=== PATIENT | male | born 1935 | race Caucasian/White ===

== ENCOUNTER 2016-12-25 20:27 | Emergency (ER) | payer MEDICARE, BC ==
[2016-12-25 20:57] LABS: INR-International Normal Ratio 2.2; PTT 35.6 SEC (22.9-36.1); Prothrombin Time 25.6 SEC (12.0-14.7)
[2016-12-25 21:08] LABS: CKMB 3.2 ng/mL (0-6.6); Troponin I Less than 0.010 ng/mL (< 0.028)
[2016-12-25 21:13] LABS: ALT (SGPT) 21 U/L (8-55); AST (SGOT) 23 U/L (5-34); Albumin 3.7 g/dL (3.4-4.8); Alkaline Phosphatase 56 U/L (40-150); Anion Gap 14 mmol/L (10-20); BUN (Urea Nitrogen) 17 mg/dL (8.4-25.7); Calc. Creatinine Clearance 0 mL/min (70-130); Carbon Dioxide 27 mmol/L (23-31); Chloride 104 mmol/L (98-107); Estimated GFR-MDRD 55; Globulin 3.3 g/dL (2.4-3.5); Glucose 160 mg/dL (83-110); Potassium 3.5 mmol/L (3.5-5.1); Sodium 141 mmol/L (136-145)
[2016-12-25 21:19] LABS: #Basophils 0.1 thou/uL (0.0-0.2); #Eosinphils 0.1 thou/uL (0.0-0.7); #Lymphocytes 1.8 thou/uL (1.20-3.40); #Monocytes 0.8 thou/uL (0.11-0.59); %Basophils 1.6 % (0.0-1.0); %Eosinophils 1.1 % (0.0-10.0); %Lymphocytes 26.4 % (21.0-51.0); %Monocytes 11.3 % (0.0-10.0); %Neutrophils 59.7 % (42.0-75.0); MDiff Complete? YES; Macrocytosis SLIGHT = 6-15 cells (100X) (0-5/hpf); Mean Corpuscular HGB CONC 35.6 g/dL (32.0-36.0); Mean Corpuscular Hemoglobin 34.8 pg (27.0-31.0); Mean Corpuscular Volume 97.6 fl (80.0-94.0); Mean Platelet Volume 10.6 fL (7.4-10.4); Platelet Count 120 thou/uL (130-400); RBC Distribution Width 12.3 % (11.5-14.5); White Blood Cell (WBC) Count 6.7 thou/uL (4.8-10.8)
[2016-12-25] MEDS ORDERED: Nitroglycerin 2% Ointment 1 INCH/1 GM Packet ONE (21:27)
--- NOTE | 2016-12-25 23:58 | RAD ---
PORTABLE CHEST 12/25/16 An AP portable film at 2050 is compared with a 01/10/15 study. Mild to moderate cardiomegaly is about the same as before. The vessels are slightly prominent such that mild congestion is possible. The r ight hilum is more prominent today than it was before. This may need further investigation to see if there is any pathology here. No large effusions are seen. No lobar infiltrates were present. The trachea is midline. IMPRESSION: 1. Cardiomegaly with possible slight congestive change. 2. Prominence of the right hilum. This probably desires an elective CT to be sure that there is no further pathology here. Code T POS: HOME
[2016-12-26 06:37] LABS: CK (CPK) 309 U/L (30-200)
== END 2016-12-25 21:54 | disposition short-term general hospital (02) ==
LOC: BURERS 20:27
DX: R07.2 Precordial pain (principal); I25.10 Atherosclerotic heart disease of native coronary artery without angina pectoris; I25.2 Old myocardial infarction; E11.9 Type 2 diabetes mellitus without complications; I48.91 Unspecified atrial fibrillation; Z79.4 Long term (current) use of insulin; Z79.891 Long term (current) use of opiate analgesic; Z79.899 Other long term (current) drug therapy
CPT/HCPCS: 71010; 80053; 82550; 82553; 84484; 85025; 85610; 85730; 93005; 94760

== ENCOUNTER 2017-01-28 12:54 | Outpatient (CLI) | payer MEDICARE, BC ==
--- NOTE | 2017-01-28 18:41 | ULT ---
ULTRASOUND OF THE SOFT TISSUES OF THE RIGHT GROIN 01/28/17 The patient is experiencing pain near the site of a prior cardiac cath which was done recently. Scan s around the right groin were performed. There was no evidence of abscess, hematoma, or aneurysm. Ve ssels were unremarkable in appearance. IMPRESSION: No obvious cause for the patient's right groin pain at this time. POS: HOME
== END 2017-01-28 12:55 | disposition home or self-care (01) ==
LOC: BURULT 12:54
PROVIDERS: ATTEND Family Medicine
DX: R10.31 Right lower quadrant pain (principal)
CPT/HCPCS: 76882

== ENCOUNTER 2017-02-27 15:18 | Emergency (ER) | payer MEDICARE, BC ==
[2017-02-27] MEDS ORDERED: AMOXicillin 250 MG CAP ONE (15:34)
== END 2017-02-27 15:27 | disposition home or self-care (01) ==
LOC: BURERS 15:18
DX: R68.84 Jaw pain (principal); I25.10 Atherosclerotic heart disease of native coronary artery without angina pectoris; E11.9 Type 2 diabetes mellitus without complications; I10 Essential (primary) hypertension; Z79.899 Other long term (current) drug therapy; Z79.4 Long term (current) use of insulin
CPT/HCPCS: 99283

== ENCOUNTER 2017-10-19 20:16 | Emergency (ER) | payer MEDICARE, BC ==
[2017-10-19 20:58] LABS: #Basophils 0.1 thou/uL (0.0-0.2); #Eosinphils 0.1 thou/uL (0.0-0.7); #Lymphocytes 1.6 thou/uL (1.20-3.40); #Monocytes 0.6 thou/uL (0.11-0.59); %Basophils 2.1 % (0.0-1.0); %Eosinophils 1.5 % (0.0-10.0); %Lymphocytes 29.9 % (21.0-51.0); %Monocytes 10.5 % (0.0-10.0); Hemoglobin 14.1 g/dL (14.0-18.0); Mean Corpuscular HGB CONC 33.7 g/dL (32.0-36.0); Mean Corpuscular Hemoglobin 33.1 pg (27.0-31.0); Mean Corpuscular Volume 98.3 fl (80.0-94.0); Mean Platelet Volume 11.2 fL (7.4-10.4); Platelet Count 119 thou/uL (130-400); RBC Distribution Width 12.6 % (11.5-14.5); Red Blood Cell (RBC) Count 4.27 mill/uL (4.70-6.10); White Blood Cell (WBC) Count 5.4 thou/uL (4.8-10.8)
[2017-10-19 20:59] LABS: ALT (SGPT) 17 U/L (8-55); AST (SGOT) 15 U/L (5-34); Albumin 3.7 g/dL (3.4-4.8); Alkaline Phosphatase 67 U/L (40-150); Anion Gap 12 mmol/L (10-20); Bilirubin, Total 0.4 mg/dL (0.2-1.2); CK (CPK) 121 U/L (30-200); Calc. Creatinine Clearance 0 mL/min (70-130); Calcium 9.6 mg/dL (7.8-10.44); Carbon Dioxide 28 mmol/L (23-31); Chloride 108 mmol/L (98-107); Estimated GFR-MDRD 73; Globulin 2.9 g/dL (2.4-3.5); Glucose 142 mg/dL (83-110); Potassium 4.2 mmol/L (3.5-5.1); Protein, Total 6.6 g/dL (5.8-8.1); Sodium 144 mmol/L (136-145)
[2017-10-19 21:00] LABS: MDiff Complete? YES
[2017-10-19 21:02] LABS: CKMB 1.8 ng/mL (0-6.6); Troponin I Less than 0.010 ng/mL (< 0.028)
[2017-10-19 21:03] LABS: BUN (Urea Nitrogen) 14 mg/dL (8.4-25.7)
[2017-10-19] MEDS ORDERED: Furosemide 40 MG/4 ML VIAL ONE (21:50)
--- NOTE | 2017-10-19 23:14 | RAD ---
PORTABLE CHEST: Date: 10-19-17 An AP portable film at 2033 is compared with a 12-29-[address] [facility]. FINDINGS: Mild cardiomegaly is about the same as before. The vessels seem slightly more prominent today in the upper lobes than previously. A little haziness near the right hemidiaphragm may be some atelectasis. There are no large effusions or large infiltrates. IMPRESSION: Cardiomegaly with suspicion of early vascular congestion. POS: HOME
== END 2017-10-19 21:59 | disposition short-term general hospital (02) ==
LOC: BURERS 20:16
DX: I11.0 Hypertensive heart disease with heart failure (principal); I50.9 Heart failure, unspecified; M79.622 Pain in left upper arm; M54.6 Pain in thoracic spine; M54.2 Cervicalgia; I25.2 Old myocardial infarction; I48.91 Unspecified atrial fibrillation; I25.10 Atherosclerotic heart disease of native coronary artery without angina pectoris; E11.9 Type 2 diabetes mellitus without complications; Z79.4 Long term (current) use of insulin; Z79.02 Long term (current) use of antithrombotics/antiplatelets; Z79.899 Other long term (current) drug therapy
CPT/HCPCS: 71045; 80053; 82550; 82553; 83880; 84484; 85025; 93005; 94760; 96374; J1940

== ENCOUNTER 2018-03-12 19:13 | Emergency (ER) | payer MEDICARE, BC ==
[~2018-03-12 19:13] MED LIST: Iopamidol 370 76% 100 ML VIAL ONE
[2018-03-12] MEDS ORDERED: Fentanyl 100 MCG/2 ML VIAL ONE ×2 (19:38→20:52)
[2018-03-12 19:50] LABS: #Lymphocytes 0.4 thou/uL (1.20-3.40); #Monocytes 0.1 thou/uL (0.11-0.59); #Neutrophils 7.4 thou/uL (1.40-6.50); %Basophils 0.5 % (0.0-1.0); %Eosinophils 0.3 % (0.0-10.0); %Lymphocytes 5.5 % (21.0-51.0); %Monocytes 1.4 % (0.0-10.0); %Neutrophils 92.4 % (42.0-75.0); Hemoglobin 15.3 g/dL (14.0-18.0); Mean Corpuscular HGB CONC 36.3 g/dL (32.0-36.0); Mean Corpuscular Hemoglobin 32.2 pg (27.0-31.0); Mean Corpuscular Volume 88.8 fL (78.0-98.0); Mean Platelet Volume 8.1 fL (7.4-10.4); Platelet Count 129 thou/uL (130-400); RBC Distribution Width 11.9 % (11.5-14.5); Red Blood Cell (RBC) Count 4.75 mill/uL (4.70-6.10)
[2018-03-12 19:54] LABS: PTT 29.7 SEC (22.9-36.1); Prothrombin Time 13.3 SEC (12.0-14.7)
[2018-03-12 20:02] LABS: ALT (SGPT) 42 U/L (8-55); AST (SGOT) 68 U/L (5-34); Albumin 4.2 g/dL (3.4-4.8); Alkaline Phosphatase 76 U/L (40-150); Anion Gap 17 mmol/L (10-20); BUN (Urea Nitrogen) 15 mg/dL (8.4-25.7); Bilirubin, Total 2.8 mg/dL (0.2-1.2); Calc. Creatinine Clearance 0 mL/min (70-130); Carbon Dioxide 27 mmol/L (23-31); Chloride 103 mmol/L (98-107); Estimated GFR-MDRD 58; Globulin 3.4 g/dL (2.4-3.5); Glucose 177 mg/dL (83-110); Lipase 78 U/L (8-78); Potassium 4.2 mmol/L (3.5-5.1); Protein, Total 7.6 g/dL (5.8-8.1); Sodium 143 mmol/L (136-145)
[2018-03-12 20:03] LABS: CKMB 1.4 ng/mL (0-6.6); Troponin I Less than 0.010 ng/mL (< 0.028)
[2018-03-12] MEDS ORDERED: Piperacillin/Tazobactam 3.375 GM VIAL ONE (20:43)
--- NOTE | 2018-03-12 21:51 | CT ---
CT ABDOMEN AND PELVIS WITH CONTRAST 03/12/18 Multiple axial tomograms obtained through the abdomen and pelvis with IV enhancement. INDICATIONS: Abdominal pain. Comparison made to CT abdomen and pelvis dated 12/01/17. FINDINGS: Lung bases show no evidence of infiltrate. Tiny nodular densities seen in both lung bases, stable fro m prior exam. The liver, and spleen unremarkable. The gallbladder is distended and there is pericholecystic edema. This is a new finding. Cholecystitis should be considered. Cholesterol gallstones will not be apparent by CT. The pancreas is unremarkable and atrophic. A large left renal cyst is stable from prior exam. There are other renal cystic lesions which are sta ble as well. Kidneys are otherwise unremarkable. Small bowel loops are normal caliber. Stool throughout the colon. urinary bladder unremarkable. There is a penile implant with a fluid filled reservoir in the anterior pelvis producing mass effect on th e bladder, stable from prior exam. A cystic mass in the subcutaneous tissues of the lower abdomen on the right has been previously descr ibed. This cystic mass is smaller today. There are inflammatory changes in the subcutaneous adipose t issue near this small cystic mass. IMPRESSION: 1. The gallbladder is distended and there is pericholecystic edema. Cholecystitis should be cons idered. 2. Other findings appears stable from the prior CT as discussed above. POS: KEILA
== END 2018-03-12 20:54 | disposition short-term general hospital (02) ==
LOC: BURERS 19:13
DX: K81.0 Acute cholecystitis (principal); E11.9 Type 2 diabetes mellitus without complications; I25.2 Old myocardial infarction; I11.0 Hypertensive heart disease with heart failure; I50.9 Heart failure, unspecified; I25.10 Atherosclerotic heart disease of native coronary artery without angina pectoris; I48.91 Unspecified atrial fibrillation; Z79.899 Other long term (current) drug therapy; Z79.891 Long term (current) use of opiate analgesic; Z79.84 Long term (current) use of oral hypoglycemic drugs
CPT/HCPCS: 74177; 80053; 82553; 83605; 83690; 84484; 85025; 85610; 85730; 93005; 96361; 96374; 96375; 96376; A4216; J2543; J3010

== ENCOUNTER 2018-03-19 09:08 | Inpatient (IN) | payer MEDICARE, BC ==
[2018-03-19] MEDS ORDERED: Dextrose 50% Abboject 50 ML SYRINGE SLOW IVP PRN (18:20)
[2018-03-19] MEDS ORDERED: Dextrose 5% in Water 1,000 ML IV PRN (18:20)
[2018-03-19] MEDS ORDERED: HumaLOG 300 UNITS/3 ML VIAL SC PRN ×2 (18:20)
[2018-03-19] MEDS: Atorvastatin Calcium 10 MG TAB PO SCH (20:52)
[2018-03-19] MEDS: Cyanocobalamin (Vitamin B-12) 1,000 MCG TAB PO SCH (20:52)
[2018-03-19] MEDS: metFORMIN 500 MG TAB PO SCH (20:52)
[2018-03-19] MEDS: Furosemide 40 MG TAB PO SCH (20:52)
[2018-03-19] MEDS: Gabapentin 300 MG CAP PO SCH (20:52)
[2018-03-19] MEDS: Loperamide HCl 2 MG CAP PO SCH (20:52)
[2018-03-19] MEDS: traMADol HCl 50 MG TAB PO PRN (20:52)
[2018-03-19] MEDS: Amiodarone 200 MG TAB PO SCH (20:53)
[2018-03-19] MEDS: Potassium Chloride 20 MEQ TAB PO SCH (20:53)
[2018-03-19] MEDS: PROBENECID PO SCH (20:54)
[2018-03-19] MEDS: COLCHICINE PO SCH (20:54)
[2018-03-20] MEDS: Loperamide HCl 2 MG CAP PO SCH ×2 (09:32→21:14)
[2018-03-20] MEDS: Clopidogrel Bisulfate 75 MG TAB PO SCH (09:33)
[2018-03-20] MEDS: Amiodarone 200 MG TAB PO SCH ×2 (09:36→21:15)
[2018-03-20] MEDS: Lisinopril 10 MG TAB PO SCH (09:37)
[2018-03-20] MEDS: PROBENECID PO SCH ×3 (09:39→21:15)
[2018-03-20] MEDS: COLCHICINE PO SCH ×3 (09:39→21:15)
[2018-03-20] MEDS: traMADol HCl 50 MG TAB PO PRN (16:52)
[2018-03-20] MEDS: Potassium Chloride 20 MEQ TAB PO SCH (21:14)
[2018-03-20] MEDS: metFORMIN 500 MG TAB PO SCH (21:14)
[2018-03-20] MEDS: Gabapentin 300 MG CAP PO SCH (21:14)
[2018-03-20] MEDS: Atorvastatin Calcium 10 MG TAB PO SCH (21:14)
[2018-03-20] MEDS: Cyanocobalamin (Vitamin B-12) 1,000 MCG TAB PO SCH (21:15)
[2018-03-20] MEDS: Furosemide 40 MG TAB PO SCH (21:15)
[2018-03-21] MEDS: Lisinopril 10 MG TAB PO SCH (08:57)
[2018-03-21] MEDS: Amiodarone 200 MG TAB PO SCH ×2 (08:57→20:33)
[2018-03-21] MEDS: Loperamide HCl 2 MG CAP PO SCH ×2 (08:57→20:32)
[2018-03-21] MEDS: Clopidogrel Bisulfate 75 MG TAB PO SCH (08:57)
[2018-03-21] MEDS: PROBENECID PO SCH ×2 (09:00→20:32)
[2018-03-21] MEDS: COLCHICINE PO SCH ×2 (09:00→20:32)
[2018-03-21] MEDS: Furosemide 40 MG TAB PO SCH (20:32)
[2018-03-21] MEDS: Gabapentin 300 MG CAP PO SCH (20:32)
[2018-03-21] MEDS: Potassium Chloride 20 MEQ TAB PO SCH (20:33)
[2018-03-21] MEDS: Cyanocobalamin (Vitamin B-12) 1,000 MCG TAB PO SCH (20:33)
[2018-03-21] MEDS: metFORMIN 500 MG TAB PO SCH (20:33)
[2018-03-21] MEDS: Atorvastatin Calcium 10 MG TAB PO SCH (20:33)
[2018-03-22 05:09] LABS: ALT (SGPT) 49 U/L (8-55); AST (SGOT) 33 U/L (5-34); Albumin 2.8 g/dL (3.4-4.8); Alkaline Phosphatase 87 U/L (40-150); Anion Gap 14 mmol/L (10-20); BUN (Urea Nitrogen) 10 mg/dL (8.4-25.7); Bilirubin, Total 1.1 mg/dL (0.2-1.2); Calc. Creatinine Clearance 89 mL/min (70-130); Calcium 8.5 mg/dL (7.8-10.44); Carbon Dioxide 23 mmol/L (23-31); Chloride 105 mmol/L (98-107); Estimated GFR-MDRD 81; Glucose 108 mg/dL (83-110); Potassium 4.1 mmol/L (3.5-5.1); Protein, Total 5.8 g/dL (5.8-8.1); Sodium 138 mmol/L (136-145)
[2018-03-22 05:18] LABS: #Basophils 0.1 thou/uL (0.0-0.2); #Eosinphils 0.2 thou/uL (0.0-0.7); #Lymphocytes 1.7 thou/uL (1.20-3.40); #Monocytes 0.9 thou/uL (0.11-0.59); #Neutrophils 4.7 thou/uL (1.40-6.50); %Basophils 1.8 % (0.0-1.0); %Eosinophils 2.1 % (0.0-10.0); %Monocytes 11.9 % (0.0-10.0); %Neutrophils 62.2 % (42.0-75.0); Hemoglobin 9.8 g/dL (14.0-18.0); Mean Corpuscular HGB CONC 36.3 g/dL (32.0-36.0); Mean Corpuscular Hemoglobin 31.2 pg (27.0-31.0); Mean Corpuscular Volume 85.9 fL (78.0-98.0); Platelet Count 200 thou/uL (130-400); RBC Distribution Width 14.4 % (11.5-14.5); Red Blood Cell (RBC) Count 3.13 mill/uL (4.70-6.10); White Blood Cell (WBC) Count 7.6 thou/uL (4.8-10.8)
[2018-03-22] MEDS: Clopidogrel Bisulfate 75 MG TAB PO SCH (08:18)
[2018-03-22] MEDS: Amiodarone 200 MG TAB PO SCH ×2 (08:18→21:31)
[2018-03-22] MEDS: Loperamide HCl 2 MG CAP PO SCH ×2 (08:19→21:33)
[2018-03-22] MEDS: Lisinopril 10 MG TAB PO SCH (08:22)
[2018-03-22] MEDS: PROBENECID PO SCH ×2 (08:25→21:38)
[2018-03-22] MEDS: COLCHICINE PO SCH ×2 (08:25→21:38)
[2018-03-22] MEDS: Atorvastatin Calcium 10 MG TAB PO SCH (21:28)
[2018-03-22] MEDS: Furosemide 40 MG TAB PO SCH (21:28)
[2018-03-22] MEDS: Gabapentin 300 MG CAP PO SCH (21:29)
[2018-03-22] MEDS: Potassium Chloride 20 MEQ TAB PO SCH (21:30)
[2018-03-22] MEDS: Cyanocobalamin (Vitamin B-12) 1,000 MCG TAB PO SCH (21:31)
[2018-03-22] MEDS: metFORMIN 500 MG TAB PO SCH (21:32)
[2018-03-23] MEDS: Loperamide HCl 2 MG CAP PO SCH ×2 (09:42→21:26)
[2018-03-23] MEDS: Clopidogrel Bisulfate 75 MG TAB PO SCH (09:43)
[2018-03-23] MEDS: Lisinopril 10 MG TAB PO SCH (09:43)
[2018-03-23] MEDS: Amiodarone 200 MG TAB PO SCH ×2 (09:43→21:24)
[2018-03-23] MEDS: COLCHICINE PO SCH ×2 (09:44→21:25)
[2018-03-23] MEDS: PROBENECID PO SCH ×2 (09:44→21:25)
[2018-03-23] MEDS: traMADol HCl 50 MG TAB PO PRN ×2 (10:50→17:10)
[2018-03-23] MEDS: Gabapentin 300 MG CAP PO SCH (21:22)
[2018-03-23] MEDS: Cyanocobalamin (Vitamin B-12) 1,000 MCG TAB PO SCH (21:23)
[2018-03-23] MEDS: Potassium Chloride 20 MEQ TAB PO SCH (21:23)
[2018-03-23] MEDS: Furosemide 40 MG TAB PO SCH (21:24)
[2018-03-23] MEDS: metFORMIN 500 MG TAB PO SCH (21:24)
[2018-03-23] MEDS: Atorvastatin Calcium 10 MG TAB PO SCH (21:25)
[2018-03-24] MEDS: traMADol HCl 50 MG TAB PO PRN (00:24)
[2018-03-24] MEDS: Clopidogrel Bisulfate 75 MG TAB PO SCH (09:10)
[2018-03-24] MEDS: Amiodarone 200 MG TAB PO SCH ×2 (09:10→20:56)
[2018-03-24] MEDS: PROBENECID PO SCH ×2 (09:11→20:49)
[2018-03-24] MEDS: COLCHICINE PO SCH ×2 (09:11→20:49)
[2018-03-24] MEDS: Loperamide HCl 2 MG CAP PO SCH ×2 (09:11→20:48)
[2018-03-24] MEDS: Lisinopril 10 MG TAB PO SCH (09:13)
[2018-03-24] MEDS: Cyanocobalamin (Vitamin B-12) 1,000 MCG TAB PO SCH (20:48)
[2018-03-24] MEDS: Atorvastatin Calcium 10 MG TAB PO SCH (20:48)
[2018-03-24] MEDS: Furosemide 40 MG TAB PO SCH (20:48)
[2018-03-24] MEDS: Gabapentin 300 MG CAP PO SCH (20:48)
[2018-03-24] MEDS: metFORMIN 500 MG TAB PO SCH (20:49)
[2018-03-24] MEDS: Potassium Chloride 20 MEQ TAB PO SCH (20:49)
[2018-03-25] MEDS ORDERED: Lisinopril 10 MG TAB PO SCH (09:00)
[2018-03-25] MEDS: Clopidogrel Bisulfate 75 MG TAB PO SCH (09:19)
[2018-03-25] MEDS: Loperamide HCl 2 MG CAP PO SCH ×2 (09:19→21:30)
[2018-03-25] MEDS: Amiodarone 200 MG TAB PO SCH ×2 (09:19→21:29)
[2018-03-25] MEDS: Lisinopril 5 MG TAB PO SCH (09:28)
[2018-03-25] MEDS: PROBENECID PO SCH ×2 (09:30→21:34)
[2018-03-25] MEDS: COLCHICINE PO SCH ×2 (09:30→21:34)
[2018-03-25] MEDS: Furosemide 40 MG TAB PO SCH (21:28)
[2018-03-25] MEDS: metFORMIN 500 MG TAB PO SCH (21:29)
[2018-03-25] MEDS: Gabapentin 300 MG CAP PO SCH (21:29)
[2018-03-25] MEDS: Potassium Chloride 20 MEQ TAB PO SCH (21:30)
[2018-03-25] MEDS: Cyanocobalamin (Vitamin B-12) 1,000 MCG TAB PO SCH (21:30)
[2018-03-25] MEDS: Atorvastatin Calcium 10 MG TAB PO SCH (21:30)
[2018-03-26] MEDS: Lisinopril 5 MG TAB PO SCH (09:49)
[2018-03-26] MEDS: Loperamide HCl 2 MG CAP PO SCH ×2 (09:50→21:21)
[2018-03-26] MEDS: Clopidogrel Bisulfate 75 MG TAB PO SCH (09:50)
[2018-03-26] MEDS: COLCHICINE PO SCH ×2 (09:51→21:20)
[2018-03-26] MEDS: Amiodarone 200 MG TAB PO SCH ×2 (09:51→21:22)
[2018-03-26] MEDS: PROBENECID PO SCH ×2 (09:51→21:20)
[2018-03-26] MEDS: Gabapentin 300 MG CAP PO SCH (21:20)
[2018-03-26] MEDS: Furosemide 40 MG TAB PO SCH (21:20)
[2018-03-26] MEDS: Atorvastatin Calcium 10 MG TAB PO SCH (21:21)
[2018-03-26] MEDS: Cyanocobalamin (Vitamin B-12) 1,000 MCG TAB PO SCH (21:21)
[2018-03-26] MEDS: metFORMIN 500 MG TAB PO SCH (21:21)
[2018-03-26] MEDS: Potassium Chloride 20 MEQ TAB PO SCH (21:21)
[2018-03-27] MEDS: Amiodarone 200 MG TAB PO SCH ×2 (09:03→21:23)
[2018-03-27] MEDS: Lisinopril 5 MG TAB PO SCH (09:03)
[2018-03-27] MEDS: Clopidogrel Bisulfate 75 MG TAB PO SCH (09:05)
[2018-03-27] MEDS: Loperamide HCl 2 MG CAP PO SCH ×2 (09:05→21:23)
[2018-03-27] MEDS: PROBENECID PO SCH ×2 (09:07→21:21)
[2018-03-27] MEDS: COLCHICINE PO SCH ×2 (09:07→21:21)
[2018-03-27] MEDS ORDERED: Oxymetazoline HCl 0.05% ( 15 ML ) ONE (10:51)
[2018-03-27] MEDS: Oxymetazoline HCl 0.05% ( 15 ML ) NASAL PRN (10:56)
[2018-03-27] MEDS: Gabapentin 300 MG CAP PO SCH (21:21)
[2018-03-27] MEDS: Cyanocobalamin (Vitamin B-12) 1,000 MCG TAB PO SCH (21:22)
[2018-03-27] MEDS: Potassium Chloride 20 MEQ TAB PO SCH (21:22)
[2018-03-27] MEDS: metFORMIN 500 MG TAB PO SCH (21:22)
[2018-03-27] MEDS: Furosemide 40 MG TAB PO SCH (21:22)
[2018-03-27] MEDS: Atorvastatin Calcium 10 MG TAB PO SCH (21:22)
[2018-03-28] MEDS: Amiodarone 200 MG TAB PO SCH ×2 (08:42→20:44)
[2018-03-28] MEDS: Lisinopril 5 MG TAB PO SCH (08:42)
[2018-03-28] MEDS: Loperamide HCl 2 MG CAP PO SCH ×2 (08:42→20:45)
[2018-03-28] MEDS: Clopidogrel Bisulfate 75 MG TAB PO SCH (08:43)
[2018-03-28] MEDS: COLCHICINE PO SCH ×2 (08:44→21:23)
[2018-03-28] MEDS: PROBENECID PO SCH ×2 (08:44→21:23)
[2018-03-28] MEDS: Oxymetazoline HCl 0.05% ( 15 ML ) NASAL PRN (08:44)
[2018-03-28] MEDS: Gabapentin 300 MG CAP PO SCH (20:42)
[2018-03-28] MEDS: Furosemide 40 MG TAB PO SCH (20:43)
[2018-03-28] MEDS: Cyanocobalamin (Vitamin B-12) 1,000 MCG TAB PO SCH (20:44)
[2018-03-28] MEDS: metFORMIN 500 MG TAB PO SCH (20:45)
[2018-03-28] MEDS: Atorvastatin Calcium 10 MG TAB PO SCH (20:45)
[2018-03-28] MEDS: Potassium Chloride 20 MEQ TAB PO SCH (20:46)
[2018-03-29 06:00] VITALS: BMI 27.1
[2018-03-29] MEDS: Amiodarone 200 MG TAB PO SCH ×2 (08:45→22:12)
[2018-03-29] MEDS: Lisinopril 5 MG TAB PO SCH (08:45)
[2018-03-29] MEDS: Clopidogrel Bisulfate 75 MG TAB PO SCH (08:46)
[2018-03-29] MEDS: Loperamide HCl 2 MG CAP PO SCH ×2 (08:46→22:10)
[2018-03-29] MEDS: COLCHICINE PO SCH ×2 (08:49→22:12)
[2018-03-29] MEDS: PROBENECID PO SCH ×2 (08:49→22:12)
[2018-03-29 11:04] VITALS: TEMP 97.8
[2018-03-29] MEDS: Potassium Chloride 20 MEQ TAB PO SCH (22:11)
[2018-03-29] MEDS: Gabapentin 300 MG CAP PO SCH (22:12)
[2018-03-29] MEDS: Furosemide 40 MG TAB PO SCH (22:13)
[2018-03-29] MEDS: Atorvastatin Calcium 10 MG TAB PO SCH (22:13)
[2018-03-29] MEDS: metFORMIN 500 MG TAB PO SCH (22:14)
[2018-03-29] MEDS: Cyanocobalamin (Vitamin B-12) 1,000 MCG TAB PO SCH (22:14)
[2018-03-30] MEDS: Amiodarone 200 MG TAB PO SCH (08:31)
[2018-03-30] MEDS: Clopidogrel Bisulfate 75 MG TAB PO SCH (08:31)
[2018-03-30] MEDS: Loperamide HCl 2 MG CAP PO SCH (08:34)
[2018-03-30] MEDS: PROBENECID PO SCH (08:39)
[2018-03-30] MEDS: COLCHICINE PO SCH (08:39)
[2018-03-30] MEDS: Lisinopril 5 MG TAB PO SCH (08:40)
[2018-03-30 08:42] VITALS: BP 107/58
== END 2018-03-30 12:39 | disposition home or self-care (01) | DRG 948 ==
LOC: BURMED 16:05
PROVIDERS: ADMIT Family Medicine; ATTEND Family Medicine
DX: R53.1 Weakness (principal); K81.0 Acute cholecystitis; D62 Acute posthemorrhagic anemia; I48.92 Unspecified atrial flutter; I50.22 Chronic systolic (congestive) heart failure; I25.10 Atherosclerotic heart disease of native coronary artery without angina pectoris; Z95.1 Presence of aortocoronary bypass graft; E11.9 Type 2 diabetes mellitus without complications; Z85.46 Personal history of malignant neoplasm of prostate; M10.9 Gout, unspecified; I48.0 Paroxysmal atrial fibrillation; I25.2 Old myocardial infarction; E78.5 Hyperlipidemia, unspecified; Z90.49 Acquired absence of other specified parts of digestive tract; D69.6 Thrombocytopenia, unspecified; I11.0 Hypertensive heart disease with heart failure
CPT/HCPCS: 36415; 36416; 80053; 85025; G8978-GP-CM; G8979-GP-CJ; G8987-GO-CI; G8988-GO-CI; J7620

== ENCOUNTER 2018-10-17 20:51 | Emergency (ER) | payer MEDICARE, BC ==
[2018-10-17] MEDS ORDERED: diphenhydrAMINE 25 MG CAP ONE (21:50)
[2018-10-17] MEDS ORDERED: Metoclopramide HCl 10 MG/2 ML VIAL ONE ×2 (21:50→21:51)
[2018-10-17 22:02] LABS: #Basophils 0.1 thou/uL (0.0-0.2); #Eosinphils 0.1 thou/uL (0.0-0.7); #Lymphocytes 1.3 thou/uL (1.20-3.40); #Monocytes 0.8 thou/uL (0.11-0.59); #Neutrophils 6.1 thou/uL (1.40-6.50); %Basophils 1.4 % (0.0-1.0); %Eosinophils 0.6 % (0.0-10.0); %Lymphocytes 15.8 % (21.0-51.0); %Monocytes 9.3 % (0.0-10.0); %Neutrophils 72.9 % (42.0-75.0); Hemoglobin 13.3 g/dL (14.0-18.0); Mean Corpuscular HGB CONC 34.6 g/dL (32.0-36.0); Mean Corpuscular Hemoglobin 33.2 pg (27.0-31.0); Mean Corpuscular Volume 95.9 fL (78.0-98.0); Mean Platelet Volume 9.5 fL (7.4-10.4); Platelet Count 161 thou/uL (130-400); RBC Distribution Width 14.1 % (11.5-14.5); Red Blood Cell (RBC) Count 4.02 mill/uL (4.70-6.10); White Blood Cell (WBC) Count 8.4 thou/uL (4.8-10.8)
[2018-10-17 22:15] LABS: ALT (SGPT) 93 U/L (8-55); AST (SGOT) 86 U/L (5-34); Albumin 3.4 g/dL (3.4-4.8); Alkaline Phosphatase 356 U/L (40-150); Anion Gap 13 mmol/L (10-20); BUN (Urea Nitrogen) 18 mg/dL (8.4-25.7); Bilirubin, Total 0.7 mg/dL (0.2-1.2); Calc. Creatinine Clearance 0 mL/min (70-130); Calcium 9.2 mg/dL (7.8-10.44); Carbon Dioxide 33 mmol/L (23-31); Chloride 96 mmol/L (98-107); Estimated GFR-MDRD 48; Globulin 3.4 g/dL (2.4-3.5); Glucose 141 mg/dL (83-110); Protein, Total 6.8 g/dL (5.8-8.1); Sodium 139 mmol/L (136-145)
[2018-10-17 22:29] LABS: Potassium 2.9 mmol/L (3.5-5.1)
== END 2018-10-17 22:37 | disposition home or self-care (01) ==
LOC: BURERS 20:51
DX: R06.6 Hiccough (principal); I25.10 Atherosclerotic heart disease of native coronary artery without angina pectoris; I25.2 Old myocardial infarction; E11.9 Type 2 diabetes mellitus without complications; I11.0 Hypertensive heart disease with heart failure; I50.9 Heart failure, unspecified; Z79.899 Other long term (current) drug therapy; Z79.84 Long term (current) use of oral hypoglycemic drugs; Z79.891 Long term (current) use of opiate analgesic
CPT/HCPCS: 36415; 80053; 84484; 85025; 85379; 93005; 96374; J2765; Q0163

== ENCOUNTER 2018-10-18 17:39 | Outpatient (CLI) | payer MEDICARE, BC ==
--- NOTE | 2018-10-18 22:25 | CT ---
CT CHEST WITHOUT CONTRAST: Date: 10-18-18 Technique: Spiral CT of the chest was done without IV contrast. Axial slices were acquired followed b y coronal and sagittal reconstruction. Comparison: 06-12-18 CT abdomen and pelvis that showed some of the lower chest. FINDINGS: CT of the thorax portion of this exam showed no sign of mediastinal mass or significant adenopathy wi thin the limitations of a noncontrast study. There appears to be a stent in the left common carotid a rtery. Regarding the lungs, there is a patchy ground glass density in the superior portion of the rig ht lower lobe. There are also some areas of scarring in the lung bases. Looking back to the prior sca ns, my suspicion is that this is residual from prior infection. Changes here seem less now than they were on some of the older scans. There are no effusions. There may be a 2 mm nodule in the anterior p art of the right middle lobe, but even if real, I doubt its current significance. There is a small hiatal hernia. There is no significant distention of the stomach or proximal small b owel. A few loose proximal bowel are minimally thickened which is a nonspecific finding and may or ma y not be significant. The liver is normal in size and contains no space occupying lesion. There is ai r in the entire extent of the common bile duct that also extends into some of the left intrahepatic d ucts. I understand the patient has had a prior sphincterotomy which would explain this finding. There are no structural changes in the liver to explain issues with liver function. The spleen is normal i n size. The pancreas is atrophic with no gross mass. The right kidney was unremarkable within the wynne itations of the noncontrast study. There is a very large bilobed cyst associated with the left kidney which was present on older exam. One of the lobes is approximately 6 cm in diameter and the other is approximately 5 cm. There is no true hydronephrosis here. The abdominal aorta showed no focal aneury sm. IMPRESSION: 1. No acute thoracic changes. Findings in the right base are most likely chronic. 2. Small hiatal hernia. 3. Minimal thickening of a few loops of small bowel that was nonspecific. 4. Air in the common bile duct and left biliary tree that is almost certainly due to the prior sphinc terotomy. 5. Bilobed left renal cyst, present on prior scans. POS: HOME
== END 2018-10-18 17:40 | disposition home or self-care (01) ==
LOC: BURCT 17:39
PROVIDERS: ATTEND Family Medicine
DX: R06.6 Hiccough (principal); K44.9 Diaphragmatic hernia without obstruction or gangrene; N28.1 Cyst of kidney, acquired; K63.89 Other specified diseases of intestine; Z98.890 Other specified postprocedural states
CPT/HCPCS: 71250

== ENCOUNTER 2018-12-23 18:38 | Emergency (ER) | payer MEDICARE, BC ==
--- NOTE | 2018-12-23 19:23 | RAD ---
LEFT ELBOW TWO VIEWS: 12/23/18 There has been a prior resection of the radial head. No acute fracture was identified. There does scotty ear to be a small amount of joint fluid. IMPRESSION: Joint fluid, but no acute fracture seen. POS: HOME
--- NOTE | 2018-12-23 19:24 | RAD ---
LEFT SHOULDER TWO VIEWS: 12/23/18 No fracture or dislocation was seen. Arthritic changes are noted in the AC joint. It is not widened o r offset. IMPRESSION: No acute findings. POS: HOME
--- NOTE | 2018-12-23 19:25 | RAD ---
PORTABLE CHEST 12/23/18 An AP portable film at 1850 is compared with a 03/14/18 study. Mild cardiomegaly is no different than before. There is no vascular congestion, edema, or pleural eff usion. Mild elevation of the right hemidiaphragm is chronic. There is no focal infiltrate. A stent is noted in the left common carotid artery. IMPRESSION: No acute thoracic findings. POS: HOME
== END 2018-12-23 19:58 | disposition home or self-care (01) ==
LOC: BURERS 18:38
DX: S43.402A Unspecified sprain of left shoulder joint, initial encounter (principal); S50.02XA Contusion of left elbow, initial encounter; I48.91 Unspecified atrial fibrillation; I25.10 Atherosclerotic heart disease of native coronary artery without angina pectoris; I11.0 Hypertensive heart disease with heart failure; I50.9 Heart failure, unspecified; E11.9 Type 2 diabetes mellitus without complications; Z79.01 Long term (current) use of anticoagulants; Z79.899 Other long term (current) drug therapy; Z79.891 Long term (current) use of opiate analgesic; Z79.84 Long term (current) use of oral hypoglycemic drugs; W17.89XA Other fall from one level to another, initial encounter
CPT/HCPCS: 71045

== ENCOUNTER 2019-01-03 22:32 | Emergency (ER) | payer MEDICARE, BC | END 2019-01-03 23:00 | disposition home or self-care (01) | LOC: BURERS 22:32 | DX: S51.801A Unspecified open wound of right forearm, initial encounter (principal); I48.91 Unspecified atrial fibrillation; I25.10 Atherosclerotic heart disease of native coronary artery without angina pectoris; I25.2 Old myocardial infarction; E11.9 Type 2 diabetes mellitus without complications; I11.0 Hypertensive heart disease with heart failure; I50.9 Heart failure, unspecified; Z79.899 Other long term (current) drug therapy; Z79.84 Long term (current) use of oral hypoglycemic drugs; W19.XXXA Unspecified fall, initial encounter | CPT/HCPCS: 99282 ==

== ENCOUNTER 2019-01-04 11:05 | Emergency (ER) | payer MEDICARE, BC ==
--- NOTE | 2019-01-04 17:32 | CT ---
CT OF THE BRAIN WITHOUT CONTRAST: 01/04/[address] was done after a fall. No intracranial bleeding or extra-axial hematoma was seen. Th ere is no sign of mass, edema, or acute stroke. There are a few patchy hypolucencies in the deep whit e matter suggestive of chronic white matter ischemia. There is a moderate degree of atrophy with mild compensatory dilatation of the ventricles. There may have been an old lacunar infarct in the right thalamus. IMPRESSION: 1. Atrophy and chronic ischemic changes but no acute traumatic findings. 2. The skull appears intact. The sphenoid sinus and mastoid air cells are clear. POS: HOME
== END 2019-01-04 12:01 | disposition home or self-care (01) ==
LOC: BURERS 11:05
DX: S51.012A Laceration without foreign body of left elbow, initial encounter (principal); S80.212A Abrasion, left knee, initial encounter; I25.2 Old myocardial infarction; E11.9 Type 2 diabetes mellitus without complications; I25.10 Atherosclerotic heart disease of native coronary artery without angina pectoris; I11.0 Hypertensive heart disease with heart failure; I50.9 Heart failure, unspecified; Z79.899 Other long term (current) drug therapy; Z79.891 Long term (current) use of opiate analgesic; Z79.84 Long term (current) use of oral hypoglycemic drugs; W19.XXXA Unspecified fall, initial encounter; Y92.511 Restaurant or cafe as the place of occurrence of the external cause
CPT/HCPCS: 12002; 70450

== ENCOUNTER 2019-01-18 14:09 | Emergency (ER) | payer MEDICARE, BC | END 2019-01-18 15:02 | disposition home or self-care (01) | LOC: BURERS 14:09 | DX: E03.9 Hypothyroidism, unspecified (principal); R63.5 Abnormal weight gain; I48.91 Unspecified atrial fibrillation; I25.10 Atherosclerotic heart disease of native coronary artery without angina pectoris; I25.2 Old myocardial infarction; E11.9 Type 2 diabetes mellitus without complications; I11.0 Hypertensive heart disease with heart failure; I50.9 Heart failure, unspecified; Z79.899 Other long term (current) drug therapy; Z79.84 Long term (current) use of oral hypoglycemic drugs | CPT/HCPCS: 99283 ==

== ENCOUNTER 2019-01-31 16:41 | Outpatient (CLI) | payer MEDICARE, BC | END 2019-01-31 16:42 | disposition home or self-care (01) | LOC: BUREKG 16:41 | PROVIDERS: ATTEND Family Medicine | DX: I50.20 Unspecified systolic (congestive) heart failure (principal) | CPT/HCPCS: 93005; 93010 ==

== ENCOUNTER 2019-07-08 19:34 | Inpatient (IN) | payer MEDICARE, BC ==
[2019-07-09] MEDS ORDERED: FLU VACC TS2019-20(65YR UP)/PF 180 MCG/0.5 ML SYRINGE IM ONE (09:00)
[2019-07-09] MEDS ORDERED: Prevnar 13-Val Conj/PF 0.5 ML SYRINGE IM ONE (09:00)
[2019-07-09] MEDS ORDERED: SMX/TMP 800-160mg/20 ML UDCUP ONE ×2 (09:52→20:42)
[2019-07-09] MEDS: SMX/TMP 800-160mg/20 ML UDCUP PER TUBE SCH ×2 (10:14→20:44)
[2019-07-09] MEDS: Furosemide 40 MG TAB PER TUBE SCH (10:15)
[2019-07-09] MEDS: Megestrol Acetate 40 MG TAB PER TUBE SCH ×2 (10:16→20:38)
[2019-07-09] MEDS: Saccharomyces boulardii 250 MG CAP PER TUBE SCH (10:16)
[2019-07-09] MEDS: Clopidogrel Bisulfate 75 MG TAB PER TUBE SCH (10:16)
[2019-07-09] MEDS: Colchicine 0.6 MG TAB PER TUBE SCH ×2 (10:16→20:38)
[2019-07-09] MEDS: Amiodarone 200 MG TAB PER TUBE SCH (10:16)
[2019-07-09] MEDS ORDERED: Dextrose 50% Abboject 50 ML SYRINGE SLOW IVP PRN (20:13)
[2019-07-09] MEDS ORDERED: Dextrose 5% in Water 1,000 ML IV PRN (20:13)
[2019-07-09] MEDS: Atorvastatin Calcium 10 MG TAB PER TUBE SCH (20:38)
[2019-07-09] MEDS: metFORMIN 500 MG TAB PER TUBE SCH (20:38)
[2019-07-10] MEDS: Levothyroxine Sodium 50 MCG TAB PER TUBE SCH (05:46)
[2019-07-10] MEDS ORDERED: SMX/TMP 800-160mg/20 ML UDCUP ONE ×2 (09:00→20:28)
[2019-07-10] MEDS: Clopidogrel Bisulfate 75 MG TAB PER TUBE SCH (09:48)
[2019-07-10] MEDS: Colchicine 0.6 MG TAB PER TUBE SCH ×2 (09:48→20:48)
[2019-07-10] MEDS: Furosemide 40 MG TAB PER TUBE SCH (09:48)
[2019-07-10] MEDS: Saccharomyces boulardii 250 MG CAP PER TUBE SCH (09:48)
[2019-07-10] MEDS: Megestrol Acetate 40 MG TAB PER TUBE SCH ×2 (09:49→20:49)
[2019-07-10] MEDS: Amiodarone 200 MG TAB PER TUBE SCH (09:49)
[2019-07-10] MEDS: Metoclopramide HCl 10 MG TAB PER TUBE PRN (09:50)
[2019-07-10] MEDS: SMX/TMP 800-160mg/20 ML UDCUP PER TUBE SCH ×2 (09:50→20:52)
[2019-07-10] MEDS: Bisacodyl 10 MG SUPP PR PRN (17:05)
[2019-07-10] MEDS ORDERED: Ciprofloxacin Lactate/D5W 400 mg/200 ml Premix ONE (20:24)
[2019-07-10] MEDS: Atorvastatin Calcium 10 MG TAB PER TUBE SCH (20:49)
[2019-07-10] MEDS: metFORMIN 500 MG TAB PER TUBE SCH (20:49)
[2019-07-11 04:50] LABS: #Basophils 0.2 thou/uL (0.0-0.2); #Lymphocytes 1.6 thou/uL (1.20-3.40); #Monocytes 1.4 thou/uL (0.11-0.59); %Basophils 1.4 % (0.0-1.0); %Eosinophils 0.3 % (0.0-10.0); %Lymphocytes 12.8 % (21.0-51.0); %Monocytes 11.4 % (0.0-10.0); %Neutrophils 74.1 % (42.0-75.0); Hemoglobin 11.1 g/dL (14.0-18.0); Mean Corpuscular HGB CONC 32.4 g/dL (32.0-36.0); Mean Platelet Volume 7.6 fL (7.4-10.4); Platelet Count 155 thou/uL (130-400); RBC Distribution Width 15.8 % (11.5-14.5); Red Blood Cell (RBC) Count 3.37 mill/uL (4.70-6.10); White Blood Cell (WBC) Count 12.1 thou/uL (4.8-10.8)
[2019-07-11 05:17] LABS: ALT (SGPT) 64 U/L (8-55); AST (SGOT) 94 U/L (5-34); Albumin 2.3 g/dL (3.4-4.8); Alkaline Phosphatase 623 U/L (40-110); Anion Gap 14 mmol/L (10-20); BUN (Urea Nitrogen) 17 mg/dL (8.4-25.7); Bilirubin, Total 0.7 mg/dL (0.2-1.2); Calc. Creatinine Clearance 82 mL/min (70-130); Calcium 8.4 mg/dL (7.8-10.44); Carbon Dioxide 27 mmol/L (23-31); Chloride 100 mmol/L (98-107); Estimated GFR-MDRD Greater than 90; Globulin 4.1 g/dL (2.4-3.5); Glucose 99 mg/dL (83-110); Potassium 4.3 mmol/L (3.5-5.1); Protein, Total 6.4 g/dL (5.8-8.1); Sodium 137 mmol/L (136-145)
[2019-07-11] MEDS: Levothyroxine Sodium 50 MCG TAB PER TUBE SCH (06:25)
[2019-07-11] MEDS: Metoclopramide HCl 10 MG TAB PER TUBE PRN (07:37)
[2019-07-11] MEDS ORDERED: SMX/TMP 800-160mg/20 ML UDCUP ONE ×2 (09:13→20:10)
[2019-07-11] MEDS: SMX/TMP 800-160mg/20 ML UDCUP PER TUBE SCH ×2 (10:02→20:44)
[2019-07-11] MEDS: Furosemide 40 MG TAB PER TUBE SCH (10:03)
[2019-07-11] MEDS: Megestrol Acetate 40 MG TAB PER TUBE SCH ×2 (10:05→20:43)
[2019-07-11] MEDS: Clopidogrel Bisulfate 75 MG TAB PER TUBE SCH (10:05)
[2019-07-11] MEDS: Amiodarone 200 MG TAB PER TUBE SCH (10:05)
[2019-07-11] MEDS: Colchicine 0.6 MG TAB PER TUBE SCH ×2 (10:06→20:43)
[2019-07-11] MEDS: Saccharomyces boulardii 250 MG CAP PER TUBE SCH (10:06)
[2019-07-11] MEDS ORDERED: Ondansetron ODT 4 MG TAB PO PRN (15:22)
[2019-07-11] MEDS: Bisacodyl 10 MG SUPP PR PRN (17:04)
[2019-07-11] MEDS ORDERED: Sodium Chloride 0.9% 500 ML IV SCH (17:30)
[2019-07-11] MEDS: metFORMIN 500 MG TAB PER TUBE SCH (20:43)
[2019-07-11] MEDS: Atorvastatin Calcium 10 MG TAB PER TUBE SCH (20:43)
[2019-07-12] MEDS: Levothyroxine Sodium 50 MCG TAB PER TUBE SCH (05:23)
[2019-07-12 06:11] LABS: #Basophils 0.1 thou/uL (0.0-0.2); #Lymphocytes 1.4 thou/uL (1.20-3.40); #Monocytes 1.1 thou/uL (0.11-0.59); #Neutrophils 9.4 thou/uL (1.40-6.50); %Basophils 1.1 % (0.0-1.0); %Eosinophils 0.3 % (0.0-10.0); %Lymphocytes 11.4 % (21.0-51.0); %Neutrophils 78.2 % (42.0-75.0); Anisocytosis SLIGHT = 6-15 cells (100X) (0-5/hpf); Hemoglobin 10.3 g/dL (14.0-18.0); MDiff Complete? YES; Mean Corpuscular HGB CONC 34.6 g/dL (32.0-36.0); Mean Corpuscular Hemoglobin 34.6 pg (27.0-31.0); Mean Platelet Volume 9.1 fL (7.4-10.4); Platelet Count 147 thou/uL (130-400); Platelet Morphology Comment Appears Adequate; RBC Distribution Width 15.9 % (11.5-14.5); Red Blood Cell (RBC) Count 2.98 mill/uL (4.70-6.10); Rouleaux Formation SLIGHT = 1-5 cells (100X) (None Seen); Toxic Granulation SLIGHT
[2019-07-12] MEDS ORDERED: SMX/TMP 800-160mg/20 ML UDCUP ONE (08:56)
[2019-07-12] MEDS: Saccharomyces boulardii 250 MG CAP PER TUBE SCH (09:23)
[2019-07-12] MEDS: Amiodarone 200 MG TAB PER TUBE SCH (09:23)
[2019-07-12] MEDS: Colchicine 0.6 MG TAB PER TUBE SCH ×2 (09:23→20:33)
[2019-07-12] MEDS: Megestrol Acetate 40 MG TAB PER TUBE SCH ×2 (09:24→20:33)
[2019-07-12] MEDS: Clopidogrel Bisulfate 75 MG TAB PER TUBE SCH (09:24)
[2019-07-12] MEDS: Furosemide 40 MG TAB PER TUBE SCH (09:24)
[2019-07-12] MEDS: Metoclopramide HCl 10 MG TAB PER TUBE PRN (09:24)
[2019-07-12] MEDS: SMX/TMP 800-160mg/20 ML UDCUP PER TUBE SCH ×2 (09:26→20:33)
[2019-07-12] MEDS ORDERED: Pancrelipase DR 12000 1 CAP FS PRN (16:52)
[2019-07-12] MEDS ORDERED: Sodium Bicarbonate Tab 325 MG TAB PER TUBE PRN (16:52)
[2019-07-12] MEDS: Atorvastatin Calcium 10 MG TAB PER TUBE SCH (20:33)
[2019-07-12] MEDS: metFORMIN 500 MG TAB PER TUBE SCH (20:33)
[2019-07-13] MEDS: Scopolamine 1.5 mg/72 hour Patch TOP SCH (02:34)
[2019-07-13] MEDS: Levothyroxine Sodium 50 MCG TAB PER TUBE SCH (05:39)
[2019-07-13] MEDS: SMX/TMP 800-160mg/20 ML UDCUP PER TUBE SCH ×2 (08:28→20:16)
[2019-07-13] MEDS: Megestrol Acetate 40 MG TAB PER TUBE SCH ×2 (08:29→20:16)
[2019-07-13] MEDS: Colchicine 0.6 MG TAB PER TUBE SCH ×2 (08:30→20:16)
[2019-07-13] MEDS: Clopidogrel Bisulfate 75 MG TAB PER TUBE SCH (08:30)
[2019-07-13] MEDS: Furosemide 40 MG TAB PER TUBE SCH (08:30)
[2019-07-13] MEDS: Amiodarone 200 MG TAB PER TUBE SCH (08:30)
[2019-07-13] MEDS: Saccharomyces boulardii 250 MG CAP PER TUBE SCH (08:30)
[2019-07-13] MEDS: metFORMIN 500 MG TAB PER TUBE SCH (20:16)
[2019-07-13] MEDS: Atorvastatin Calcium 10 MG TAB PER TUBE SCH (20:16)
[2019-07-14] MEDS: Levothyroxine Sodium 50 MCG TAB PER TUBE SCH (05:18)
[2019-07-14] MEDS: Saccharomyces boulardii 250 MG CAP PER TUBE SCH (08:39)
[2019-07-14] MEDS: Colchicine 0.6 MG TAB PER TUBE SCH (08:39)
[2019-07-14] MEDS: Megestrol Acetate 40 MG TAB PER TUBE SCH ×2 (08:39→20:49)
[2019-07-14] MEDS: Amiodarone 200 MG TAB PER TUBE SCH (08:39)
[2019-07-14] MEDS: Clopidogrel Bisulfate 75 MG TAB PER TUBE SCH (08:39)
[2019-07-14] MEDS: Furosemide 40 MG TAB PER TUBE SCH (08:40)
[2019-07-14] MEDS: SMX/TMP 800-160mg/20 ML UDCUP PER TUBE SCH ×2 (08:41→20:49)
[2019-07-14] MEDS ORDERED: Diphenoxylate HCl/Atropine Tablet PO PRN (17:52)
[2019-07-14] MEDS ORDERED: Colchicine 0.6 MG TAB PER TUBE SCH (18:00)
[2019-07-14] MEDS: Atorvastatin Calcium 10 MG TAB PER TUBE SCH (20:49)
[2019-07-15] MEDS: Levothyroxine Sodium 50 MCG TAB PER TUBE SCH (05:29)
[2019-07-15] MEDS: SMX/TMP 800-160mg/20 ML UDCUP PER TUBE SCH ×2 (09:26→20:40)
[2019-07-15] MEDS: Megestrol Acetate 40 MG TAB PER TUBE SCH ×2 (09:28→20:40)
[2019-07-15] MEDS: Furosemide 40 MG TAB PER TUBE SCH (09:28)
[2019-07-15] MEDS: Saccharomyces boulardii 250 MG CAP PER TUBE SCH (09:28)
[2019-07-15] MEDS: Amiodarone 200 MG TAB PER TUBE SCH (09:29)
[2019-07-15] MEDS: Clopidogrel Bisulfate 75 MG TAB PER TUBE SCH (09:29)
[2019-07-15] MEDS: Colchicine 0.6 MG TAB PO SCH (09:33)
[2019-07-15] MEDS: Atorvastatin Calcium 10 MG TAB PER TUBE SCH (20:40)
[2019-07-16] MEDS: Scopolamine 1.5 mg/72 hour Patch TOP SCH (03:29)
[2019-07-16] MEDS: Levothyroxine Sodium 50 MCG TAB PER TUBE SCH (06:17)
[2019-07-16] MEDS: Furosemide 40 MG TAB PER TUBE SCH (08:57)
[2019-07-16] MEDS: Saccharomyces boulardii 250 MG CAP PER TUBE SCH (08:57)
[2019-07-16] MEDS: Clopidogrel Bisulfate 75 MG TAB PER TUBE SCH (08:58)
[2019-07-16] MEDS: Megestrol Acetate 40 MG TAB PER TUBE SCH ×2 (08:58→20:50)
[2019-07-16] MEDS: Amiodarone 200 MG TAB PER TUBE SCH (08:59)
[2019-07-16] MEDS: SMX/TMP 800-160mg/20 ML UDCUP PER TUBE SCH ×2 (09:00→20:49)
[2019-07-16] MEDS: Colchicine 0.6 MG TAB PO SCH (09:05)
[2019-07-16] MEDS: Atorvastatin Calcium 10 MG TAB PER TUBE SCH (20:50)
[2019-07-17] MEDS ORDERED: Furosemide 40 MG TAB PER TUBE SCH (03:00)
[2019-07-17] MEDS ORDERED: risperiDONE 0.5 MG TAB PER TUBE SCH (03:00)
[2019-07-17 04:40] LABS: ALT (SGPT) 54 U/L (8-55); AST (SGOT) 62 U/L (5-34); Albumin 2.1 g/dL (3.4-4.8); Alkaline Phosphatase 448 U/L (40-110); Anion Gap 12 mmol/L (10-20); BUN (Urea Nitrogen) 15 mg/dL (8.4-25.7); Bilirubin, Total 0.4 mg/dL (0.2-1.2); Calc. Creatinine Clearance 82 mL/min (70-130); Calcium 8.2 mg/dL (7.8-10.44); Carbon Dioxide 27 mmol/L (23-31); Chloride 96 mmol/L (98-107); Estimated GFR-MDRD Greater than 90; Globulin 4.1 g/dL (2.4-3.5); Glucose 99 mg/dL (83-110); Potassium 4.3 mmol/L (3.5-5.1); Protein, Total 6.2 g/dL (5.8-8.1); Sodium 131 mmol/L (136-145)
[2019-07-17 04:44] LABS: #Basophils 0.1 thou/uL (0.0-0.2); #Eosinphils 0.1 thou/uL (0.0-0.7); #Lymphocytes 1.3 thou/uL (1.20-3.40); #Neutrophils 5.8 thou/uL (1.40-6.50); %Basophils 1.4 % (0.0-1.0); %Lymphocytes 16.1 % (21.0-51.0); %Monocytes 12.1 % (0.0-10.0); %Neutrophils 69.3 % (42.0-75.0); Anisocytosis SLIGHT = 6-15 cells (100X) (0-5/hpf); Hemoglobin 10.6 g/dL (14.0-18.0); MDiff Complete? YES; Mean Corpuscular HGB CONC 35.9 g/dL (32.0-36.0); Mean Corpuscular Hemoglobin 35.3 pg (27.0-31.0); Mean Corpuscular Volume 98.5 fL (78.0-98.0); Mean Platelet Volume 8.9 fL (7.4-10.4); Ovalocytes SLIGHT = 2-5 cells (100X) (0-1/hpf); Platelet Count 130 thou/uL (130-400); Platelet Morphology Comment Appears Adequate; Red Blood Cell (RBC) Count 3.01 mill/uL (4.70-6.10); White Blood Cell (WBC) Count 8.3 thou/uL (4.8-10.8)
[2019-07-17] MEDS: Levothyroxine Sodium 50 MCG TAB PER TUBE SCH (05:12)
[2019-07-17] MEDS: Saccharomyces boulardii 250 MG CAP PER TUBE SCH (08:51)
[2019-07-17] MEDS: Furosemide 40 MG TAB PER TUBE SCH (08:53)
[2019-07-17] MEDS: Megestrol Acetate 40 MG TAB PER TUBE SCH ×2 (08:53→21:09)
[2019-07-17] MEDS: Clopidogrel Bisulfate 75 MG TAB PER TUBE SCH (08:53)
[2019-07-17] MEDS: Amiodarone 200 MG TAB PER TUBE SCH (08:53)
[2019-07-17] MEDS: Colchicine 0.6 MG TAB PO SCH (08:54)
[2019-07-17] MEDS: SMX/TMP 800-160mg/20 ML UDCUP PER TUBE SCH ×2 (08:55→21:10)
--- NOTE | 2019-07-17 11:14 | RAD ---
PORTABLE CHEST: 07/17/2019 COMPARISON: Study from 06/29/2019 from [facility]. FINDINGS: Elevation of the right hemidiaphragm is chronic and there is likely pleural fluid here as well. It ac tually is less than was previous previously. The left lung is relatively clear. Prominence of vascula ture seen previously has improved. The heart is minimally enlarged. IMPRESSION: While there are residual changes from the prior study, overall, the appearance of the chest is improv ed since 06/29/2019. POS: HOME
[2019-07-17] MEDS: Atorvastatin Calcium 10 MG TAB PER TUBE SCH (21:09)
[2019-07-17] MEDS: risperiDONE 0.5 MG TAB PO SCH (21:10)
[2019-07-18] MEDS: Levothyroxine Sodium 50 MCG TAB PER TUBE SCH (06:12)
[2019-07-18] MEDS: Clopidogrel Bisulfate 75 MG TAB PER TUBE SCH (10:03)
[2019-07-18] MEDS: Amiodarone 200 MG TAB PER TUBE SCH (10:03)
[2019-07-18] MEDS: SMX/TMP 800-160mg/20 ML UDCUP PER TUBE SCH ×2 (10:03→21:06)
[2019-07-18] MEDS: Colchicine 0.6 MG TAB PO SCH (10:03)
[2019-07-18] MEDS: Megestrol Acetate 40 MG TAB PER TUBE SCH ×2 (10:04→21:06)
[2019-07-18] MEDS: Furosemide 40 MG TAB PER TUBE SCH (10:04)
[2019-07-18] MEDS: Saccharomyces boulardii 250 MG CAP PER TUBE SCH (10:04)
[2019-07-18] MEDS: risperiDONE 0.5 MG TAB PO SCH (21:06)
[2019-07-18] MEDS: Atorvastatin Calcium 10 MG TAB PER TUBE SCH (21:06)
[2019-07-19] MEDS: Scopolamine 1.5 mg/72 hour Patch TOP SCH (03:55)
[2019-07-19 05:24] LABS: Anion Gap 11 mmol/L (10-20); BUN (Urea Nitrogen) 14 mg/dL (8.4-25.7); Calc. Creatinine Clearance 81 mL/min (70-130); Carbon Dioxide 28 mmol/L (23-31); Chloride 96 mmol/L (98-107); Estimated GFR-MDRD Greater than 90; Glucose 83 mg/dL (83-110); Potassium 4.2 mmol/L (3.5-5.1); Sodium 131 mmol/L (136-145)
[2019-07-19] MEDS: Levothyroxine Sodium 50 MCG TAB PER TUBE SCH (05:25)
[2019-07-19] MEDS: Furosemide 40 MG TAB PER TUBE SCH (07:37)
[2019-07-19] MEDS: Colchicine 0.6 MG TAB PO SCH (09:02)
[2019-07-19] MEDS: Clopidogrel Bisulfate 75 MG TAB PER TUBE SCH (09:03)
[2019-07-19] MEDS: Saccharomyces boulardii 250 MG CAP PER TUBE SCH (09:03)
[2019-07-19] MEDS: Amiodarone 200 MG TAB PER TUBE SCH (09:03)
[2019-07-19] MEDS: Megestrol Acetate 40 MG TAB PER TUBE SCH ×2 (09:03→20:14)
[2019-07-19] MEDS: Atorvastatin Calcium 10 MG TAB PER TUBE SCH (20:14)
[2019-07-19] MEDS: risperiDONE 0.5 MG TAB PO SCH (20:14)
[2019-07-20] MEDS: Levothyroxine Sodium 50 MCG TAB PER TUBE SCH (05:13)
[2019-07-20] MEDS: Clopidogrel Bisulfate 75 MG TAB PER TUBE SCH (09:12)
[2019-07-20] MEDS: Colchicine 0.6 MG TAB PO SCH (09:12)
[2019-07-20] MEDS: Saccharomyces boulardii 250 MG CAP PER TUBE SCH (09:12)
[2019-07-20] MEDS: Furosemide 40 MG TAB PER TUBE SCH (09:13)
[2019-07-20] MEDS: Megestrol Acetate 40 MG TAB PER TUBE SCH ×2 (09:14→21:22)
[2019-07-20] MEDS: Amiodarone 200 MG TAB PER TUBE SCH (09:14)
[2019-07-20] MEDS: Atorvastatin Calcium 10 MG TAB PER TUBE SCH (21:22)
[2019-07-20] MEDS: risperiDONE 0.5 MG TAB PO SCH (21:23)
[2019-07-21] MEDS: Levothyroxine Sodium 50 MCG TAB PER TUBE SCH (06:08)
[2019-07-21] MEDS: Colchicine 0.6 MG TAB PO SCH (08:50)
[2019-07-21] MEDS: Furosemide 40 MG TAB PER TUBE SCH (08:52)
[2019-07-21] MEDS: Megestrol Acetate 40 MG TAB PER TUBE SCH ×2 (08:52→21:59)
[2019-07-21] MEDS: Amiodarone 200 MG TAB PER TUBE SCH (08:52)
[2019-07-21] MEDS: Clopidogrel Bisulfate 75 MG TAB PER TUBE SCH (08:52)
[2019-07-21] MEDS: Saccharomyces boulardii 250 MG CAP PER TUBE SCH (08:53)
[2019-07-21] MEDS: risperiDONE 0.5 MG TAB PO SCH (21:59)
[2019-07-21] MEDS: Atorvastatin Calcium 10 MG TAB PER TUBE SCH (21:59)
[2019-07-22] MEDS: Levothyroxine Sodium 50 MCG TAB PER TUBE SCH (05:03)
[2019-07-22 05:20] LABS: ALT (SGPT) 48 U/L (8-55); AST (SGOT) 56 U/L (5-34); Albumin 2.1 g/dL (3.4-4.8); Alkaline Phosphatase 437 U/L (40-110); Anion Gap 12 mmol/L (10-20); BUN (Urea Nitrogen) 17 mg/dL (8.4-25.7); Bilirubin, Total 0.4 mg/dL (0.2-1.2); Calc. Creatinine Clearance 78 mL/min (70-130); Calcium 8.1 mg/dL (7.8-10.44); Carbon Dioxide 29 mmol/L (23-31); Chloride 102 mmol/L (98-107); Estimated GFR-MDRD Greater than 90; Globulin 4.1 g/dL (2.4-3.5); Glucose 99 mg/dL (83-110); Potassium 4.2 mmol/L (3.5-5.1); Protein, Total 6.2 g/dL (5.8-8.1); Sodium 139 mmol/L (136-145)
[2019-07-22 05:42] LABS: #Basophils 0.1 thou/uL (0.0-0.2); #Lymphocytes 1.5 thou/uL (1.20-3.40); #Neutrophils 4.6 thou/uL (1.40-6.50); %Basophils 1.1 % (0.0-1.0); %Eosinophils 0.6 % (0.0-10.0); %Lymphocytes 20.7 % (21.0-51.0); %Neutrophils 63.7 % (42.0-75.0); Anisocytosis SLIGHT = 6-15 cells (100X) (0-5/hpf); Hemoglobin 9.3 g/dL (14.0-18.0); MDiff Complete? YES; Mean Corpuscular HGB CONC 37.4 g/dL (32.0-36.0); Mean Corpuscular Hemoglobin 37.7 pg (27.0-31.0); Mean Platelet Volume 7.6 fL (7.4-10.4); Platelet Count 164 thou/uL (130-400); Platelet Morphology Comment Appears Adequate; RBC Distribution Width 16.8 % (11.5-14.5); Red Blood Cell (RBC) Count 2.46 mill/uL (4.70-6.10); Rouleaux Formation SLIGHT = 1-5 cells (100X) (None Seen); White Blood Cell (WBC) Count 7.2 thou/uL (4.8-10.8)
[2019-07-22] MEDS: Megestrol Acetate 40 MG TAB PER TUBE SCH ×2 (08:06→20:17)
[2019-07-22] MEDS: Amiodarone 200 MG TAB PER TUBE SCH (08:07)
[2019-07-22] MEDS: Clopidogrel Bisulfate 75 MG TAB PER TUBE SCH (08:07)
[2019-07-22] MEDS: Furosemide 40 MG TAB PER TUBE SCH (08:07)
[2019-07-22] MEDS: Saccharomyces boulardii 250 MG CAP PER TUBE SCH (08:09)
[2019-07-22] MEDS: Colchicine 0.6 MG TAB PO SCH (08:11)
[2019-07-22] MEDS: risperiDONE 0.5 MG TAB PO SCH (20:17)
[2019-07-22] MEDS: Atorvastatin Calcium 10 MG TAB PER TUBE SCH (20:17)
[2019-07-23] MEDS: Levothyroxine Sodium 50 MCG TAB PER TUBE SCH (05:35)
[2019-07-23] MEDS: Furosemide 40 MG TAB PER TUBE SCH (10:01)
[2019-07-23] MEDS: Saccharomyces boulardii 250 MG CAP PER TUBE SCH (10:02)
[2019-07-23] MEDS: Clopidogrel Bisulfate 75 MG TAB PER TUBE SCH (10:02)
[2019-07-23] MEDS: Colchicine 0.6 MG TAB PO SCH (10:02)
[2019-07-23] MEDS: Amiodarone 200 MG TAB PER TUBE SCH (10:02)
[2019-07-23] MEDS: Megestrol Acetate 40 MG TAB PER TUBE SCH ×2 (10:02→20:39)
[2019-07-23] MEDS: risperiDONE 0.5 MG TAB PO SCH (20:39)
[2019-07-23] MEDS: Atorvastatin Calcium 10 MG TAB PER TUBE SCH (20:39)
[2019-07-24] MEDS: Levothyroxine Sodium 50 MCG TAB PER TUBE SCH (05:12)
[2019-07-24] MEDS: Furosemide 40 MG TAB PER TUBE SCH (07:49)
[2019-07-24] MEDS: Megestrol Acetate 40 MG TAB PER TUBE SCH ×2 (07:49→21:31)
[2019-07-24] MEDS: Amiodarone 200 MG TAB PER TUBE SCH (07:50)
[2019-07-24] MEDS: Clopidogrel Bisulfate 75 MG TAB PER TUBE SCH (07:50)
[2019-07-24] MEDS: Colchicine 0.6 MG TAB PO SCH (07:50)
[2019-07-24] MEDS: Saccharomyces boulardii 250 MG CAP PER TUBE SCH (07:51)
[2019-07-24] MEDS: Atorvastatin Calcium 10 MG TAB PER TUBE SCH (21:31)
[2019-07-24] MEDS: risperiDONE 0.5 MG TAB PO SCH (21:31)
[2019-07-25] MEDS: Levothyroxine Sodium 50 MCG TAB PER TUBE SCH (05:17)
[2019-07-25] MEDS: Amiodarone 200 MG TAB PER TUBE SCH (08:00)
[2019-07-25] MEDS: Megestrol Acetate 40 MG TAB PER TUBE SCH ×2 (08:00→21:29)
[2019-07-25] MEDS: Clopidogrel Bisulfate 75 MG TAB PER TUBE SCH (08:00)
[2019-07-25] MEDS: Saccharomyces boulardii 250 MG CAP PER TUBE SCH (08:00)
[2019-07-25] MEDS: Colchicine 0.6 MG TAB PO SCH (08:00)
[2019-07-25] MEDS: Furosemide 40 MG TAB PER TUBE SCH (08:00)
[2019-07-25] MEDS: Atorvastatin Calcium 10 MG TAB PER TUBE SCH (21:29)
[2019-07-25] MEDS: risperiDONE 0.5 MG TAB PO SCH (21:29)
[2019-07-26] MEDS: Levothyroxine Sodium 50 MCG TAB PER TUBE SCH (05:32)
[2019-07-26] MEDS: Megestrol Acetate 40 MG TAB PER TUBE SCH ×2 (10:00→20:46)
[2019-07-26] MEDS: Colchicine 0.6 MG TAB PO SCH (10:01)
[2019-07-26] MEDS: Amiodarone 200 MG TAB PER TUBE SCH (10:02)
[2019-07-26] MEDS: Clopidogrel Bisulfate 75 MG TAB PER TUBE SCH (10:02)
[2019-07-26] MEDS: Furosemide 40 MG TAB PER TUBE SCH (10:02)
[2019-07-26] MEDS: Saccharomyces boulardii 250 MG CAP PER TUBE SCH (10:03)
[2019-07-26] MEDS: risperiDONE 0.5 MG TAB PO SCH (20:46)
[2019-07-26] MEDS: Atorvastatin Calcium 10 MG TAB PER TUBE SCH (20:46)
[2019-07-27] MEDS ORDERED: Levothyroxine Sodium 50 MCG TAB ONE (05:35)
[2019-07-27] MEDS: Levothyroxine Sodium 50 MCG TAB PER TUBE SCH (06:00)
[2019-07-27] MEDS: Amiodarone 200 MG TAB PER TUBE SCH (09:20)
[2019-07-27] MEDS: Furosemide 40 MG TAB PER TUBE SCH (09:20)
[2019-07-27] MEDS: Megestrol Acetate 40 MG TAB PER TUBE SCH ×2 (09:20→21:04)
[2019-07-27] MEDS: Saccharomyces boulardii 250 MG CAP PER TUBE SCH (09:20)
[2019-07-27] MEDS: Clopidogrel Bisulfate 75 MG TAB PER TUBE SCH (09:20)
[2019-07-27] MEDS: Colchicine 0.6 MG TAB PO SCH (09:20)
[2019-07-27] MEDS: Atorvastatin Calcium 10 MG TAB PER TUBE SCH (21:04)
[2019-07-27] MEDS: risperiDONE 0.5 MG TAB PO SCH (21:04)
[2019-07-28] MEDS: Levothyroxine Sodium 50 MCG TAB PER TUBE SCH (05:16)
[2019-07-28] MEDS: Amiodarone 200 MG TAB PER TUBE SCH (09:45)
[2019-07-28] MEDS: Clopidogrel Bisulfate 75 MG TAB PER TUBE SCH (09:45)
[2019-07-28] MEDS: Colchicine 0.6 MG TAB PO SCH (09:45)
[2019-07-28] MEDS: Furosemide 40 MG TAB PER TUBE SCH (09:45)
[2019-07-28] MEDS: Megestrol Acetate 40 MG TAB PER TUBE SCH ×2 (09:45→20:45)
[2019-07-28] MEDS: Saccharomyces boulardii 250 MG CAP PER TUBE SCH (09:50)
[2019-07-28] MEDS: Atorvastatin Calcium 10 MG TAB PER TUBE SCH (20:45)
[2019-07-28] MEDS: risperiDONE 0.5 MG TAB PO SCH (20:45)
[2019-07-29] MEDS ORDERED: Levothyroxine Sodium 50 MCG TAB PER TUBE SCH (06:00)
[2019-07-29 06:06] LABS: #Basophils 0.1 thou/uL (0.0-0.2); #Eosinphils 0.1 thou/uL (0.0-0.7); #Lymphocytes 1.7 thou/uL (1.20-3.40); #Monocytes 0.8 thou/uL (0.11-0.59); #Neutrophils 5.4 thou/uL (1.40-6.50); %Basophils 1.6 % (0.0-1.0); %Eosinophils 0.7 % (0.0-10.0); %Lymphocytes 21.2 % (21.0-51.0); %Monocytes 9.9 % (0.0-10.0); %Neutrophils 66.5 % (42.0-75.0); Hemoglobin 9.2 g/dL (14.0-18.0); Mean Corpuscular HGB CONC 30.6 g/dL (32.0-36.0); Mean Corpuscular Hemoglobin 31.3 pg (27.0-31.0); Mean Platelet Volume 6.9 fL (7.4-10.4); Platelet Count 162 thou/uL (130-400); Red Blood Cell (RBC) Count 2.93 mill/uL (4.70-6.10); White Blood Cell (WBC) Count 8.1 thou/uL (4.8-10.8)
[2019-07-29 06:11] LABS: ALT (SGPT) 43 U/L (8-55); AST (SGOT) 44 U/L (5-34); Albumin 2.1 g/dL (3.4-4.8); Alkaline Phosphatase 372 U/L (40-110); Anion Gap 11 mmol/L (10-20); BUN (Urea Nitrogen) 21 mg/dL (8.4-25.7); Bilirubin, Total 0.4 mg/dL (0.2-1.2); Calc. Creatinine Clearance 78 mL/min (70-130); Calcium 8.1 mg/dL (7.8-10.44); Carbon Dioxide 31 mmol/L (23-31); Chloride 103 mmol/L (98-107); Estimated GFR-MDRD Greater than 90; Globulin 4.5 g/dL (2.4-3.5); Glucose 95 mg/dL (83-110); Potassium 3.9 mmol/L (3.5-5.1); Protein, Total 6.6 g/dL (5.8-8.1); Sodium 141 mmol/L (136-145)
[2019-07-29] MEDS: Furosemide 40 MG TAB PER TUBE SCH (08:50)
[2019-07-29] MEDS: Colchicine 0.6 MG TAB PO SCH (08:51)
[2019-07-29] MEDS: Saccharomyces boulardii 250 MG CAP PER TUBE SCH (08:51)
[2019-07-29] MEDS: Clopidogrel Bisulfate 75 MG TAB PER TUBE SCH (08:51)
[2019-07-29] MEDS: Megestrol Acetate 40 MG TAB PER TUBE SCH ×2 (08:51→21:19)
[2019-07-29] MEDS: Amiodarone 200 MG TAB PER TUBE SCH (08:51)
[2019-07-29] MEDS: Atorvastatin Calcium 10 MG TAB PER TUBE SCH (21:19)
[2019-07-29] MEDS: risperiDONE 0.5 MG TAB PO SCH (21:20)
[2019-07-30] MEDS: Levothyroxine Sodium 25 MCG TAB PER TUBE SCH (06:22)
[2019-07-30] MEDS: Megestrol Acetate 40 MG TAB PER TUBE SCH ×2 (09:10→21:08)
[2019-07-30] MEDS: Amiodarone 200 MG TAB PER TUBE SCH (09:11)
[2019-07-30] MEDS: Colchicine 0.6 MG TAB PO SCH (09:11)
[2019-07-30] MEDS: Saccharomyces boulardii 250 MG CAP PER TUBE SCH (09:11)
[2019-07-30] MEDS: Furosemide 40 MG TAB PER TUBE SCH (09:11)
[2019-07-30] MEDS: Clopidogrel Bisulfate 75 MG TAB PER TUBE SCH (09:11)
[2019-07-30] MEDS: Atorvastatin Calcium 10 MG TAB PER TUBE SCH (21:08)
[2019-07-30] MEDS: risperiDONE 0.5 MG TAB PO SCH (21:09)
[2019-07-31] MEDS: Levothyroxine Sodium 25 MCG TAB PER TUBE SCH (05:15)
[2019-07-31] MEDS: Colchicine 0.6 MG TAB PO SCH (09:34)
[2019-07-31] MEDS: Megestrol Acetate 40 MG TAB PER TUBE SCH ×2 (09:34→21:42)
[2019-07-31] MEDS: Saccharomyces boulardii 250 MG CAP PER TUBE SCH (09:34)
[2019-07-31] MEDS: Clopidogrel Bisulfate 75 MG TAB PER TUBE SCH (09:35)
[2019-07-31] MEDS: Amiodarone 200 MG TAB PER TUBE SCH (09:35)
[2019-07-31] MEDS: Furosemide 40 MG TAB PER TUBE SCH (09:35)
[2019-07-31] MEDS: Atorvastatin Calcium 10 MG TAB PER TUBE SCH (21:42)
[2019-07-31] MEDS: risperiDONE 0.5 MG TAB PO SCH (21:42)
[2019-08-01] MEDS: Levothyroxine Sodium 25 MCG TAB PER TUBE SCH (06:17)
[2019-08-01] MEDS: Furosemide 40 MG TAB PER TUBE SCH (07:37)
[2019-08-01] MEDS: Colchicine 0.6 MG TAB PO SCH (09:40)
[2019-08-01] MEDS: Amiodarone 200 MG TAB PER TUBE SCH (09:40)
[2019-08-01] MEDS: Saccharomyces boulardii 250 MG CAP PER TUBE SCH (09:40)
[2019-08-01] MEDS: Megestrol Acetate 40 MG TAB PER TUBE SCH ×2 (09:40→20:37)
[2019-08-01] MEDS: Clopidogrel Bisulfate 75 MG TAB PER TUBE SCH (09:40)
[2019-08-01] MEDS: HumaLOG 300 UNITS/3 ML VIAL SC PRN (12:28)
[2019-08-01] MEDS: Atorvastatin Calcium 10 MG TAB PER TUBE SCH (20:38)
[2019-08-01] MEDS: risperiDONE 0.5 MG TAB PO SCH (20:38)
[2019-08-02] MEDS: Levothyroxine Sodium 25 MCG TAB PER TUBE SCH (05:27)
[2019-08-02] MEDS: Saccharomyces boulardii 250 MG CAP PER TUBE SCH (09:23)
[2019-08-02] MEDS: Clopidogrel Bisulfate 75 MG TAB PER TUBE SCH (09:24)
[2019-08-02] MEDS: Colchicine 0.6 MG TAB PO SCH (09:24)
[2019-08-02] MEDS: Amiodarone 200 MG TAB PER TUBE SCH (09:24)
[2019-08-02] MEDS: Furosemide 40 MG TAB PER TUBE SCH (09:24)
[2019-08-02] MEDS: Megestrol Acetate 40 MG TAB PER TUBE SCH ×2 (09:24→20:50)
[2019-08-02] MEDS: Atorvastatin Calcium 10 MG TAB PER TUBE SCH (20:49)
[2019-08-02] MEDS: risperiDONE 0.5 MG TAB PO SCH (20:49)
[2019-08-03] MEDS: Levothyroxine Sodium 25 MCG TAB PER TUBE SCH (05:50)
[2019-08-03] MEDS: Megestrol Acetate 40 MG TAB PER TUBE SCH ×2 (09:25→20:43)
[2019-08-03] MEDS: Colchicine 0.6 MG TAB PO SCH (09:26)
[2019-08-03] MEDS: Furosemide 40 MG TAB PER TUBE SCH (09:26)
[2019-08-03] MEDS: Amiodarone 200 MG TAB PER TUBE SCH (09:26)
[2019-08-03] MEDS: Saccharomyces boulardii 250 MG CAP PER TUBE SCH (09:26)
[2019-08-03] MEDS: Clopidogrel Bisulfate 75 MG TAB PER TUBE SCH (09:26)
[2019-08-03] MEDS: Atorvastatin Calcium 10 MG TAB PER TUBE SCH (20:43)
[2019-08-03] MEDS: risperiDONE 0.5 MG TAB PO SCH (20:44)
[2019-08-04] MEDS: Levothyroxine Sodium 25 MCG TAB PER TUBE SCH (05:45)
[2019-08-04] MEDS: Saccharomyces boulardii 250 MG CAP PER TUBE SCH (09:03)
[2019-08-04] MEDS: Amiodarone 200 MG TAB PER TUBE SCH (09:03)
[2019-08-04] MEDS: Megestrol Acetate 40 MG TAB PER TUBE SCH ×2 (09:04→21:41)
[2019-08-04] MEDS: Colchicine 0.6 MG TAB PO SCH (09:04)
[2019-08-04] MEDS: Clopidogrel Bisulfate 75 MG TAB PER TUBE SCH (09:04)
[2019-08-04] MEDS: Furosemide 40 MG TAB PER TUBE SCH (09:04)
[2019-08-04] MEDS: risperiDONE 0.5 MG TAB PO SCH (21:42)
[2019-08-04] MEDS: Atorvastatin Calcium 10 MG TAB PER TUBE SCH (21:42)
[2019-08-05] MEDS: Levothyroxine Sodium 25 MCG TAB PER TUBE SCH (05:13)
[2019-08-05] MEDS: Amiodarone 200 MG TAB PER TUBE SCH (09:09)
[2019-08-05] MEDS: Saccharomyces boulardii 250 MG CAP PER TUBE SCH (09:10)
[2019-08-05] MEDS: Megestrol Acetate 40 MG TAB PER TUBE SCH ×2 (09:11→20:31)
[2019-08-05] MEDS: Clopidogrel Bisulfate 75 MG TAB PER TUBE SCH (09:11)
[2019-08-05] MEDS: Colchicine 0.6 MG TAB PO SCH (09:11)
[2019-08-05] MEDS: Furosemide 40 MG TAB PER TUBE SCH (09:11)
[2019-08-05] MEDS: HumaLOG 300 UNITS/3 ML VIAL SC PRN (12:45)
[2019-08-05] MEDS: risperiDONE 0.5 MG TAB PO SCH (20:31)
[2019-08-05] MEDS: Atorvastatin Calcium 10 MG TAB PER TUBE SCH (20:31)
[2019-08-06] MEDS: Levothyroxine Sodium 25 MCG TAB PER TUBE SCH (05:20)
[2019-08-06] MEDS: Amiodarone 200 MG TAB PER TUBE SCH (10:29)
[2019-08-06] MEDS: Clopidogrel Bisulfate 75 MG TAB PER TUBE SCH (10:29)
[2019-08-06] MEDS: Saccharomyces boulardii 250 MG CAP PER TUBE SCH (10:30)
[2019-08-06] MEDS: Megestrol Acetate 40 MG TAB PER TUBE SCH ×2 (10:30→20:16)
[2019-08-06] MEDS: Furosemide 40 MG TAB PER TUBE SCH (10:30)
[2019-08-06] MEDS: Colchicine 0.6 MG TAB PO SCH (10:30)
[2019-08-06] MEDS: Benzonatate 100 MG CAP PO PRN ×2 (10:31→22:28)
[2019-08-06] MEDS: HumaLOG 300 UNITS/3 ML VIAL SC PRN ×2 (12:59→17:43)
[2019-08-06] MEDS: Atorvastatin Calcium 10 MG TAB PER TUBE SCH (20:16)
[2019-08-06] MEDS: risperiDONE 0.5 MG TAB PO SCH (20:16)
[2019-08-07] MEDS: Levothyroxine Sodium 25 MCG TAB PER TUBE SCH (05:16)
[2019-08-07] MEDS: Clopidogrel Bisulfate 75 MG TAB PER TUBE SCH (07:44)
[2019-08-07] MEDS: Megestrol Acetate 40 MG TAB PER TUBE SCH ×2 (07:44→21:45)
[2019-08-07] MEDS: Furosemide 40 MG TAB PER TUBE SCH (07:44)
[2019-08-07] MEDS: Colchicine 0.6 MG TAB PO SCH (07:45)
[2019-08-07] MEDS: Saccharomyces boulardii 250 MG CAP PER TUBE SCH (07:45)
[2019-08-07] MEDS: Amiodarone 200 MG TAB PER TUBE SCH (07:45)
[2019-08-07] MEDS: HumaLOG 300 UNITS/3 ML VIAL SC PRN (12:30)
[2019-08-07] MEDS: risperiDONE 0.5 MG TAB PO SCH (21:45)
[2019-08-07] MEDS: Benzonatate 100 MG CAP PO PRN (21:45)
[2019-08-07] MEDS: Atorvastatin Calcium 10 MG TAB PER TUBE SCH (21:52)
[2019-08-08 03:57] LABS: #Basophils 0.1 thou/uL (0.0-0.2); #Eosinphils 0.1 thou/uL (0.0-0.7); #Lymphocytes 1.7 thou/uL (1.20-3.40); #Monocytes 0.8 thou/uL (0.11-0.59); #Neutrophils 4.9 thou/uL (1.40-6.50); %Basophils 1.5 % (0.0-1.0); %Eosinophils 0.8 % (0.0-10.0); %Lymphocytes 22.3 % (21.0-51.0); %Monocytes 10.8 % (0.0-10.0); %Neutrophils 64.6 % (42.0-75.0); Hemoglobin 8.9 g/dL (14.0-18.0); Mean Corpuscular HGB CONC 32.3 g/dL (32.0-36.0); Mean Corpuscular Hemoglobin 33.2 pg (27.0-31.0); Mean Platelet Volume 7.4 fL (7.4-10.4); Platelet Count 129 thou/uL (130-400); RBC Distribution Width 16.4 % (11.5-14.5); Red Blood Cell (RBC) Count 2.67 mill/uL (4.70-6.10); White Blood Cell (WBC) Count 7.6 thou/uL (4.8-10.8)
[2019-08-08 04:04] LABS: ALT (SGPT) 32 U/L (8-55); AST (SGOT) 35 U/L (5-34); Albumin 2.1 g/dL (3.4-4.8); Alkaline Phosphatase 290 U/L (40-110); Anion Gap 11 mmol/L (10-20); BUN (Urea Nitrogen) 18 mg/dL (8.4-25.7); Bilirubin, Total 0.4 mg/dL (0.2-1.2); Calc. Creatinine Clearance 79 mL/min (70-130); Calcium 8.1 mg/dL (7.8-10.44); Carbon Dioxide 27 mmol/L (23-31); Chloride 107 mmol/L (98-107); Estimated GFR-MDRD Greater than 90; Globulin 4.5 g/dL (2.4-3.5); Glucose 91 mg/dL (83-110); Potassium 4.1 mmol/L (3.5-5.1); Protein, Total 6.6 g/dL (5.8-8.1); Sodium 141 mmol/L (136-145)
[2019-08-08] MEDS: Levothyroxine Sodium 25 MCG TAB PER TUBE SCH (06:28)
[2019-08-08] MEDS: Megestrol Acetate 40 MG TAB PER TUBE SCH ×2 (09:29→21:56)
[2019-08-08] MEDS: Clopidogrel Bisulfate 75 MG TAB PER TUBE SCH (09:29)
[2019-08-08] MEDS: Saccharomyces boulardii 250 MG CAP PER TUBE SCH (09:29)
[2019-08-08] MEDS: Colchicine 0.6 MG TAB PO SCH (09:30)
[2019-08-08] MEDS: Amiodarone 200 MG TAB PER TUBE SCH (09:30)
[2019-08-08] MEDS: Furosemide 40 MG TAB PER TUBE SCH (09:30)
[2019-08-08] MEDS: risperiDONE 0.5 MG TAB PO SCH (21:56)
[2019-08-08] MEDS: Atorvastatin Calcium 10 MG TAB PER TUBE SCH (21:56)
[2019-08-09] MEDS: Levothyroxine Sodium 25 MCG TAB PER TUBE SCH (05:31)
[2019-08-09] MEDS: Amiodarone 200 MG TAB PER TUBE SCH (09:17)
[2019-08-09] MEDS: Furosemide 40 MG TAB PER TUBE SCH (09:17)
[2019-08-09] MEDS: Clopidogrel Bisulfate 75 MG TAB PER TUBE SCH (09:17)
[2019-08-09] MEDS: Megestrol Acetate 40 MG TAB PER TUBE SCH ×2 (09:17→21:37)
[2019-08-09] MEDS: Colchicine 0.6 MG TAB PO SCH (09:17)
[2019-08-09] MEDS: Saccharomyces boulardii 250 MG CAP PER TUBE SCH (09:17)
[2019-08-09] MEDS: Atorvastatin Calcium 10 MG TAB PER TUBE SCH (21:37)
[2019-08-09] MEDS: risperiDONE 0.5 MG TAB PO SCH (21:37)
[2019-08-10] MEDS: Levothyroxine Sodium 25 MCG TAB PER TUBE SCH (05:15)
[2019-08-10] MEDS: Furosemide 40 MG TAB PER TUBE SCH (08:00)
[2019-08-10] MEDS: Amiodarone 200 MG TAB PER TUBE SCH (09:11)
[2019-08-10] MEDS: Colchicine 0.6 MG TAB PO SCH (09:13)
[2019-08-10] MEDS: Saccharomyces boulardii 250 MG CAP PER TUBE SCH (09:13)
[2019-08-10] MEDS: Clopidogrel Bisulfate 75 MG TAB PER TUBE SCH (09:13)
[2019-08-10] MEDS: Megestrol Acetate 40 MG TAB PER TUBE SCH ×2 (09:14→21:04)
[2019-08-10] MEDS: HumaLOG 300 UNITS/3 ML VIAL SC PRN (12:48)
[2019-08-10] MEDS: Atorvastatin Calcium 10 MG TAB PER TUBE SCH (21:04)
[2019-08-10] MEDS: risperiDONE 0.5 MG TAB PO SCH (21:04)
[2019-08-11] MEDS: Levothyroxine Sodium 25 MCG TAB PER TUBE SCH (05:44)
[2019-08-11] MEDS: Furosemide 40 MG TAB PER TUBE SCH (08:23)
[2019-08-11] MEDS: Clopidogrel Bisulfate 75 MG TAB PER TUBE SCH (09:22)
[2019-08-11] MEDS: Colchicine 0.6 MG TAB PO SCH (09:23)
[2019-08-11] MEDS: Amiodarone 200 MG TAB PER TUBE SCH (09:23)
[2019-08-11] MEDS: Saccharomyces boulardii 250 MG CAP PER TUBE SCH (09:24)
[2019-08-11] MEDS: Megestrol Acetate 40 MG TAB PER TUBE SCH ×2 (09:24→20:46)
[2019-08-11] MEDS: risperiDONE 0.5 MG TAB PO SCH (20:47)
[2019-08-11] MEDS: Atorvastatin Calcium 10 MG TAB PER TUBE SCH (20:47)
[2019-08-12] MEDS: Levothyroxine Sodium 25 MCG TAB PER TUBE SCH (06:30)
[2019-08-12] MEDS: Furosemide 40 MG TAB PER TUBE SCH (08:20)
[2019-08-12] MEDS: Saccharomyces boulardii 250 MG CAP PER TUBE SCH (09:19)
[2019-08-12] MEDS: Colchicine 0.6 MG TAB PO SCH (09:19)
[2019-08-12] MEDS: Amiodarone 200 MG TAB PER TUBE SCH (09:20)
[2019-08-12] MEDS: Clopidogrel Bisulfate 75 MG TAB PER TUBE SCH (09:20)
[2019-08-12] MEDS: Megestrol Acetate 40 MG TAB PER TUBE SCH ×2 (09:22→21:25)
[2019-08-12] MEDS: Atorvastatin Calcium 10 MG TAB PER TUBE SCH (21:25)
[2019-08-12] MEDS: risperiDONE 0.5 MG TAB PO SCH (21:25)
[2019-08-12] MEDS: Benzonatate 100 MG CAP PO PRN (21:29)
[2019-08-13] MEDS: Levothyroxine Sodium 25 MCG TAB PER TUBE SCH (06:08)
[2019-08-13] MEDS: Megestrol Acetate 40 MG TAB PER TUBE SCH ×2 (09:06→21:01)
[2019-08-13] MEDS: Amiodarone 200 MG TAB PER TUBE SCH (09:08)
[2019-08-13] MEDS: Clopidogrel Bisulfate 75 MG TAB PER TUBE SCH (09:09)
[2019-08-13] MEDS: Furosemide 40 MG TAB PER TUBE SCH (09:09)
[2019-08-13] MEDS: Saccharomyces boulardii 250 MG CAP PER TUBE SCH (09:10)
[2019-08-13] MEDS: Colchicine 0.6 MG TAB PO SCH (09:10)
[2019-08-13] MEDS: Benzonatate 100 MG CAP PO PRN ×2 (10:48→18:52)
[2019-08-13] MEDS: Atorvastatin Calcium 10 MG TAB PER TUBE SCH (21:01)
[2019-08-13] MEDS: risperiDONE 0.5 MG TAB PO SCH (21:01)
[2019-08-14] MEDS: Levothyroxine Sodium 25 MCG TAB PER TUBE SCH (06:47)
[2019-08-14] MEDS: Furosemide 40 MG TAB PER TUBE SCH (08:46)
[2019-08-14] MEDS: Megestrol Acetate 40 MG TAB PER TUBE SCH ×2 (09:45→21:07)
[2019-08-14] MEDS: Colchicine 0.6 MG TAB PO SCH (09:45)
[2019-08-14] MEDS: Saccharomyces boulardii 250 MG CAP PER TUBE SCH (09:45)
[2019-08-14] MEDS: Clopidogrel Bisulfate 75 MG TAB PER TUBE SCH (09:46)
[2019-08-14] MEDS: Amiodarone 200 MG TAB PER TUBE SCH (09:46)
[2019-08-14] MEDS: Benzonatate 100 MG CAP PO PRN (21:06)
[2019-08-14] MEDS: risperiDONE 0.5 MG TAB PO SCH (21:07)
[2019-08-14] MEDS: Atorvastatin Calcium 10 MG TAB PER TUBE SCH (21:07)
[2019-08-15] MEDS: Levothyroxine Sodium 25 MCG TAB PER TUBE SCH (06:07)
[2019-08-15] MEDS: Furosemide 40 MG TAB PER TUBE SCH (09:33)
[2019-08-15] MEDS: Saccharomyces boulardii 250 MG CAP PER TUBE SCH (09:33)
[2019-08-15] MEDS: Megestrol Acetate 40 MG TAB PER TUBE SCH (09:33)
[2019-08-15] MEDS: Clopidogrel Bisulfate 75 MG TAB PER TUBE SCH (09:33)
[2019-08-15] MEDS: Amiodarone 200 MG TAB PER TUBE SCH (09:33)
[2019-08-15] MEDS: Colchicine 0.6 MG TAB PO SCH (09:33)
[2019-08-15] MEDS: HumaLOG 300 UNITS/3 ML VIAL SC PRN (09:34)
[2019-08-15 14:21] VITALS: BMI 23.8
[2019-08-15 17:42] VITALS: BP 109/64; TEMP 98.1
[2019-08-15] MEDS ORDERED: guaiFENesin ER 600 MG TAB PO SCH (21:00)
== END 2019-08-15 19:04 | DRG 871 ==
LOC: BURMED 22:17
PROVIDERS: ADMIT Family Medicine; ATTEND Family Medicine
DX: A41.9 Sepsis, unspecified organism (principal); E43 Unspecified severe protein-calorie malnutrition; N39.0 Urinary tract infection, site not specified; E87.1 Hypo-osmolality and hyponatremia; I25.10 Atherosclerotic heart disease of native coronary artery without angina pectoris; E11.9 Type 2 diabetes mellitus without complications; E03.9 Hypothyroidism, unspecified; I48.91 Unspecified atrial fibrillation; Z85.46 Personal history of malignant neoplasm of prostate; Z90.49 Acquired absence of other specified parts of digestive tract; Z95.1 Presence of aortocoronary bypass graft; Z79.84 Long term (current) use of oral hypoglycemic drugs; Z79.02 Long term (current) use of antithrombotics/antiplatelets; R53.81 Other malaise; R13.10 Dysphagia, unspecified; F03.90 Unspecified dementia, unspecified severity, without behavioral disturbance, psychotic disturbance, mood disturbance, and anxiety; D72.829 Elevated white blood cell count, unspecified; I25.2 Old myocardial infarction; Z68.23 Body mass index [BMI] 23.0-23.9, adult
CPT/HCPCS: 36415; 36416; 71045; 80048; 80053; 83630; 83880; 84443; 85025; 87324; 87449; J0744; J7620; Q0162; S0179

== ENCOUNTER 2019-09-02 20:00 | Outpatient (CLI) | payer MEDICARE, BC ==
--- NOTE | 2019-09-02 21:22 | RAD ---
CHEST 09/02/19 AP and lateral views in wheelchair were obtained and compared with an 07/17/19 study. There continues to be apparent elevation of the right hemidiaphragm that I assume is, in part, a subp ulmonic effusion. A linear streak in the right base is either atelectasis or fluid in a fissure. The left lung is relatively clear. There is no vascular congestion or edema. The heart is mildly enlarged but unchanged in size. IMPRESSION: 1. Presumed subpulmonic effusion on the right. This was present in June and is certainly no worse. 2. Mild cardiomegaly but no congestive change. POS: HOME
== END 2019-09-02 20:01 | disposition home or self-care (01) ==
LOC: BURRAD 20:00
PROVIDERS: ATTEND Nurse Practitioner Family
DX: R09.89 Other specified symptoms and signs involving the circulatory and respiratory systems (principal); R53.83 Other fatigue; I51.7 Cardiomegaly
CPT/HCPCS: 71046

== ENCOUNTER 2019-10-16 13:50 | Emergency (ER) | payer MEDICARE, BC | END 2019-10-16 14:45 | disposition home or self-care (01) | LOC: BURERS 13:50 | DX: T83.011A Breakdown (mechanical) of indwelling urethral catheter, initial encounter (principal); I25.10 Atherosclerotic heart disease of native coronary artery without angina pectoris; I11.0 Hypertensive heart disease with heart failure; I50.9 Heart failure, unspecified; I25.2 Old myocardial infarction; I48.91 Unspecified atrial fibrillation; E11.9 Type 2 diabetes mellitus without complications; F32.9 Major depressive disorder, single episode, unspecified; Z79.899 Other long term (current) drug therapy; Z79.02 Long term (current) use of antithrombotics/antiplatelets | CPT/HCPCS: 51702 ==

== ENCOUNTER 2019-12-01 16:34 | Inpatient (IN) | payer MEDICARE, BC ==
[2019-12-01] MEDS ORDERED: Ondansetron ODT 4 MG TAB PO PRN (18:21)
[2019-12-01] MEDS ORDERED: Benzonatate 100 MG CAP PO PRN (18:21)
[2019-12-01] MEDS ORDERED: Bisacodyl 10 MG SUPP PR PRN (18:21)
[2019-12-01] MEDS ORDERED: Ondansetron PF 4 MG/2 ML Vial SLOW IVP PRN (18:21)
[2019-12-01] MEDS ORDERED: Diphenoxylate HCl/Atropine Tablet PO PRN (18:21)
[2019-12-01] MEDS ORDERED: Dextrose 5% in Water 1,000 ML IV PRN (18:31)
[2019-12-01] MEDS ORDERED: HumaLOG 300 UNITS/3 ML VIAL SC PRN (18:31)
[2019-12-01] MEDS ORDERED: Dextrose 50% Abboject 50 ML SYRINGE SLOW IVP PRN (18:31)
[2019-12-01] MEDS: traMADol HCl 50 MG TAB PO PRN (21:23)
[2019-12-01] MEDS: Famotidine 20 MG TAB PO SCH (21:23)
[2019-12-01] MEDS: Apixaban 5 MG TAB PO SCH (21:24)
[2019-12-01] MEDS: Atorvastatin Calcium 10 MG TAB PER TUBE SCH (21:24)
[2019-12-01] MEDS: Megestrol Acetate 40 MG TAB PO SCH (21:25)
[2019-12-02] MEDS: Vancomycin HCl 500 MG in Sodium Chloride 0.9% 100 ML IVPB SCH ×2 (03:20→15:00)
[2019-12-02] MEDS: Vancomycin HCl 750 MG in Sodium Chloride 0.9% 250 ML 250 ML IVPB SCH ×2 (03:43→14:59)
[2019-12-02] MEDS: HYDROcodone/Acetaminophen 10/325 mg Tablet PO PRN ×3 (05:21→21:40)
[2019-12-02] MEDS ORDERED: Levothyroxine Sodium 100 MCG TAB PO SCH (06:00)
[2019-12-02 06:11] LABS: #Basophils 0.1 thou/uL (0.0-0.2); #Eosinphils 0.2 thou/uL (0.0-0.7); #Lymphocytes 1.7 thou/uL (1.20-3.40); #Neutrophils 7.1 thou/uL (1.40-6.50); %Eosinophils 2.1 % (0.0-10.0); %Lymphocytes 17.1 % (21.0-51.0); %Neutrophils 69.7 % (42.0-75.0); Hemoglobin 10.2 g/dL (14.0-18.0); Mean Corpuscular Hemoglobin 32.2 pg (27.0-31.0); Mean Platelet Volume 7.7 fL (7.4-10.4); Platelet Count 148 thou/uL (130-400); RBC Distribution Width 14.4 % (11.5-14.5); Red Blood Cell (RBC) Count 3.17 mill/uL (4.70-6.10); White Blood Cell (WBC) Count 10.1 thou/uL (4.8-10.8)
[2019-12-02 06:19] LABS: ALT (SGPT) 19 U/L (8-55); AST (SGOT) 23 U/L (5-34); Albumin 2.2 g/dL (3.4-4.8); Alkaline Phosphatase 187 U/L (40-110); Anion Gap 10 mmol/L (10-20); BUN (Urea Nitrogen) 14 mg/dL (8.4-25.7); Bilirubin, Direct 0.4 mg/dL (0.1-0.3); Bilirubin, Total 0.6 mg/dL (0.2-1.2); Calc. Creatinine Clearance 0 mL/min (70-130); Calcium 8.4 mg/dL (7.8-10.44); Carbon Dioxide 30 mmol/L (23-31); Chloride 98 mmol/L (98-107); Estimated GFR-MDRD Greater than 90; Glucose 156 mg/dL (83-110); Protein, Total 5.9 g/dL (5.8-8.1); Sodium 134 mmol/L (136-145); Uric Acid Less than 2.0 mg/dL (3.5-7.2)
[2019-12-02] MEDS ORDERED: [UNRECOGNIZED DRUG - OTHER] PO SCH (09:00)
[2019-12-02] MEDS: Clopidogrel Bisulfate 75 MG TAB PO SCH (09:02)
[2019-12-02] MEDS: Furosemide 40 MG TAB PO SCH (09:02)
[2019-12-02] MEDS: Megestrol Acetate 40 MG TAB PO SCH ×2 (09:02→21:41)
[2019-12-02] MEDS: Allopurinol 100 MG TAB PO SCH (09:02)
[2019-12-02] MEDS: Apixaban 5 MG TAB PO SCH ×2 (09:03→21:32)
[2019-12-02] MEDS: traMADol HCl 50 MG TAB PO PRN ×2 (09:03→14:59)
[2019-12-02] MEDS: Amiodarone 200 MG TAB PO SCH (09:03)
[2019-12-02] MEDS: Famotidine 20 MG TAB PO SCH ×2 (09:04→21:32)
[2019-12-02] MEDS: Metoclopramide HCl 10 MG TAB PO SCH (09:04)
[2019-12-02] MEDS: HumaLOG 300 UNITS/3 ML VIAL SC PRN (09:05)
[2019-12-02] MEDS: Lidocaine 5% Patch TD SCH (10:27)
[2019-12-02] MEDS ORDERED: Metamucil PACK PO SCH (11:30)
[2019-12-02] MEDS ORDERED: Colchicine 0.6 MG TAB PO SCH (19:45)
[2019-12-02] MEDS: Atorvastatin Calcium 10 MG TAB PER TUBE SCH (21:32)
[2019-12-02] MEDS: Colchicine 0.6 MG TAB PO SCH (21:41)
--- NOTE | 2019-12-02 22:01 | HP ---
CHIEF COMPLAINT: Deconditioning, need for mcc and rehab and IV antibiotics. HISTORY OF PRESENT ILLNESS: Mr. 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 He was initially thought to have urinary tract infection as he has a history of neurogenic bladder and possible cognitive dysfunction that prevented appropriate use of the urethral sphincter that resulted in urinary retention, recurrent urinary tract infections, and the decision to inactivate the device and place a suprapubic catheter. He underwent septic workup but unfortunately did not have urine and blood cultures performed. He was treated with Rocephin initially and at some point during his hospitalization, this was changed to meropenem and vancomycin. On November 25, the patient had a CT scan of the abdomen and pelvis with and without contrast that showed an infected left superior pole calyceal diverticulum and nonspecific scrotal thickening, bilateral pleural fluid with right basilar subsegmental atelectasis and constipation. Urology was consulted and stated he would be high risk for surgery to remove the implanted device as at that time, they were suspicious of persistent infection of the device that was leading to what they felt like was scrotal cellulitis. Also during the hospitalization, he continued to complain of knee pain and his pain required morphine. He did have a history of gout and uric acid level was performed that was 2.9, having been treated as an outpatient with allopurinol. The x-ray showed a suprapatellar effusion and Orthopedics was consulted on November 29 and an aspiration with injection of lidocaine was performed yielding 60 mL of yellow serous fluid. That fluid culture was negative. The aspirate did show a lot of white blood cells, neutrophilic predominant and urate crystals. Therefore, joint effusion was deemed secondary to gout. The patient did have immediate improvement of the joint pain with the lidocaine injection but that quickly resolved. Urology had held Plavix for that procedure, but it was eventually restarted. The patient has been transferred here for a two-week round of IV vancomycin, targeting scrotal cellulitis. Dr. Puckett has recommended then to discontinue this and see if he has the area inflame again, at which point, a decision will have to be made about removal of the hardware versus hospice or just a chronic oral antibiotic to contain the infection. The patient has an inguinal hernia and the removal procedure in Dr. Puckett's opinion would be risky. The patient did have a PICC line placed prior to his transfer. The patient reports complaints of numbness to the tips of his fingers and decreased ability to grasp that has evolved over the past several months as well as vertigo, singultus that has been treated with Megace and has continued to struggle with malnutrition. The patient did struggle with anorexia and biliary issues associated with the singultus earlier last year that led to gross amount of weight loss and overall physical decline. During his recovery from that, he necessitated PEG tube placement but eventually had appetite return with the addition of Megace and did not tolerate tube feeds as they caused diffuse dysentery. Thus, it has been removed. The patient has in past months undergone a speech therapy evaluation with modified barium swallow that showed the patient to be at risk with all consistencies. However, in the past, he has signed a waiver and has wished to go against his dietary recommendations and consume a regular diet with regular consistency fluids. Of note, the patient did have a rather prolonged mcc stay related to that malnutrition in June, was transferred from here and stayed for several weeks at [facility] until his discharge in early September. Since that time, he has been getting physical and occupational therapy as an outpatient. PAST MEDICAL HISTORY: 1. Fgr-qxyyale-ilzfgwnlw diabetes mellitus. 2. Obstructive sleep apnea with history of CPAP use. 3. Systolic heart failure. 4. Dyslipidemia. 5. Hypertension. 6. Heparin-induced TTP in 2001. 7. [place] in 1994 and 1988. 8. Colorectal/prostatic fistula with associated incontinence. 9. Prostate cancer, status post radiation. 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 11. Morbid obesity with recent history of anorexia. 12. Atrial flutter, status post cardioversion in 2003 with subsequent recurrence. 13. DVT of the right common femoral and external iliac veins, November 15, 2019. 14. Generalized weakness. 15. Deconditioning. 16. 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 PAST SURGICAL HISTORY: 1. Cholecystectomy. 2. Angioplasty. 3. Colon/rectal/urethral surgery with repair of prostatic rectal fistula. 4. Artificial urethral sphincter/penile erectile implant. 5. Appendectomy. 6. Coronary artery bypass graft, four vessels. 7. Several hernia repairs. 8. Status post suprapubic catheter placement in June of 2019. 9. Status post PEG tube placement in May of 2019 and subsequent removal. PSYCHIATRIC HISTORY: Includes depression. SOCIAL HISTORY: The patient lives at home with his daughter and daughter-in- law. He drinks socially weekly but not to excess. Denies tobacco or illicit drug use. His a couple of years ago, so he is . FAMILY HISTORY: Reviewed and noncontributory. ALLERGIES: NO KNOWN DRUG ALLERGIES. MEDICATIONS: Please see the transfer medication reconciliation for the full list. REVIEW OF SYSTEMS: Ten-system review is negative except as per mentioned in HPI. PHYSICAL EXAMINATION: VITAL SIGNS: Temperature 98.9, pulse 75, respirations 17, O2 saturation 95% on room air, and blood pressure 105/57. GENERAL: Thin, 84-year-old male, lying supine in bed, in no acute distress, speaking in complete sentences. Alert and oriented to person, place, and time. HEENT: Normocephalic and atraumatic. Pupils are equal, round, and reactive to light and accommodation. Extraocular muscles are intact. Nares are patent without discharge. Tongue protrudes in the midline. NECK: Supple without lymphadenopathy, thyromegaly, JVD, or bruit. HEART: Regular rate and rhythm. Normal S1 and S2. No murmurs, clicks, rubs, or gallops. CHEST: Midline sternotomy scar noted. LUNGS: Fine crackles to the right base with diminished air entry. No wheezes. No increased work of breathing. ABDOMEN: Positive bowel sounds in all four quadrants. Soft, nontender, and nondistended. No masses, guarding, or rebound tenderness. GENITOURINARY: Suprapubic catheterization site is without drainage or hemorrhage. White yellow urine in the bag. The external genitalia reveals circumcision. Left scrotal enlargement compared to right with implantable prosthesis device palpated in the left scrotal region and extending to the right. Minimal erythema, slightly pink and warm, but no extension to the groin or to the thighs. EXTREMITIES: No cyanosis, clubbing, or edema. NEUROLOGIC: Generalized weakness. Cranial nerves 2 through 12 are grossly intact without focal deficits. MUSCULOSKELETAL: The right knee is slightly pink and warm to touch with minimal effusion. Dressing status post aspiration is non-saturated. Other joints appear nonedematous, erythematous or warm to touch. LABORATORY DATA: White count 10.1, hemoglobin 10.2, hematocrit 31.9, platelets 148, 70% neutrophils, 17% lymphocytes. Sodium 134, potassium 4, chloride 98, bicarb 30, BUN 14, creatinine 0.69, glucose 156, uric acid less than 2, calcium 8.4, T bilirubin 0.6, direct bilirubin 0.4, AST 23, ALT 19, alkaline phosphatase 187, albumin 2.2. TSH 17.8. Vancomycin trough 19. ASSESSMENT AND PLAN: 1. Scrotal cellulitis. This has been deemed secondary to suspected infected artificial urethral sphincter/penile implant. The patient is high risk per Urology and per his other comorbidities for removal and thus, he has been admitted here for two weeks of IV vancomycin. He has had a PICC line placed and we will perform PICC line care. Pharmacy will monitor and adjust vancomycin. 2. 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 Unfortunately, urine culture is not available and likely at this point would not be beneficial. We will proceed with reimaging the abdomen and pelvis with CT scan with and without contrast to assess for improvement of this area of concern. At that point, could consider adding additional antibiotics to cover gram-negative bacteria. 3. Physical deconditioning. PT and OT have assessed the patient. We will treat. 4. History of recent right common femoral and external iliac deep venous thrombosis late October. The patient has received his loading dose for approximately 7 days at this point and currently is orally anticoagulated on Eliquis 2.5 b.i.d. based per his age. We will continue that. No indication for mechanical prophylaxis. We will monitor his H and H. 5. Bilateral pleural fluid with right basilar atelectasis. We will order incentive spirometry to be done q.2 hours with assist. We can reassess the bilateral oral fluid on CT imaging and adjust his Lasix p.r.n. 6. Status post suprapubic catheter. We will perform cath care as per protocol. 7. Acute gouty arthritis of the right knee. The patient has been on allopurinol and developed this despite that intervention. His uric acid level remains low at this time. However, he does continue to have significant pain. We will treat with 1.2 mg colchicine and follow this up with another 0.6 mg in 1 hour. The patient will be continued on tramadol and hydrocodone alternating p.r.n. We will need adequate pain control in order to improve his rehabilitation. 8. Coronary artery disease, status post coronary artery bypass graft. The patient is on Plavix, statin, and those will be continued. He is not on a beta-javier or GRICEL inhibitor at this time, presumably due to his extensive weight loss and resolution of chronic hypertension. 9. Ekp-gojuqrr-owrurpodn diabetes mellitus. The patient will be placed on consistent carbohydrate diet with hyperglycemia, correction algorithm with Humalog and Accu-Cheks q.a.c. and at bedtime. Hypoglycemia protocol will be used p.r.n. We will hold his metformin at this current time pending his need for imaging. 10. Cardiomyopathy. The patient will be continued on his diuretic regimen. We will order daily weights if able and routine I's and O's at this time. 11. History of atrial flutter/fibrillation. The patient will be continued on his amiodarone and is currently rate controlled. 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 The patient's TSH is elevated and he has been on the same dose of levothyroxine for over six weeks. We will increase his levothyroxine at this time and recheck his TSH as an outpatient in approximately 6 to 8 weeks. 13. Hypoalbuminemia/protein calorie malnutrition. Dietary consultation has been performed and the patient has been advised of the risks of Megace, especially in light of his recent deep venous thrombosis, but desires to continue this medication despite the risks for appetite stimulation. 14. Singultus per history. The patient will be continued on his metoclopramide and Benadryl. 15. Macrocytic anemia. We will check a vitamin B12 and folate level. 16. Prophylaxis. The patient has been given fall precautions. No mechanical prophylaxis is indicated and he has been placed on Pepcid for stress ulcer prophylaxis. 17. Code status, the patient despite a long discussion, remains full code. Job ID: [id number] [facility]
[2019-12-02] MEDS: Lidocaine Patch Removal TOP SCH (22:30)
[2019-12-03] MEDS: Colchicine 0.6 MG TAB PO SCH (03:12)
[2019-12-03] MEDS: HYDROcodone/Acetaminophen 10/325 mg Tablet PO PRN ×2 (03:26→08:41)
[2019-12-03] MEDS: Vancomycin HCl 750 MG in Sodium Chloride 0.9% 250 ML 250 ML IVPB SCH (03:28)
[2019-12-03] MEDS: Vancomycin HCl 500 MG in Sodium Chloride 0.9% 100 ML IVPB SCH (03:28)
[2019-12-03] MEDS: Levothyroxine Sodium 100 MCG TAB PO SCH (05:24)
[2019-12-03] MEDS: Levothyroxine Sodium 25 MCG TAB PO SCH (05:24)
[2019-12-03] MEDS: Famotidine 20 MG TAB PO SCH ×2 (08:44→21:05)
[2019-12-03] MEDS: Amiodarone 200 MG TAB PO SCH (08:44)
[2019-12-03] MEDS: Clopidogrel Bisulfate 75 MG TAB PO SCH (08:45)
[2019-12-03] MEDS: Furosemide 40 MG TAB PO SCH (08:45)
[2019-12-03] MEDS: Metoclopramide HCl 10 MG TAB PO SCH (08:45)
[2019-12-03] MEDS: Allopurinol 100 MG TAB PO SCH (08:45)
[2019-12-03] MEDS: Megestrol Acetate 40 MG TAB PO SCH ×2 (08:45→21:05)
[2019-12-03] MEDS: Apixaban 5 MG TAB PO SCH ×2 (08:46→21:05)
[2019-12-03] MEDS: Konsyl 6 gm Packet PO SCH ×2 (11:33→13:37)
[2019-12-03] MEDS: Lidocaine 5% Patch TD SCH (11:40)
[2019-12-03] MEDS ORDERED: Iopamidol 370 76% 100 ML VIAL ONE (13:57)
[2019-12-03 14:47] LABS: Vancomycin, Trough 20.1 ug/mL
[2019-12-03] MEDS: Vancomycin HCl 1 GM in Sodium Chloride 0.9% 250 ML 250 ML IVPB SCH (15:07)
--- NOTE | 2019-12-03 16:20 | CT ---
CT ABDOMEN AND PELVIS WITH AND WIHTOUT CONTRAST: 12/03/19 Comparison is made with the 06/19/19 study. Additional comparison is also made with the 11/26/[address] of the abdomen and pelvis was done pre and post IV contrast for evaluation of the abnormali ty in the left kidney. Axial slices were acquired followed by coronal and sagittal reconstructions. Bilateral pleural effusions are present as before. They seem slightly greater today than previously. Basilar atelectasis is noted bilaterally. Regarding the left kidney, again seen is the thick walled fluid-filled structure in the upper pole th at is presumed to be a calyceal diverticulum based upon its change in size with and without hydroneph rosis. The wall thickness is comparable to the 11/25 study. The size is exactly the same, being 4.8 cm in AP dimension. The fluid internal to this did not change in CT numbers substantially between the pr e and post contrast studies. No enhancing mass, per se, was appreciated. A small 1 cm simple cyst is seen in the left kidney. A nonobstructing calculus is noted in the right kidney. There is no current hydronephrosis on either side. The liver, spleen, pancreas, and adrenal glands showed no acute findings. Calcification is seen in th e aorta but there is no aneurysm. Severe constipation is present which has worsened since the 11/25 study. The bowel is more distended to day, up to 11 cm in spots with a substantial increase in fecal material. No free air or free fluid wa s detected. CT of the pelvis shows similar findings to before. A Sneed catheter is noted in the bladder and the b ladder seems somewhat thick walled. Reservoirs above the dome of the bladder are seen on each side as before and appear no different. While there is some stranding in the anterior abdominal wall of the pelvis, it is no worse than before. The scan does not include the scrotum, so I cannot comment on it. Again noted, is a left inguinal hernia containing fecal filled colon. Its appear seems no different than before. Looking at the size of the sigmoid colon leading into this hernia, it does not seem to b e any more distended that it was previously, however, the more proximal portions of the colon are mor e distended. No free fluid was seen in the pelvis. Again noted is a compression fracture of L1 with sclerotic and lytic components to it. It is unchange d from the 11/25 study. On the 2019 study, it was present but seems to have more lytic components today than before. IMPRESSION: 1. 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 There has been no substa ntive change since the 11/25 study. There was no abnormal enhancement around it once IV contrast was gi francisco. An infected calyceal diverticulum seems the more likely diagnosis as I cannot define a detect a mass. 2. Severe constipation with significant increase in dilation of the colon since 11/25. The size of the colon is becoming concerning. 3. Left inguinal hernia containing fecal filled sigmoid colon. While I worried about this causin g a relative increase in obstruction, I would say that the sigmoid colon leading into the hernia sac is really not very dilated. It is the colon proximal to that point that has become more dilated. 4. Small bilateral pleural effusions, slightly greater than before. 5. Pelvic findings as listed above. POS: HOME
[2019-12-03] MEDS: Atorvastatin Calcium 10 MG TAB PER TUBE SCH (21:05)
[2019-12-03] MEDS: traMADol HCl 50 MG TAB PO PRN (21:05)
[2019-12-03] MEDS: Meropenem 1 GM in Sodium Chloride 0.9% 100 ML IVPB SCH (22:16)
[2019-12-03] MEDS: Lidocaine Patch Removal TOP SCH (22:43)
[2019-12-04] MEDS: diphenhydrAMINE 25 MG CAP PO PRN (02:05)
[2019-12-04] MEDS: HYDROcodone/Acetaminophen 10/325 mg Tablet PO PRN ×3 (02:09→22:12)
[2019-12-04] MEDS: Vancomycin HCl 1 GM in Sodium Chloride 0.9% 250 ML 250 ML IVPB SCH ×2 (03:34→14:04)
[2019-12-04] MEDS: Levothyroxine Sodium 100 MCG TAB PO SCH (03:39)
[2019-12-04] MEDS: Levothyroxine Sodium 25 MCG TAB PO SCH (03:39)
[2019-12-04] MEDS: Meropenem 1 GM in Sodium Chloride 0.9% 100 ML IVPB SCH ×3 (05:30→21:57)
[2019-12-04] MEDS: Furosemide 40 MG TAB PO SCH (08:34)
[2019-12-04] MEDS: traMADol HCl 50 MG TAB PO PRN (08:34)
[2019-12-04] MEDS: Konsyl 6 gm Packet PO SCH (08:35)
[2019-12-04] MEDS: Saccharomyces boulardii 250 MG CAP PO SCH (08:37)
[2019-12-04] MEDS: Metoclopramide HCl 10 MG TAB PO SCH (08:37)
[2019-12-04] MEDS: Megestrol Acetate 40 MG TAB PO SCH ×2 (08:37→21:56)
[2019-12-04] MEDS: Apixaban 5 MG TAB PO SCH ×2 (08:37→21:59)
[2019-12-04] MEDS: Famotidine 20 MG TAB PO SCH ×2 (08:38→21:55)
[2019-12-04] MEDS: Allopurinol 100 MG TAB PO SCH (08:38)
[2019-12-04] MEDS: Amiodarone 200 MG TAB PO SCH (08:38)
[2019-12-04] MEDS: Colchicine 0.6 MG TAB PO SCH (08:38)
[2019-12-04] MEDS: Clopidogrel Bisulfate 75 MG TAB PO SCH (08:38)
[2019-12-04] MEDS: Lidocaine 5% Patch TD SCH (10:30)
[2019-12-04] MEDS: Atorvastatin Calcium 10 MG TAB PER TUBE SCH (21:55)
[2019-12-04] MEDS: Lidocaine Patch Removal TOP SCH (23:00)
[2019-12-05 02:31] LABS: Vancomycin, Trough 17.6 ug/mL
[2019-12-05] MEDS: Vancomycin HCl 1 GM in Sodium Chloride 0.9% 250 ML 250 ML IVPB SCH ×2 (02:55→14:08)
[2019-12-05] MEDS: Meropenem 1 GM in Sodium Chloride 0.9% 100 ML IVPB SCH ×3 (05:37→21:27)
[2019-12-05] MEDS: Levothyroxine Sodium 25 MCG TAB PO SCH (05:38)
[2019-12-05] MEDS: Levothyroxine Sodium 100 MCG TAB PO SCH (05:38)
[2019-12-05] MEDS: Konsyl 6 gm Packet PO SCH (08:19)
[2019-12-05] MEDS: Furosemide 40 MG TAB PO SCH (08:19)
[2019-12-05] MEDS: Saccharomyces boulardii 250 MG CAP PO SCH (08:22)
[2019-12-05] MEDS: Amiodarone 200 MG TAB PO SCH (08:22)
[2019-12-05] MEDS: Megestrol Acetate 40 MG TAB PO SCH ×2 (08:23→21:30)
[2019-12-05] MEDS: Allopurinol 100 MG TAB PO SCH (08:23)
[2019-12-05] MEDS: Apixaban 5 MG TAB PO SCH ×2 (08:23→21:30)
[2019-12-05] MEDS: HYDROcodone/Acetaminophen 10/325 mg Tablet PO PRN ×3 (08:24→21:29)
[2019-12-05] MEDS: Clopidogrel Bisulfate 75 MG TAB PO SCH (08:24)
[2019-12-05] MEDS: Colchicine 0.6 MG TAB PO SCH (08:24)
[2019-12-05] MEDS: Metoclopramide HCl 10 MG TAB PO SCH (08:24)
[2019-12-05] MEDS: Famotidine 20 MG TAB PO SCH ×2 (08:24→21:30)
[2019-12-05] MEDS: Lidocaine 5% Patch TD SCH (11:03)
[2019-12-05] MEDS: traMADol HCl 50 MG TAB PO PRN (11:39)
[2019-12-05] MEDS: HumaLOG 300 UNITS/3 ML VIAL SC PRN (13:00)
[2019-12-05] MEDS: Atorvastatin Calcium 10 MG TAB PER TUBE SCH (21:30)
[2019-12-05] MEDS: Lidocaine Patch Removal TOP SCH (23:00)
[2019-12-06] MEDS: Vancomycin HCl 1 GM in Sodium Chloride 0.9% 250 ML 250 ML IVPB SCH ×2 (02:39→15:33)
[2019-12-06] MEDS: Meropenem 1 GM in Sodium Chloride 0.9% 100 ML IVPB SCH ×3 (05:25→21:11)
[2019-12-06] MEDS: Levothyroxine Sodium 25 MCG TAB PO SCH (05:26)
[2019-12-06] MEDS: Levothyroxine Sodium 100 MCG TAB PO SCH (05:26)
[2019-12-06 05:48] LABS: Hemoglobin 11.6 g/dL (14.0-18.0); Platelet Count 134 thou/uL (130-400)
[2019-12-06] MEDS: Allopurinol 100 MG TAB PO SCH (09:03)
[2019-12-06] MEDS: Saccharomyces boulardii 250 MG CAP PO SCH (09:03)
[2019-12-06] MEDS: Clopidogrel Bisulfate 75 MG TAB PO SCH (09:04)
[2019-12-06] MEDS: Famotidine 20 MG TAB PO SCH ×2 (09:04→21:12)
[2019-12-06] MEDS: Apixaban 5 MG TAB PO SCH ×2 (09:04→21:13)
[2019-12-06] MEDS: Metoclopramide HCl 10 MG TAB PO SCH (09:04)
[2019-12-06] MEDS: Furosemide 40 MG TAB PO SCH (09:04)
[2019-12-06] MEDS: Colchicine 0.6 MG TAB PO SCH (09:04)
[2019-12-06] MEDS: Megestrol Acetate 40 MG TAB PO SCH ×2 (09:04→21:12)
[2019-12-06] MEDS: Amiodarone 200 MG TAB PO SCH (09:04)
[2019-12-06] MEDS: Konsyl 6 gm Packet PO SCH (09:05)
[2019-12-06] MEDS ORDERED: Adacel (T-DAP) 0.5 ML SYRINGE ONE (09:08)
[2019-12-06] MEDS: Lidocaine 5% Patch TD SCH (11:12)
[2019-12-06 14:51] LABS: Vancomycin, Trough 17.8 ug/mL
[2019-12-06] MEDS: Atorvastatin Calcium 10 MG TAB PER TUBE SCH (21:13)
[2019-12-07] MEDS: HYDROcodone/Acetaminophen 10/325 mg Tablet PO PRN ×2 (00:55→08:15)
[2019-12-07] MEDS: Lidocaine Patch Removal TOP SCH ×2 (01:02→23:47)
[2019-12-07] MEDS: Vancomycin HCl 1 GM in Sodium Chloride 0.9% 250 ML 250 ML IVPB SCH ×2 (03:24→15:28)
[2019-12-07] MEDS: Meropenem 1 GM in Sodium Chloride 0.9% 100 ML IVPB SCH ×3 (05:27→21:10)
[2019-12-07] MEDS: Levothyroxine Sodium 100 MCG TAB PO SCH (05:27)
[2019-12-07] MEDS: Levothyroxine Sodium 25 MCG TAB PO SCH (05:27)
[2019-12-07] MEDS ORDERED: Adacel (T-DAP) 0.5 ML SYRINGE ONE (07:44)
[2019-12-07] MEDS: Famotidine 20 MG TAB PO SCH ×2 (08:19→21:07)
[2019-12-07] MEDS: Saccharomyces boulardii 250 MG CAP PO SCH (08:20)
[2019-12-07] MEDS: Clopidogrel Bisulfate 75 MG TAB PO SCH (08:20)
[2019-12-07] MEDS: Apixaban 5 MG TAB PO SCH (08:20)
[2019-12-07] MEDS: Colchicine 0.6 MG TAB PO SCH (08:20)
[2019-12-07] MEDS: Allopurinol 100 MG TAB PO SCH (08:21)
[2019-12-07] MEDS: Megestrol Acetate 40 MG TAB PO SCH ×2 (08:22→21:08)
[2019-12-07] MEDS: Metoclopramide HCl 10 MG TAB PO SCH (08:22)
[2019-12-07] MEDS: Amiodarone 200 MG TAB PO SCH (08:22)
[2019-12-07] MEDS: Furosemide 40 MG TAB PO SCH (08:22)
[2019-12-07] MEDS: Konsyl 6 gm Packet PO SCH (09:50)
[2019-12-07] MEDS: Lidocaine 5% Patch TD SCH (11:05)
[2019-12-07] MEDS: Atorvastatin Calcium 10 MG TAB PER TUBE SCH (21:07)
[2019-12-07] MEDS: Apixaban 2.5 MG TAB PO SCH (21:07)
[2019-12-07] MEDS: diphenhydrAMINE 25 MG CAP PO PRN (23:44)
[2019-12-08] MEDS: Vancomycin HCl 1 GM in Sodium Chloride 0.9% 250 ML 250 ML IVPB SCH ×2 (02:47→15:00)
[2019-12-08] MEDS: Acetaminophen 500 MG TAB PO PRN (02:53)
[2019-12-08] MEDS: Levothyroxine Sodium 100 MCG TAB PO SCH (05:04)
[2019-12-08] MEDS: Meropenem 1 GM in Sodium Chloride 0.9% 100 ML IVPB SCH ×3 (05:04→20:55)
[2019-12-08] MEDS: Levothyroxine Sodium 25 MCG TAB PO SCH (05:04)
[2019-12-08] MEDS: Konsyl 6 gm Packet PO SCH (09:06)
[2019-12-08] MEDS: Megestrol Acetate 40 MG TAB PO SCH ×2 (09:07→21:03)
[2019-12-08] MEDS: Saccharomyces boulardii 250 MG CAP PO SCH (09:07)
[2019-12-08] MEDS: Furosemide 40 MG TAB PO SCH (09:07)
[2019-12-08] MEDS: Allopurinol 100 MG TAB PO SCH (09:08)
[2019-12-08] MEDS: Amiodarone 200 MG TAB PO SCH (09:08)
[2019-12-08] MEDS: Apixaban 2.5 MG TAB PO SCH ×2 (09:09→21:03)
[2019-12-08] MEDS: Metoclopramide HCl 10 MG TAB PO SCH (09:09)
[2019-12-08] MEDS: Famotidine 20 MG TAB PO SCH ×2 (09:09→21:03)
[2019-12-08] MEDS: Clopidogrel Bisulfate 75 MG TAB PO SCH (09:09)
[2019-12-08] MEDS: Colchicine 0.6 MG TAB PO SCH (09:09)
[2019-12-08] MEDS: Lidocaine 5% Patch TD SCH (11:22)
[2019-12-08] MEDS: diphenhydrAMINE 25 MG CAP PO PRN (21:03)
[2019-12-08] MEDS: Atorvastatin Calcium 10 MG TAB PER TUBE SCH (21:03)
[2019-12-08] MEDS: Lidocaine Patch Removal TOP SCH (22:13)
[2019-12-09] MEDS: Vancomycin HCl 1 GM in Sodium Chloride 0.9% 250 ML 250 ML IVPB SCH ×2 (02:41→15:20)
[2019-12-09 05:00] LABS: Hemoglobin 10.6 g/dL (14.0-18.0); Platelet Count 198 thou/uL (130-400)
[2019-12-09] MEDS: Levothyroxine Sodium 25 MCG TAB PO SCH (05:37)
[2019-12-09] MEDS: Levothyroxine Sodium 100 MCG TAB PO SCH (05:37)
[2019-12-09] MEDS: Meropenem 1 GM in Sodium Chloride 0.9% 100 ML IVPB SCH ×3 (05:38→21:01)
[2019-12-09] MEDS: Famotidine 20 MG TAB PO SCH ×2 (08:51→20:59)
[2019-12-09] MEDS: Konsyl 6 gm Packet PO SCH (08:51)
[2019-12-09] MEDS: Megestrol Acetate 40 MG TAB PO SCH ×2 (08:52→20:58)
[2019-12-09] MEDS: Allopurinol 100 MG TAB PO SCH (08:52)
[2019-12-09] MEDS: Clopidogrel Bisulfate 75 MG TAB PO SCH (08:52)
[2019-12-09] MEDS: Colchicine 0.6 MG TAB PO SCH (08:52)
[2019-12-09] MEDS: Furosemide 40 MG TAB PO SCH (08:52)
[2019-12-09] MEDS: Apixaban 2.5 MG TAB PO SCH ×2 (08:52→20:59)
[2019-12-09] MEDS: Amiodarone 200 MG TAB PO SCH (08:53)
[2019-12-09] MEDS: Saccharomyces boulardii 250 MG CAP PO SCH (08:53)
[2019-12-09] MEDS: Metoclopramide HCl 10 MG TAB PO SCH (08:53)
[2019-12-09] MEDS: Lidocaine 5% Patch TD SCH (11:22)
[2019-12-09 14:24] LABS: Vancomycin, Trough 20.9 ug/mL
[2019-12-09] MEDS: diphenhydrAMINE 25 MG CAP PO PRN (20:58)
[2019-12-09] MEDS: Atorvastatin Calcium 10 MG TAB PER TUBE SCH (20:59)
[2019-12-09] MEDS: Lidocaine Patch Removal TOP SCH (23:14)
[2019-12-10 03:24] LABS: Anion Gap 10 mmol/L (10-20); BUN (Urea Nitrogen) 13 mg/dL (8.4-25.7); Calc. Creatinine Clearance 97 mL/min (70-130); Calcium 8.8 mg/dL (7.8-10.44); Carbon Dioxide 29 mmol/L (23-31); Chloride 102 mmol/L (98-107); Estimated GFR-MDRD Greater than 90; Glucose 105 mg/dL (83-110); Potassium 4.1 mmol/L (3.5-5.1); Sodium 137 mmol/L (136-145)
[2019-12-10 03:30] LABS: Vancomycin, Trough 44.2 ug/mL
[2019-12-10] MEDS: Vancomycin HCl 1 GM in Sodium Chloride 0.9% 250 ML 250 ML IVPB SCH (04:12)
[2019-12-10] MEDS ORDERED: Vancomycin HCl 1 GM in Sodium Chloride 0.9% 250 ML 250 ML IVPB SCH (04:30)
[2019-12-10 04:49] LABS: Vancomycin, Trough 20.9 ug/mL
[2019-12-10] MEDS: Meropenem 1 GM in Sodium Chloride 0.9% 100 ML IVPB SCH ×3 (05:12→21:04)
[2019-12-10] MEDS: Levothyroxine Sodium 100 MCG TAB PO SCH (05:13)
[2019-12-10] MEDS: Levothyroxine Sodium 25 MCG TAB PO SCH (05:13)
[2019-12-10] MEDS: Allopurinol 100 MG TAB PO SCH (09:09)
[2019-12-10] MEDS: Famotidine 20 MG TAB PO SCH ×2 (09:09→20:30)
[2019-12-10] MEDS: Metoclopramide HCl 10 MG TAB PO SCH (09:10)
[2019-12-10] MEDS: Furosemide 40 MG TAB PO SCH (09:10)
[2019-12-10] MEDS: Megestrol Acetate 40 MG TAB PO SCH ×2 (09:10→20:30)
[2019-12-10] MEDS: Apixaban 2.5 MG TAB PO SCH ×2 (09:10→20:30)
[2019-12-10] MEDS: Colchicine 0.6 MG TAB PO SCH (09:10)
[2019-12-10] MEDS: Clopidogrel Bisulfate 75 MG TAB PO SCH (09:10)
[2019-12-10] MEDS: Amiodarone 200 MG TAB PO SCH (09:11)
[2019-12-10] MEDS: Saccharomyces boulardii 250 MG CAP PO SCH (09:12)
[2019-12-10] MEDS: Konsyl 6 gm Packet PO SCH (09:12)
[2019-12-10] MEDS: Lidocaine 5% Patch TD SCH (10:27)
[2019-12-10] MEDS: Atorvastatin Calcium 10 MG TAB PER TUBE SCH (20:30)
[2019-12-10] MEDS: diphenhydrAMINE 25 MG CAP PO PRN (20:30)
[2019-12-10] MEDS: Lidocaine Patch Removal TOP SCH (22:26)
[2019-12-11 02:27] LABS: Vancomycin, Random 11.5 ug/mL (See Comment)
[2019-12-11] MEDS: Vancomycin HCl 750 MG in Sodium Chloride 0.9% 250 ML 250 ML IVPB SCH ×2 (03:14→14:33)
[2019-12-11] MEDS: Levothyroxine Sodium 100 MCG TAB PO SCH (05:33)
[2019-12-11] MEDS: Levothyroxine Sodium 25 MCG TAB PO SCH (05:33)
[2019-12-11] MEDS: Meropenem 1 GM in Sodium Chloride 0.9% 100 ML IVPB SCH ×3 (05:35→21:03)
[2019-12-11] MEDS: Famotidine 20 MG TAB PO SCH ×2 (08:44→20:48)
[2019-12-11] MEDS: Colchicine 0.6 MG TAB PO SCH (08:44)
[2019-12-11] MEDS: Clopidogrel Bisulfate 75 MG TAB PO SCH (08:45)
[2019-12-11] MEDS: Amiodarone 200 MG TAB PO SCH (08:45)
[2019-12-11] MEDS: Allopurinol 100 MG TAB PO SCH (08:45)
[2019-12-11] MEDS: Furosemide 40 MG TAB PO SCH (08:45)
[2019-12-11] MEDS: Apixaban 2.5 MG TAB PO SCH ×2 (08:46→20:49)
[2019-12-11] MEDS: Metoclopramide HCl 10 MG TAB PO SCH (08:46)
[2019-12-11] MEDS: Megestrol Acetate 40 MG TAB PO SCH ×2 (08:46→20:49)
[2019-12-11] MEDS: Saccharomyces boulardii 250 MG CAP PO SCH (08:47)
[2019-12-11] MEDS: Konsyl 6 gm Packet PO SCH (08:47)
[2019-12-11] MEDS: Lidocaine 5% Patch TD SCH (11:44)
[2019-12-11] MEDS: Atorvastatin Calcium 10 MG TAB PER TUBE SCH (20:49)
[2019-12-11] MEDS: Lidocaine Patch Removal TOP SCH (23:00)
[2019-12-12] MEDS: Vancomycin HCl 750 MG in Sodium Chloride 0.9% 250 ML 250 ML IVPB SCH ×2 (03:24→14:57)
[2019-12-12] MEDS: Levothyroxine Sodium 100 MCG TAB PO SCH (03:40)
[2019-12-12] MEDS: diphenhydrAMINE 25 MG CAP PO PRN ×2 (03:41→23:56)
[2019-12-12] MEDS: Levothyroxine Sodium 25 MCG TAB PO SCH (03:41)
[2019-12-12] MEDS: Acetaminophen 500 MG TAB PO PRN (03:41)
[2019-12-12] MEDS: Meropenem 1 GM in Sodium Chloride 0.9% 100 ML IVPB SCH ×3 (05:13→21:09)
[2019-12-12] MEDS: Amiodarone 200 MG TAB PO SCH (09:14)
[2019-12-12] MEDS: Konsyl 6 gm Packet PO SCH (09:14)
[2019-12-12] MEDS: Metoclopramide HCl 10 MG TAB PO SCH (09:14)
[2019-12-12] MEDS: Famotidine 20 MG TAB PO SCH ×2 (09:15→21:09)
[2019-12-12] MEDS: Allopurinol 100 MG TAB PO SCH (09:15)
[2019-12-12] MEDS: Megestrol Acetate 40 MG TAB PO SCH ×2 (09:16→21:09)
[2019-12-12] MEDS: Clopidogrel Bisulfate 75 MG TAB PO SCH (09:16)
[2019-12-12] MEDS: Furosemide 40 MG TAB PO SCH (09:16)
[2019-12-12] MEDS: Apixaban 2.5 MG TAB PO SCH ×2 (09:16→21:10)
[2019-12-12] MEDS: Saccharomyces boulardii 250 MG CAP PO SCH (09:17)
[2019-12-12] MEDS: Lidocaine 5% Patch TD SCH (11:03)
[2019-12-12] MEDS: Atorvastatin Calcium 10 MG TAB PER TUBE SCH (21:09)
[2019-12-13] MEDS: Vancomycin HCl 750 MG in Sodium Chloride 0.9% 250 ML 250 ML IVPB SCH ×2 (03:20→14:16)
[2019-12-13] MEDS: Levothyroxine Sodium 25 MCG TAB PO SCH (05:39)
[2019-12-13] MEDS: Meropenem 1 GM in Sodium Chloride 0.9% 100 ML IVPB SCH ×3 (05:39→20:52)
[2019-12-13] MEDS: Levothyroxine Sodium 100 MCG TAB PO SCH (05:39)
[2019-12-13] MEDS: Apixaban 2.5 MG TAB PO SCH ×2 (08:49→20:51)
[2019-12-13] MEDS: Amiodarone 200 MG TAB PO SCH (08:50)
[2019-12-13] MEDS: Megestrol Acetate 40 MG TAB PO SCH ×2 (08:50→20:50)
[2019-12-13] MEDS: Clopidogrel Bisulfate 75 MG TAB PO SCH (08:50)
[2019-12-13] MEDS: Metoclopramide HCl 10 MG TAB PO SCH (08:50)
[2019-12-13] MEDS: Famotidine 20 MG TAB PO SCH ×2 (08:50→20:50)
[2019-12-13] MEDS: Allopurinol 100 MG TAB PO SCH (08:50)
[2019-12-13] MEDS: Furosemide 40 MG TAB PO SCH (08:51)
[2019-12-13] MEDS: Konsyl 6 gm Packet PO SCH (08:51)
[2019-12-13] MEDS: Saccharomyces boulardii 250 MG CAP PO SCH (08:52)
[2019-12-13] MEDS: Lidocaine 5% Patch TD SCH (11:47)
[2019-12-13] MEDS: diphenhydrAMINE 25 MG CAP PO PRN (20:50)
[2019-12-13] MEDS: Atorvastatin Calcium 10 MG TAB PER TUBE SCH (20:51)
[2019-12-13] MEDS: Lidocaine Patch Removal TOP SCH (22:49)
[2019-12-14] MEDS: Vancomycin HCl 750 MG in Sodium Chloride 0.9% 250 ML 250 ML IVPB SCH ×2 (03:02→15:39)
[2019-12-14] MEDS: Levothyroxine Sodium 25 MCG TAB PO SCH (05:40)
[2019-12-14] MEDS: Levothyroxine Sodium 100 MCG TAB PO SCH (05:40)
[2019-12-14] MEDS: Meropenem 1 GM in Sodium Chloride 0.9% 100 ML IVPB SCH ×3 (05:41→20:55)
[2019-12-14] MEDS: Allopurinol 100 MG TAB PO SCH (09:05)
[2019-12-14] MEDS: Konsyl 6 gm Packet PO SCH (09:05)
[2019-12-14] MEDS: Amiodarone 200 MG TAB PO SCH (09:05)
[2019-12-14] MEDS: Megestrol Acetate 40 MG TAB PO SCH ×2 (09:06→20:30)
[2019-12-14] MEDS: Famotidine 20 MG TAB PO SCH ×2 (09:07→20:30)
[2019-12-14] MEDS: Clopidogrel Bisulfate 75 MG TAB PO SCH (09:07)
[2019-12-14] MEDS: Apixaban 2.5 MG TAB PO SCH ×2 (09:07→20:30)
[2019-12-14] MEDS: Furosemide 40 MG TAB PO SCH (09:07)
[2019-12-14] MEDS: Saccharomyces boulardii 250 MG CAP PO SCH (09:08)
[2019-12-14] MEDS: Metoclopramide HCl 10 MG TAB PO SCH (09:08)
[2019-12-14] MEDS: Lidocaine 5% Patch TD SCH (11:53)
[2019-12-14 14:44] LABS: Vancomycin, Trough 16.3 ug/mL
[2019-12-14] MEDS: diphenhydrAMINE 25 MG CAP PO PRN (20:30)
[2019-12-14] MEDS: Atorvastatin Calcium 10 MG TAB PER TUBE SCH (20:30)
[2019-12-14] MEDS: Lidocaine Patch Removal TOP SCH (22:36)
[2019-12-15] MEDS: Vancomycin HCl 750 MG in Sodium Chloride 0.9% 250 ML 250 ML IVPB SCH ×2 (03:39→14:46)
[2019-12-15] MEDS: Levothyroxine Sodium 25 MCG TAB PO SCH (05:52)
[2019-12-15] MEDS: Meropenem 1 GM in Sodium Chloride 0.9% 100 ML IVPB SCH ×3 (05:52→21:22)
[2019-12-15] MEDS: Levothyroxine Sodium 100 MCG TAB PO SCH (05:52)
[2019-12-15] MEDS: Famotidine 20 MG TAB PO SCH ×2 (09:01→21:22)
[2019-12-15] MEDS: Konsyl 6 gm Packet PO SCH (09:01)
[2019-12-15] MEDS: Amiodarone 200 MG TAB PO SCH (09:04)
[2019-12-15] MEDS: Allopurinol 100 MG TAB PO SCH (09:04)
[2019-12-15] MEDS: Apixaban 2.5 MG TAB PO SCH ×2 (09:05→21:22)
[2019-12-15] MEDS: Furosemide 40 MG TAB PO SCH (09:05)
[2019-12-15] MEDS: Clopidogrel Bisulfate 75 MG TAB PO SCH (09:05)
[2019-12-15] MEDS: Megestrol Acetate 40 MG TAB PO SCH ×2 (09:05→21:22)
[2019-12-15] MEDS: Metoclopramide HCl 10 MG TAB PO SCH (09:05)
[2019-12-15] MEDS: Saccharomyces boulardii 250 MG CAP PO SCH (09:06)
[2019-12-15] MEDS: Lidocaine 5% Patch TD SCH (14:05)
[2019-12-15] MEDS: Atorvastatin Calcium 10 MG TAB PER TUBE SCH (21:22)
[2019-12-15] MEDS: Lidocaine Patch Removal TOP SCH (23:45)
[2019-12-16] MEDS: Levothyroxine Sodium 25 MCG TAB PO SCH (05:12)
[2019-12-16] MEDS: Meropenem 1 GM in Sodium Chloride 0.9% 100 ML IVPB SCH ×3 (05:12→21:37)
[2019-12-16] MEDS: Levothyroxine Sodium 100 MCG TAB PO SCH (05:12)
[2019-12-16 05:31] LABS: Hemoglobin 10.8 g/dL (14.0-18.0); Platelet Count 156 thou/uL (130-400)
[2019-12-16] MEDS: Konsyl 6 gm Packet PO SCH (08:05)
[2019-12-16] MEDS: Clopidogrel Bisulfate 75 MG TAB PO SCH (08:07)
[2019-12-16] MEDS: Allopurinol 100 MG TAB PO SCH (08:08)
[2019-12-16] MEDS: Famotidine 20 MG TAB PO SCH ×2 (08:08→21:37)
[2019-12-16] MEDS: Amiodarone 200 MG TAB PO SCH (08:08)
[2019-12-16] MEDS: Megestrol Acetate 40 MG TAB PO SCH ×2 (08:08→21:37)
[2019-12-16] MEDS: Metoclopramide HCl 10 MG TAB PO SCH (08:08)
[2019-12-16] MEDS: Furosemide 40 MG TAB PO SCH (08:08)
[2019-12-16] MEDS: Apixaban 2.5 MG TAB PO SCH ×2 (08:08→21:37)
[2019-12-16] MEDS: Saccharomyces boulardii 250 MG CAP PO SCH (08:09)
[2019-12-16] MEDS: Lidocaine 5% Patch TD SCH (11:38)
[2019-12-16] MEDS: Atorvastatin Calcium 10 MG TAB PER TUBE SCH (21:37)
[2019-12-16] MEDS: Lidocaine Patch Removal TOP SCH (23:00)
[2019-12-17] MEDS: Levothyroxine Sodium 100 MCG TAB PO SCH (05:45)
[2019-12-17] MEDS: Levothyroxine Sodium 25 MCG TAB PO SCH (05:45)
[2019-12-17] MEDS: Meropenem 1 GM in Sodium Chloride 0.9% 100 ML IVPB SCH ×3 (05:45→21:13)
[2019-12-17] MEDS: Famotidine 20 MG TAB PO SCH ×2 (08:24→20:11)
[2019-12-17] MEDS: Konsyl 6 gm Packet PO SCH (08:24)
[2019-12-17] MEDS: Amiodarone 200 MG TAB PO SCH (08:24)
[2019-12-17] MEDS: Clopidogrel Bisulfate 75 MG TAB PO SCH (08:25)
[2019-12-17] MEDS: Allopurinol 100 MG TAB PO SCH (08:25)
[2019-12-17] MEDS: Apixaban 2.5 MG TAB PO SCH ×2 (08:25→20:10)
[2019-12-17] MEDS: Megestrol Acetate 40 MG TAB PO SCH ×2 (08:26→20:11)
[2019-12-17] MEDS: Furosemide 40 MG TAB PO SCH (08:26)
[2019-12-17] MEDS: Metoclopramide HCl 10 MG TAB PO SCH (08:26)
[2019-12-17] MEDS: Saccharomyces boulardii 250 MG CAP PO SCH (08:27)
[2019-12-17] MEDS: Lidocaine 5% Patch TD SCH (11:35)
[2019-12-17] MEDS: Atorvastatin Calcium 10 MG TAB PER TUBE SCH (20:11)
[2019-12-17] MEDS: Lidocaine Patch Removal TOP SCH (22:01)
[2019-12-18] MEDS: Levothyroxine Sodium 25 MCG TAB PO SCH (05:37)
[2019-12-18] MEDS: Levothyroxine Sodium 100 MCG TAB PO SCH (05:37)
[2019-12-18] MEDS: Megestrol Acetate 40 MG TAB PO SCH ×2 (08:09→20:57)
[2019-12-18] MEDS: Konsyl 6 gm Packet PO SCH (08:09)
[2019-12-18] MEDS: Famotidine 20 MG TAB PO SCH ×2 (08:09→20:57)
[2019-12-18] MEDS: Metoclopramide HCl 10 MG TAB PO SCH (08:10)
[2019-12-18] MEDS: Furosemide 40 MG TAB PO SCH (08:10)
[2019-12-18] MEDS: Apixaban 2.5 MG TAB PO SCH ×2 (08:10→20:57)
[2019-12-18] MEDS: Allopurinol 100 MG TAB PO SCH (08:10)
[2019-12-18] MEDS: Clopidogrel Bisulfate 75 MG TAB PO SCH (08:10)
[2019-12-18] MEDS: Amiodarone 200 MG TAB PO SCH (08:10)
[2019-12-18] MEDS: Saccharomyces boulardii 250 MG CAP PO SCH (08:11)
[2019-12-18] MEDS: Lidocaine 5% Patch TD SCH (11:52)
[2019-12-18] MEDS: Atorvastatin Calcium 10 MG TAB PO SCH (20:57)
[2019-12-19] MEDS: Lidocaine Patch Removal TOP SCH ×2 (00:37→20:35)
[2019-12-19] MEDS: Levothyroxine Sodium 25 MCG TAB PO SCH (05:16)
[2019-12-19] MEDS: Levothyroxine Sodium 100 MCG TAB PO SCH (05:16)
[2019-12-19] MEDS: Konsyl 6 gm Packet PO SCH (08:18)
[2019-12-19] MEDS: Famotidine 20 MG TAB PO SCH ×2 (08:20→20:34)
[2019-12-19] MEDS: Metoclopramide HCl 10 MG TAB PO SCH (08:20)
[2019-12-19] MEDS: Clopidogrel Bisulfate 75 MG TAB PO SCH (08:20)
[2019-12-19] MEDS: Furosemide 40 MG TAB PO SCH (08:21)
[2019-12-19] MEDS: Amiodarone 200 MG TAB PO SCH (08:21)
[2019-12-19] MEDS: Allopurinol 100 MG TAB PO SCH (08:21)
[2019-12-19] MEDS: Megestrol Acetate 40 MG TAB PO SCH ×2 (08:21→20:34)
[2019-12-19] MEDS: Apixaban 2.5 MG TAB PO SCH ×2 (08:21→20:34)
[2019-12-19] MEDS: Saccharomyces boulardii 250 MG CAP PO SCH (08:22)
[2019-12-19] MEDS: Lidocaine 5% Patch TD SCH (11:39)
[2019-12-19] MEDS: Atorvastatin Calcium 10 MG TAB PO SCH (20:34)
[2019-12-20] MEDS: Levothyroxine Sodium 100 MCG TAB PO SCH (05:07)
[2019-12-20] MEDS: Levothyroxine Sodium 25 MCG TAB PO SCH (05:07)
[2019-12-20] MEDS: Metoclopramide HCl 10 MG TAB PO SCH (08:34)
[2019-12-20] MEDS: Furosemide 40 MG TAB PO SCH (08:34)
[2019-12-20] MEDS: Allopurinol 100 MG TAB PO SCH (08:36)
[2019-12-20] MEDS: Apixaban 2.5 MG TAB PO SCH ×2 (08:37→20:03)
[2019-12-20] MEDS: Famotidine 20 MG TAB PO SCH ×2 (08:37→20:04)
[2019-12-20] MEDS: Megestrol Acetate 40 MG TAB PO SCH ×2 (08:37→20:04)
[2019-12-20] MEDS: Clopidogrel Bisulfate 75 MG TAB PO SCH (08:37)
[2019-12-20] MEDS: Amiodarone 200 MG TAB PO SCH (08:37)
[2019-12-20] MEDS: Konsyl 6 gm Packet PO SCH (08:38)
[2019-12-20] MEDS: Saccharomyces boulardii 250 MG CAP PO SCH (08:39)
[2019-12-20] MEDS: Lidocaine 5% Patch TD SCH (11:33)
[2019-12-20] MEDS: Atorvastatin Calcium 10 MG TAB PO SCH (20:04)
[2019-12-20] MEDS: Lidocaine Patch Removal TOP SCH (23:00)
[2019-12-21] MEDS: Lidocaine 5% Patch TD SCH (00:24)
[2019-12-21] MEDS: Acetaminophen 500 MG TAB PO PRN (01:06)
[2019-12-21] MEDS: Levothyroxine Sodium 25 MCG TAB PO SCH (05:02)
[2019-12-21] MEDS: Levothyroxine Sodium 100 MCG TAB PO SCH (05:02)
[2019-12-21] MEDS ORDERED: Furosemide 40 MG TAB PO SCH (08:15)
[2019-12-21] MEDS: Konsyl 6 gm Packet PO SCH (08:29)
[2019-12-21] MEDS: Clopidogrel Bisulfate 75 MG TAB PO SCH (08:29)
[2019-12-21] MEDS: Metoclopramide HCl 10 MG TAB PO SCH (08:29)
[2019-12-21] MEDS: Amiodarone 200 MG TAB PO SCH (08:29)
[2019-12-21] MEDS: Megestrol Acetate 40 MG TAB PO SCH ×2 (08:30→20:41)
[2019-12-21] MEDS: Allopurinol 100 MG TAB PO SCH (08:30)
[2019-12-21] MEDS: Apixaban 2.5 MG TAB PO SCH ×2 (08:30→20:40)
[2019-12-21] MEDS: Famotidine 20 MG TAB PO SCH ×2 (08:30→20:40)
[2019-12-21] MEDS: Saccharomyces boulardii 250 MG CAP PO SCH (08:30)
[2019-12-21 08:31] LABS: #Basophils 0.1 thou/uL (0.0-0.2); #Eosinphils 0.2 thou/uL (0.0-0.7); #Monocytes 0.8 thou/uL (0.11-0.59); #Neutrophils 4.9 thou/uL (1.40-6.50); %Basophils 1.5 % (0.0-1.0); %Eosinophils 2.9 % (0.0-10.0); %Lymphocytes 24.5 % (21.0-51.0); %Monocytes 9.8 % (0.0-10.0); %Neutrophils 61.2 % (42.0-75.0); Hemoglobin 10.8 g/dL (14.0-18.0); Mean Corpuscular HGB CONC 30.8 g/dL (32.0-36.0); Mean Corpuscular Hemoglobin 31.6 pg (27.0-31.0); Mean Platelet Volume 7.4 fL (7.4-10.4); Platelet Count 139 thou/uL (130-400); RBC Distribution Width 15.2 % (11.5-14.5); Red Blood Cell (RBC) Count 3.43 mill/uL (4.70-6.10)
[2019-12-21] MEDS: Furosemide 40 MG TAB PO SCH (08:35)
[2019-12-21 08:45] LABS: ALT (SGPT) 28 U/L (8-55); AST (SGOT) 32 U/L (5-34); Albumin 2.8 g/dL (3.4-4.8); Alkaline Phosphatase 185 U/L (40-110); Anion Gap 11 mmol/L (10-20); BUN (Urea Nitrogen) 24 mg/dL (8.4-25.7); Bilirubin, Total 0.6 mg/dL (0.2-1.2); Calc. Creatinine Clearance 74 mL/min (70-130); Calcium 9.6 mg/dL (7.8-10.44); Carbon Dioxide 31 mmol/L (23-31); Chloride 104 mmol/L (98-107); Estimated GFR-MDRD 81; Globulin 3.7 g/dL (2.4-3.5); Glucose 100 mg/dL (83-110); Potassium 3.9 mmol/L (3.5-5.1); Protein, Total 6.5 g/dL (5.8-8.1); Sodium 142 mmol/L (136-145)
[2019-12-21] MEDS: Atorvastatin Calcium 10 MG TAB PO SCH (20:40)
[2019-12-21] MEDS: Lidocaine Patch Removal TOP SCH (20:42)
[2019-12-22] MEDS: Levothyroxine Sodium 100 MCG TAB PO SCH (05:33)
[2019-12-22] MEDS: Levothyroxine Sodium 25 MCG TAB PO SCH (05:33)
[2019-12-22] MEDS: Clopidogrel Bisulfate 75 MG TAB PO SCH (09:14)
[2019-12-22] MEDS: Famotidine 20 MG TAB PO SCH ×2 (09:14→20:44)
[2019-12-22] MEDS: Apixaban 2.5 MG TAB PO SCH ×2 (09:15→20:44)
[2019-12-22] MEDS: Metoclopramide HCl 10 MG TAB PO SCH (09:15)
[2019-12-22] MEDS: Megestrol Acetate 40 MG TAB PO SCH ×2 (09:15→20:44)
[2019-12-22] MEDS: Allopurinol 100 MG TAB PO SCH (09:15)
[2019-12-22] MEDS: Saccharomyces boulardii 250 MG CAP PO SCH (09:16)
[2019-12-22] MEDS: Amiodarone 200 MG TAB PO SCH (09:16)
[2019-12-22] MEDS: Konsyl 6 gm Packet PO SCH (09:16)
[2019-12-22] MEDS: Furosemide 40 MG TAB PO SCH (09:17)
[2019-12-22] MEDS: Lidocaine 5% Patch TD SCH (12:28)
[2019-12-22] MEDS: Atorvastatin Calcium 10 MG TAB PO SCH (20:44)
[2019-12-22] MEDS: diphenhydrAMINE 25 MG CAP PO PRN (20:50)
[2019-12-22] MEDS: Acetaminophen 500 MG TAB PO PRN (20:51)
[2019-12-22] MEDS: Lidocaine Patch Removal TOP SCH (23:33)
[2019-12-23 05:27] LABS: Hemoglobin 10.4 g/dL (14.0-18.0); Platelet Count 129 thou/uL (130-400)
[2019-12-23] MEDS: Levothyroxine Sodium 25 MCG TAB PO SCH (06:06)
[2019-12-23] MEDS: Levothyroxine Sodium 100 MCG TAB PO SCH (06:06)
[2019-12-23] MEDS: Konsyl 6 gm Packet PO SCH (08:37)
[2019-12-23] MEDS: Allopurinol 100 MG TAB PO SCH (08:40)
[2019-12-23] MEDS: Saccharomyces boulardii 250 MG CAP PO SCH (08:40)
[2019-12-23] MEDS: Megestrol Acetate 40 MG TAB PO SCH ×2 (08:40→20:24)
[2019-12-23] MEDS: Metoclopramide HCl 10 MG TAB PO SCH (08:41)
[2019-12-23] MEDS: Furosemide 40 MG TAB PO SCH (08:41)
[2019-12-23] MEDS: Clopidogrel Bisulfate 75 MG TAB PO SCH (08:41)
[2019-12-23] MEDS: Famotidine 20 MG TAB PO SCH ×2 (08:41→20:23)
[2019-12-23] MEDS: Apixaban 2.5 MG TAB PO SCH ×2 (08:42→20:24)
[2019-12-23] MEDS: Amiodarone 200 MG TAB PO SCH (08:42)
[2019-12-23] MEDS: Lidocaine 5% Patch TD SCH (09:54)
[2019-12-23] MEDS: Acetaminophen 500 MG TAB PO PRN (10:34)
[2019-12-23] MEDS: Atorvastatin Calcium 10 MG TAB PO SCH (20:24)
[2019-12-23] MEDS: Lidocaine Patch Removal TOP SCH (23:35)
[2019-12-23] MEDS: diphenhydrAMINE 25 MG CAP PO PRN (23:41)
[2019-12-24] MEDS: Acetaminophen 500 MG TAB PO PRN ×2 (03:43→20:14)
[2019-12-24] MEDS: Levothyroxine Sodium 100 MCG TAB PO SCH (05:32)
[2019-12-24] MEDS: Levothyroxine Sodium 25 MCG TAB PO SCH (05:32)
[2019-12-24] MEDS: Metoclopramide HCl 10 MG TAB PO SCH (08:37)
[2019-12-24] MEDS: Famotidine 20 MG TAB PO SCH ×2 (08:37→20:14)
[2019-12-24] MEDS: Naproxen 500 MG TAB PO PRN ×3 (08:37→23:08)
[2019-12-24] MEDS: Allopurinol 100 MG TAB PO SCH (08:38)
[2019-12-24] MEDS: Furosemide 40 MG TAB PO SCH (08:38)
[2019-12-24] MEDS: Konsyl 6 gm Packet PO SCH (08:39)
[2019-12-24] MEDS: Amiodarone 200 MG TAB PO SCH (08:39)
[2019-12-24] MEDS: Apixaban 2.5 MG TAB PO SCH ×2 (08:39→20:15)
[2019-12-24] MEDS: Clopidogrel Bisulfate 75 MG TAB PO SCH (08:39)
[2019-12-24] MEDS: Saccharomyces boulardii 250 MG CAP PO SCH (08:39)
[2019-12-24] MEDS: Megestrol Acetate 40 MG TAB PO SCH ×2 (08:39→20:14)
[2019-12-24] MEDS ORDERED: Colchicine 0.6 MG TAB PO SCH ×3 (09:00→10:00)
[2019-12-24] MEDS: Lidocaine 5% Patch TD SCH (10:30)
[2019-12-24] MEDS: diphenhydrAMINE 25 MG CAP PO PRN (20:14)
[2019-12-24] MEDS: Atorvastatin Calcium 10 MG TAB PO SCH (20:15)
[2019-12-24] MEDS: Lidocaine Patch Removal TOP SCH (23:09)
[2019-12-25] MEDS: Levothyroxine Sodium 100 MCG TAB PO SCH (05:54)
[2019-12-25] MEDS: Levothyroxine Sodium 25 MCG TAB PO SCH (05:54)
[2019-12-25] MEDS: Konsyl 6 gm Packet PO SCH (09:45)
[2019-12-25] MEDS: Furosemide 40 MG TAB PO SCH (09:46)
[2019-12-25] MEDS: Apixaban 2.5 MG TAB PO SCH ×2 (09:47→20:27)
[2019-12-25] MEDS: Saccharomyces boulardii 250 MG CAP PO SCH (09:47)
[2019-12-25] MEDS: Colchicine 0.6 MG TAB PO SCH (09:47)
[2019-12-25] MEDS: Famotidine 20 MG TAB PO SCH ×2 (09:47→20:26)
[2019-12-25] MEDS: Naproxen 500 MG TAB PO PRN ×2 (09:47→22:07)
[2019-12-25] MEDS: Allopurinol 100 MG TAB PO SCH (09:47)
[2019-12-25] MEDS: Clopidogrel Bisulfate 75 MG TAB PO SCH (09:48)
[2019-12-25] MEDS: Megestrol Acetate 40 MG TAB PO SCH ×2 (09:48→20:27)
[2019-12-25] MEDS: Amiodarone 200 MG TAB PO SCH (09:48)
[2019-12-25] MEDS: Metoclopramide HCl 10 MG TAB PO SCH (09:48)
[2019-12-25] MEDS: Lidocaine 5% Patch TD SCH (11:00)
[2019-12-25] MEDS: Acetaminophen 500 MG TAB PO PRN (20:26)
[2019-12-25] MEDS: diphenhydrAMINE 25 MG CAP PO PRN (20:27)
[2019-12-25] MEDS: Atorvastatin Calcium 10 MG TAB PO SCH (20:28)
[2019-12-25] MEDS: Lidocaine Patch Removal TOP SCH (20:30)
[2019-12-26] MEDS: Acetaminophen 500 MG TAB PO PRN (02:53)
[2019-12-26] MEDS: Levothyroxine Sodium 25 MCG TAB PO SCH (05:31)
[2019-12-26] MEDS: Levothyroxine Sodium 100 MCG TAB PO SCH (05:31)
[2019-12-26] MEDS: Konsyl 6 gm Packet PO SCH (09:06)
[2019-12-26] MEDS: Allopurinol 100 MG TAB PO SCH (09:06)
[2019-12-26] MEDS: Saccharomyces boulardii 250 MG CAP PO SCH (09:07)
[2019-12-26] MEDS: Apixaban 2.5 MG TAB PO SCH ×2 (09:07→20:43)
[2019-12-26] MEDS: Famotidine 20 MG TAB PO SCH ×2 (09:07→20:43)
[2019-12-26] MEDS: Amiodarone 200 MG TAB PO SCH (09:07)
[2019-12-26] MEDS: Clopidogrel Bisulfate 75 MG TAB PO SCH (09:07)
[2019-12-26] MEDS: Pramipexole Di-HCl 0.25 MG TAB PO SCH ×3 (09:07→20:43)
[2019-12-26] MEDS: Naproxen 500 MG TAB PO PRN ×2 (09:08→23:20)
[2019-12-26] MEDS: Colchicine 0.6 MG TAB PO SCH (09:08)
[2019-12-26] MEDS: Megestrol Acetate 40 MG TAB PO SCH ×2 (09:08→20:43)
[2019-12-26] MEDS: Metoclopramide HCl 10 MG TAB PO SCH (09:08)
[2019-12-26] MEDS: Furosemide 40 MG TAB PO SCH (09:09)
[2019-12-26] MEDS: Lidocaine 5% Patch TD SCH (11:00)
[2019-12-26] MEDS: diphenhydrAMINE 25 MG CAP PO PRN (20:43)
[2019-12-26] MEDS: Atorvastatin Calcium 10 MG TAB PO SCH (20:43)
[2019-12-26] MEDS: Lidocaine Patch Removal TOP SCH (23:22)
[2019-12-27] MEDS: Acetaminophen 500 MG TAB PO PRN (00:14)
[2019-12-27] MEDS: Levothyroxine Sodium 100 MCG TAB PO SCH (06:03)
[2019-12-27] MEDS: Levothyroxine Sodium 25 MCG TAB PO SCH (06:03)
[2019-12-27] MEDS: Famotidine 20 MG TAB PO SCH ×2 (08:32→20:06)
[2019-12-27] MEDS: Amiodarone 200 MG TAB PO SCH (08:32)
[2019-12-27] MEDS: Furosemide 40 MG TAB PO SCH (08:32)
[2019-12-27] MEDS: Apixaban 2.5 MG TAB PO SCH ×2 (08:33→20:07)
[2019-12-27] MEDS: Allopurinol 100 MG TAB PO SCH (08:33)
[2019-12-27] MEDS: Colchicine 0.6 MG TAB PO SCH (08:33)
[2019-12-27] MEDS: Megestrol Acetate 40 MG TAB PO SCH ×2 (08:33→20:07)
[2019-12-27] MEDS: Clopidogrel Bisulfate 75 MG TAB PO SCH (08:33)
[2019-12-27] MEDS: Saccharomyces boulardii 250 MG CAP PO SCH (08:33)
[2019-12-27] MEDS: Pramipexole Di-HCl 0.25 MG TAB PO SCH ×3 (08:34→20:06)
[2019-12-27] MEDS: Konsyl 6 gm Packet PO SCH (08:34)
[2019-12-27] MEDS: Metoclopramide HCl 10 MG TAB PO SCH (08:34)
[2019-12-27] MEDS: Naproxen 500 MG TAB PO PRN ×2 (08:49→14:49)
[2019-12-27 10:26] LABS: Bilirubin Negative (Negative); Blood, Urine Large (Negative); Clarity Turbid (Clear); Glucose, Urine (Dipstick) Negative (Negative); Leukocyte Moderate (Negative); Nitrite Positive (Negative); Protein, Urine (Dipstick) > or equal to 300 mg/dL (Neg-Trace)
[2019-12-27 10:45] LABS: RBC/HPF 21-50 HPF (0-3); Squamous Epithelial None Seen HPF (0-3); WBC/HPF Greater Than 50 HPF (0-3)
[2019-12-27 10:46] LABS: Bacteria/HPF 4+ HPF (None Seen); Triple Phosphate Crystal 4+ HPF (None Seen); Yeast-Budding Rare HPF (None Seen); Yeast-Hyphae Rare HPF (None Seen)
[2019-12-27] MEDS ORDERED: Sulfameth/Trimethoprim DS 800-160mg TAB PO SCH (11:00)
[2019-12-27] MEDS: Lidocaine 5% Patch TD SCH (11:28)
[2019-12-27] MEDS: Sulfameth/Trimethoprim DS 800-160mg TAB PO SCH (20:06)
[2019-12-27] MEDS: diphenhydrAMINE 25 MG CAP PO PRN (20:06)
[2019-12-27] MEDS: Atorvastatin Calcium 10 MG TAB PO SCH (20:07)
[2019-12-27] MEDS: Lidocaine Patch Removal TOP SCH (23:53)
[2019-12-28] MEDS: Levothyroxine Sodium 100 MCG TAB PO SCH (05:44)
[2019-12-28] MEDS: Levothyroxine Sodium 25 MCG TAB PO SCH (05:44)
[2019-12-28] MEDS: Konsyl 6 gm Packet PO SCH (08:40)
[2019-12-28] MEDS: Pramipexole Di-HCl 0.25 MG TAB PO SCH ×3 (08:41→20:15)
[2019-12-28] MEDS: Clopidogrel Bisulfate 75 MG TAB PO SCH (08:41)
[2019-12-28] MEDS: Allopurinol 100 MG TAB PO SCH (08:42)
[2019-12-28] MEDS: Famotidine 20 MG TAB PO SCH ×2 (08:42→20:15)
[2019-12-28] MEDS: Megestrol Acetate 40 MG TAB PO SCH ×2 (08:43→20:15)
[2019-12-28] MEDS: Amiodarone 200 MG TAB PO SCH (08:43)
[2019-12-28] MEDS: Saccharomyces boulardii 250 MG CAP PO SCH (08:43)
[2019-12-28] MEDS: Apixaban 2.5 MG TAB PO SCH ×2 (08:43→20:16)
[2019-12-28] MEDS: Sulfameth/Trimethoprim DS 800-160mg TAB PO SCH ×2 (08:43→20:16)
[2019-12-28] MEDS: Furosemide 40 MG TAB PO SCH (08:43)
[2019-12-28] MEDS: Metoclopramide HCl 10 MG TAB PO SCH (08:44)
[2019-12-28] MEDS: Lidocaine 5% Patch TD SCH (11:29)
[2019-12-28] MEDS: Atorvastatin Calcium 10 MG TAB PO SCH (20:16)
[2019-12-28] MEDS: Lidocaine Patch Removal TOP SCH (23:16)
[2019-12-29] MEDS: Levothyroxine Sodium 25 MCG TAB PO SCH (05:03)
[2019-12-29] MEDS: Levothyroxine Sodium 100 MCG TAB PO SCH (05:03)
[2019-12-29 05:09] LABS: Hemoglobin 10.6 g/dL (14.0-18.0); Platelet Count 92 thou/uL (130-400)
[2019-12-29] MEDS: Konsyl 6 gm Packet PO SCH (08:51)
[2019-12-29] MEDS: Pramipexole Di-HCl 0.25 MG TAB PO SCH ×3 (08:52→21:45)
[2019-12-29] MEDS: Saccharomyces boulardii 250 MG CAP PO SCH (08:52)
[2019-12-29] MEDS: Clopidogrel Bisulfate 75 MG TAB PO SCH (08:54)
[2019-12-29] MEDS: Allopurinol 100 MG TAB PO SCH (08:54)
[2019-12-29] MEDS: Metoclopramide HCl 10 MG TAB PO SCH (08:54)
[2019-12-29] MEDS: Furosemide 40 MG TAB PO SCH (08:55)
[2019-12-29] MEDS: Apixaban 2.5 MG TAB PO SCH ×2 (08:55→21:41)
[2019-12-29] MEDS: Cephalexin 250 MG CAP PO SCH ×2 (08:56→21:41)
[2019-12-29] MEDS: Famotidine 20 MG TAB PO SCH ×2 (08:56→21:45)
[2019-12-29] MEDS: Amiodarone 200 MG TAB PO SCH (08:56)
[2019-12-29] MEDS: Megestrol Acetate 40 MG TAB PO SCH ×2 (08:56→21:44)
[2019-12-29] MEDS: Lidocaine 5% Patch TD SCH (11:48)
[2019-12-29] MEDS: Atorvastatin Calcium 10 MG TAB PO SCH (21:41)
[2019-12-29] MEDS: Lidocaine Patch Removal TOP SCH (22:16)
[2019-12-30] MEDS: Levothyroxine Sodium 25 MCG TAB PO SCH (04:28)
[2019-12-30] MEDS: Levothyroxine Sodium 100 MCG TAB PO SCH (04:28)
[2019-12-30] MEDS: Famotidine 20 MG TAB PO SCH ×2 (08:21→20:50)
[2019-12-30] MEDS: Pramipexole Di-HCl 0.25 MG TAB PO SCH ×3 (08:22→20:50)
[2019-12-30] MEDS: Konsyl 6 gm Packet PO SCH (08:22)
[2019-12-30] MEDS: Allopurinol 100 MG TAB PO SCH (08:23)
[2019-12-30] MEDS: Apixaban 2.5 MG TAB PO SCH ×2 (08:23→20:52)
[2019-12-30] MEDS: Metoclopramide HCl 10 MG TAB PO SCH (08:23)
[2019-12-30] MEDS: Saccharomyces boulardii 250 MG CAP PO SCH (08:23)
[2019-12-30] MEDS: Megestrol Acetate 40 MG TAB PO SCH ×2 (08:23→20:51)
[2019-12-30] MEDS: Furosemide 40 MG TAB PO SCH (08:23)
[2019-12-30] MEDS: Amiodarone 200 MG TAB PO SCH (08:24)
[2019-12-30] MEDS: Clopidogrel Bisulfate 75 MG TAB PO SCH (08:24)
[2019-12-30] MEDS: Cephalexin 250 MG CAP PO SCH ×2 (08:24→20:51)
[2019-12-30] MEDS: chlorproMAZINE HCl 25 MG TAB PO SCH ×2 (10:27→21:00)
[2019-12-30] MEDS: Lidocaine 5% Patch TD SCH (10:28)
[2019-12-30] MEDS: Atorvastatin Calcium 10 MG TAB PO SCH (20:56)
[2019-12-30] MEDS: Lidocaine Patch Removal TOP SCH (21:01)
[2019-12-31] MEDS: Levothyroxine Sodium 25 MCG TAB PO SCH (05:45)
[2019-12-31] MEDS: Levothyroxine Sodium 100 MCG TAB PO SCH (05:45)
[2019-12-31] MEDS: Konsyl 6 gm Packet PO SCH (08:23)
[2019-12-31] MEDS: Pramipexole Di-HCl 0.25 MG TAB PO SCH ×3 (08:25→21:23)
[2019-12-31] MEDS: Allopurinol 100 MG TAB PO SCH (08:25)
[2019-12-31] MEDS: Saccharomyces boulardii 250 MG CAP PO SCH (08:25)
[2019-12-31] MEDS: Metoclopramide HCl 10 MG TAB PO SCH (08:26)
[2019-12-31] MEDS: Cephalexin 250 MG CAP PO SCH ×2 (08:26→21:23)
[2019-12-31] MEDS: Amiodarone 200 MG TAB PO SCH (08:26)
[2019-12-31] MEDS: Apixaban 2.5 MG TAB PO SCH ×2 (08:27→21:23)
[2019-12-31] MEDS: Famotidine 20 MG TAB PO SCH ×2 (08:27→21:23)
[2019-12-31] MEDS: Megestrol Acetate 40 MG TAB PO SCH ×2 (08:28→21:23)
[2019-12-31] MEDS: Furosemide 40 MG TAB PO SCH (08:28)
[2019-12-31] MEDS: Clopidogrel Bisulfate 75 MG TAB PO SCH (08:28)
[2019-12-31] MEDS: chlorproMAZINE HCl 25 MG TAB PO SCH ×2 (10:22→21:23)
[2019-12-31] MEDS: Lidocaine 5% Patch TD SCH (10:23)
[2019-12-31] MEDS: Atorvastatin Calcium 10 MG TAB PO SCH (21:23)
[2019-12-31] MEDS: Lidocaine Patch Removal TOP SCH (23:00)
[2020-01-01] MEDS: Levothyroxine Sodium 100 MCG TAB PO SCH (04:40)
[2020-01-01] MEDS: Levothyroxine Sodium 25 MCG TAB PO SCH (04:40)
[2020-01-01] MEDS: diphenhydrAMINE 25 MG CAP PO PRN (04:42)
[2020-01-01] MEDS: Acetaminophen 500 MG TAB PO PRN (04:42)
[2020-01-01] MEDS: Konsyl 6 gm Packet PO SCH (08:51)
[2020-01-01] MEDS: Famotidine 20 MG TAB PO SCH ×2 (08:53→20:04)
[2020-01-01] MEDS: Allopurinol 100 MG TAB PO SCH (08:53)
[2020-01-01] MEDS: Pramipexole Di-HCl 0.25 MG TAB PO SCH ×3 (08:53→20:04)
[2020-01-01] MEDS: Cephalexin 250 MG CAP PO SCH ×2 (08:54→20:04)
[2020-01-01] MEDS: Metoclopramide HCl 10 MG TAB PO SCH (08:54)
[2020-01-01] MEDS: Apixaban 2.5 MG TAB PO SCH ×2 (08:55→20:04)
[2020-01-01] MEDS: Megestrol Acetate 40 MG TAB PO SCH ×2 (08:55→20:04)
[2020-01-01] MEDS: Saccharomyces boulardii 250 MG CAP PO SCH (08:55)
[2020-01-01] MEDS: Clopidogrel Bisulfate 75 MG TAB PO SCH (08:55)
[2020-01-01] MEDS: Furosemide 40 MG TAB PO SCH (09:01)
[2020-01-01] MEDS: Amiodarone 200 MG TAB PO SCH (09:02)
[2020-01-01] MEDS: Lidocaine 5% Patch TD SCH (10:37)
[2020-01-01] MEDS: chlorproMAZINE HCl 25 MG TAB PO SCH ×2 (10:37→21:30)
[2020-01-01] MEDS: Atorvastatin Calcium 10 MG TAB PO SCH (20:06)
[2020-01-02] MEDS: Lidocaine Patch Removal TOP SCH ×2 (01:08→23:00)
[2020-01-02] MEDS: Levothyroxine Sodium 25 MCG TAB PO SCH (03:57)
[2020-01-02] MEDS: Levothyroxine Sodium 100 MCG TAB PO SCH (03:57)
[2020-01-02 05:34] LABS: Platelet Count 98 thou/uL (130-400)
[2020-01-02] MEDS: Konsyl 6 gm Packet PO SCH (08:07)
[2020-01-02] MEDS: Cephalexin 250 MG CAP PO SCH ×2 (08:09→20:20)
[2020-01-02] MEDS: Saccharomyces boulardii 250 MG CAP PO SCH (08:09)
[2020-01-02] MEDS: Clopidogrel Bisulfate 75 MG TAB PO SCH (08:10)
[2020-01-02] MEDS: Allopurinol 100 MG TAB PO SCH (08:10)
[2020-01-02] MEDS: Pramipexole Di-HCl 0.25 MG TAB PO SCH ×3 (08:10→20:20)
[2020-01-02] MEDS: Famotidine 20 MG TAB PO SCH ×2 (08:10→20:20)
[2020-01-02] MEDS: Metoclopramide HCl 10 MG TAB PO SCH (08:11)
[2020-01-02] MEDS: Furosemide 40 MG TAB PO SCH (08:11)
[2020-01-02] MEDS: Megestrol Acetate 40 MG TAB PO SCH ×2 (08:11→20:20)
[2020-01-02] MEDS: Amiodarone 200 MG TAB PO SCH (08:12)
[2020-01-02] MEDS: Apixaban 2.5 MG TAB PO SCH ×2 (08:12→20:25)
[2020-01-02] MEDS ORDERED: chlorproMAZINE HCl 25 MG TAB PO PRN (10:00)
[2020-01-02] MEDS: Lidocaine 5% Patch TD SCH (10:49)
[2020-01-02] MEDS: Atorvastatin Calcium 10 MG TAB PO SCH (20:19)
[2020-01-03] MEDS: Levothyroxine Sodium 100 MCG TAB PO SCH (05:07)
[2020-01-03] MEDS: Levothyroxine Sodium 25 MCG TAB PO SCH (05:07)
[2020-01-03] MEDS: Furosemide 40 MG TAB PO SCH (08:28)
[2020-01-03] MEDS: Konsyl 6 gm Packet PO SCH (08:29)
[2020-01-03] MEDS: Allopurinol 100 MG TAB PO SCH (08:31)
[2020-01-03] MEDS: Saccharomyces boulardii 250 MG CAP PO SCH (08:31)
[2020-01-03] MEDS: Metoclopramide HCl 10 MG TAB PO SCH (08:31)
[2020-01-03] MEDS: Cephalexin 250 MG CAP PO SCH ×2 (08:31→20:41)
[2020-01-03] MEDS: Pramipexole Di-HCl 0.25 MG TAB PO SCH ×3 (08:32→20:41)
[2020-01-03] MEDS: Famotidine 20 MG TAB PO SCH ×2 (08:32→20:41)
[2020-01-03] MEDS: Megestrol Acetate 40 MG TAB PO SCH ×2 (08:32→20:42)
[2020-01-03] MEDS: Clopidogrel Bisulfate 75 MG TAB PO SCH (08:32)
[2020-01-03] MEDS: Amiodarone 200 MG TAB PO SCH (08:32)
[2020-01-03] MEDS: Apixaban 2.5 MG TAB PO SCH ×2 (08:32→20:42)
[2020-01-03] MEDS: Lidocaine 5% Patch TD SCH (10:30)
[2020-01-03] MEDS: Atorvastatin Calcium 10 MG TAB PO SCH (20:42)
[2020-01-03] MEDS: Lidocaine Patch Removal TOP SCH (23:16)
[2020-01-04] MEDS: Levothyroxine Sodium 25 MCG TAB PO SCH (05:06)
[2020-01-04] MEDS: Levothyroxine Sodium 100 MCG TAB PO SCH (05:06)
[2020-01-04] MEDS: Konsyl 6 gm Packet PO SCH (08:42)
[2020-01-04] MEDS: Allopurinol 100 MG TAB PO SCH (08:45)
[2020-01-04] MEDS: Famotidine 20 MG TAB PO SCH ×2 (08:48→20:29)
[2020-01-04] MEDS: Pramipexole Di-HCl 0.25 MG TAB PO SCH ×3 (08:48→20:30)
[2020-01-04] MEDS: Clopidogrel Bisulfate 75 MG TAB PO SCH (08:48)
[2020-01-04] MEDS: Megestrol Acetate 40 MG TAB PO SCH ×2 (08:49→20:32)
[2020-01-04] MEDS: Cephalexin 250 MG CAP PO SCH ×2 (08:49→20:32)
[2020-01-04] MEDS: Metoclopramide HCl 10 MG TAB PO SCH (08:50)
[2020-01-04] MEDS: Saccharomyces boulardii 250 MG CAP PO SCH (08:50)
[2020-01-04] MEDS: Furosemide 20 MG TAB PO SCH (08:50)
[2020-01-04] MEDS: Amiodarone 200 MG TAB PO SCH (08:50)
[2020-01-04] MEDS: Apixaban 2.5 MG TAB PO SCH ×2 (08:50→20:32)
[2020-01-04] MEDS: Lidocaine 5% Patch TD SCH (11:00)
[2020-01-04 13:02] VITALS: BMI 17.5
[2020-01-04] MEDS: Atorvastatin Calcium 10 MG TAB PO SCH (20:31)
[2020-01-04] MEDS: diphenhydrAMINE 25 MG CAP PO PRN (20:31)
[2020-01-04] MEDS: Lidocaine Patch Removal TOP SCH (20:34)
[2020-01-05] MEDS: Levothyroxine Sodium 100 MCG TAB PO SCH (05:15)
[2020-01-05] MEDS: Levothyroxine Sodium 25 MCG TAB PO SCH (05:15)
[2020-01-05] MEDS: Konsyl 6 gm Packet PO SCH (08:49)
[2020-01-05] MEDS: Allopurinol 100 MG TAB PO SCH (08:53)
[2020-01-05] MEDS: Furosemide 20 MG TAB PO SCH (08:55)
[2020-01-05] MEDS: Famotidine 20 MG TAB PO SCH ×2 (08:55→20:38)
[2020-01-05] MEDS: Clopidogrel Bisulfate 75 MG TAB PO SCH (08:56)
[2020-01-05] MEDS: Saccharomyces boulardii 250 MG CAP PO SCH (08:56)
[2020-01-05] MEDS: Metoclopramide HCl 10 MG TAB PO SCH (08:56)
[2020-01-05] MEDS: Amiodarone 200 MG TAB PO SCH (08:56)
[2020-01-05] MEDS: Megestrol Acetate 40 MG TAB PO SCH ×2 (08:56→20:38)
[2020-01-05] MEDS: Apixaban 2.5 MG TAB PO SCH ×2 (08:56→20:38)
[2020-01-05] MEDS: Pramipexole Di-HCl 0.25 MG TAB PO SCH ×3 (08:56→20:37)
[2020-01-05] MEDS: Lidocaine 5% Patch TD SCH (11:59)
[2020-01-05] MEDS: Atorvastatin Calcium 10 MG TAB PO SCH (20:38)
[2020-01-05] MEDS: diphenhydrAMINE 25 MG CAP PO PRN (20:38)
[2020-01-05] MEDS: Lidocaine Patch Removal TOP SCH (22:10)
[2020-01-06] MEDS: Levothyroxine Sodium 100 MCG TAB PO SCH (06:17)
[2020-01-06] MEDS: Levothyroxine Sodium 25 MCG TAB PO SCH (06:17)
[2020-01-06] MEDS: Furosemide 20 MG TAB PO SCH (08:23)
[2020-01-06] MEDS: Clopidogrel Bisulfate 75 MG TAB PO SCH (08:23)
[2020-01-06] MEDS: Amiodarone 200 MG TAB PO SCH (08:23)
[2020-01-06] MEDS: Pramipexole Di-HCl 0.25 MG TAB PO SCH ×2 (08:23→15:09)
[2020-01-06] MEDS: Metoclopramide HCl 10 MG TAB PO SCH (08:24)
[2020-01-06] MEDS: Allopurinol 100 MG TAB PO SCH (08:24)
[2020-01-06] MEDS: Apixaban 2.5 MG TAB PO SCH (08:24)
[2020-01-06] MEDS: Saccharomyces boulardii 250 MG CAP PO SCH (08:25)
[2020-01-06] MEDS: Famotidine 20 MG TAB PO SCH (08:25)
[2020-01-06] MEDS: Megestrol Acetate 40 MG TAB PO SCH (08:25)
[2020-01-06] MEDS: Konsyl 6 gm Packet PO SCH (08:26)
[2020-01-06] MEDS: Lidocaine 5% Patch TD SCH (11:16)
[2020-01-06 17:22] VITALS: BP 136/74; TEMP 98.5
--- NOTE | 2020-01-07 03:27 | DIS ---
DATE OF ADMISSION: 12/01/2019 DATE OF DISCHARGE: 01/06/2020 ADMISSION DIAGNOSES: 1. Scrotal cellulitis. 2. 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 3. Physical deconditioning. 4. History of recent right common femoral and external iliac deep venous thrombosis. 5. Bilateral pleural effusions. 6. Right basilar atelectasis. 7. Status post suprapubic catheter. 8. Acute gouty arthritis of the right knee. 9. Coronary artery disease, status post coronary artery bypass graft. 10. Moj-padjdmp-lgzprnefc diabetes mellitus. 11. Cardiomyopathy. 12. History of atrial flutter/fibrillation. 13. Amiodarone-induced hypothyroidism. 14. Hypoalbuminemia/protein calorie malnutrition. 15. Chronic singultus. 16. Macrocytic anemia. DISCHARGE DIAGNOSES: 1. Scrotal cellulitis. 2. 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 3. Physical deconditioning. 4. History of recent right common femoral and external iliac deep venous thrombosis. 5. Bilateral pleural effusions. 6. Right basilar atelectasis. 7. Status post suprapubic catheter. 8. Acute gouty arthritis of the right knee. 9. Coronary artery disease, status post coronary artery bypass graft. 10. Npw-kgkbmhq-wqrylbpvg diabetes mellitus. 11. Cardiomyopathy. 12. History of atrial flutter/fibrillation. 13. Amiodarone-induced hypothyroidism. 14. Hypoalbuminemia/protein calorie malnutrition. 15. Chronic singultus. 16. Macrocytic anemia. 17. Proteus mirabilis cystitis. PROCEDURES: 1. Abdomen and pelvis CT performed on December 03, 2019, that showed presumed calyceal diverticulum of the left kidney with a thick wall with no substantial change since the November 25 study. No abnormal enhancement around it with IV contrast. Infected calyceal diverticulum seems the most likely diagnosis. Severe constipation with significant increase in dilation of the colon since November 25. Left inguinal hernia containing fecal filled sigmoid colon. Small bilateral pleural effusions. 2. Suprapubic catheter culture from December 27, 2019, greater than 100,000 Proteus mirabilis, sensitive to all agents except Cipro, Levaquin, nitrofurantoin, and Bactrim. 3. Discharge H and H 10 and 31.5. 4. Discharge chemistry profile normal. 5. TSH December 01, 2016, after which dose was adjusted. HISTORY AND PHYSICAL: Please see dictated report from the date of admission. SENIOR LIVING COURSE: Mr. Sanford is an 84-year-old male, who was admitted to [facility] for what was ultimately determined to be scrotal cellulitis and was suspicious for infected penile implant. The patient was evaluated by Urology and recommended to transfer to group home for physical and occupational therapy as well as two weeks of IV vancomycin. His blood cultures were negative. During his admission, the cellulitis resolved. He had no recurrence off antibiotics with observation. The patient was also noted to have abnormal left renal imaging previously and a CT report was repeated at the time of admission. Due to concern for possible persisting infection and looking at previous urinary cultures, meropenem was added for the two-week course and the patient completed that as well. He did have probiotics during his antibiotic treatment. Unfortunately, the patient did develop after antibiotics were completed, foul smelling urine and noted a decline with his therapy. Therefore, urine culture was performed of the suprapubic, which grew out Proteus and the patient was changed to Keflex after Bactrim was shown to be resistant. The patient completed that prior to his discharge. He followed up with his urologist, Dr. Carlos Puckett on January 04, 2020, who recommended to follow up in his clinic for suprapubic catheter change in two weeks and to follow up for regular office visit in two months. I did personally speak with Dr. Puckett on January 05, 2020, and he stated that the area of concern of the left kidney was due to inflammation and dilation from infection, which will resolve over time. He was not suspicious of a neoplasm in this region. He did not feel that we needed to repeat any imaging at this time. The patient did have significant joint pain on admission that was controlled with colchicine for a short pulse and then daily dosage for a few days, which completely resolved the problem. The patient's TSH was checked, as it has been six weeks since any levothyroxine adjustment and was still noted to be elevated and levothyroxine was increased to 125 mcg daily on roughly December 02. He will be due for a repeat TSH at the end of December with his primary care doctor, which is myself. The patient's diabetes remained under adequate control during his admission even off metformin. We will resume that at discharge. The patient did serrano with singultus/esophageal spasms as well as restlessness throughout his hospitalization, which was improved with the addition of chlorpromazine initially as a scheduled dose and then p.r.n., as well as a low dose of pramipexole. The patient was significantly physically deconditioned and Physical and Occupational Therapy evaluated the patient and at the end of his group home course, he still was having some problems with his right grasp and wants to explore that further. He has significant weakness but is able to ambulate with rolling walker with contact guard assist for 200 feet. He has declined home health, as he wants to continue physical and occupational therapy here. However, he is still unstable on his feet. We have advised 24-hour supervision and fall precautions. He will follow up with me shortly in three days in the clinic. DISPOSITION: Discharged to home. CONDITION: Stable. MEDICATIONS: 1. Metformin 500 mg p.o. q.p.m. ER. 2. Acetaminophen 1000 mg p.o. q.6 hours p.r.n. 3. Lomotil 1 tab p.o. q.6 hours p.r.n. 4. Clopidogrel 75 mg p.o. daily. 5. Vitamin D3 of 5000 units p.o. daily. 6. Amiodarone 200 mg p.o. daily. 7. Benadryl 50 mg p.o. q.p.m. p.r.n. insomnia. 8. Megace 40 mg p.o. b.i.d. 9. Potassium 10 mEq p.o. q.a.m. 10. Zofran 4 mg p.o. q.6 hours p.r.n. ODT. 11. Metoclopramide 10 mg p.o. q.a.m. 12. Allopurinol 300 mg p.o. daily. 13. DuoNeb 3 mL neb q.6 hours p.r.n. 14. Dulcolax 10 mg p.o. daily p.r.n. 15. Atorvastatin 10 mg p.o. at bedtime. 16. Tramadol 50 mg p.o. q.6 hours p.r.n. pain. 17. Lidocaine 5% one patch TD 1100 and remove for 12 hours p.r.n. 18. Eliquis 2.5 mg p.o. b.i.d. 19. Thorazine 25 mg p.o. b.i.d. p.r.n. 20. Konsyl one packet p.o. daily. 21. Mirapex 0.5 mg p.o. t.i.d. 22. Naprosyn 500 mg p.o. t.i.d. p.r.n. 23. Levothyroxine 125 mcg p.o. q.24 hours. 24. Lasix 20 mg p.o. daily. FOLLOWUP: Follow up with Dr. Renetta Neal at least for TMV medication reconciliation in approximately three days. Follow up with Dr. Carlos Puckett for suprapubic catheter change in the office in two weeks and a followup visit in two months. TSH needed at the end of December. Job ID: [id number] MTDD
--- NOTE | 2020-01-09 12:17 | PQF ---
Claribel Pedrito Garnre JAIMEE ESPAÑA DO [id number] CLINICAL DOCUMENTATION CLARIFICATION FORM: POST DISCHARGE Addendum to original discharge summary date: 01/06/20 Late entry note date: 01/16/20 Date: 01/09/2020 ATTN: JAIMEE ESPAÑA DO Please exercise your independent, professional judgment in responding to the clarification form. 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- DS, 01/05, JAIMEE ESPAÑA DO - Macrocytic anemia-DS, 01/05, JAIMEE ESPAÑA DO TREATMENT: - Glucerna shakes BID- FNS assessment, 12/06 to 01/03 - Sodium chloride.IV- MAR, 12/02 to 12/24 Moderate Malnutrition (in acute illness) Energy Intake: <75% of estimated energy requirement for > 7 days Weight Loss: 1-2%/1 week; 5%/ 1 month; 7.5%/3 months Other: mild body fat loss; mild muscle mass loss; mild fluid accumulation; Severe Malnutrition (in acute illness) Energy Intake: < 50% of estimated energy requirement for > 5 days Weight Loss: >1-2%/1 week; >5%/1 month; >7.5%/3 months Other: moderate body fat loss; moderate muscle mass loss; moderate- severe fluid accumulation; measurably reduced therapy coordinator strength Moderate Malnutrition (in chronic illness) Energy Intake: <75% of estimated energy requirement for >1 month Weight Loss: 5%/1 month; 7.5%/3 months; 10%/6 months; 20%/1 year Other: mild body fat loss; mild muscle mass loss; mild fluid accumulation -Severe Malnutrition (in chronic illness) Energy Intake: <75% of estimated energy requirement for >1 month Weight Loss: >5%/1 month; >7.5%/3 months; >10%/6 months; >20%/1 year Other: severe body fat loss; severe muscle mass loss; severe fluid accumulation ; measurably reduced therapy coordinator strength (This form is maintained as a part of the permanent medical record) 2014 [employer]. All Rights Reserved [email or web address]
== END 2020-01-06 17:30 | disposition home or self-care (01) | DRG 728 ==
LOC: BURMED 17:29
PROVIDERS: ADMIT Family Medicine; ATTEND Family Medicine
DX: N49.2 Inflammatory disorders of scrotum (principal); J90 Pleural effusion, not elsewhere classified; J98.11 Atelectasis; I42.9 Cardiomyopathy, unspecified; I48.92 Unspecified atrial flutter; E46 Unspecified protein-calorie malnutrition; I50.22 Chronic systolic (congestive) heart failure; Z68.1 Body mass index [BMI] 19.9 or less, adult; M10.061 Idiopathic gout, right knee; I25.10 Atherosclerotic heart disease of native coronary artery without angina pectoris; E03.8 Other specified hypothyroidism; I48.91 Unspecified atrial fibrillation; D53.9 Nutritional anemia, unspecified; B96.4 Proteus (mirabilis) (morganii) as the cause of diseases classified elsewhere; E11.9 Type 2 diabetes mellitus without complications; N30.90 Cystitis, unspecified without hematuria; N28.89 Other specified disorders of kidney and ureter; R53.81 Other malaise; K59.00 Constipation, unspecified; K40.90 Unilateral inguinal hernia, without obstruction or gangrene, not specified as recurrent; N31.9 Neuromuscular dysfunction of bladder, unspecified; I11.0 Hypertensive heart disease with heart failure; E78.5 Hyperlipidemia, unspecified; R33.9 Retention of urine, unspecified; E66.01 Morbid (severe) obesity due to excess calories; F32.9 Major depressive disorder, single episode, unspecified; Z93.1 Gastrostomy status; Z98.61 Coronary angioplasty status; Z87.440 Personal history of urinary (tract) infections; I25.2 Old myocardial infarction; Z90.49 Acquired absence of other specified parts of digestive tract; Z95.1 Presence of aortocoronary bypass graft; Z79.4 Long term (current) use of insulin; Z86.718 Personal history of other venous thrombosis and embolism; Z79.01 Long term (current) use of anticoagulants
CPT/HCPCS: 36415; 36416; 74178; 80048; 80053; 80076; 80202; 81003; 81015; 82607; 82746; 84443; 84550; 85014; 85018; 85025; 85049; 87077; 87086; 87186; 90715; J2185; J3370; J3490; J7050; Q0161; Q0162; Q0163; Q9967; S0179

== ENCOUNTER 2020-05-15 11:49 | Inpatient (IN) | payer MEDICARE, BC ==
[2020-05-15] MEDS: Pramipexole Di-HCl 0.25 MG TAB PO SCH (20:41)
[2020-05-15] MEDS: Famotidine 20 MG TAB PO SCH (20:41)
[2020-05-15] MEDS: traMADol HCl 50 MG TAB PO PRN (20:41)
[2020-05-15] MEDS: Apixaban 2.5 MG TAB PO SCH (20:42)
[2020-05-15] MEDS: Megestrol Acetate 40 MG TAB PO SCH (20:42)
[2020-05-15] MEDS: Zolpidem Tartrate 5 MG TAB PO SCH (20:43)
[2020-05-15] MEDS ORDERED: Cefepime 2 GM VIAL IVPB SCH (23:00)
[2020-05-15] MEDS: Cefepime 2 GM in Sodium Chloride 0.9% 100 ML IVPB SCH (23:35)
[2020-05-16] MEDS: Levothyroxine Sodium 50 MCG TAB PO SCH (05:17)
[2020-05-16] MEDS: Levothyroxine Sodium 100 MCG TAB PO SCH (05:17)
[2020-05-16] MEDS: Acetaminophen 325 MG TAB PO PRN (05:19)
[2020-05-16] MEDS: Cholecalciferol 1,000 UNITS (25 MCG) TAB PO SCH (08:39)
[2020-05-16] MEDS: Folic Acid 1 MG TAB PO SCH (08:40)
[2020-05-16] MEDS: Megestrol Acetate 40 MG TAB PO SCH ×2 (08:40→20:19)
[2020-05-16] MEDS: Allopurinol 100 MG TAB PO SCH (08:40)
[2020-05-16] MEDS: Furosemide 20 MG TAB PO SCH (08:41)
[2020-05-16] MEDS: Pramipexole Di-HCl 0.25 MG TAB PO SCH ×3 (08:41→20:18)
[2020-05-16] MEDS: Multivit, Therapeutic 1 TAB PO SCH (08:41)
[2020-05-16] MEDS: Saccharomyces boulardii 250 MG CAP PO SCH (08:41)
[2020-05-16] MEDS: Cyanocobalamin (Vitamin B-12) 1,000 MCG TAB PO SCH (08:41)
[2020-05-16] MEDS: Apixaban 2.5 MG TAB PO SCH ×2 (08:42→20:19)
[2020-05-16] MEDS: Famotidine 20 MG TAB PO SCH ×2 (08:42→20:19)
[2020-05-16] MEDS: Potassium Chloride 10 MEQ TAB PO SCH (08:42)
[2020-05-16] MEDS: metFORMIN 500 MG TAB PO SCH (08:42)
[2020-05-16] MEDS: Amiodarone 200 MG TAB PO SCH (08:42)
[2020-05-16] MEDS: traMADol HCl 50 MG TAB PO PRN (09:36)
[2020-05-16] MEDS: Cefepime 2 GM in Sodium Chloride 0.9% 100 ML IVPB SCH ×2 (11:01→23:48)
[2020-05-16] MEDS ORDERED: Ondansetron ODT 4 MG TAB SL PRN ×2 (18:00)
[2020-05-16 18:45] LABS: #Basophils 0.1 thou/uL (0.0-0.2); #Eosinphils 0.2 thou/uL (0.0-0.7); #Lymphocytes 2.3 thou/uL (1.20-3.40); #Monocytes 0.7 thou/uL (0.11-0.59); #Neutrophils 7.4 thou/uL (1.40-6.50); %Basophils 0.9 % (0.0-1.0); %Eosinophils 2.2 % (0.0-10.0); %Lymphocytes 21.6 % (21.0-51.0); %Monocytes 6.7 % (0.0-10.0); %Neutrophils 68.6 % (42.0-75.0); Hemoglobin 11.3 g/dL (14.0-18.0); MDiff Complete? YES; Macrocytosis SLIGHT = 6-15 cells (100X) (0-5/hpf); Mean Corpuscular HGB CONC 31.3 g/dL (32.0-36.0); Mean Corpuscular Hemoglobin 32.9 pg (27.0-31.0); Mean Platelet Volume 7.6 fL (7.4-10.4); Platelet Count 190 thou/uL (130-400); RBC Distribution Width 13.9 % (11.5-14.5); Red Blood Cell (RBC) Count 3.43 mill/uL (4.70-6.10); White Blood Cell (WBC) Count 10.8 thou/uL (4.8-10.8)
[2020-05-16 19:02] LABS: ALT (SGPT) 20 U/L (8-55); AST (SGOT) 23 U/L (5-34); Albumin 2.5 g/dL (3.4-4.8); Alkaline Phosphatase 115 U/L (40-110); Anion Gap 15 mmol/L (10-20); BUN (Urea Nitrogen) 8 mg/dL (8.4-25.7); Bilirubin, Total 0.5 mg/dL (0.2-1.2); Calc. Creatinine Clearance 101 mL/min (70-130); Calcium 7.9 mg/dL (7.8-10.44); Carbon Dioxide 27 mmol/L (23-31); Chloride 105 mmol/L (98-107); Estimated GFR-MDRD Greater than 90; Glucose 103 mg/dL (83-110); Potassium 3.9 mmol/L (3.5-5.1); Protein, Total 5.5 g/dL (5.8-8.1); Sodium 143 mmol/L (136-145)
[2020-05-16] MEDS: Zolpidem Tartrate 5 MG TAB PO SCH (20:19)
[2020-05-16] MEDS: Atorvastatin Calcium 10 MG TAB PO SCH (20:19)
[2020-05-16] MEDS: Nystatin Powder 15 GM BOT TOP SCH (23:48)
--- NOTE | 2020-05-17 00:32 | HP ---
CHIEF COMPLAINT: Requiring IV antibiotics. HISTORY OF PRESENT ILLNESS: The patient is extremely pleasant, but unfortunate 85-year-old white male with a chronic complicated medical history, who was admitted to [facility] on 05/08/2020 with history of bladder outlet obstruction, status post suprapubic catheter, who developed a right renal stone and sepsis likely secondary to obstructive nephropathy with secondary encephalopathy. The patient was admitted to the hospital and a nephrostomy tube was placed. The patient had both urine and blood grow Proteus mirabilis, sensitive to cephalosporin antibiotics. It was determined the patient would need 4 weeks of IV antibiotics. He would need nephrostomy to place to gravity for approximately 14 days. Thereafter, his urologist, Dr. Carlos Puckett considered extracorporeal shockwave lithotripsy to try to break up into the stone and due to his need for several more weeks of IV antibiotics and his overall debilitation and weakness, he was deemed appropriate. The patient was transferred from acute care status in [facility] to swing bed senior care at [facility]. PAST MEDICAL HISTORY: Significant for: 1. Sepsis secondary to UTI with obstructive uropathy. 2. Right renal stone. 3. 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 4. History of paroxysmal atrial fibrillation, on anticoagulation. 5. History of hypomagnesemia. 6. Diabetes mellitus, type 2. 7. Hypertension. 8. Chronic hiccups, on Reglan in the past. 9. Hypothyroidism. 10. Hyperlipidemia. 11. History of physical deconditioning. 12. History of DVT in October 2019. 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 14. History of coronary artery disease with an ME in 1988 and 1994. 15. History of heparin-induced TTP in 2001. PAST SURGICAL HISTORY: Includes: 1. Cholecystectomy, cardiac catheterization, and multiple urologic procedures with his most recent nephrostomy placement. 2. Appendectomy. 3. 4-vessel CABG. 4. Several hernia repairs. 5. Suprapubic catheter placement due to obstructive uropathy. 6. History of PEG tube placement due to poor nutrition and PEG tube placement. ALLERGIES: NO KNOWN DRUG ALLERGIES. SOCIAL HISTORY: The patient currently lives at home fairly independently. He is . He drinks alcohol socially. Denies smoking or social drug use. Denies significant history of depression. REVIEW OF SYSTEMS: Presently, the patient does report diffuse weakness. He reports his mental status is back now at baseline. He does report some shortness of breath that comes and goes. It is so weak he can barely get out of bed and requires moderate to max assist with transfers. The patient reports no chest pain. Does report occasional cough. Appetite is fair to poor. The patient denies any abdominal pain or dysuria. He does have a superior catheter. The patient reports no diarrhea. No nausea or vomiting. The patient unsure if he has any significant weight loss or weight gain. PHYSICAL EXAMINATION: GENERAL: Ill-appearing white male, alert, and oriented x3. Otherwise, in no apparent distress and oxygen at baseline. VITAL SIGNS: Blood pressure was 142/60, respiratory rate was 20, pulse was 68, and O2 saturation was 92% on room air. HEENT: Atraumatic and normocephalic. Extraocular movements are intact. Mucous members are slightly dry. NECK: Supple. No JVD appreciated. LUNGS: Show diminished air exchange at the bases bilaterally without rales or wheezes. HEART: Regular rate and rhythm with 2/6 systolic murmur. ABDOMEN: Soft. Bowel sounds are positive. Suprapubic catheter was patent. : There was a nephrostomy tube coming out of the right back. No other lesions were noted. There was some excoriation and skin breakdown to the groin area. EXTREMITIES: Showed posterior dependent edema 1+ of the posterior extremities bilaterally. ASSESSMENT AND PLAN: 1. Status post nephrostomy tube for right renal stone with postobstructive urinary tract infection, Proteus mirabilis, sepsis. The patient will continue to be on IV antibiotics for 4-week total course of treatment. He will continue on his antibiotics for the 4-week total. 2. Right renal stone. The patient will follow up with his urologist, Dr. Carlos Puckett in approximately 2 weeks to consider lithotripsy. 3. Coronary artery disease, stable. 4. Diabetes mellitus type 2, controlled with oral and diet. 5. History of deep venous thrombosis. The patient did initially have some blood-tinged urine and his Eliquis was held. He was placed back on Eliquis. We will continue to follow H and H and watch for hematuria. 6. History of deep venous thrombosis as above. 7. History of radiation colitis with malnutrition and the patient will advance diet as tolerated. 8. Diffuse debilitation and weakness. The patient will be initiated on physical therapy and occupational therapy. 9. Disposition. Plan is for the patient eventually to be discharged to home, but due to his multiple comorbidities and illnesses, he will likely have a prolonged hospitalization at senior care. Job ID: [id number]
[2020-05-17] MEDS: Levothyroxine Sodium 100 MCG TAB PO SCH (05:05)
[2020-05-17] MEDS: Levothyroxine Sodium 50 MCG TAB PO SCH (05:05)
--- NOTE | 2020-05-17 08:27 | RAD ---
PORTABLE CHEST: DATE: 05/16/2020. FINDINGS: An AP portable film at 1831 is compared with a 05/08/2020 study. The depth of inspiration is shallow, thus the lung bases are not well covered. There could easily be a small amount of pleural fluid present. The vessels seem slightly congested today compared to befo re, but the cardiac size is really no different. The right hilum is a little more prominent than the left, but this does not apparent substantially different than on the 05/08 study. IMPRESSION: Possible slight increase in vascular congestion over the interval. POS: HOME
[2020-05-17] MEDS: Cholecalciferol 1,000 UNITS (25 MCG) TAB PO SCH (09:16)
[2020-05-17] MEDS: Multivit, Therapeutic 1 TAB PO SCH (09:17)
[2020-05-17] MEDS: Allopurinol 100 MG TAB PO SCH (09:17)
[2020-05-17] MEDS: Apixaban 2.5 MG TAB PO SCH ×2 (09:17→20:19)
[2020-05-17] MEDS: Famotidine 20 MG TAB PO SCH ×2 (09:17→20:19)
[2020-05-17] MEDS: Pramipexole Di-HCl 0.25 MG TAB PO SCH ×3 (09:17→20:19)
[2020-05-17] MEDS: Cyanocobalamin (Vitamin B-12) 1,000 MCG TAB PO SCH (09:17)
[2020-05-17] MEDS: metFORMIN 500 MG TAB PO SCH (09:18)
[2020-05-17] MEDS: Potassium Chloride 10 MEQ TAB PO SCH (09:18)
[2020-05-17] MEDS: Folic Acid 1 MG TAB PO SCH (09:18)
[2020-05-17] MEDS: Furosemide 20 MG TAB PO SCH (09:18)
[2020-05-17] MEDS: Amiodarone 200 MG TAB PO SCH (09:18)
[2020-05-17] MEDS: Saccharomyces boulardii 250 MG CAP PO SCH (09:18)
[2020-05-17] MEDS: Nystatin Powder 15 GM BOT TOP SCH ×3 (09:19→20:20)
[2020-05-17] MEDS: Megestrol Acetate 40 MG TAB PO SCH ×2 (09:19→20:19)
[2020-05-17] MEDS: Cefepime 2 GM in Sodium Chloride 0.9% 100 ML IVPB SCH ×2 (11:18→22:49)
[2020-05-17] MEDS ORDERED: Furosemide 40 MG TAB PO SCH (14:00)
[2020-05-17] MEDS: Zolpidem Tartrate 5 MG TAB PO SCH (20:19)
[2020-05-17] MEDS: Atorvastatin Calcium 10 MG TAB PO SCH (20:19)
[2020-05-18] MEDS: Levothyroxine Sodium 50 MCG TAB PO SCH (06:46)
[2020-05-18] MEDS: Levothyroxine Sodium 100 MCG TAB PO SCH (06:46)
[2020-05-18] MEDS: Allopurinol 100 MG TAB PO SCH (08:37)
[2020-05-18] MEDS: Cholecalciferol 1,000 UNITS (25 MCG) TAB PO SCH (08:37)
[2020-05-18] MEDS: Amiodarone 200 MG TAB PO SCH (08:38)
[2020-05-18] MEDS: Pramipexole Di-HCl 0.25 MG TAB PO SCH ×3 (08:38→20:32)
[2020-05-18] MEDS: Famotidine 20 MG TAB PO SCH ×2 (08:38→20:32)
[2020-05-18] MEDS: Apixaban 2.5 MG TAB PO SCH ×2 (08:38→20:32)
[2020-05-18] MEDS: Potassium Chloride 10 MEQ TAB PO SCH (08:38)
[2020-05-18] MEDS: Cyanocobalamin (Vitamin B-12) 1,000 MCG TAB PO SCH (08:39)
[2020-05-18] MEDS: Megestrol Acetate 40 MG TAB PO SCH ×2 (08:39→20:32)
[2020-05-18] MEDS: Multivit, Therapeutic 1 TAB PO SCH (08:39)
[2020-05-18] MEDS: metFORMIN 500 MG TAB PO SCH (08:39)
[2020-05-18] MEDS: Saccharomyces boulardii 250 MG CAP PO SCH (08:39)
[2020-05-18] MEDS: Folic Acid 1 MG TAB PO SCH (08:39)
[2020-05-18] MEDS: Furosemide 20 MG TAB PO SCH (08:39)
[2020-05-18] MEDS: Nystatin Powder 15 GM BOT TOP SCH ×3 (09:18→20:33)
[2020-05-18] MEDS: Cefepime 2 GM in Sodium Chloride 0.9% 100 ML IVPB SCH ×2 (11:39→23:05)
[2020-05-18] MEDS: Acetaminophen 325 MG TAB PO PRN (20:31)
[2020-05-18] MEDS: Zolpidem Tartrate 5 MG TAB PO SCH (20:32)
[2020-05-18] MEDS: Atorvastatin Calcium 10 MG TAB PO SCH (20:32)
[2020-05-19] MEDS: Levothyroxine Sodium 100 MCG TAB PO SCH (04:58)
[2020-05-19] MEDS: Levothyroxine Sodium 50 MCG TAB PO SCH (04:58)
[2020-05-19] MEDS: Allopurinol 100 MG TAB PO SCH (09:32)
[2020-05-19] MEDS: Megestrol Acetate 40 MG TAB PO SCH ×2 (09:33→20:18)
[2020-05-19] MEDS: Cyanocobalamin (Vitamin B-12) 1,000 MCG TAB PO SCH (09:33)
[2020-05-19] MEDS: Amiodarone 200 MG TAB PO SCH (09:33)
[2020-05-19] MEDS: Potassium Chloride 10 MEQ TAB PO SCH (09:33)
[2020-05-19] MEDS: Apixaban 2.5 MG TAB PO SCH ×2 (09:33→20:18)
[2020-05-19] MEDS: Cholecalciferol 1,000 UNITS (25 MCG) TAB PO SCH (09:33)
[2020-05-19] MEDS: Pramipexole Di-HCl 0.25 MG TAB PO SCH ×3 (09:34→20:17)
[2020-05-19] MEDS: Famotidine 20 MG TAB PO SCH ×2 (09:34→20:18)
[2020-05-19] MEDS: Saccharomyces boulardii 250 MG CAP PO SCH (09:34)
[2020-05-19] MEDS: Furosemide 20 MG TAB PO SCH (09:34)
[2020-05-19] MEDS: Multivit, Therapeutic 1 TAB PO SCH (09:34)
[2020-05-19] MEDS: metFORMIN 500 MG TAB PO SCH (09:34)
[2020-05-19] MEDS: Folic Acid 1 MG TAB PO SCH (09:34)
[2020-05-19] MEDS: Nystatin Powder 15 GM BOT TOP SCH ×3 (09:35→20:17)
[2020-05-19] MEDS: Cefepime 2 GM in Sodium Chloride 0.9% 100 ML IVPB SCH ×2 (11:19→23:08)
[2020-05-19] MEDS: Atorvastatin Calcium 10 MG TAB PO SCH (20:18)
[2020-05-19] MEDS: Zolpidem Tartrate 5 MG TAB PO SCH (20:18)
[2020-05-20 05:08] LABS: Hemoglobin 10.8 g/dL (14.0-18.0); Platelet Count 167 thou/uL (130-400)
[2020-05-20] MEDS: Levothyroxine Sodium 100 MCG TAB PO SCH (05:08)
[2020-05-20] MEDS: Levothyroxine Sodium 50 MCG TAB PO SCH (05:08)
[2020-05-20] MEDS: Allopurinol 100 MG TAB PO SCH (08:58)
[2020-05-20] MEDS: Cholecalciferol 1,000 UNITS (25 MCG) TAB PO SCH (08:58)
[2020-05-20] MEDS: Amiodarone 200 MG TAB PO SCH (08:59)
[2020-05-20] MEDS: Multivit, Therapeutic 1 TAB PO SCH (08:59)
[2020-05-20] MEDS: Folic Acid 1 MG TAB PO SCH (08:59)
[2020-05-20] MEDS: metFORMIN 500 MG TAB PO SCH (08:59)
[2020-05-20] MEDS: Famotidine 20 MG TAB PO SCH ×2 (08:59→20:14)
[2020-05-20] MEDS: Pramipexole Di-HCl 0.25 MG TAB PO SCH ×3 (08:59→20:14)
[2020-05-20] MEDS: Potassium Chloride 10 MEQ TAB PO SCH (08:59)
[2020-05-20] MEDS: Apixaban 2.5 MG TAB PO SCH ×2 (08:59→20:15)
[2020-05-20] MEDS: Nystatin Powder 15 GM BOT TOP SCH ×3 (09:00→20:14)
[2020-05-20] MEDS: Cyanocobalamin (Vitamin B-12) 1,000 MCG TAB PO SCH (09:00)
[2020-05-20] MEDS: Furosemide 20 MG TAB PO SCH (09:00)
[2020-05-20] MEDS: Megestrol Acetate 40 MG TAB PO SCH ×2 (09:00→20:14)
[2020-05-20] MEDS: Saccharomyces boulardii 250 MG CAP PO SCH (09:00)
[2020-05-20] MEDS: Cefepime 2 GM in Sodium Chloride 0.9% 100 ML IVPB SCH ×2 (11:47→23:01)
[2020-05-20] MEDS: Atorvastatin Calcium 10 MG TAB PO SCH (20:14)
[2020-05-20] MEDS: Zolpidem Tartrate 5 MG TAB PO SCH (20:15)
[2020-05-21] MEDS: Levothyroxine Sodium 50 MCG TAB PO SCH (04:36)
[2020-05-21] MEDS: Acetaminophen 325 MG TAB PO PRN (04:36)
[2020-05-21] MEDS: Levothyroxine Sodium 100 MCG TAB PO SCH (04:36)
[2020-05-21] MEDS: Cholecalciferol 1,000 UNITS (25 MCG) TAB PO SCH (08:59)
[2020-05-21] MEDS: Megestrol Acetate 40 MG TAB PO SCH ×2 (09:01→21:13)
[2020-05-21] MEDS: Saccharomyces boulardii 250 MG CAP PO SCH (09:01)
[2020-05-21] MEDS: Apixaban 2.5 MG TAB PO SCH ×2 (09:01→21:14)
[2020-05-21] MEDS: Amiodarone 200 MG TAB PO SCH (09:01)
[2020-05-21] MEDS: Potassium Chloride 10 MEQ TAB PO SCH (09:01)
[2020-05-21] MEDS: Folic Acid 1 MG TAB PO SCH (09:02)
[2020-05-21] MEDS: Furosemide 20 MG TAB PO SCH (09:02)
[2020-05-21] MEDS: metFORMIN 500 MG TAB PO SCH (09:02)
[2020-05-21] MEDS: Pramipexole Di-HCl 0.25 MG TAB PO SCH ×3 (09:04→21:14)
[2020-05-21] MEDS: Famotidine 20 MG TAB PO SCH ×2 (09:04→21:13)
[2020-05-21] MEDS: Allopurinol 100 MG TAB PO SCH (09:04)
[2020-05-21] MEDS: Multivit, Therapeutic 1 TAB PO SCH (09:04)
[2020-05-21] MEDS: Nystatin Powder 15 GM BOT TOP SCH ×3 (09:05→21:16)
[2020-05-21] MEDS: Cyanocobalamin (Vitamin B-12) 1,000 MCG TAB PO SCH (09:05)
[2020-05-21] MEDS: Cefepime 2 GM in Sodium Chloride 0.9% 100 ML IVPB SCH (11:30)
[2020-05-21] MEDS ORDERED: Bisacodyl 10 MG SUPP PR PRN (18:21)
[2020-05-21] MEDS: Zolpidem Tartrate 5 MG TAB PO SCH (21:14)
[2020-05-21] MEDS: Atorvastatin Calcium 10 MG TAB PO SCH (21:14)
[2020-05-22] MEDS: Cefepime 2 GM in Sodium Chloride 0.9% 100 ML IVPB SCH ×3 (02:20→23:33)
[2020-05-22] MEDS: Levothyroxine Sodium 100 MCG TAB PO SCH (05:42)
[2020-05-22] MEDS: Levothyroxine Sodium 50 MCG TAB PO SCH (05:42)
[2020-05-22] MEDS: metFORMIN 500 MG TAB PO SCH (09:39)
[2020-05-22] MEDS: Saccharomyces boulardii 250 MG CAP PO SCH (09:39)
[2020-05-22] MEDS: Famotidine 20 MG TAB PO SCH ×2 (09:39→20:53)
[2020-05-22] MEDS: Cholecalciferol 1,000 UNITS (25 MCG) TAB PO SCH (09:39)
[2020-05-22] MEDS: Bisacodyl 5 MG TAB PO PRN (09:39)
[2020-05-22] MEDS: Allopurinol 100 MG TAB PO SCH (09:39)
[2020-05-22] MEDS: Folic Acid 1 MG TAB PO SCH (09:40)
[2020-05-22] MEDS: Amiodarone 200 MG TAB PO SCH (09:40)
[2020-05-22] MEDS: Cyanocobalamin (Vitamin B-12) 1,000 MCG TAB PO SCH (09:40)
[2020-05-22] MEDS: Pramipexole Di-HCl 0.25 MG TAB PO SCH ×3 (09:40→20:53)
[2020-05-22] MEDS: Megestrol Acetate 40 MG TAB PO SCH ×2 (09:40→20:53)
[2020-05-22] MEDS: Furosemide 20 MG TAB PO SCH (09:40)
[2020-05-22] MEDS: Potassium Chloride 10 MEQ TAB PO SCH (09:40)
[2020-05-22] MEDS: Apixaban 2.5 MG TAB PO SCH ×2 (09:41→20:53)
[2020-05-22] MEDS: Multivit, Therapeutic 1 TAB PO SCH (09:41)
[2020-05-22] MEDS: Nystatin Powder 15 GM BOT TOP SCH ×3 (09:45→20:54)
[2020-05-22] MEDS: Atorvastatin Calcium 10 MG TAB PO SCH (20:53)
[2020-05-22] MEDS: Zolpidem Tartrate 5 MG TAB PO SCH (20:53)
[2020-05-23 05:09] LABS: #Basophils 0.1 thou/uL (0.0-0.2); #Eosinphils 0.2 thou/uL (0.0-0.7); #Lymphocytes 2.1 thou/uL (1.20-3.40); #Monocytes 0.7 thou/uL (0.11-0.59); #Neutrophils 5.9 thou/uL (1.40-6.50); %Basophils 1.4 % (0.0-1.0); %Eosinophils 2.2 % (0.0-10.0); %Lymphocytes 23.2 % (21.0-51.0); %Neutrophils 65.2 % (42.0-75.0); Hemoglobin 10.8 g/dL (14.0-18.0); Mean Corpuscular HGB CONC 30.9 g/dL (32.0-36.0); Mean Corpuscular Hemoglobin 32.4 pg (27.0-31.0); Mean Platelet Volume 7.7 fL (7.4-10.4); Platelet Count 166 thou/uL (130-400); Red Blood Cell (RBC) Count 3.32 mill/uL (4.70-6.10)
[2020-05-23] MEDS: Levothyroxine Sodium 50 MCG TAB PO SCH (05:10)
[2020-05-23] MEDS: Levothyroxine Sodium 100 MCG TAB PO SCH (05:10)
[2020-05-23] MEDS: Bisacodyl 5 MG TAB PO PRN (05:10)
[2020-05-23 05:38] LABS: ALT (SGPT) 17 U/L (8-55); AST (SGOT) 17 U/L (5-34); Albumin 2.8 g/dL (3.4-4.8); Alkaline Phosphatase 102 U/L (40-110); Anion Gap 14 mmol/L (10-20); BUN (Urea Nitrogen) 13 mg/dL (8.4-25.7); Bilirubin, Total 0.5 mg/dL (0.2-1.2); CRP (Inflammatory) 0.99 mg/dL (= or < 0.5); Calc. Creatinine Clearance 87 mL/min (70-130); Calcium 8.6 mg/dL (7.8-10.44); Carbon Dioxide 27 mmol/L (23-31); Chloride 104 mmol/L (98-107); Estimated GFR-MDRD Greater than 90; Globulin 3.4 g/dL (2.4-3.5); Glucose 122 mg/dL (83-110); Potassium 3.8 mmol/L (3.5-5.1); Protein, Total 6.2 g/dL (5.8-8.1); Sodium 141 mmol/L (136-145)
[2020-05-23 05:45] LABS: MDiff Complete? YES; Macrocytosis SLIGHT = 6-15 cells (100X) (0-5/hpf); Platelet Morphology Comment Appears Adequate
[2020-05-23] MEDS: Apixaban 2.5 MG TAB PO SCH ×2 (08:59→20:58)
[2020-05-23] MEDS: Megestrol Acetate 40 MG TAB PO SCH ×2 (09:00→20:58)
[2020-05-23] MEDS: Allopurinol 100 MG TAB PO SCH (09:01)
[2020-05-23] MEDS: Cholecalciferol 1,000 UNITS (25 MCG) TAB PO SCH (09:02)
[2020-05-23] MEDS: Pramipexole Di-HCl 0.25 MG TAB PO SCH ×3 (09:02→20:59)
[2020-05-23] MEDS: Folic Acid 1 MG TAB PO SCH (09:02)
[2020-05-23] MEDS: Famotidine 20 MG TAB PO SCH ×2 (09:03→20:58)
[2020-05-23] MEDS: Cyanocobalamin (Vitamin B-12) 1,000 MCG TAB PO SCH (09:03)
[2020-05-23] MEDS: Amiodarone 200 MG TAB PO SCH (09:03)
[2020-05-23] MEDS: Furosemide 20 MG TAB PO SCH (09:03)
[2020-05-23] MEDS: Saccharomyces boulardii 250 MG CAP PO SCH (09:03)
[2020-05-23] MEDS: metFORMIN 500 MG TAB PO SCH (09:03)
[2020-05-23] MEDS: Potassium Chloride 10 MEQ TAB PO SCH (09:03)
[2020-05-23] MEDS: Multivit, Therapeutic 1 TAB PO SCH (09:04)
[2020-05-23] MEDS: Nystatin Powder 15 GM BOT TOP SCH ×3 (09:20→20:59)
[2020-05-23] MEDS: Cefepime 2 GM in Sodium Chloride 0.9% 100 ML IVPB SCH ×2 (11:58→23:35)
[2020-05-23] MEDS: Zolpidem Tartrate 5 MG TAB PO SCH (20:58)
[2020-05-23] MEDS: Atorvastatin Calcium 10 MG TAB PO SCH (20:58)
[2020-05-24] MEDS: Levothyroxine Sodium 50 MCG TAB PO SCH (05:53)
[2020-05-24] MEDS: Levothyroxine Sodium 100 MCG TAB PO SCH (05:53)
[2020-05-24] MEDS: Saccharomyces boulardii 250 MG CAP PO SCH (09:42)
[2020-05-24] MEDS: Bisacodyl 5 MG TAB PO PRN (09:42)
[2020-05-24] MEDS: Pramipexole Di-HCl 0.25 MG TAB PO SCH ×3 (09:42→21:36)
[2020-05-24] MEDS: Megestrol Acetate 40 MG TAB PO SCH ×2 (09:42→21:36)
[2020-05-24] MEDS: Famotidine 20 MG TAB PO SCH ×2 (09:42→21:35)
[2020-05-24] MEDS: Cholecalciferol 1,000 UNITS (25 MCG) TAB PO SCH (09:43)
[2020-05-24] MEDS: Multivit, Therapeutic 1 TAB PO SCH (09:43)
[2020-05-24] MEDS: Potassium Chloride 10 MEQ TAB PO SCH (09:43)
[2020-05-24] MEDS: Allopurinol 100 MG TAB PO SCH (09:43)
[2020-05-24] MEDS: metFORMIN 500 MG TAB PO SCH (09:44)
[2020-05-24] MEDS: Cyanocobalamin (Vitamin B-12) 1,000 MCG TAB PO SCH (09:44)
[2020-05-24] MEDS: Furosemide 20 MG TAB PO SCH (09:44)
[2020-05-24] MEDS: Apixaban 2.5 MG TAB PO SCH ×2 (09:44→21:36)
[2020-05-24] MEDS: Amiodarone 200 MG TAB PO SCH (09:45)
[2020-05-24] MEDS: Folic Acid 1 MG TAB PO SCH (09:46)
[2020-05-24] MEDS: Nystatin Powder 15 GM BOT TOP SCH ×3 (09:46→21:36)
[2020-05-24] MEDS: Cefepime 2 GM in Sodium Chloride 0.9% 100 ML IVPB SCH ×2 (10:57→23:45)
[2020-05-24] MEDS: Atorvastatin Calcium 10 MG TAB PO SCH (21:35)
[2020-05-24] MEDS: Zolpidem Tartrate 5 MG TAB PO SCH (21:35)
[2020-05-25] MEDS: Levothyroxine Sodium 50 MCG TAB PO SCH (06:19)
[2020-05-25] MEDS: Levothyroxine Sodium 100 MCG TAB PO SCH (06:19)
[2020-05-25] MEDS: Pramipexole Di-HCl 0.25 MG TAB PO SCH ×3 (08:24→20:19)
[2020-05-25] MEDS: Famotidine 20 MG TAB PO SCH ×2 (08:25→20:20)
[2020-05-25] MEDS: Saccharomyces boulardii 250 MG CAP PO SCH (08:25)
[2020-05-25] MEDS: Cholecalciferol 1,000 UNITS (25 MCG) TAB PO SCH (08:25)
[2020-05-25] MEDS: Allopurinol 100 MG TAB PO SCH (08:26)
[2020-05-25] MEDS: metFORMIN 500 MG TAB PO SCH (08:27)
[2020-05-25] MEDS: Furosemide 20 MG TAB PO SCH (08:27)
[2020-05-25] MEDS: Folic Acid 1 MG TAB PO SCH (08:27)
[2020-05-25] MEDS: Amiodarone 200 MG TAB PO SCH (08:27)
[2020-05-25] MEDS: Apixaban 2.5 MG TAB PO SCH ×2 (08:27→20:20)
[2020-05-25] MEDS: Potassium Chloride 10 MEQ TAB PO SCH (08:28)
[2020-05-25] MEDS: Megestrol Acetate 40 MG TAB PO SCH ×2 (08:28→20:20)
[2020-05-25] MEDS: Nystatin Powder 15 GM BOT TOP SCH ×3 (08:28→21:00)
[2020-05-25] MEDS: Cyanocobalamin (Vitamin B-12) 1,000 MCG TAB PO SCH (08:28)
[2020-05-25] MEDS: Multivit, Therapeutic 1 TAB PO SCH (08:28)
[2020-05-25] MEDS: Cefepime 2 GM in Sodium Chloride 0.9% 100 ML IVPB SCH ×2 (10:56→23:58)
[2020-05-25] MEDS: Atorvastatin Calcium 10 MG TAB PO SCH (20:20)
[2020-05-25] MEDS: Zolpidem Tartrate 5 MG TAB PO SCH (20:20)
[2020-05-26] MEDS: Levothyroxine Sodium 100 MCG TAB PO SCH (05:06)
[2020-05-26] MEDS: Levothyroxine Sodium 50 MCG TAB PO SCH (05:06)
[2020-05-26 05:46] LABS: Hemoglobin 10.7 g/dL (14.0-18.0); Platelet Count 154 thou/uL (130-400)
[2020-05-26] MEDS: Pramipexole Di-HCl 0.25 MG TAB PO SCH ×3 (08:41→21:37)
[2020-05-26] MEDS: Cholecalciferol 1,000 UNITS (25 MCG) TAB PO SCH (08:41)
[2020-05-26] MEDS: Allopurinol 100 MG TAB PO SCH (08:41)
[2020-05-26] MEDS: Folic Acid 1 MG TAB PO SCH (08:41)
[2020-05-26] MEDS: Saccharomyces boulardii 250 MG CAP PO SCH (08:41)
[2020-05-26] MEDS: Potassium Chloride 10 MEQ TAB PO SCH (08:42)
[2020-05-26] MEDS: Apixaban 2.5 MG TAB PO SCH ×2 (08:42→21:38)
[2020-05-26] MEDS: Megestrol Acetate 40 MG TAB PO SCH ×2 (08:42→21:38)
[2020-05-26] MEDS: Amiodarone 200 MG TAB PO SCH (08:42)
[2020-05-26] MEDS: Furosemide 20 MG TAB PO SCH (08:42)
[2020-05-26] MEDS: Multivit, Therapeutic 1 TAB PO SCH (08:42)
[2020-05-26] MEDS: Famotidine 20 MG TAB PO SCH ×2 (08:42→21:37)
[2020-05-26] MEDS: Cyanocobalamin (Vitamin B-12) 1,000 MCG TAB PO SCH (08:42)
[2020-05-26] MEDS: metFORMIN 500 MG TAB PO SCH (08:42)
[2020-05-26] MEDS: Nystatin Powder 15 GM BOT TOP SCH ×3 (08:42→21:00)
[2020-05-26] MEDS: Cefepime 2 GM in Sodium Chloride 0.9% 100 ML IVPB SCH ×2 (10:47→23:16)
[2020-05-26] MEDS: Acetaminophen 325 MG TAB PO PRN (16:01)
[2020-05-26] MEDS: Zolpidem Tartrate 5 MG TAB PO SCH (21:38)
[2020-05-26] MEDS: Atorvastatin Calcium 10 MG TAB PO SCH (21:38)
[2020-05-27] MEDS: Levothyroxine Sodium 50 MCG TAB PO SCH (05:44)
[2020-05-27] MEDS: Levothyroxine Sodium 100 MCG TAB PO SCH (05:44)
[2020-05-27] MEDS: Furosemide 20 MG TAB PO SCH (09:03)
[2020-05-27] MEDS: Cholecalciferol 1,000 UNITS (25 MCG) TAB PO SCH (09:03)
[2020-05-27] MEDS: Allopurinol 100 MG TAB PO SCH (09:03)
[2020-05-27] MEDS: Potassium Chloride 10 MEQ TAB PO SCH (09:04)
[2020-05-27] MEDS: Pramipexole Di-HCl 0.25 MG TAB PO SCH ×3 (09:04→21:02)
[2020-05-27] MEDS: Megestrol Acetate 40 MG TAB PO SCH ×2 (09:04→21:02)
[2020-05-27] MEDS: Cyanocobalamin (Vitamin B-12) 1,000 MCG TAB PO SCH (09:04)
[2020-05-27] MEDS: Saccharomyces boulardii 250 MG CAP PO SCH (09:04)
[2020-05-27] MEDS: Folic Acid 1 MG TAB PO SCH (09:04)
[2020-05-27] MEDS: Bisacodyl 5 MG TAB PO PRN (09:04)
[2020-05-27] MEDS: Apixaban 2.5 MG TAB PO SCH ×2 (09:04→21:02)
[2020-05-27] MEDS: Famotidine 20 MG TAB PO SCH ×2 (09:04→21:01)
[2020-05-27] MEDS: Multivit, Therapeutic 1 TAB PO SCH (09:04)
[2020-05-27] MEDS: Amiodarone 200 MG TAB PO SCH (09:04)
[2020-05-27] MEDS: metFORMIN 500 MG TAB PO SCH (09:04)
[2020-05-27] MEDS: Nystatin Powder 15 GM BOT TOP SCH ×3 (09:05→21:00)
[2020-05-27] MEDS: Cefepime 2 GM in Sodium Chloride 0.9% 100 ML IVPB SCH (11:32)
[2020-05-27] MEDS: Atorvastatin Calcium 10 MG TAB PO SCH (21:02)
[2020-05-27] MEDS: Zolpidem Tartrate 5 MG TAB PO SCH (21:02)
[2020-05-28] MEDS: Levothyroxine Sodium 100 MCG TAB PO SCH (04:52)
[2020-05-28] MEDS: Levothyroxine Sodium 50 MCG TAB PO SCH (04:52)
[2020-05-28] MEDS: Amiodarone 200 MG TAB PO SCH (08:20)
[2020-05-28] MEDS: Folic Acid 1 MG TAB PO SCH (08:20)
[2020-05-28] MEDS: Potassium Chloride 10 MEQ TAB PO SCH (08:20)
[2020-05-28] MEDS: Pramipexole Di-HCl 0.25 MG TAB PO SCH ×3 (08:21→20:47)
[2020-05-28] MEDS: Famotidine 20 MG TAB PO SCH ×2 (08:21→20:47)
[2020-05-28] MEDS: Cholecalciferol 1,000 UNITS (25 MCG) TAB PO SCH (08:21)
[2020-05-28] MEDS: Saccharomyces boulardii 250 MG CAP PO SCH (08:22)
[2020-05-28] MEDS: Multivit, Therapeutic 1 TAB PO SCH (08:22)
[2020-05-28] MEDS: Furosemide 20 MG TAB PO SCH (08:23)
[2020-05-28] MEDS: Mupirocin 2% Ointment 22 GM Tube TOP SCH (08:23)
[2020-05-28] MEDS: metFORMIN 500 MG TAB PO SCH (08:23)
[2020-05-28] MEDS: Megestrol Acetate 40 MG TAB PO SCH ×2 (08:23→20:47)
[2020-05-28] MEDS: Apixaban 2.5 MG TAB PO SCH ×2 (08:23→20:47)
[2020-05-28] MEDS: Nystatin Powder 15 GM BOT TOP SCH ×3 (08:23→20:49)
[2020-05-28] MEDS: Cyanocobalamin (Vitamin B-12) 1,000 MCG TAB PO SCH (08:23)
[2020-05-28] MEDS: Allopurinol 100 MG TAB PO SCH (08:23)
[2020-05-28] MEDS: Cefepime 2 GM in Sodium Chloride 0.9% 100 ML IVPB SCH ×3 (10:53→23:28)
[2020-05-28] MEDS: traMADol HCl 50 MG TAB PO PRN (14:54)
[2020-05-28] MEDS: Acetaminophen 325 MG TAB PO PRN (14:54)
[2020-05-28] MEDS: Zolpidem Tartrate 5 MG TAB PO SCH (20:47)
[2020-05-28] MEDS: Atorvastatin Calcium 10 MG TAB PO SCH (20:47)
[2020-05-29 04:14] LABS: Platelet Count 128 thou/uL (130-400)
[2020-05-29] MEDS: Levothyroxine Sodium 50 MCG TAB PO SCH (06:28)
[2020-05-29] MEDS: Levothyroxine Sodium 100 MCG TAB PO SCH (06:28)
[2020-05-29] MEDS: Cholecalciferol 1,000 UNITS (25 MCG) TAB PO SCH (09:46)
[2020-05-29] MEDS: Pramipexole Di-HCl 0.25 MG TAB PO SCH ×3 (09:46→21:14)
[2020-05-29] MEDS: Megestrol Acetate 40 MG TAB PO SCH ×2 (09:47→21:14)
[2020-05-29] MEDS: Cyanocobalamin (Vitamin B-12) 1,000 MCG TAB PO SCH (09:47)
[2020-05-29] MEDS: Amiodarone 200 MG TAB PO SCH (09:47)
[2020-05-29] MEDS: Folic Acid 1 MG TAB PO SCH (09:47)
[2020-05-29] MEDS: Famotidine 20 MG TAB PO SCH ×2 (09:47→21:14)
[2020-05-29] MEDS: Potassium Chloride 10 MEQ TAB PO SCH (09:47)
[2020-05-29] MEDS: Furosemide 20 MG TAB PO SCH (09:47)
[2020-05-29] MEDS: Allopurinol 100 MG TAB PO SCH (09:47)
[2020-05-29] MEDS: Bisacodyl 5 MG TAB PO PRN (09:48)
[2020-05-29] MEDS: Apixaban 2.5 MG TAB PO SCH ×2 (09:48→21:14)
[2020-05-29] MEDS: Mupirocin 2% Ointment 22 GM Tube TOP SCH (09:48)
[2020-05-29] MEDS: metFORMIN 500 MG TAB PO SCH (09:48)
[2020-05-29] MEDS: Multivit, Therapeutic 1 TAB PO SCH (09:48)
[2020-05-29] MEDS: Saccharomyces boulardii 250 MG CAP PO SCH (09:48)
[2020-05-29] MEDS: Nystatin Powder 15 GM BOT TOP SCH ×3 (09:49→21:00)
[2020-05-29] MEDS: Cefepime 2 GM in Sodium Chloride 0.9% 100 ML IVPB SCH (10:46)
[2020-05-29] MEDS: Atorvastatin Calcium 10 MG TAB PO SCH (21:14)
[2020-05-29] MEDS: Zolpidem Tartrate 5 MG TAB PO SCH (21:14)
[2020-05-30] MEDS: Cefepime 2 GM in Sodium Chloride 0.9% 100 ML IVPB SCH ×3 (00:16→23:48)
[2020-05-30] MEDS: Levothyroxine Sodium 100 MCG TAB PO SCH (05:15)
[2020-05-30] MEDS: Levothyroxine Sodium 50 MCG TAB PO SCH (05:15)
[2020-05-30 05:35] LABS: ALT (SGPT) 17 U/L (8-55); AST (SGOT) 15 U/L (5-34); Albumin 2.8 g/dL (3.4-4.8); Alkaline Phosphatase 88 U/L (40-110); Anion Gap 12 mmol/L (10-20); BUN (Urea Nitrogen) 19 mg/dL (8.4-25.7); Bilirubin, Total 0.5 mg/dL (0.2-1.2); Calc. Creatinine Clearance 83 mL/min (70-130); Calcium 8.6 mg/dL (7.8-10.44); Carbon Dioxide 28 mmol/L (23-31); Chloride 102 mmol/L (98-107); Estimated GFR-MDRD 85; Globulin 3.3 g/dL (2.4-3.5); Glucose 125 mg/dL (83-110); Potassium 4.2 mmol/L (3.5-5.1); Protein, Total 6.1 g/dL (5.8-8.1); Sodium 138 mmol/L (136-145)
[2020-05-30 06:04] LABS: #Basophils 0.1 thou/uL (0.0-0.2); #Eosinphils 0.3 thou/uL (0.0-0.7); #Monocytes 0.7 thou/uL (0.11-0.59); #Neutrophils 3.6 thou/uL (1.40-6.50); %Basophils 1.5 % (0.0-1.0); %Eosinophils 4.1 % (0.0-10.0); %Lymphocytes 29.6 % (21.0-51.0); %Monocytes 10.4 % (0.0-10.0); %Neutrophils 54.4 % (42.0-75.0); Hemoglobin 10.4 g/dL (14.0-18.0); Mean Corpuscular HGB CONC 30.7 g/dL (32.0-36.0); Mean Corpuscular Hemoglobin 32.4 pg (27.0-31.0); Mean Platelet Volume 7.9 fL (7.4-10.4); Platelet Count 120 thou/uL (130-400); RBC Distribution Width 14.6 % (11.5-14.5); Red Blood Cell (RBC) Count 3.14 mill/uL (4.70-6.10); White Blood Cell (WBC) Count 6.7 thou/uL (4.8-10.8)
[2020-05-30 06:06] LABS: Macrocytosis SLIGHT = 6-15 cells (100X) (0-5/hpf); Platelet Morphology Comment Appears Decreased
[2020-05-30 07:58] LABS: MDiff Complete? YES
[2020-05-30] MEDS: Mupirocin 2% Ointment 22 GM Tube TOP SCH (08:46)
[2020-05-30] MEDS: Famotidine 20 MG TAB PO SCH ×2 (08:46→20:15)
[2020-05-30] MEDS: Pramipexole Di-HCl 0.25 MG TAB PO SCH ×3 (08:46→20:15)
[2020-05-30] MEDS: Cholecalciferol 1,000 UNITS (25 MCG) TAB PO SCH (08:47)
[2020-05-30] MEDS: Folic Acid 1 MG TAB PO SCH (08:47)
[2020-05-30] MEDS: Bisacodyl 5 MG TAB PO PRN (08:48)
[2020-05-30] MEDS: Amiodarone 200 MG TAB PO SCH (08:48)
[2020-05-30] MEDS: Allopurinol 100 MG TAB PO SCH (08:48)
[2020-05-30] MEDS: metFORMIN 500 MG TAB PO SCH (08:48)
[2020-05-30] MEDS: Cyanocobalamin (Vitamin B-12) 1,000 MCG TAB PO SCH (08:48)
[2020-05-30] MEDS: Multivit, Therapeutic 1 TAB PO SCH (08:48)
[2020-05-30] MEDS: Apixaban 2.5 MG TAB PO SCH ×2 (08:49→20:15)
[2020-05-30] MEDS: Furosemide 20 MG TAB PO SCH (08:49)
[2020-05-30] MEDS: Megestrol Acetate 40 MG TAB PO SCH ×2 (08:49→20:16)
[2020-05-30] MEDS: Saccharomyces boulardii 250 MG CAP PO SCH (08:49)
[2020-05-30] MEDS: Potassium Chloride 10 MEQ TAB PO SCH (08:49)
[2020-05-30] MEDS: Nystatin Powder 15 GM BOT TOP SCH ×3 (09:00→20:15)
[2020-05-30] MEDS: traMADol HCl 50 MG TAB PO PRN (10:42)
[2020-05-30] MEDS: Zolpidem Tartrate 5 MG TAB PO SCH (20:15)
[2020-05-30] MEDS: Atorvastatin Calcium 10 MG TAB PO SCH (20:16)
[2020-05-31] MEDS: Levothyroxine Sodium 100 MCG TAB PO SCH (05:45)
[2020-05-31] MEDS: Levothyroxine Sodium 50 MCG TAB PO SCH (06:44)
[2020-05-31] MEDS: Allopurinol 100 MG TAB PO SCH (08:52)
[2020-05-31] MEDS: Saccharomyces boulardii 250 MG CAP PO SCH (08:52)
[2020-05-31] MEDS: Cholecalciferol 1,000 UNITS (25 MCG) TAB PO SCH (08:52)
[2020-05-31] MEDS: Pramipexole Di-HCl 0.25 MG TAB PO SCH ×3 (08:53→20:09)
[2020-05-31] MEDS: Multivit, Therapeutic 1 TAB PO SCH (08:53)
[2020-05-31] MEDS: Famotidine 20 MG TAB PO SCH ×2 (08:53→20:09)
[2020-05-31] MEDS: Cyanocobalamin (Vitamin B-12) 1,000 MCG TAB PO SCH (08:53)
[2020-05-31] MEDS: metFORMIN 500 MG TAB PO SCH (08:53)
[2020-05-31] MEDS: Megestrol Acetate 40 MG TAB PO SCH ×2 (08:53→20:09)
[2020-05-31] MEDS: Potassium Chloride 10 MEQ TAB PO SCH (08:54)
[2020-05-31] MEDS: Folic Acid 1 MG TAB PO SCH (08:54)
[2020-05-31] MEDS: Furosemide 20 MG TAB PO SCH (08:54)
[2020-05-31] MEDS: Amiodarone 200 MG TAB PO SCH (08:55)
[2020-05-31] MEDS: Apixaban 2.5 MG TAB PO SCH ×2 (08:55→20:10)
[2020-05-31] MEDS: Nystatin Powder 15 GM BOT TOP SCH ×3 (08:56→20:10)
[2020-05-31] MEDS: Mupirocin 2% Ointment 22 GM Tube TOP SCH (09:06)
[2020-05-31] MEDS: Bisacodyl 5 MG TAB PO PRN (09:06)
[2020-05-31] MEDS: Cefepime 2 GM in Sodium Chloride 0.9% 100 ML IVPB SCH ×2 (11:24→23:51)
[2020-05-31] MEDS: traMADol HCl 50 MG TAB PO PRN (13:25)
[2020-05-31] MEDS: Zolpidem Tartrate 5 MG TAB PO SCH (20:10)
[2020-05-31] MEDS: Atorvastatin Calcium 10 MG TAB PO SCH (20:10)
[2020-06-01] MEDS: Levothyroxine Sodium 50 MCG TAB PO SCH (06:04)
[2020-06-01] MEDS: Levothyroxine Sodium 100 MCG TAB PO SCH (06:04)
[2020-06-01] MEDS: Saccharomyces boulardii 250 MG CAP PO SCH (08:32)
[2020-06-01] MEDS: Pramipexole Di-HCl 0.25 MG TAB PO SCH ×3 (08:32→20:04)
[2020-06-01] MEDS: Famotidine 20 MG TAB PO SCH ×2 (08:33→20:04)
[2020-06-01] MEDS: Potassium Chloride 10 MEQ TAB PO SCH (08:33)
[2020-06-01] MEDS: Apixaban 2.5 MG TAB PO SCH ×2 (08:34→20:16)
[2020-06-01] MEDS: Multivit, Therapeutic 1 TAB PO SCH (08:34)
[2020-06-01] MEDS: Allopurinol 100 MG TAB PO SCH (08:34)
[2020-06-01] MEDS: Megestrol Acetate 40 MG TAB PO SCH ×2 (08:35→20:05)
[2020-06-01] MEDS: Furosemide 20 MG TAB PO SCH (08:35)
[2020-06-01] MEDS: Cyanocobalamin (Vitamin B-12) 1,000 MCG TAB PO SCH (08:35)
[2020-06-01] MEDS: metFORMIN 500 MG TAB PO SCH (08:35)
[2020-06-01] MEDS: Folic Acid 1 MG TAB PO SCH (08:35)
[2020-06-01] MEDS: Amiodarone 200 MG TAB PO SCH (08:35)
[2020-06-01] MEDS: Cholecalciferol (Vitamin D3) 5,000 UNITS CAPSULE PO SCH (08:36)
[2020-06-01] MEDS: Nystatin Powder 15 GM BOT TOP SCH ×3 (08:41→20:06)
[2020-06-01] MEDS: Mupirocin 2% Ointment 22 GM Tube TOP SCH (08:42)
[2020-06-01] MEDS: Cefepime 2 GM in Sodium Chloride 0.9% 100 ML IVPB SCH ×2 (11:00→23:11)
[2020-06-01] MEDS: traMADol HCl 50 MG TAB PO PRN (13:02)
[2020-06-01] MEDS ORDERED: Iopamidol 370 76% 100 ML VIAL ONE (14:59)
[2020-06-01] MEDS: Zolpidem Tartrate 5 MG TAB PO SCH (20:04)
[2020-06-01] MEDS: Atorvastatin Calcium 10 MG TAB PO SCH (20:04)
[2020-06-01] MEDS: Bisacodyl 5 MG TAB PO PRN (20:04)
[2020-06-02] MEDS: Levothyroxine Sodium 50 MCG TAB PO SCH (05:25)
[2020-06-02] MEDS: Levothyroxine Sodium 100 MCG TAB PO SCH (05:25)
[2020-06-02] MEDS: Famotidine 20 MG TAB PO SCH ×2 (09:21→20:36)
[2020-06-02] MEDS: metFORMIN 500 MG TAB PO SCH (09:21)
[2020-06-02] MEDS: Pramipexole Di-HCl 0.25 MG TAB PO SCH ×3 (09:21→20:35)
[2020-06-02] MEDS: Folic Acid 1 MG TAB PO SCH (09:22)
[2020-06-02] MEDS: Saccharomyces boulardii 250 MG CAP PO SCH (09:22)
[2020-06-02] MEDS: Apixaban 2.5 MG TAB PO SCH ×2 (09:22→20:36)
[2020-06-02] MEDS: Bisacodyl 5 MG TAB PO PRN (09:22)
[2020-06-02] MEDS: Amiodarone 200 MG TAB PO SCH (09:22)
[2020-06-02] MEDS: Furosemide 20 MG TAB PO SCH (09:22)
[2020-06-02] MEDS: Cholecalciferol (Vitamin D3) 5,000 UNITS CAPSULE PO SCH (09:23)
[2020-06-02] MEDS: Allopurinol 100 MG TAB PO SCH (09:23)
[2020-06-02] MEDS: Multivit, Therapeutic 1 TAB PO SCH (09:23)
[2020-06-02] MEDS: Potassium Chloride 10 MEQ TAB PO SCH (09:23)
[2020-06-02] MEDS: Cyanocobalamin (Vitamin B-12) 1,000 MCG TAB PO SCH (09:23)
[2020-06-02] MEDS: Megestrol Acetate 40 MG TAB PO SCH ×2 (09:23→20:36)
[2020-06-02] MEDS: Nystatin Powder 15 GM BOT TOP SCH ×3 (09:27→20:36)
[2020-06-02] MEDS: Cefepime 2 GM in Sodium Chloride 0.9% 100 ML IVPB SCH ×2 (10:53→23:18)
[2020-06-02] MEDS: Mupirocin 2% Ointment 22 GM Tube TOP SCH (10:53)
[2020-06-02] MEDS: Zolpidem Tartrate 5 MG TAB PO SCH (20:36)
[2020-06-02] MEDS: Atorvastatin Calcium 10 MG TAB PO SCH (20:36)
[2020-06-03] MEDS: Levothyroxine Sodium 50 MCG TAB PO SCH (05:13)
[2020-06-03] MEDS: Levothyroxine Sodium 100 MCG TAB PO SCH (05:13)
[2020-06-03] MEDS: Folic Acid 1 MG TAB PO SCH (10:03)
[2020-06-03] MEDS: Famotidine 20 MG TAB PO SCH ×2 (10:03→20:38)
[2020-06-03] MEDS: Allopurinol 100 MG TAB PO SCH (10:03)
[2020-06-03] MEDS: Megestrol Acetate 40 MG TAB PO SCH ×2 (10:03→20:38)
[2020-06-03] MEDS: Furosemide 20 MG TAB PO SCH (10:04)
[2020-06-03] MEDS: Pramipexole Di-HCl 0.25 MG TAB PO SCH ×3 (10:04→20:38)
[2020-06-03] MEDS: Multivit, Therapeutic 1 TAB PO SCH (10:04)
[2020-06-03] MEDS: Cyanocobalamin (Vitamin B-12) 1,000 MCG TAB PO SCH (10:04)
[2020-06-03] MEDS: Amiodarone 200 MG TAB PO SCH (10:05)
[2020-06-03] MEDS: Apixaban 2.5 MG TAB PO SCH ×2 (10:05→20:37)
[2020-06-03] MEDS: Saccharomyces boulardii 250 MG CAP PO SCH (10:05)
[2020-06-03] MEDS: Cholecalciferol (Vitamin D3) 5,000 UNITS CAPSULE PO SCH (10:05)
[2020-06-03] MEDS: metFORMIN 500 MG TAB PO SCH (10:05)
[2020-06-03] MEDS: Potassium Chloride 10 MEQ TAB PO SCH (10:05)
[2020-06-03] MEDS: Mupirocin 2% Ointment 22 GM Tube TOP SCH (10:06)
[2020-06-03] MEDS: Nystatin Powder 15 GM BOT TOP SCH ×3 (10:08→20:37)
[2020-06-03] MEDS: Cefepime 2 GM in Sodium Chloride 0.9% 100 ML IVPB SCH ×2 (11:06→22:51)
[2020-06-03] MEDS: Zolpidem Tartrate 5 MG TAB PO SCH (20:38)
[2020-06-03] MEDS: Atorvastatin Calcium 10 MG TAB PO SCH (20:38)
[2020-06-04] MEDS: Levothyroxine Sodium 50 MCG TAB PO SCH (04:52)
[2020-06-04] MEDS: Levothyroxine Sodium 100 MCG TAB PO SCH (04:52)
[2020-06-04] MEDS: Pramipexole Di-HCl 0.25 MG TAB PO SCH ×3 (09:04→20:20)
[2020-06-04] MEDS: Famotidine 20 MG TAB PO SCH ×2 (09:04→20:21)
[2020-06-04] MEDS: metFORMIN 500 MG TAB PO SCH (09:05)
[2020-06-04] MEDS: Multivit, Therapeutic 1 TAB PO SCH (09:05)
[2020-06-04] MEDS: Saccharomyces boulardii 250 MG CAP PO SCH (09:05)
[2020-06-04] MEDS: Cyanocobalamin (Vitamin B-12) 1,000 MCG TAB PO SCH (09:08)
[2020-06-04] MEDS: Folic Acid 1 MG TAB PO SCH (09:08)
[2020-06-04] MEDS: Megestrol Acetate 40 MG TAB PO SCH ×2 (09:09→20:21)
[2020-06-04] MEDS: Potassium Chloride 10 MEQ TAB PO SCH (09:09)
[2020-06-04] MEDS: Allopurinol 100 MG TAB PO SCH (09:09)
[2020-06-04] MEDS: Furosemide 20 MG TAB PO SCH (09:10)
[2020-06-04] MEDS: Nystatin Powder 15 GM BOT TOP SCH ×3 (09:10→20:21)
[2020-06-04] MEDS: Mupirocin 2% Ointment 22 GM Tube TOP SCH (09:10)
[2020-06-04] MEDS: Apixaban 2.5 MG TAB PO SCH ×2 (09:10→20:21)
[2020-06-04] MEDS: Amiodarone 200 MG TAB PO SCH (09:10)
[2020-06-04] MEDS: Cholecalciferol (Vitamin D3) 5,000 UNITS CAPSULE PO SCH (09:11)
[2020-06-04] MEDS: Cefepime 2 GM in Sodium Chloride 0.9% 100 ML IVPB SCH ×2 (09:12→20:19)
[2020-06-04] MEDS: Zolpidem Tartrate 5 MG TAB PO SCH (20:20)
[2020-06-04] MEDS: Atorvastatin Calcium 10 MG TAB PO SCH (20:21)
[2020-06-05] MEDS: Levothyroxine Sodium 100 MCG TAB PO SCH (05:31)
[2020-06-05] MEDS: Levothyroxine Sodium 50 MCG TAB PO SCH (05:31)
[2020-06-05] MEDS: Allopurinol 100 MG TAB PO SCH (08:18)
[2020-06-05] MEDS: Famotidine 20 MG TAB PO SCH ×2 (08:19→20:31)
[2020-06-05] MEDS: Potassium Chloride 10 MEQ TAB PO SCH (08:20)
[2020-06-05] MEDS: Megestrol Acetate 40 MG TAB PO SCH ×2 (08:20→20:31)
[2020-06-05] MEDS: Saccharomyces boulardii 250 MG CAP PO SCH (08:20)
[2020-06-05] MEDS: Folic Acid 1 MG TAB PO SCH (08:20)
[2020-06-05] MEDS: Amiodarone 200 MG TAB PO SCH (08:20)
[2020-06-05] MEDS: Cyanocobalamin (Vitamin B-12) 1,000 MCG TAB PO SCH (08:21)
[2020-06-05] MEDS: Apixaban 2.5 MG TAB PO SCH ×2 (08:21→20:31)
[2020-06-05] MEDS: Multivit, Therapeutic 1 TAB PO SCH (08:22)
[2020-06-05] MEDS: Nystatin Powder 15 GM BOT TOP SCH ×3 (08:22→20:31)
[2020-06-05] MEDS: Pramipexole Di-HCl 0.25 MG TAB PO SCH ×3 (08:22→20:30)
[2020-06-05] MEDS: metFORMIN 500 MG TAB PO SCH (08:22)
[2020-06-05] MEDS: Furosemide 20 MG TAB PO SCH (08:22)
[2020-06-05] MEDS: Cefepime 2 GM in Sodium Chloride 0.9% 100 ML IVPB SCH ×2 (08:26→20:29)
[2020-06-05] MEDS: Mupirocin 2% Ointment 22 GM Tube TOP SCH (13:48)
[2020-06-05] MEDS: Cholecalciferol (Vitamin D3) 5,000 UNITS CAPSULE PO SCH (13:48)
[2020-06-05] MEDS: Zolpidem Tartrate 5 MG TAB PO SCH (20:30)
[2020-06-05] MEDS: Atorvastatin Calcium 10 MG TAB PO SCH (20:31)
[2020-06-06] MEDS: Levothyroxine Sodium 50 MCG TAB PO SCH (05:18)
[2020-06-06] MEDS: Levothyroxine Sodium 100 MCG TAB PO SCH (05:18)
[2020-06-06 05:36] LABS: #Basophils 0.1 thou/uL (0.0-0.2); #Eosinphils 0.2 thou/uL (0.0-0.7); #Monocytes 0.7 thou/uL (0.11-0.59); #Neutrophils 3.9 thou/uL (1.40-6.50); %Basophils 1.8 % (0.0-1.0); %Eosinophils 3.3 % (0.0-10.0); %Lymphocytes 28.2 % (21.0-51.0); %Monocytes 9.8 % (0.0-10.0); %Neutrophils 56.9 % (42.0-75.0); Mean Corpuscular HGB CONC 29.8 g/dL (32.0-36.0); Mean Platelet Volume 8.2 fL (7.4-10.4); Platelet Count 102 thou/uL (130-400); Red Blood Cell (RBC) Count 3.42 mill/uL (4.70-6.10); White Blood Cell (WBC) Count 6.9 thou/uL (4.8-10.8)
[2020-06-06 06:02] LABS: Anisocytosis SLIGHT = 6-15 cells (100X) (0-5/hpf); MDiff Complete? YES; Macrocytosis MODERATE=16-30 cells (100X) (0-5/hpf); Platelet Morphology Comment Appears Decreased
[2020-06-06 06:08] LABS: ALT (SGPT) 18 U/L (8-55); AST (SGOT) 18 U/L (5-34); Albumin 2.8 g/dL (3.4-4.8); Alkaline Phosphatase 84 U/L (40-110); Anion Gap 12 mmol/L (10-20); BUN (Urea Nitrogen) 20 mg/dL (8.4-25.7); Bilirubin, Total 0.5 mg/dL (0.2-1.2); Calc. Creatinine Clearance 86 mL/min (70-130); Calcium 8.5 mg/dL (7.8-10.44); Carbon Dioxide 27 mmol/L (23-31); Chloride 103 mmol/L (98-107); Estimated GFR-MDRD 85; Globulin 3.3 g/dL (2.4-3.5); Glucose 136 mg/dL (83-110); Potassium 4.1 mmol/L (3.5-5.1); Protein, Total 6.1 g/dL (5.8-8.1); Sodium 138 mmol/L (136-145)
[2020-06-06] MEDS: Cefepime 2 GM in Sodium Chloride 0.9% 100 ML IVPB SCH ×2 (09:11→21:49)
[2020-06-06] MEDS: Pramipexole Di-HCl 0.25 MG TAB PO SCH ×3 (09:17→21:51)
[2020-06-06] MEDS: Apixaban 2.5 MG TAB PO SCH ×2 (09:17→21:52)
[2020-06-06] MEDS: Potassium Chloride 10 MEQ TAB PO SCH (09:17)
[2020-06-06] MEDS: metFORMIN 500 MG TAB PO SCH (09:18)
[2020-06-06] MEDS: Saccharomyces boulardii 250 MG CAP PO SCH (09:18)
[2020-06-06] MEDS: Allopurinol 100 MG TAB PO SCH (09:18)
[2020-06-06] MEDS: Cholecalciferol (Vitamin D3) 5,000 UNITS CAPSULE PO SCH (09:18)
[2020-06-06] MEDS: Folic Acid 1 MG TAB PO SCH (09:18)
[2020-06-06] MEDS: Multivit, Therapeutic 1 TAB PO SCH (09:19)
[2020-06-06] MEDS: Furosemide 20 MG TAB PO SCH (09:19)
[2020-06-06] MEDS: Megestrol Acetate 40 MG TAB PO SCH ×2 (09:19→21:51)
[2020-06-06] MEDS: Amiodarone 200 MG TAB PO SCH (09:19)
[2020-06-06] MEDS: Cyanocobalamin (Vitamin B-12) 1,000 MCG TAB PO SCH (09:19)
[2020-06-06] MEDS: Nystatin Powder 15 GM BOT TOP SCH ×3 (09:22→21:52)
[2020-06-06] MEDS: Mupirocin 2% Ointment 22 GM Tube TOP SCH (09:22)
[2020-06-06] MEDS: Famotidine 20 MG TAB PO SCH ×2 (09:25→21:51)
[2020-06-06] MEDS: Acetaminophen 325 MG TAB PO PRN ×3 (14:35→22:36)
[2020-06-06] MEDS: Atorvastatin Calcium 10 MG TAB PO SCH (21:51)
[2020-06-06] MEDS: Zolpidem Tartrate 5 MG TAB PO SCH (21:51)
[2020-06-07] MEDS: Levothyroxine Sodium 100 MCG TAB PO SCH (05:37)
[2020-06-07] MEDS: Levothyroxine Sodium 50 MCG TAB PO SCH (05:37)
[2020-06-07] MEDS: Cefepime 2 GM in Sodium Chloride 0.9% 100 ML IVPB SCH ×2 (08:33→20:23)
[2020-06-07] MEDS: Saccharomyces boulardii 250 MG CAP PO SCH (08:34)
[2020-06-07] MEDS: Cholecalciferol (Vitamin D3) 5,000 UNITS CAPSULE PO SCH (08:35)
[2020-06-07] MEDS: Famotidine 20 MG TAB PO SCH ×2 (08:35→20:24)
[2020-06-07] MEDS: Cyanocobalamin (Vitamin B-12) 1,000 MCG TAB PO SCH (08:35)
[2020-06-07] MEDS: Megestrol Acetate 40 MG TAB PO SCH ×2 (08:35→20:25)
[2020-06-07] MEDS: Multivit, Therapeutic 1 TAB PO SCH (08:35)
[2020-06-07] MEDS: Furosemide 20 MG TAB PO SCH (08:35)
[2020-06-07] MEDS: Folic Acid 1 MG TAB PO SCH (08:35)
[2020-06-07] MEDS: Apixaban 2.5 MG TAB PO SCH ×2 (08:35→20:25)
[2020-06-07] MEDS: Potassium Chloride 10 MEQ TAB PO SCH (08:35)
[2020-06-07] MEDS: Allopurinol 100 MG TAB PO SCH (08:36)
[2020-06-07] MEDS: Amiodarone 200 MG TAB PO SCH (08:36)
[2020-06-07] MEDS: Pramipexole Di-HCl 0.25 MG TAB PO SCH ×3 (08:36→20:25)
[2020-06-07] MEDS: metFORMIN 500 MG TAB PO SCH (08:36)
[2020-06-07] MEDS: Nystatin Powder 15 GM BOT TOP SCH ×3 (08:37→20:26)
[2020-06-07] MEDS: Mupirocin 2% Ointment 22 GM Tube TOP SCH (08:37)
[2020-06-07] MEDS: Acetaminophen 325 MG TAB PO PRN (13:01)
[2020-06-07] MEDS: Zolpidem Tartrate 5 MG TAB PO SCH (20:24)
[2020-06-07] MEDS: Atorvastatin Calcium 10 MG TAB PO SCH (20:25)
[2020-06-08] MEDS: Levothyroxine Sodium 50 MCG TAB PO SCH (05:23)
[2020-06-08] MEDS: Levothyroxine Sodium 100 MCG TAB PO SCH (05:23)
[2020-06-08] MEDS: metFORMIN 500 MG TAB PO SCH ×2 (09:17→09:20)
[2020-06-08] MEDS: Potassium Chloride 10 MEQ TAB PO SCH (09:21)
[2020-06-08] MEDS: Cholecalciferol (Vitamin D3) 5,000 UNITS CAPSULE PO SCH (09:23)
[2020-06-08] MEDS: Saccharomyces boulardii 250 MG CAP PO SCH (09:24)
[2020-06-08] MEDS: Amiodarone 200 MG TAB PO SCH (09:24)
[2020-06-08] MEDS: Apixaban 2.5 MG TAB PO SCH ×2 (09:24→20:36)
[2020-06-08] MEDS: Furosemide 20 MG TAB PO SCH (09:25)
[2020-06-08] MEDS: Folic Acid 1 MG TAB PO SCH (09:25)
[2020-06-08] MEDS: Famotidine 20 MG TAB PO SCH ×2 (09:31→20:36)
[2020-06-08] MEDS: Allopurinol 100 MG TAB PO SCH (09:32)
[2020-06-08] MEDS: Multivit, Therapeutic 1 TAB PO SCH (09:32)
[2020-06-08] MEDS: Pramipexole Di-HCl 0.25 MG TAB PO SCH ×3 (09:33→20:35)
[2020-06-08] MEDS: Cefepime 2 GM in Sodium Chloride 0.9% 100 ML IVPB SCH ×2 (09:33→20:35)
[2020-06-08] MEDS: Megestrol Acetate 40 MG TAB PO SCH ×2 (09:33→20:36)
[2020-06-08] MEDS: Cyanocobalamin (Vitamin B-12) 1,000 MCG TAB PO SCH (09:35)
[2020-06-08] MEDS: Mupirocin 2% Ointment 22 GM Tube TOP SCH (09:35)
[2020-06-08] MEDS: Nystatin Powder 15 GM BOT TOP SCH ×3 (09:36→20:44)
[2020-06-08] MEDS: Atorvastatin Calcium 10 MG TAB PO SCH (20:36)
[2020-06-08] MEDS: Zolpidem Tartrate 5 MG TAB PO SCH (20:36)
[2020-06-09] MEDS: Levothyroxine Sodium 100 MCG TAB PO SCH (05:18)
[2020-06-09] MEDS: Levothyroxine Sodium 50 MCG TAB PO SCH (05:18)
[2020-06-09] MEDS: Famotidine 20 MG TAB PO SCH ×2 (09:05→21:40)
[2020-06-09] MEDS: Apixaban 2.5 MG TAB PO SCH ×2 (09:05→21:40)
[2020-06-09] MEDS: Cyanocobalamin (Vitamin B-12) 1,000 MCG TAB PO SCH (09:06)
[2020-06-09] MEDS: Amiodarone 200 MG TAB PO SCH (09:06)
[2020-06-09] MEDS: Potassium Chloride 10 MEQ TAB PO SCH (09:06)
[2020-06-09] MEDS: Allopurinol 100 MG TAB PO SCH (09:06)
[2020-06-09] MEDS: Megestrol Acetate 40 MG TAB PO SCH ×2 (09:06→21:40)
[2020-06-09] MEDS: Pramipexole Di-HCl 0.25 MG TAB PO SCH ×3 (09:07→21:40)
[2020-06-09] MEDS: Furosemide 20 MG TAB PO SCH (09:07)
[2020-06-09] MEDS: Nystatin Powder 15 GM BOT TOP SCH ×3 (09:07→21:41)
[2020-06-09] MEDS: Saccharomyces boulardii 250 MG CAP PO SCH (09:07)
[2020-06-09] MEDS: Folic Acid 1 MG TAB PO SCH (09:07)
[2020-06-09] MEDS: Cholecalciferol (Vitamin D3) 5,000 UNITS CAPSULE PO SCH (09:07)
[2020-06-09] MEDS: Multivit, Therapeutic 1 TAB PO SCH (09:07)
[2020-06-09] MEDS: Mupirocin 2% Ointment 22 GM Tube TOP SCH (09:08)
[2020-06-09] MEDS: Cefepime 2 GM in Sodium Chloride 0.9% 100 ML IVPB SCH ×2 (09:10→21:40)
[2020-06-09] MEDS: Atorvastatin Calcium 10 MG TAB PO SCH (21:40)
[2020-06-09] MEDS: Zolpidem Tartrate 5 MG TAB PO SCH (21:40)
[2020-06-10] MEDS: Levothyroxine Sodium 100 MCG TAB PO SCH (05:32)
[2020-06-10] MEDS: Levothyroxine Sodium 50 MCG TAB PO SCH (05:32)
[2020-06-10] MEDS: Allopurinol 100 MG TAB PO SCH (08:04)
[2020-06-10] MEDS: Saccharomyces boulardii 250 MG CAP PO SCH (08:04)
[2020-06-10] MEDS: Pramipexole Di-HCl 0.25 MG TAB PO SCH ×3 (08:04→20:31)
[2020-06-10] MEDS: Potassium Chloride 10 MEQ TAB PO SCH (08:05)
[2020-06-10] MEDS: Furosemide 20 MG TAB PO SCH (08:05)
[2020-06-10] MEDS: Multivit, Therapeutic 1 TAB PO SCH (08:05)
[2020-06-10] MEDS: metFORMIN 500 MG TAB PO SCH (08:05)
[2020-06-10] MEDS: Cholecalciferol (Vitamin D3) 5,000 UNITS CAPSULE PO SCH (08:05)
[2020-06-10] MEDS: Cyanocobalamin (Vitamin B-12) 1,000 MCG TAB PO SCH (08:05)
[2020-06-10] MEDS: Megestrol Acetate 40 MG TAB PO SCH ×2 (08:05→20:31)
[2020-06-10] MEDS: Folic Acid 1 MG TAB PO SCH (08:05)
[2020-06-10] MEDS: Famotidine 20 MG TAB PO SCH ×2 (08:05→20:31)
[2020-06-10] MEDS: Amiodarone 200 MG TAB PO SCH (08:05)
[2020-06-10] MEDS: Apixaban 2.5 MG TAB PO SCH ×2 (08:06→20:32)
[2020-06-10] MEDS: Cefepime 2 GM in Sodium Chloride 0.9% 100 ML IVPB SCH ×2 (08:06→20:32)
[2020-06-10] MEDS: Mupirocin 2% Ointment 22 GM Tube TOP SCH (08:07)
[2020-06-10] MEDS: Nystatin Powder 15 GM BOT TOP SCH ×3 (08:07→20:31)
[2020-06-10] MEDS: Acetaminophen 325 MG TAB PO PRN (12:39)
[2020-06-10] MEDS: Zolpidem Tartrate 5 MG TAB PO SCH (20:30)
[2020-06-10] MEDS: Atorvastatin Calcium 10 MG TAB PO SCH (20:31)
[2020-06-11] MEDS: Levothyroxine Sodium 50 MCG TAB PO SCH (05:19)
[2020-06-11] MEDS: Levothyroxine Sodium 100 MCG TAB PO SCH (05:19)
[2020-06-11] MEDS: Famotidine 20 MG TAB PO SCH ×2 (09:34→20:18)
[2020-06-11] MEDS: Cefepime 2 GM in Sodium Chloride 0.9% 100 ML IVPB SCH ×2 (09:34→20:19)
[2020-06-11] MEDS: Saccharomyces boulardii 250 MG CAP PO SCH (09:39)
[2020-06-11] MEDS: Allopurinol 100 MG TAB PO SCH (09:40)
[2020-06-11] MEDS: metFORMIN 500 MG TAB PO SCH (09:41)
[2020-06-11] MEDS: Pramipexole Di-HCl 0.25 MG TAB PO SCH ×3 (09:41→20:22)
[2020-06-11] MEDS: Amiodarone 200 MG TAB PO SCH (09:41)
[2020-06-11] MEDS: Cyanocobalamin (Vitamin B-12) 1,000 MCG TAB PO SCH (09:42)
[2020-06-11] MEDS: Potassium Chloride 10 MEQ TAB PO SCH (09:42)
[2020-06-11] MEDS: Megestrol Acetate 40 MG TAB PO SCH ×2 (09:42→20:19)
[2020-06-11] MEDS: Multivit, Therapeutic 1 TAB PO SCH (09:43)
[2020-06-11] MEDS: Furosemide 20 MG TAB PO SCH (09:43)
[2020-06-11] MEDS: Apixaban 2.5 MG TAB PO SCH ×2 (09:43→20:18)
[2020-06-11] MEDS: Folic Acid 1 MG TAB PO SCH (09:43)
[2020-06-11] MEDS: Mupirocin 2% Ointment 22 GM Tube TOP SCH (09:49)
[2020-06-11] MEDS: Nystatin Powder 15 GM BOT TOP SCH ×3 (09:49→20:22)
[2020-06-11] MEDS: Cholecalciferol (Vitamin D3) 5,000 UNITS CAPSULE PO SCH (09:50)
[2020-06-11] MEDS: Acetaminophen 325 MG TAB PO PRN (17:51)
[2020-06-11] MEDS: Zolpidem Tartrate 5 MG TAB PO SCH (20:18)
[2020-06-11] MEDS: Atorvastatin Calcium 10 MG TAB PO SCH (20:18)
[2020-06-11] MEDS ORDERED: Cyclobenzaprine 10 MG TAB PO PRN (20:44)
[2020-06-12 05:33] LABS: Hemoglobin 11.1 g/dL (14.0-18.0); Platelet Count 101 thou/uL (130-400)
[2020-06-12] MEDS: Levothyroxine Sodium 50 MCG TAB PO SCH (06:43)
[2020-06-12] MEDS: Levothyroxine Sodium 100 MCG TAB PO SCH (06:44)
[2020-06-12] MEDS: Saccharomyces boulardii 250 MG CAP PO SCH (09:38)
[2020-06-12] MEDS: Allopurinol 100 MG TAB PO SCH (09:39)
[2020-06-12] MEDS: Cyanocobalamin (Vitamin B-12) 1,000 MCG TAB PO SCH (09:39)
[2020-06-12] MEDS: Cholecalciferol (Vitamin D3) 5,000 UNITS CAPSULE PO SCH (09:39)
[2020-06-12] MEDS: Pramipexole Di-HCl 0.25 MG TAB PO SCH ×3 (09:39→20:21)
[2020-06-12] MEDS: Amiodarone 200 MG TAB PO SCH (09:39)
[2020-06-12] MEDS: Furosemide 20 MG TAB PO SCH (09:40)
[2020-06-12] MEDS: Apixaban 2.5 MG TAB PO SCH ×2 (09:40→20:20)
[2020-06-12] MEDS: Multivit, Therapeutic 1 TAB PO SCH (09:40)
[2020-06-12] MEDS: Potassium Chloride 10 MEQ TAB PO SCH (09:40)
[2020-06-12] MEDS: Megestrol Acetate 40 MG TAB PO SCH ×2 (09:40→20:21)
[2020-06-12] MEDS: Famotidine 20 MG TAB PO SCH ×2 (09:40→20:20)
[2020-06-12] MEDS: metFORMIN 500 MG TAB PO SCH (09:40)
[2020-06-12] MEDS: Folic Acid 1 MG TAB PO SCH (09:41)
[2020-06-12] MEDS: Cefepime 2 GM in Sodium Chloride 0.9% 100 ML IVPB SCH ×2 (09:41→20:21)
[2020-06-12] MEDS: traMADol HCl 50 MG TAB PO PRN (09:45)
[2020-06-12] MEDS: Acetaminophen 325 MG TAB PO PRN (09:45)
[2020-06-12] MEDS: Nystatin Powder 15 GM BOT TOP SCH ×3 (13:31→20:21)
[2020-06-12] MEDS: Mupirocin 2% Ointment 22 GM Tube TOP SCH (16:21)
[2020-06-12] MEDS: Atorvastatin Calcium 10 MG TAB PO SCH (20:20)
[2020-06-12] MEDS: Zolpidem Tartrate 5 MG TAB PO SCH (20:21)
[2020-06-13 05:20] LABS: ALT (SGPT) 18 U/L (8-55); AST (SGOT) 18 U/L (5-34); Alkaline Phosphatase 79 U/L (40-110); Anion Gap 14 mmol/L (10-20); BUN (Urea Nitrogen) 22 mg/dL (8.4-25.7); Bilirubin, Total 0.4 mg/dL (0.2-1.2); Calc. Creatinine Clearance 76 mL/min (70-130); Calcium 8.7 mg/dL (7.8-10.44); Carbon Dioxide 26 mmol/L (23-31); Chloride 104 mmol/L (98-107); Estimated GFR-MDRD 74; Globulin 3.8 g/dL (2.4-3.5); Glucose 137 mg/dL (83-110); Potassium 4.1 mmol/L (3.5-5.1); Protein, Total 6.8 g/dL (5.8-8.1); Sodium 140 mmol/L (136-145)
[2020-06-13 05:22] LABS: #Basophils 0.1 thou/uL (0.0-0.2); #Eosinphils 0.3 thou/uL (0.0-0.7); #Lymphocytes 1.8 thou/uL (1.20-3.40); #Monocytes 0.7 thou/uL (0.11-0.59); #Neutrophils 5.2 thou/uL (1.40-6.50); %Basophils 1.7 % (0.0-1.0); %Eosinophils 3.8 % (0.0-10.0); %Lymphocytes 21.9 % (21.0-51.0); %Monocytes 8.4 % (0.0-10.0); %Neutrophils 64.2 % (42.0-75.0); Anisocytosis SLIGHT = 6-15 cells (100X) (0-5/hpf); Hemoglobin 11.8 g/dL (14.0-18.0); MDiff Complete? YES; Macrocytosis SLIGHT = 6-15 cells (100X) (0-5/hpf); Mean Corpuscular HGB CONC 31.1 g/dL (32.0-36.0); Mean Corpuscular Hemoglobin 33.3 pg (27.0-31.0); Mean Platelet Volume 8.4 fL (7.4-10.4); Platelet Count 101 thou/uL (130-400); Platelet Morphology Comment Appears Decreased; RBC Distribution Width 14.7 % (11.5-14.5); Red Blood Cell (RBC) Count 3.55 mill/uL (4.70-6.10)
[2020-06-13] MEDS: Levothyroxine Sodium 50 MCG TAB PO SCH (05:29)
[2020-06-13] MEDS: Levothyroxine Sodium 100 MCG TAB PO SCH (05:29)
[2020-06-13] MEDS: Nystatin Powder 15 GM BOT TOP SCH ×3 (09:00→21:34)
[2020-06-13] MEDS: Amiodarone 200 MG TAB PO SCH (09:03)
[2020-06-13] MEDS: Famotidine 20 MG TAB PO SCH ×2 (09:03→20:21)
[2020-06-13] MEDS: Multivit, Therapeutic 1 TAB PO SCH (09:03)
[2020-06-13] MEDS: Cyanocobalamin (Vitamin B-12) 1,000 MCG TAB PO SCH (09:03)
[2020-06-13] MEDS: Potassium Chloride 10 MEQ TAB PO SCH (09:03)
[2020-06-13] MEDS: Pramipexole Di-HCl 0.25 MG TAB PO SCH ×3 (09:04→20:20)
[2020-06-13] MEDS: Megestrol Acetate 40 MG TAB PO SCH ×2 (09:04→20:20)
[2020-06-13] MEDS: Saccharomyces boulardii 250 MG CAP PO SCH (09:04)
[2020-06-13] MEDS: Allopurinol 100 MG TAB PO SCH (09:04)
[2020-06-13] MEDS: Apixaban 2.5 MG TAB PO SCH ×2 (09:04→20:20)
[2020-06-13] MEDS: Furosemide 20 MG TAB PO SCH (09:04)
[2020-06-13] MEDS: Cholecalciferol (Vitamin D3) 5,000 UNITS CAPSULE PO SCH (09:05)
[2020-06-13] MEDS: Folic Acid 1 MG TAB PO SCH (09:05)
[2020-06-13] MEDS: metFORMIN 500 MG TAB PO SCH (09:05)
[2020-06-13] MEDS: Cefepime 2 GM in Sodium Chloride 0.9% 100 ML IVPB SCH ×2 (10:55→20:21)
[2020-06-13] MEDS: Mupirocin 2% Ointment 22 GM Tube TOP SCH (18:30)
[2020-06-13] MEDS: Zolpidem Tartrate 5 MG TAB PO SCH (20:20)
[2020-06-13] MEDS: Atorvastatin Calcium 10 MG TAB PO SCH (21:34)
[2020-06-14] MEDS: Levothyroxine Sodium 50 MCG TAB PO SCH (05:49)
[2020-06-14] MEDS: Levothyroxine Sodium 100 MCG TAB PO SCH (05:49)
[2020-06-14] MEDS: Allopurinol 100 MG TAB PO SCH (09:41)
[2020-06-14] MEDS: Famotidine 20 MG TAB PO SCH ×2 (09:42→20:45)
[2020-06-14] MEDS: Pramipexole Di-HCl 0.25 MG TAB PO SCH ×3 (09:42→20:45)
[2020-06-14] MEDS: Saccharomyces boulardii 250 MG CAP PO SCH (09:43)
[2020-06-14] MEDS: Amiodarone 200 MG TAB PO SCH (09:43)
[2020-06-14] MEDS: metFORMIN 500 MG TAB PO SCH (09:43)
[2020-06-14] MEDS: Cholecalciferol (Vitamin D3) 5,000 UNITS CAPSULE PO SCH (09:43)
[2020-06-14] MEDS: Cyanocobalamin (Vitamin B-12) 1,000 MCG TAB PO SCH (09:43)
[2020-06-14] MEDS: Apixaban 2.5 MG TAB PO SCH ×2 (09:43→20:46)
[2020-06-14] MEDS: Multivit, Therapeutic 1 TAB PO SCH (09:43)
[2020-06-14] MEDS: Folic Acid 1 MG TAB PO SCH (09:43)
[2020-06-14] MEDS: Potassium Chloride 10 MEQ TAB PO SCH (09:43)
[2020-06-14] MEDS: Megestrol Acetate 40 MG TAB PO SCH ×2 (09:43→20:46)
[2020-06-14] MEDS: Furosemide 20 MG TAB PO SCH (09:43)
[2020-06-14] MEDS: Cefepime 2 GM in Sodium Chloride 0.9% 100 ML IVPB SCH ×2 (09:46→20:45)
[2020-06-14] MEDS: Nystatin Powder 15 GM BOT TOP SCH ×3 (13:37→20:46)
[2020-06-14] MEDS: Mupirocin 2% Ointment 22 GM Tube TOP SCH (13:37)
[2020-06-14] MEDS: Atorvastatin Calcium 10 MG TAB PO SCH (20:45)
[2020-06-14] MEDS: Zolpidem Tartrate 5 MG TAB PO SCH (20:46)
[2020-06-15] MEDS: Levothyroxine Sodium 100 MCG TAB PO SCH (05:50)
[2020-06-15] MEDS: Levothyroxine Sodium 50 MCG TAB PO SCH (05:50)
[2020-06-15] MEDS: Saccharomyces boulardii 250 MG CAP PO SCH (10:00)
[2020-06-15] MEDS: Cyanocobalamin (Vitamin B-12) 1,000 MCG TAB PO SCH (10:00)
[2020-06-15] MEDS: Allopurinol 100 MG TAB PO SCH (10:00)
[2020-06-15] MEDS: metFORMIN 500 MG TAB PO SCH (10:00)
[2020-06-15] MEDS: Megestrol Acetate 40 MG TAB PO SCH ×2 (10:00→20:58)
[2020-06-15] MEDS: Multivit, Therapeutic 1 TAB PO SCH (10:00)
[2020-06-15] MEDS: Potassium Chloride 10 MEQ TAB PO SCH (10:01)
[2020-06-15] MEDS: Pramipexole Di-HCl 0.25 MG TAB PO SCH ×3 (10:01→20:58)
[2020-06-15] MEDS: Folic Acid 1 MG TAB PO SCH (10:01)
[2020-06-15] MEDS: Furosemide 20 MG TAB PO SCH (10:01)
[2020-06-15] MEDS: Cholecalciferol (Vitamin D3) 5,000 UNITS CAPSULE PO SCH (10:01)
[2020-06-15] MEDS: Apixaban 2.5 MG TAB PO SCH ×2 (10:01→20:58)
[2020-06-15] MEDS: Famotidine 20 MG TAB PO SCH ×2 (10:02→20:58)
[2020-06-15] MEDS: Amiodarone 200 MG TAB PO SCH (10:05)
[2020-06-15] MEDS: Cefepime 2 GM in Sodium Chloride 0.9% 100 ML IVPB SCH ×2 (10:08→20:59)
[2020-06-15] MEDS: Mupirocin 2% Ointment 22 GM Tube TOP SCH (10:21)
[2020-06-15] MEDS: Nystatin Powder 15 GM BOT TOP SCH ×3 (10:22→20:59)
[2020-06-15] MEDS: Atorvastatin Calcium 10 MG TAB PO SCH (20:58)
[2020-06-15] MEDS: Zolpidem Tartrate 5 MG TAB PO SCH (20:58)
[2020-06-16] MEDS: Levothyroxine Sodium 100 MCG TAB PO SCH (05:20)
[2020-06-16] MEDS: Levothyroxine Sodium 50 MCG TAB PO SCH (05:20)
[2020-06-16] MEDS: Cefepime 2 GM in Sodium Chloride 0.9% 100 ML IVPB SCH (09:03)
[2020-06-16] MEDS: Allopurinol 100 MG TAB PO SCH (09:04)
[2020-06-16] MEDS: Amiodarone 200 MG TAB PO SCH (09:04)
[2020-06-16] MEDS: Multivit, Therapeutic 1 TAB PO SCH (09:04)
[2020-06-16] MEDS: Cyanocobalamin (Vitamin B-12) 1,000 MCG TAB PO SCH (09:04)
[2020-06-16] MEDS: metFORMIN 500 MG TAB PO SCH (09:04)
[2020-06-16] MEDS: Pramipexole Di-HCl 0.25 MG TAB PO SCH ×3 (09:05→21:27)
[2020-06-16] MEDS: Saccharomyces boulardii 250 MG CAP PO SCH (09:05)
[2020-06-16] MEDS: Folic Acid 1 MG TAB PO SCH (09:05)
[2020-06-16] MEDS: Potassium Chloride 10 MEQ TAB PO SCH (09:05)
[2020-06-16] MEDS: Cholecalciferol (Vitamin D3) 5,000 UNITS CAPSULE PO SCH (09:05)
[2020-06-16] MEDS: Famotidine 20 MG TAB PO SCH ×2 (09:05→21:27)
[2020-06-16] MEDS: Furosemide 20 MG TAB PO SCH (09:05)
[2020-06-16] MEDS: Megestrol Acetate 40 MG TAB PO SCH ×2 (09:06→21:28)
[2020-06-16] MEDS: Mupirocin 2% Ointment 22 GM Tube TOP SCH (09:15)
[2020-06-16] MEDS: Nystatin Powder 15 GM BOT TOP SCH ×3 (09:16→21:28)
[2020-06-16] MEDS: Zolpidem Tartrate 5 MG TAB PO SCH (21:28)
[2020-06-16] MEDS: Atorvastatin Calcium 10 MG TAB PO SCH (21:28)
[2020-06-17] MEDS: Levothyroxine Sodium 100 MCG TAB PO SCH (05:56)
[2020-06-17] MEDS: Levothyroxine Sodium 50 MCG TAB PO SCH (05:56)
[2020-06-17] MEDS: Folic Acid 1 MG TAB PO SCH (07:55)
[2020-06-17] MEDS: Pramipexole Di-HCl 0.25 MG TAB PO SCH ×3 (07:56→21:16)
[2020-06-17] MEDS: Furosemide 20 MG TAB PO SCH (07:57)
[2020-06-17] MEDS: Famotidine 20 MG TAB PO SCH ×2 (07:57→21:16)
[2020-06-17] MEDS: Cyanocobalamin (Vitamin B-12) 1,000 MCG TAB PO SCH (07:57)
[2020-06-17] MEDS: Cholecalciferol (Vitamin D3) 5,000 UNITS CAPSULE PO SCH (07:57)
[2020-06-17] MEDS: Multivit, Therapeutic 1 TAB PO SCH (07:57)
[2020-06-17] MEDS: Allopurinol 100 MG TAB PO SCH (07:58)
[2020-06-17] MEDS: Potassium Chloride 10 MEQ TAB PO SCH (07:58)
[2020-06-17] MEDS: Megestrol Acetate 40 MG TAB PO SCH ×2 (07:58→21:15)
[2020-06-17] MEDS: Amiodarone 200 MG TAB PO SCH (07:58)
[2020-06-17] MEDS: Mupirocin 2% Ointment 22 GM Tube TOP SCH (07:59)
[2020-06-17] MEDS: Saccharomyces boulardii 250 MG CAP PO SCH (07:59)
[2020-06-17] MEDS: metFORMIN 500 MG TAB PO SCH (07:59)
[2020-06-17] MEDS: Nystatin Powder 15 GM BOT TOP SCH ×3 (08:00→21:21)
[2020-06-17] MEDS: Acetaminophen 325 MG TAB PO PRN (17:18)
[2020-06-17] MEDS: Zolpidem Tartrate 5 MG TAB PO SCH (21:15)
[2020-06-17] MEDS: Atorvastatin Calcium 10 MG TAB PO SCH (21:15)
[2020-06-18] MEDS: Levothyroxine Sodium 100 MCG TAB PO SCH (06:44)
[2020-06-18] MEDS: Levothyroxine Sodium 50 MCG TAB PO SCH (06:44)
[2020-06-18] MEDS: Potassium Chloride 10 MEQ TAB PO SCH (07:47)
[2020-06-18] MEDS: metFORMIN 500 MG TAB PO SCH (07:47)
[2020-06-18] MEDS: Cyanocobalamin (Vitamin B-12) 1,000 MCG TAB PO SCH (10:22)
[2020-06-18] MEDS: Apixaban 2.5 MG TAB PO SCH ×2 (10:22→22:16)
[2020-06-18] MEDS: Amiodarone 200 MG TAB PO SCH (10:22)
[2020-06-18] MEDS: Allopurinol 100 MG TAB PO SCH (10:22)
[2020-06-18] MEDS: Famotidine 20 MG TAB PO SCH ×2 (10:22→22:14)
[2020-06-18] MEDS: Cholecalciferol (Vitamin D3) 5,000 UNITS CAPSULE PO SCH (10:22)
[2020-06-18] MEDS: Pramipexole Di-HCl 0.25 MG TAB PO SCH ×3 (10:23→22:14)
[2020-06-18] MEDS: Mupirocin 2% Ointment 22 GM Tube TOP SCH (10:23)
[2020-06-18] MEDS: Megestrol Acetate 40 MG TAB PO SCH ×2 (10:23→22:15)
[2020-06-18] MEDS: Folic Acid 1 MG TAB PO SCH (10:23)
[2020-06-18] MEDS: Saccharomyces boulardii 250 MG CAP PO SCH (10:23)
[2020-06-18] MEDS: Multivit, Therapeutic 1 TAB PO SCH (10:23)
[2020-06-18] MEDS: Nystatin Powder 15 GM BOT TOP SCH ×3 (10:23→21:00)
[2020-06-18] MEDS: Furosemide 20 MG TAB PO SCH (10:23)
[2020-06-18] MEDS: Acetaminophen 325 MG TAB PO PRN (14:06)
[2020-06-18] MEDS: Zolpidem Tartrate 5 MG TAB PO SCH (22:15)
[2020-06-18] MEDS: Atorvastatin Calcium 10 MG TAB PO SCH (22:16)
[2020-06-19] MEDS: Levothyroxine Sodium 50 MCG TAB PO SCH (05:33)
[2020-06-19] MEDS: Levothyroxine Sodium 100 MCG TAB PO SCH (05:33)
[2020-06-19] MEDS: traMADol HCl 50 MG TAB PO PRN (10:23)
[2020-06-19] MEDS: metFORMIN 500 MG TAB PO SCH (10:33)
[2020-06-19] MEDS: Allopurinol 100 MG TAB PO SCH (10:33)
[2020-06-19] MEDS: Cyanocobalamin (Vitamin B-12) 1,000 MCG TAB PO SCH (10:33)
[2020-06-19] MEDS: Megestrol Acetate 40 MG TAB PO SCH ×2 (10:33→20:38)
[2020-06-19] MEDS: Amiodarone 200 MG TAB PO SCH (10:33)
[2020-06-19] MEDS: Potassium Chloride 10 MEQ TAB PO SCH (10:34)
[2020-06-19] MEDS: Cholecalciferol (Vitamin D3) 5,000 UNITS CAPSULE PO SCH (10:34)
[2020-06-19] MEDS: Furosemide 20 MG TAB PO SCH (10:35)
[2020-06-19] MEDS: Pramipexole Di-HCl 0.25 MG TAB PO SCH ×3 (10:35→20:38)
[2020-06-19] MEDS: Apixaban 2.5 MG TAB PO SCH ×2 (10:35→20:38)
[2020-06-19] MEDS: Folic Acid 1 MG TAB PO SCH (10:35)
[2020-06-19] MEDS: Multivit, Therapeutic 1 TAB PO SCH (10:35)
[2020-06-19] MEDS: Saccharomyces boulardii 250 MG CAP PO SCH (10:36)
[2020-06-19] MEDS: Famotidine 20 MG TAB PO SCH ×2 (10:36→20:38)
[2020-06-19] MEDS: Nystatin Powder 15 GM BOT TOP SCH ×3 (10:38→20:39)
[2020-06-19] MEDS: Mupirocin 2% Ointment 22 GM Tube TOP SCH (10:39)
[2020-06-19] MEDS: Atorvastatin Calcium 10 MG TAB PO SCH (20:38)
[2020-06-19] MEDS: Zolpidem Tartrate 5 MG TAB PO SCH (20:38)
[2020-06-20] MEDS: Levothyroxine Sodium 100 MCG TAB PO SCH (05:04)
[2020-06-20] MEDS: Levothyroxine Sodium 50 MCG TAB PO SCH (05:04)
[2020-06-20 05:21] LABS: ALT (SGPT) 18 U/L (8-55); AST (SGOT) 14 U/L (5-34); Albumin 2.8 g/dL (3.4-4.8); Alkaline Phosphatase 74 U/L (40-110); Anion Gap 12 mmol/L (10-20); BUN (Urea Nitrogen) 20 mg/dL (8.4-25.7); Bilirubin, Total 0.4 mg/dL (0.2-1.2); Calc. Creatinine Clearance 83 mL/min (70-130); Calcium 8.6 mg/dL (7.8-10.44); Carbon Dioxide 29 mmol/L (23-31); Chloride 104 mmol/L (98-107); Estimated GFR-MDRD 81; Globulin 3.5 g/dL (2.4-3.5); Glucose 153 mg/dL (83-110); Potassium 4.4 mmol/L (3.5-5.1); Protein, Total 6.3 g/dL (5.8-8.1); Sodium 141 mmol/L (136-145)
[2020-06-20 05:23] LABS: #Basophils 0.1 thou/uL (0.0-0.2); #Eosinphils 0.3 thou/uL (0.0-0.7); #Lymphocytes 1.9 thou/uL (1.20-3.40); #Monocytes 0.5 thou/uL (0.11-0.59); #Neutrophils 4.2 thou/uL (1.40-6.50); %Basophils 1.6 % (0.0-1.0); %Eosinophils 4.2 % (0.0-10.0); %Lymphocytes 26.6 % (21.0-51.0); %Monocytes 7.6 % (0.0-10.0); Hemoglobin 11.7 g/dL (14.0-18.0); Mean Corpuscular HGB CONC 31.4 g/dL (32.0-36.0); Mean Corpuscular Hemoglobin 33.7 pg (27.0-31.0); Mean Platelet Volume 9.3 fL (7.4-10.4); Platelet Count 105 thou/uL (130-400); RBC Distribution Width 14.9 % (11.5-14.5); Red Blood Cell (RBC) Count 3.47 mill/uL (4.70-6.10)
[2020-06-20 05:46] LABS: MDiff Complete? YES; Macrocytosis SLIGHT = 6-15 cells (100X) (0-5/hpf); Platelet Morphology Comment Appears Decreased
[2020-06-20] MEDS: Allopurinol 100 MG TAB PO SCH (09:52)
[2020-06-20] MEDS: Saccharomyces boulardii 250 MG CAP PO SCH (09:52)
[2020-06-20] MEDS: Famotidine 20 MG TAB PO SCH ×2 (09:52→20:28)
[2020-06-20] MEDS: Pramipexole Di-HCl 0.25 MG TAB PO SCH ×3 (09:52→20:28)
[2020-06-20] MEDS: Multivit, Therapeutic 1 TAB PO SCH (09:53)
[2020-06-20] MEDS: Cyanocobalamin (Vitamin B-12) 1,000 MCG TAB PO SCH (09:53)
[2020-06-20] MEDS: Megestrol Acetate 40 MG TAB PO SCH ×2 (09:53→20:28)
[2020-06-20] MEDS: Apixaban 2.5 MG TAB PO SCH ×2 (09:53→20:27)
[2020-06-20] MEDS: Folic Acid 1 MG TAB PO SCH (09:53)
[2020-06-20] MEDS: Potassium Chloride 10 MEQ TAB PO SCH (09:54)
[2020-06-20] MEDS: metFORMIN 500 MG TAB PO SCH (09:54)
[2020-06-20] MEDS: Amiodarone 200 MG TAB PO SCH (09:54)
[2020-06-20] MEDS: Furosemide 20 MG TAB PO SCH (09:54)
[2020-06-20] MEDS: Nystatin Powder 15 GM BOT TOP SCH ×3 (10:00→20:29)
[2020-06-20] MEDS: Cholecalciferol (Vitamin D3) 5,000 UNITS CAPSULE PO SCH (10:00)
[2020-06-20] MEDS: Mupirocin 2% Ointment 22 GM Tube TOP SCH (10:00)
[2020-06-20] MEDS: Atorvastatin Calcium 10 MG TAB PO SCH (20:27)
[2020-06-20] MEDS: Zolpidem Tartrate 5 MG TAB PO SCH (20:29)
[2020-06-21] MEDS: Levothyroxine Sodium 50 MCG TAB PO SCH (05:58)
[2020-06-21] MEDS: Levothyroxine Sodium 100 MCG TAB PO SCH (05:58)
[2020-06-21] MEDS: Pramipexole Di-HCl 0.25 MG TAB PO SCH ×3 (10:28→21:05)
[2020-06-21] MEDS: Allopurinol 100 MG TAB PO SCH (10:28)
[2020-06-21] MEDS: Famotidine 20 MG TAB PO SCH ×2 (10:29→21:05)
[2020-06-21] MEDS: Saccharomyces boulardii 250 MG CAP PO SCH (10:29)
[2020-06-21] MEDS: Multivit, Therapeutic 1 TAB PO SCH (10:29)
[2020-06-21] MEDS: Amiodarone 200 MG TAB PO SCH (10:29)
[2020-06-21] MEDS: Cyanocobalamin (Vitamin B-12) 1,000 MCG TAB PO SCH (10:29)
[2020-06-21] MEDS: Potassium Chloride 10 MEQ TAB PO SCH (10:29)
[2020-06-21] MEDS: metFORMIN 500 MG TAB PO SCH (10:30)
[2020-06-21] MEDS: Cholecalciferol (Vitamin D3) 5,000 UNITS CAPSULE PO SCH (10:30)
[2020-06-21] MEDS: Megestrol Acetate 40 MG TAB PO SCH ×2 (10:30→21:06)
[2020-06-21] MEDS: Folic Acid 1 MG TAB PO SCH (10:30)
[2020-06-21] MEDS: Furosemide 20 MG TAB PO SCH (10:31)
[2020-06-21] MEDS: Apixaban 2.5 MG TAB PO SCH ×2 (10:31→21:06)
[2020-06-21] MEDS: Nystatin Powder 15 GM BOT TOP SCH ×3 (10:31→21:09)
[2020-06-21] MEDS: Mupirocin 2% Ointment 22 GM Tube TOP SCH (10:31)
[2020-06-21] MEDS: Bisacodyl 5 MG TAB PO PRN (21:05)
[2020-06-21] MEDS: Atorvastatin Calcium 10 MG TAB PO SCH (21:06)
[2020-06-21] MEDS: Zolpidem Tartrate 5 MG TAB PO SCH (21:06)
[2020-06-22] MEDS: Levothyroxine Sodium 100 MCG TAB PO SCH (06:34)
[2020-06-22] MEDS: Levothyroxine Sodium 50 MCG TAB PO SCH (06:34)
[2020-06-22] MEDS: Potassium Chloride 10 MEQ TAB PO SCH (09:13)
[2020-06-22] MEDS: Saccharomyces boulardii 250 MG CAP PO SCH (09:13)
[2020-06-22] MEDS: Cyanocobalamin (Vitamin B-12) 1,000 MCG TAB PO SCH (09:13)
[2020-06-22] MEDS: Allopurinol 100 MG TAB PO SCH (09:13)
[2020-06-22] MEDS: metFORMIN 500 MG TAB PO SCH (09:13)
[2020-06-22] MEDS: Multivit, Therapeutic 1 TAB PO SCH (09:13)
[2020-06-22] MEDS: Pramipexole Di-HCl 0.25 MG TAB PO SCH ×3 (09:13→22:13)
[2020-06-22] MEDS: Apixaban 2.5 MG TAB PO SCH ×2 (09:14→22:14)
[2020-06-22] MEDS: Amiodarone 200 MG TAB PO SCH (09:14)
[2020-06-22] MEDS: Furosemide 20 MG TAB PO SCH (09:14)
[2020-06-22] MEDS: Famotidine 20 MG TAB PO SCH ×2 (09:14→22:13)
[2020-06-22] MEDS: Cholecalciferol (Vitamin D3) 5,000 UNITS CAPSULE PO SCH (09:14)
[2020-06-22] MEDS: Megestrol Acetate 40 MG TAB PO SCH ×2 (09:14→22:14)
[2020-06-22] MEDS: Folic Acid 1 MG TAB PO SCH (09:14)
[2020-06-22] MEDS: Mupirocin 2% Ointment 22 GM Tube TOP SCH (09:17)
[2020-06-22] MEDS: Nystatin Powder 15 GM BOT TOP SCH ×3 (09:18→22:14)
[2020-06-22] MEDS: Zolpidem Tartrate 5 MG TAB PO SCH (22:13)
[2020-06-22] MEDS: Atorvastatin Calcium 10 MG TAB PO SCH (22:14)
[2020-06-23] MEDS: Levothyroxine Sodium 50 MCG TAB PO SCH (05:39)
[2020-06-23] MEDS: Levothyroxine Sodium 100 MCG TAB PO SCH (05:39)
[2020-06-23] MEDS: Allopurinol 100 MG TAB PO SCH (08:41)
[2020-06-23] MEDS: Pramipexole Di-HCl 0.25 MG TAB PO SCH ×3 (08:41→21:55)
[2020-06-23] MEDS: Megestrol Acetate 40 MG TAB PO SCH ×2 (08:41→21:57)
[2020-06-23] MEDS: Multivit, Therapeutic 1 TAB PO SCH (08:42)
[2020-06-23] MEDS: Apixaban 2.5 MG TAB PO SCH ×2 (08:42→21:56)
[2020-06-23] MEDS: Amiodarone 200 MG TAB PO SCH (08:42)
[2020-06-23] MEDS: metFORMIN 500 MG TAB PO SCH (08:42)
[2020-06-23] MEDS: Furosemide 20 MG TAB PO SCH (08:42)
[2020-06-23] MEDS: Saccharomyces boulardii 250 MG CAP PO SCH (08:42)
[2020-06-23] MEDS: Famotidine 20 MG TAB PO SCH ×2 (08:42→21:56)
[2020-06-23] MEDS: Potassium Chloride 10 MEQ TAB PO SCH (08:42)
[2020-06-23] MEDS: Folic Acid 1 MG TAB PO SCH (08:42)
[2020-06-23] MEDS: Cyanocobalamin (Vitamin B-12) 1,000 MCG TAB PO SCH (08:42)
[2020-06-23] MEDS: Nystatin Powder 15 GM BOT TOP SCH ×3 (08:43→21:00)
[2020-06-23] MEDS: Cholecalciferol (Vitamin D3) 5,000 UNITS CAPSULE PO SCH (08:43)
[2020-06-23] MEDS: Mupirocin 2% Ointment 22 GM Tube TOP SCH (08:43)
[2020-06-23] MEDS: Atorvastatin Calcium 10 MG TAB PO SCH (21:56)
[2020-06-23] MEDS: Zolpidem Tartrate 5 MG TAB PO SCH (21:56)
[2020-06-24] MEDS: Levothyroxine Sodium 50 MCG TAB PO SCH (04:35)
[2020-06-24] MEDS: Levothyroxine Sodium 100 MCG TAB PO SCH (04:35)
[2020-06-24] MEDS: Apixaban 2.5 MG TAB PO SCH ×2 (08:27→21:27)
[2020-06-24] MEDS: Allopurinol 100 MG TAB PO SCH (08:27)
[2020-06-24] MEDS: Cyanocobalamin (Vitamin B-12) 1,000 MCG TAB PO SCH (08:27)
[2020-06-24] MEDS: Multivit, Therapeutic 1 TAB PO SCH (08:27)
[2020-06-24] MEDS: Megestrol Acetate 40 MG TAB PO SCH ×2 (08:27→21:27)
[2020-06-24] MEDS: Furosemide 20 MG TAB PO SCH (08:27)
[2020-06-24] MEDS: Folic Acid 1 MG TAB PO SCH (08:28)
[2020-06-24] MEDS: Amiodarone 200 MG TAB PO SCH (08:28)
[2020-06-24] MEDS: Nystatin Powder 15 GM BOT TOP SCH ×3 (08:28→21:28)
[2020-06-24] MEDS: Cholecalciferol (Vitamin D3) 5,000 UNITS CAPSULE PO SCH (08:28)
[2020-06-24] MEDS: Saccharomyces boulardii 250 MG CAP PO SCH (08:28)
[2020-06-24] MEDS: Pramipexole Di-HCl 0.25 MG TAB PO SCH ×3 (08:28→21:27)
[2020-06-24] MEDS: Potassium Chloride 10 MEQ TAB PO SCH (08:28)
[2020-06-24] MEDS: metFORMIN 500 MG TAB PO SCH (08:28)
[2020-06-24] MEDS: Famotidine 20 MG TAB PO SCH ×2 (08:28→21:27)
[2020-06-24] MEDS: Mupirocin 2% Ointment 22 GM Tube TOP SCH (08:29)
[2020-06-24] MEDS: Zolpidem Tartrate 5 MG TAB PO SCH (21:27)
[2020-06-24] MEDS: Atorvastatin Calcium 10 MG TAB PO SCH (21:27)
[2020-06-25] MEDS: Levothyroxine Sodium 50 MCG TAB PO SCH (06:25)
[2020-06-25] MEDS: Levothyroxine Sodium 100 MCG TAB PO SCH (06:25)
[2020-06-25] MEDS: Cyanocobalamin (Vitamin B-12) 1,000 MCG TAB PO SCH (08:21)
[2020-06-25] MEDS: Folic Acid 1 MG TAB PO SCH (08:21)
[2020-06-25] MEDS: Megestrol Acetate 40 MG TAB PO SCH ×2 (08:21→21:22)
[2020-06-25] MEDS: Saccharomyces boulardii 250 MG CAP PO SCH (08:21)
[2020-06-25] MEDS: Cholecalciferol (Vitamin D3) 5,000 UNITS CAPSULE PO SCH (08:21)
[2020-06-25] MEDS: Allopurinol 100 MG TAB PO SCH (08:21)
[2020-06-25] MEDS: Pramipexole Di-HCl 0.25 MG TAB PO SCH ×3 (08:21→21:21)
[2020-06-25] MEDS: Furosemide 20 MG TAB PO SCH (08:21)
[2020-06-25] MEDS: Famotidine 20 MG TAB PO SCH ×2 (08:21→21:22)
[2020-06-25] MEDS: Amiodarone 200 MG TAB PO SCH (08:21)
[2020-06-25] MEDS: Potassium Chloride 10 MEQ TAB PO SCH (08:21)
[2020-06-25] MEDS: Nystatin Powder 15 GM BOT TOP SCH ×3 (08:22→21:22)
[2020-06-25] MEDS: metFORMIN 500 MG TAB PO SCH (08:22)
[2020-06-25] MEDS: Multivit, Therapeutic 1 TAB PO SCH (08:22)
[2020-06-25] MEDS: Mupirocin 2% Ointment 22 GM Tube TOP SCH (08:22)
[2020-06-25] MEDS: Apixaban 2.5 MG TAB PO SCH ×2 (08:22→21:22)
[2020-06-25] MEDS ORDERED: Furosemide 40 MG TAB PO SCH (14:00)
[2020-06-25 15:39] LABS: Bilirubin Negative (Negative); Blood, Urine Large (Negative); Clarity Turbid (Clear); Glucose, Urine (Dipstick) Negative (Negative); Ketone, Urine Negative (Negative); Leukocyte Large (Negative); Nitrite Positive (Negative); Protein, Urine (Dipstick) 30 mg/dL (Neg-Trace); pH, Urine 6.5 (5.0-9.0)
[2020-06-25 15:51] LABS: RBC/HPF 21-50 HPF (0-3); Squamous Epithelial 0-3 HPF (0-3); WBC/HPF Greater Than 50 HPF (0-3)
[2020-06-25 15:52] LABS: Bacteria/HPF 2+ HPF (None Seen); Transitional Epithelial 0-3 HPF (None Seen); Yeast-Budding 1+ HPF (None Seen)
[2020-06-25 18:54] LABS: SARS-CoV-2 MS2 Positive; SARS-CoV-2 N Gene Negative; SARS-CoV-2 S Gene Negative; SARS-CoV-2 by NAA Not Detected (NotDetected); SARS-CoV-2 orf1ab Negative
[2020-06-25] MEDS: Zolpidem Tartrate 5 MG TAB PO SCH (21:21)
[2020-06-25] MEDS: Atorvastatin Calcium 10 MG TAB PO SCH (21:22)
[2020-06-26] MEDS: Levothyroxine Sodium 50 MCG TAB PO SCH (05:50)
[2020-06-26] MEDS: Levothyroxine Sodium 100 MCG TAB PO SCH (05:50)
[2020-06-26] MEDS: Nystatin Powder 15 GM BOT TOP SCH ×3 (08:23→21:00)
[2020-06-26] MEDS: Famotidine 20 MG TAB PO SCH ×2 (08:24→20:48)
[2020-06-26] MEDS: Pramipexole Di-HCl 0.25 MG TAB PO SCH ×3 (08:24→21:00)
[2020-06-26] MEDS: Allopurinol 100 MG TAB PO SCH (08:24)
[2020-06-26] MEDS: Folic Acid 1 MG TAB PO SCH (08:24)
[2020-06-26] MEDS: Multivit, Therapeutic 1 TAB PO SCH (08:24)
[2020-06-26] MEDS: Cyanocobalamin (Vitamin B-12) 1,000 MCG TAB PO SCH (08:24)
[2020-06-26] MEDS: Potassium Chloride 10 MEQ TAB PO SCH (08:25)
[2020-06-26] MEDS: Furosemide 40 MG TAB PO SCH (08:25)
[2020-06-26] MEDS: Mupirocin 2% Ointment 22 GM Tube TOP SCH (08:25)
[2020-06-26] MEDS: Saccharomyces boulardii 250 MG CAP PO SCH (08:25)
[2020-06-26] MEDS: Cholecalciferol (Vitamin D3) 5,000 UNITS CAPSULE PO SCH (08:25)
[2020-06-26] MEDS: metFORMIN 500 MG TAB PO SCH (08:25)
[2020-06-26] MEDS: Apixaban 2.5 MG TAB PO SCH ×2 (08:25→20:47)
[2020-06-26] MEDS: Megestrol Acetate 40 MG TAB PO SCH ×2 (08:25→20:47)
[2020-06-26] MEDS: Amiodarone 200 MG TAB PO SCH (08:25)
[2020-06-26] MEDS: Acetaminophen 325 MG TAB PO PRN (10:28)
[2020-06-26] MEDS: Zolpidem Tartrate 5 MG TAB PO SCH (20:47)
[2020-06-26] MEDS: Atorvastatin Calcium 10 MG TAB PO SCH (20:48)
[2020-06-27] MEDS: Levothyroxine Sodium 50 MCG TAB PO SCH (04:14)
[2020-06-27] MEDS: Levothyroxine Sodium 100 MCG TAB PO SCH (04:18)
[2020-06-27 05:23] LABS: ALT (SGPT) 13 U/L (8-55); AST (SGOT) 16 U/L (5-34); Alkaline Phosphatase 72 U/L (40-110); Anion Gap 15 mmol/L (10-20); BUN (Urea Nitrogen) 20 mg/dL (8.4-25.7); Bilirubin, Total 0.9 mg/dL (0.2-1.2); CRP (Inflammatory) 5.59 mg/dL (= or < 0.5); Calc. Creatinine Clearance 85 mL/min (70-130); Calcium 8.7 mg/dL (7.8-10.44); Carbon Dioxide 26 mmol/L (23-31); Chloride 101 mmol/L (98-107); Estimated GFR-MDRD 84; Globulin 3.4 g/dL (2.4-3.5); Glucose 131 mg/dL (83-110); Potassium 4.1 mmol/L (3.5-5.1); Protein, Total 6.4 g/dL (5.8-8.1); Sodium 138 mmol/L (136-145)
[2020-06-27 05:34] LABS: INR-International Normal Ratio 1.5; PTT 51.3 sec (22.9-36.1); Prothrombin Time 18.5 sec (12.0-14.7)
[2020-06-27 05:47] LABS: #Basophils 0.2 thou/uL (0.0-0.2); #Eosinphils 0.1 thou/uL (0.0-0.7); #Lymphocytes 1.5 thou/uL (1.20-3.40); #Monocytes 0.6 thou/uL (0.11-0.59); #Neutrophils 5.1 thou/uL (1.40-6.50); %Basophils 2.5 % (0.0-1.0); %Eosinophils 1.6 % (0.0-10.0); %Lymphocytes 20.1 % (21.0-51.0); %Monocytes 8.5 % (0.0-10.0); %Neutrophils 67.4 % (42.0-75.0); Hemoglobin 12.4 g/dL (14.0-18.0); Mean Corpuscular HGB CONC 31.4 g/dL (32.0-36.0); Mean Corpuscular Hemoglobin 33.3 pg (27.0-31.0); Mean Platelet Volume 8.6 fL (7.4-10.4); Platelet Count 106 thou/uL (130-400); RBC Distribution Width 14.6 % (11.5-14.5); Red Blood Cell (RBC) Count 3.73 mill/uL (4.70-6.10); White Blood Cell (WBC) Count 7.6 thou/uL (4.8-10.8)
[2020-06-27 06:15] LABS: MDiff Complete? YES; Macrocytosis SLIGHT = 6-15 cells (100X) (0-5/hpf); Platelet Morphology Comment Appears Decreased
[2020-06-27] MEDS: Pramipexole Di-HCl 0.25 MG TAB PO SCH ×3 (09:24→21:29)
[2020-06-27] MEDS: Famotidine 20 MG TAB PO SCH ×2 (09:25→21:29)
[2020-06-27] MEDS: Cholecalciferol (Vitamin D3) 5,000 UNITS CAPSULE PO SCH (09:27)
[2020-06-27] MEDS: Allopurinol 100 MG TAB PO SCH (09:27)
[2020-06-27] MEDS: Saccharomyces boulardii 250 MG CAP PO SCH (09:27)
[2020-06-27] MEDS: Cyanocobalamin (Vitamin B-12) 1,000 MCG TAB PO SCH (09:28)
[2020-06-27] MEDS: Folic Acid 1 MG TAB PO SCH (09:28)
[2020-06-27] MEDS: Megestrol Acetate 40 MG TAB PO SCH ×2 (09:28→21:29)
[2020-06-27] MEDS: Amiodarone 200 MG TAB PO SCH (09:28)
[2020-06-27] MEDS: Apixaban 2.5 MG TAB PO SCH ×2 (09:28→21:29)
[2020-06-27] MEDS: Potassium Chloride 10 MEQ TAB PO SCH (09:28)
[2020-06-27] MEDS: metFORMIN 500 MG TAB PO SCH (09:28)
[2020-06-27] MEDS: Multivit, Therapeutic 1 TAB PO SCH (09:29)
[2020-06-27] MEDS: Furosemide 40 MG TAB PO SCH (09:29)
[2020-06-27] MEDS: Nystatin Powder 15 GM BOT TOP SCH ×3 (10:04→21:30)
[2020-06-27] MEDS: Mupirocin 2% Ointment 22 GM Tube TOP SCH (10:06)
[2020-06-27] MEDS: Atorvastatin Calcium 10 MG TAB PO SCH (21:29)
[2020-06-27] MEDS: Zolpidem Tartrate 5 MG TAB PO SCH (21:29)
[2020-06-28] MEDS: Levothyroxine Sodium 50 MCG TAB PO SCH (05:35)
[2020-06-28] MEDS: Levothyroxine Sodium 100 MCG TAB PO SCH (05:35)
[2020-06-28] MEDS: Famotidine 20 MG TAB PO SCH ×2 (10:00→20:45)
[2020-06-28] MEDS: Apixaban 2.5 MG TAB PO SCH ×2 (10:01→20:44)
[2020-06-28] MEDS: metFORMIN 500 MG TAB PO SCH (10:01)
[2020-06-28] MEDS: Saccharomyces boulardii 250 MG CAP PO SCH (10:01)
[2020-06-28] MEDS: Potassium Chloride 10 MEQ TAB PO SCH (10:01)
[2020-06-28] MEDS: Megestrol Acetate 40 MG TAB PO SCH ×2 (10:01→20:44)
[2020-06-28] MEDS: Folic Acid 1 MG TAB PO SCH (10:01)
[2020-06-28] MEDS: Multivit, Therapeutic 1 TAB PO SCH (10:02)
[2020-06-28] MEDS: Pramipexole Di-HCl 0.25 MG TAB PO SCH ×3 (10:02→20:44)
[2020-06-28] MEDS: Furosemide 40 MG TAB PO SCH (10:02)
[2020-06-28] MEDS: Allopurinol 100 MG TAB PO SCH (10:02)
[2020-06-28] MEDS: Cyanocobalamin (Vitamin B-12) 1,000 MCG TAB PO SCH (10:02)
[2020-06-28] MEDS: Amiodarone 200 MG TAB PO SCH (10:02)
[2020-06-28] MEDS: Nystatin Powder 15 GM BOT TOP SCH ×3 (10:05→20:45)
[2020-06-28] MEDS: Cholecalciferol (Vitamin D3) 5,000 UNITS CAPSULE PO SCH (10:06)
[2020-06-28] MEDS: Mupirocin 2% Ointment 22 GM Tube TOP SCH (10:06)
[2020-06-28] MEDS: Zolpidem Tartrate 5 MG TAB PO SCH (20:44)
[2020-06-28] MEDS: Atorvastatin Calcium 10 MG TAB PO SCH (20:44)
[2020-06-29] MEDS: Levothyroxine Sodium 50 MCG TAB PO SCH (05:49)
[2020-06-29] MEDS: Levothyroxine Sodium 100 MCG TAB PO SCH (05:49)
[2020-06-29] MEDS: Famotidine 20 MG TAB PO SCH ×2 (09:02→22:23)
[2020-06-29] MEDS: Furosemide 40 MG TAB PO SCH (09:03)
[2020-06-29] MEDS: Saccharomyces boulardii 250 MG CAP PO SCH (09:03)
[2020-06-29] MEDS: Megestrol Acetate 40 MG TAB PO SCH ×2 (09:04→22:23)
[2020-06-29] MEDS: Amiodarone 200 MG TAB PO SCH (09:04)
[2020-06-29] MEDS: Potassium Chloride 10 MEQ TAB PO SCH (09:04)
[2020-06-29] MEDS: Cyanocobalamin (Vitamin B-12) 1,000 MCG TAB PO SCH (09:04)
[2020-06-29] MEDS: Folic Acid 1 MG TAB PO SCH (09:04)
[2020-06-29] MEDS: metFORMIN 500 MG TAB PO SCH (09:04)
[2020-06-29] MEDS: Pramipexole Di-HCl 0.25 MG TAB PO SCH ×3 (09:05→22:23)
[2020-06-29] MEDS: Allopurinol 100 MG TAB PO SCH (09:05)
[2020-06-29] MEDS: Apixaban 2.5 MG TAB PO SCH ×2 (09:05→22:23)
[2020-06-29] MEDS: Nystatin Powder 15 GM BOT TOP SCH ×3 (09:09→22:24)
[2020-06-29] MEDS: Mupirocin 2% Ointment 22 GM Tube TOP SCH (09:09)
[2020-06-29] MEDS: Cholecalciferol (Vitamin D3) 5,000 UNITS CAPSULE PO SCH (09:16)
[2020-06-29] MEDS: Multivit, Therapeutic 1 TAB PO SCH (09:16)
[2020-06-29] MEDS: Atorvastatin Calcium 10 MG TAB PO SCH (22:23)
[2020-06-29] MEDS: Zolpidem Tartrate 5 MG TAB PO SCH (22:23)
[2020-06-30] MEDS: Levothyroxine Sodium 50 MCG TAB PO SCH (05:30)
[2020-06-30] MEDS: Levothyroxine Sodium 100 MCG TAB PO SCH (05:30)
[2020-06-30] MEDS: Multivit, Therapeutic 1 TAB PO SCH (08:08)
[2020-06-30] MEDS: metFORMIN 500 MG TAB PO SCH (08:08)
[2020-06-30] MEDS: Saccharomyces boulardii 250 MG CAP PO SCH (08:08)
[2020-06-30] MEDS: Folic Acid 1 MG TAB PO SCH (08:08)
[2020-06-30] MEDS: Cholecalciferol (Vitamin D3) 5,000 UNITS CAPSULE PO SCH (08:08)
[2020-06-30] MEDS: Megestrol Acetate 40 MG TAB PO SCH ×2 (08:08→20:42)
[2020-06-30] MEDS: Pramipexole Di-HCl 0.25 MG TAB PO SCH ×3 (08:08→20:41)
[2020-06-30] MEDS: Amiodarone 200 MG TAB PO SCH (08:08)
[2020-06-30] MEDS: Furosemide 40 MG TAB PO SCH (08:08)
[2020-06-30] MEDS: Allopurinol 100 MG TAB PO SCH (08:08)
[2020-06-30] MEDS: Cyanocobalamin (Vitamin B-12) 1,000 MCG TAB PO SCH (08:08)
[2020-06-30] MEDS: Famotidine 20 MG TAB PO SCH ×2 (08:08→20:42)
[2020-06-30] MEDS: Nystatin Powder 15 GM BOT TOP SCH ×3 (08:09→20:42)
[2020-06-30] MEDS: Mupirocin 2% Ointment 22 GM Tube TOP SCH (08:09)
[2020-06-30] MEDS: Potassium Chloride 10 MEQ TAB PO SCH (08:09)
[2020-06-30] MEDS: Apixaban 2.5 MG TAB PO SCH ×2 (08:09→20:42)
[2020-06-30] MEDS: Acetaminophen 325 MG TAB PO PRN (09:02)
[2020-06-30] MEDS: Zolpidem Tartrate 5 MG TAB PO SCH (20:42)
[2020-06-30] MEDS: Atorvastatin Calcium 10 MG TAB PO SCH (20:42)
[2020-07-01] MEDS: Levothyroxine Sodium 100 MCG TAB PO SCH (05:14)
[2020-07-01] MEDS: Levothyroxine Sodium 50 MCG TAB PO SCH (05:14)
[2020-07-01] MEDS: Pramipexole Di-HCl 0.25 MG TAB PO SCH ×3 (08:09→20:37)
[2020-07-01] MEDS: Famotidine 20 MG TAB PO SCH ×2 (08:09→20:37)
[2020-07-01] MEDS: Furosemide 40 MG TAB PO SCH (08:09)
[2020-07-01] MEDS: Apixaban 2.5 MG TAB PO SCH ×2 (08:10→20:37)
[2020-07-01] MEDS: Folic Acid 1 MG TAB PO SCH (08:10)
[2020-07-01] MEDS: Multivit, Therapeutic 1 TAB PO SCH (08:10)
[2020-07-01] MEDS: Allopurinol 100 MG TAB PO SCH (08:10)
[2020-07-01] MEDS: metFORMIN 500 MG TAB PO SCH (08:10)
[2020-07-01] MEDS: Cyanocobalamin (Vitamin B-12) 1,000 MCG TAB PO SCH (08:10)
[2020-07-01] MEDS: Megestrol Acetate 40 MG TAB PO SCH ×2 (08:10→20:37)
[2020-07-01] MEDS: Amiodarone 200 MG TAB PO SCH (08:10)
[2020-07-01] MEDS: Potassium Chloride 10 MEQ TAB PO SCH (08:10)
[2020-07-01] MEDS: Saccharomyces boulardii 250 MG CAP PO SCH (08:10)
[2020-07-01] MEDS: Cholecalciferol (Vitamin D3) 5,000 UNITS CAPSULE PO SCH (08:10)
[2020-07-01] MEDS: Mupirocin 2% Ointment 22 GM Tube TOP SCH (08:11)
[2020-07-01] MEDS: Nystatin Powder 15 GM BOT TOP SCH ×3 (08:11→20:37)
[2020-07-01] MEDS: Zolpidem Tartrate 5 MG TAB PO SCH (20:37)
[2020-07-01] MEDS: Atorvastatin Calcium 10 MG TAB PO SCH (20:37)
[2020-07-02] MEDS: Levothyroxine Sodium 50 MCG TAB PO SCH (05:10)
[2020-07-02] MEDS: Levothyroxine Sodium 100 MCG TAB PO SCH (05:11)
[2020-07-02] MEDS: Pramipexole Di-HCl 0.25 MG TAB PO SCH ×3 (08:59→21:41)
[2020-07-02] MEDS: Multivit, Therapeutic 1 TAB PO SCH (09:00)
[2020-07-02] MEDS: Potassium Chloride 10 MEQ TAB PO SCH (09:00)
[2020-07-02] MEDS: Amiodarone 200 MG TAB PO SCH (09:00)
[2020-07-02] MEDS: Allopurinol 100 MG TAB PO SCH (09:00)
[2020-07-02] MEDS: Megestrol Acetate 40 MG TAB PO SCH ×2 (09:00→21:41)
[2020-07-02] MEDS: Furosemide 40 MG TAB PO SCH (09:00)
[2020-07-02] MEDS: metFORMIN 500 MG TAB PO SCH (09:00)
[2020-07-02] MEDS: Nystatin Powder 15 GM BOT TOP SCH ×3 (09:01→21:00)
[2020-07-02] MEDS: Cholecalciferol (Vitamin D3) 5,000 UNITS CAPSULE PO SCH (09:01)
[2020-07-02] MEDS: Cyanocobalamin (Vitamin B-12) 1,000 MCG TAB PO SCH (09:01)
[2020-07-02] MEDS: Apixaban 2.5 MG TAB PO SCH ×2 (09:01→21:41)
[2020-07-02] MEDS: Saccharomyces boulardii 250 MG CAP PO SCH (09:01)
[2020-07-02] MEDS: Folic Acid 1 MG TAB PO SCH (09:01)
[2020-07-02] MEDS: Mupirocin 2% Ointment 22 GM Tube TOP SCH (09:06)
[2020-07-02] MEDS: Famotidine 20 MG TAB PO SCH ×2 (11:41→21:41)
[2020-07-02] MEDS: Acetaminophen 325 MG TAB PO PRN (12:44)
[2020-07-02] MEDS: Zolpidem Tartrate 5 MG TAB PO SCH (21:41)
[2020-07-02] MEDS: Atorvastatin Calcium 10 MG TAB PO SCH (21:41)
[2020-07-03 04:57] LABS: #Basophils 0.1 thou/uL (0.0-0.2); #Eosinphils 0.2 thou/uL (0.0-0.7); #Lymphocytes 1.7 thou/uL (1.20-3.40); #Monocytes 0.6 thou/uL (0.11-0.59); #Neutrophils 3.8 thou/uL (1.40-6.50); %Basophils 1.5 % (0.0-1.0); %Eosinophils 2.5 % (0.0-10.0); %Lymphocytes 27.1 % (21.0-51.0); %Monocytes 9.9 % (0.0-10.0); Hemoglobin 11.4 g/dL (14.0-18.0); Mean Corpuscular Hemoglobin 33.2 pg (27.0-31.0); Mean Platelet Volume 8.5 fL (7.4-10.4); Platelet Count 118 thou/uL (130-400); Red Blood Cell (RBC) Count 3.44 mill/uL (4.70-6.10); White Blood Cell (WBC) Count 6.4 thou/uL (4.8-10.8)
[2020-07-03 05:13] LABS: ALT (SGPT) 12 U/L (8-55); AST (SGOT) 17 U/L (5-34); Albumin 2.8 g/dL (3.4-4.8); Alkaline Phosphatase 82 U/L (40-110); Anion Gap 13 mmol/L (10-20); BUN (Urea Nitrogen) 22 mg/dL (8.4-25.7); Bilirubin, Total 0.4 mg/dL (0.2-1.2); CRP (Inflammatory) 0.61 mg/dL (= or < 0.5); Calc. Creatinine Clearance 80 mL/min (70-130); Calcium 8.4 mg/dL (7.8-10.44); Carbon Dioxide 30 mmol/L (23-31); Chloride 104 mmol/L (98-107); Estimated GFR-MDRD 75; Globulin 3.2 g/dL (2.4-3.5); Glucose 132 mg/dL (83-110); Potassium 3.8 mmol/L (3.5-5.1); Sodium 143 mmol/L (136-145)
[2020-07-03] MEDS: Levothyroxine Sodium 100 MCG TAB PO SCH (05:13)
[2020-07-03] MEDS: Levothyroxine Sodium 50 MCG TAB PO SCH (05:13)
[2020-07-03 07:29] LABS: Anisocytosis SLIGHT = 6-15 cells (100X) (0-5/hpf); MDiff Complete? YES; Macrocytosis SLIGHT = 6-15 cells (100X) (0-5/hpf); Platelet Morphology Comment Appears Decreased
[2020-07-03] MEDS: Allopurinol 100 MG TAB PO SCH (09:45)
[2020-07-03] MEDS: Famotidine 20 MG TAB PO SCH ×2 (09:45→21:09)
[2020-07-03] MEDS: Amiodarone 200 MG TAB PO SCH (09:45)
[2020-07-03] MEDS: Furosemide 40 MG TAB PO SCH (09:47)
[2020-07-03] MEDS: Pramipexole Di-HCl 0.25 MG TAB PO SCH ×3 (09:47→21:09)
[2020-07-03] MEDS: Cholecalciferol (Vitamin D3) 5,000 UNITS CAPSULE PO SCH (09:47)
[2020-07-03] MEDS: Megestrol Acetate 40 MG TAB PO SCH ×2 (09:47→21:09)
[2020-07-03] MEDS: Cyanocobalamin (Vitamin B-12) 1,000 MCG TAB PO SCH (09:47)
[2020-07-03] MEDS: Potassium Chloride 20 MEQ TAB PO SCH (09:47)
[2020-07-03] MEDS: metFORMIN 500 MG TAB PO SCH (09:48)
[2020-07-03] MEDS: Saccharomyces boulardii 250 MG CAP PO SCH (09:48)
[2020-07-03] MEDS: Folic Acid 1 MG TAB PO SCH (09:48)
[2020-07-03] MEDS: Apixaban 2.5 MG TAB PO SCH ×2 (09:48→21:09)
[2020-07-03] MEDS: Multivit, Therapeutic 1 TAB PO SCH (09:48)
[2020-07-03] MEDS: Nystatin Powder 15 GM BOT TOP SCH ×3 (09:49→21:09)
[2020-07-03] MEDS: Mupirocin 2% Ointment 22 GM Tube TOP SCH (09:49)
[2020-07-03] MEDS: Atorvastatin Calcium 10 MG TAB PO SCH (21:09)
[2020-07-03] MEDS: Zolpidem Tartrate 5 MG TAB PO SCH (21:09)
[2020-07-04] MEDS: Levothyroxine Sodium 50 MCG TAB PO SCH (06:01)
[2020-07-04] MEDS: Levothyroxine Sodium 100 MCG TAB PO SCH (06:01)
[2020-07-04] MEDS: Pramipexole Di-HCl 0.25 MG TAB PO SCH ×3 (08:53→21:29)
[2020-07-04] MEDS: Famotidine 20 MG TAB PO SCH ×2 (08:53→21:29)
[2020-07-04] MEDS: Saccharomyces boulardii 250 MG CAP PO SCH (08:54)
[2020-07-04] MEDS: Allopurinol 100 MG TAB PO SCH (08:54)
[2020-07-04] MEDS: Multivit, Therapeutic 1 TAB PO SCH (08:55)
[2020-07-04] MEDS: metFORMIN 500 MG TAB PO SCH (08:55)
[2020-07-04] MEDS: Folic Acid 1 MG TAB PO SCH (08:56)
[2020-07-04] MEDS: Furosemide 40 MG TAB PO SCH (08:56)
[2020-07-04] MEDS: Cholecalciferol (Vitamin D3) 5,000 UNITS CAPSULE PO SCH (08:57)
[2020-07-04] MEDS: Apixaban 2.5 MG TAB PO SCH ×2 (08:57→21:29)
[2020-07-04] MEDS: Amiodarone 200 MG TAB PO SCH (08:57)
[2020-07-04] MEDS: Cyanocobalamin (Vitamin B-12) 1,000 MCG TAB PO SCH (08:57)
[2020-07-04] MEDS: Megestrol Acetate 40 MG TAB PO SCH ×2 (08:57→21:29)
[2020-07-04] MEDS: Potassium Chloride 20 MEQ TAB PO SCH (08:58)
[2020-07-04] MEDS: Mupirocin 2% Ointment 22 GM Tube TOP SCH (08:58)
[2020-07-04] MEDS: Nystatin Powder 15 GM BOT TOP SCH ×3 (08:59→21:29)
[2020-07-04] MEDS: Atorvastatin Calcium 10 MG TAB PO SCH (21:29)
[2020-07-04] MEDS: Zolpidem Tartrate 5 MG TAB PO SCH (21:29)
[2020-07-05] MEDS: Levothyroxine Sodium 50 MCG TAB PO SCH (05:38)
[2020-07-05] MEDS: Levothyroxine Sodium 100 MCG TAB PO SCH (05:38)
[2020-07-05] MEDS: Cyanocobalamin (Vitamin B-12) 1,000 MCG TAB PO SCH (10:02)
[2020-07-05] MEDS: Multivit, Therapeutic 1 TAB PO SCH (10:02)
[2020-07-05] MEDS: Cholecalciferol (Vitamin D3) 5,000 UNITS CAPSULE PO SCH (10:02)
[2020-07-05] MEDS: Famotidine 20 MG TAB PO SCH ×2 (10:02→20:25)
[2020-07-05] MEDS: metFORMIN 500 MG TAB PO SCH (10:03)
[2020-07-05] MEDS: Megestrol Acetate 40 MG TAB PO SCH ×2 (10:03→20:26)
[2020-07-05] MEDS: Apixaban 2.5 MG TAB PO SCH (10:03)
[2020-07-05] MEDS: Folic Acid 1 MG TAB PO SCH (10:03)
[2020-07-05] MEDS: Potassium Chloride 20 MEQ TAB PO SCH (10:03)
[2020-07-05] MEDS: Amiodarone 200 MG TAB PO SCH (10:03)
[2020-07-05] MEDS: Saccharomyces boulardii 250 MG CAP PO SCH (10:03)
[2020-07-05] MEDS: Pramipexole Di-HCl 0.25 MG TAB PO SCH ×3 (10:04→20:26)
[2020-07-05] MEDS: Furosemide 40 MG TAB PO SCH (10:04)
[2020-07-05] MEDS: Allopurinol 100 MG TAB PO SCH (10:04)
[2020-07-05] MEDS: Mupirocin 2% Ointment 22 GM Tube TOP SCH (10:05)
[2020-07-05] MEDS: Nystatin Powder 15 GM BOT TOP SCH ×3 (10:05→20:26)
[2020-07-05] MEDS: Zolpidem Tartrate 5 MG TAB PO SCH (20:25)
[2020-07-05] MEDS: Atorvastatin Calcium 10 MG TAB PO SCH (20:26)
[2020-07-06] MEDS: Levothyroxine Sodium 50 MCG TAB PO SCH (05:43)
[2020-07-06] MEDS: Levothyroxine Sodium 100 MCG TAB PO SCH (05:43)
[2020-07-06] MEDS: Pramipexole Di-HCl 0.25 MG TAB PO SCH ×3 (09:04→21:07)
[2020-07-06] MEDS: Famotidine 20 MG TAB PO SCH ×2 (09:04→21:07)
[2020-07-06] MEDS: Multivit, Therapeutic 1 TAB PO SCH (09:04)
[2020-07-06] MEDS: Saccharomyces boulardii 250 MG CAP PO SCH (09:05)
[2020-07-06] MEDS: Allopurinol 100 MG TAB PO SCH (09:05)
[2020-07-06] MEDS: Furosemide 40 MG TAB PO SCH (09:05)
[2020-07-06] MEDS: Folic Acid 1 MG TAB PO SCH (09:05)
[2020-07-06] MEDS: Potassium Chloride 20 MEQ TAB PO SCH (09:05)
[2020-07-06] MEDS: Megestrol Acetate 40 MG TAB PO SCH ×2 (09:05→21:08)
[2020-07-06] MEDS: Cholecalciferol (Vitamin D3) 5,000 UNITS CAPSULE PO SCH (09:06)
[2020-07-06] MEDS: Cyanocobalamin (Vitamin B-12) 1,000 MCG TAB PO SCH (09:06)
[2020-07-06] MEDS: metFORMIN 500 MG TAB PO SCH (09:06)
[2020-07-06] MEDS: Amiodarone 200 MG TAB PO SCH (09:06)
[2020-07-06] MEDS: Mupirocin 2% Ointment 22 GM Tube TOP SCH (09:10)
[2020-07-06] MEDS: Nystatin Powder 15 GM BOT TOP SCH ×3 (09:10→21:06)
[2020-07-06] MEDS ORDERED: Enoxaparin Sodium 100 MG/ML SYRINGE SC SCH (11:15)
[2020-07-06] MEDS ORDERED: Enoxaparin Sodium 40 MG/0.4 ML SYRINGE SC SCH ×2 (21:00)
[2020-07-06] MEDS: Atorvastatin Calcium 10 MG TAB PO SCH (21:07)
[2020-07-06] MEDS: Enoxaparin Sodium 100 MG/ML SYRINGE SC SCH (21:07)
[2020-07-06] MEDS: Zolpidem Tartrate 5 MG TAB PO SCH (21:07)
[2020-07-07] MEDS: Levothyroxine Sodium 100 MCG TAB PO SCH (05:52)
[2020-07-07] MEDS: Levothyroxine Sodium 50 MCG TAB PO SCH (05:52)
[2020-07-07] MEDS: Furosemide 40 MG TAB PO SCH (09:49)
[2020-07-07] MEDS: Folic Acid 1 MG TAB PO SCH (09:49)
[2020-07-07] MEDS: Allopurinol 100 MG TAB PO SCH (09:49)
[2020-07-07] MEDS: metFORMIN 500 MG TAB PO SCH (09:49)
[2020-07-07] MEDS: Pramipexole Di-HCl 0.25 MG TAB PO SCH ×3 (09:49→20:18)
[2020-07-07] MEDS: Cholecalciferol (Vitamin D3) 5,000 UNITS CAPSULE PO SCH (09:50)
[2020-07-07] MEDS: Megestrol Acetate 40 MG TAB PO SCH ×2 (09:50→20:19)
[2020-07-07] MEDS: Famotidine 20 MG TAB PO SCH ×2 (09:50→20:18)
[2020-07-07] MEDS: Multivit, Therapeutic 1 TAB PO SCH (09:50)
[2020-07-07] MEDS: Potassium Chloride 20 MEQ TAB PO SCH (09:50)
[2020-07-07] MEDS: Cyanocobalamin (Vitamin B-12) 1,000 MCG TAB PO SCH (09:50)
[2020-07-07] MEDS: Amiodarone 200 MG TAB PO SCH (09:50)
[2020-07-07] MEDS: Saccharomyces boulardii 250 MG CAP PO SCH (09:50)
[2020-07-07] MEDS: Nystatin Powder 15 GM BOT TOP SCH ×4 (09:51→21:00)
[2020-07-07] MEDS: Enoxaparin Sodium 100 MG/ML SYRINGE SC SCH ×2 (09:51→20:19)
[2020-07-07] MEDS: Mupirocin 2% Ointment 22 GM Tube TOP SCH (09:51)
[2020-07-07] MEDS: Zolpidem Tartrate 5 MG TAB PO SCH (20:18)
[2020-07-07] MEDS: Atorvastatin Calcium 10 MG TAB PO SCH (20:19)
[2020-07-08] MEDS: Levothyroxine Sodium 100 MCG TAB PO SCH (05:59)
[2020-07-08] MEDS: Levothyroxine Sodium 50 MCG TAB PO SCH (05:59)
[2020-07-08] MEDS: Allopurinol 100 MG TAB PO SCH (08:50)
[2020-07-08] MEDS: Cyanocobalamin (Vitamin B-12) 1,000 MCG TAB PO SCH (08:50)
[2020-07-08] MEDS: Cholecalciferol (Vitamin D3) 5,000 UNITS CAPSULE PO SCH (08:51)
[2020-07-08] MEDS: metFORMIN 500 MG TAB PO SCH (08:51)
[2020-07-08] MEDS: Furosemide 40 MG TAB PO SCH (08:51)
[2020-07-08] MEDS: Multivit, Therapeutic 1 TAB PO SCH (08:52)
[2020-07-08] MEDS: Folic Acid 1 MG TAB PO SCH (08:52)
[2020-07-08] MEDS: Megestrol Acetate 40 MG TAB PO SCH ×2 (08:52→20:09)
[2020-07-08] MEDS: Potassium Chloride 20 MEQ TAB PO SCH (08:52)
[2020-07-08] MEDS: Amiodarone 200 MG TAB PO SCH (08:53)
[2020-07-08] MEDS: Famotidine 20 MG TAB PO SCH ×2 (08:53→20:10)
[2020-07-08] MEDS: Pramipexole Di-HCl 0.25 MG TAB PO SCH ×3 (08:53→20:10)
[2020-07-08] MEDS: Saccharomyces boulardii 250 MG CAP PO SCH (08:53)
[2020-07-08] MEDS: Nystatin Powder 15 GM BOT TOP SCH ×3 (08:54→20:09)
[2020-07-08] MEDS: Mupirocin 2% Ointment 22 GM Tube TOP SCH (08:54)
[2020-07-08] MEDS: Enoxaparin Sodium 100 MG/ML SYRINGE SC SCH ×2 (08:55→20:10)
[2020-07-08] MEDS: Zolpidem Tartrate 5 MG TAB PO SCH (20:09)
[2020-07-08] MEDS: Atorvastatin Calcium 10 MG TAB PO SCH (20:10)
[2020-07-09] MEDS: Levothyroxine Sodium 50 MCG TAB PO SCH (05:17)
[2020-07-09] MEDS: Levothyroxine Sodium 100 MCG TAB PO SCH (05:17)
[2020-07-09 05:42] LABS: #Basophils 0.1 thou/uL (0.0-0.2); #Eosinphils 0.1 thou/uL (0.0-0.7); #Lymphocytes 1.9 thou/uL (1.20-3.40); #Monocytes 0.6 thou/uL (0.11-0.59); #Neutrophils 3.9 thou/uL (1.40-6.50); %Basophils 1.4 % (0.0-1.0); %Eosinophils 1.8 % (0.0-10.0); %Lymphocytes 28.3 % (21.0-51.0); %Monocytes 8.4 % (0.0-10.0); Hemoglobin 11.9 g/dL (14.0-18.0); Mean Corpuscular HGB CONC 32.8 g/dL (32.0-36.0); Mean Corpuscular Hemoglobin 34.3 pg (27.0-31.0); Mean Platelet Volume 10.6 fL (7.4-10.4); Platelet Count 102 thou/uL (130-400); RBC Distribution Width 14.2 % (11.5-14.5); Red Blood Cell (RBC) Count 3.48 mill/uL (4.70-6.10); White Blood Cell (WBC) Count 6.5 thou/uL (4.8-10.8)
[2020-07-09 05:50] LABS: Anion Gap 11 mmol/L (10-20); BUN (Urea Nitrogen) 22 mg/dL (8.4-25.7); Calc. Creatinine Clearance 75 mL/min (70-130); Calcium 8.4 mg/dL (7.8-10.44); Carbon Dioxide 33 mmol/L (23-31); Chloride 101 mmol/L (98-107); Estimated GFR-MDRD 69; Glucose 140 mg/dL (83-110); Potassium 3.8 mmol/L (3.5-5.1); Sodium 141 mmol/L (136-145)
[2020-07-09 06:02] LABS: MDiff Complete? YES; Macrocytosis MODERATE=16-30 cells (100X) (0-5/hpf); Platelet Morphology Comment Appears Decreased
[2020-07-09] MEDS: Allopurinol 100 MG TAB PO SCH (08:43)
[2020-07-09] MEDS: Pramipexole Di-HCl 0.25 MG TAB PO SCH ×3 (08:44→21:24)
[2020-07-09] MEDS: Multivit, Therapeutic 1 TAB PO SCH (08:44)
[2020-07-09] MEDS: Saccharomyces boulardii 250 MG CAP PO SCH (08:44)
[2020-07-09] MEDS: Famotidine 20 MG TAB PO SCH ×2 (08:44→21:24)
[2020-07-09] MEDS: Potassium Chloride 20 MEQ TAB PO SCH (08:44)
[2020-07-09] MEDS: Cyanocobalamin (Vitamin B-12) 1,000 MCG TAB PO SCH (08:44)
[2020-07-09] MEDS: Furosemide 40 MG TAB PO SCH (08:44)
[2020-07-09] MEDS: Amiodarone 200 MG TAB PO SCH (08:44)
[2020-07-09] MEDS: Megestrol Acetate 40 MG TAB PO SCH ×2 (08:45→21:24)
[2020-07-09] MEDS: Mupirocin 2% Ointment 22 GM Tube TOP SCH (08:45)
[2020-07-09] MEDS: Nystatin Powder 15 GM BOT TOP SCH ×3 (08:45→21:24)
[2020-07-09] MEDS: Cholecalciferol (Vitamin D3) 5,000 UNITS CAPSULE PO SCH (08:45)
[2020-07-09] MEDS: metFORMIN 500 MG TAB PO SCH (08:45)
[2020-07-09] MEDS: Folic Acid 1 MG TAB PO SCH (08:45)
[2020-07-09] MEDS: Enoxaparin Sodium 100 MG/ML SYRINGE SC SCH ×2 (08:46→21:29)
[2020-07-09 11:14] LABS: Bilirubin Negative (Negative); Blood, Urine Moderate (Negative); Clarity Cloudy (Clear); Glucose, Urine (Dipstick) Negative (Negative); Ketone, Urine Negative (Negative); Leukocyte Large (Negative); Nitrite Negative (Negative); Protein, Urine (Dipstick) 100 mg/dL (Neg-Trace)
[2020-07-09 11:39] LABS: Bacteria/HPF 4+ HPF (None Seen); Squamous Epithelial 0-3 HPF (0-3); WBC/HPF Greater Than 50 HPF (0-3)
[2020-07-09 15:09] LABS: SARS-CoV-2 MS2 Positive; SARS-CoV-2 N Gene Negative; SARS-CoV-2 S Gene Negative; SARS-CoV-2 by NAA Not Detected (NotDetected); SARS-CoV-2 orf1ab Negative
[2020-07-09] MEDS: Zolpidem Tartrate 5 MG TAB PO SCH (21:23)
[2020-07-09] MEDS: Atorvastatin Calcium 10 MG TAB PO SCH (21:23)
[2020-07-10 05:23] LABS: INR-International Normal Ratio 1.1; Prothrombin Time 14.9 sec (12.0-14.7)
[2020-07-10] MEDS: Levothyroxine Sodium 100 MCG TAB PO SCH (05:28)
[2020-07-10] MEDS: Levothyroxine Sodium 50 MCG TAB PO SCH (05:28)
[2020-07-10 05:35] LABS: ALT (SGPT) 17 U/L (8-55); AST (SGOT) 20 U/L (5-34); Alkaline Phosphatase 66 U/L (40-110); Anion Gap 15 mmol/L (10-20); BUN (Urea Nitrogen) 22 mg/dL (8.4-25.7); Bilirubin, Total 0.6 mg/dL (0.2-1.2); CRP (Inflammatory) Less than 0.50 mg/dL (= or < 0.5); Calc. Creatinine Clearance 86 mL/min (70-130); Calcium 8.7 mg/dL (7.8-10.44); Carbon Dioxide 28 mmol/L (23-31); Chloride 100 mmol/L (98-107); Estimated GFR-MDRD 83; Globulin 3.4 g/dL (2.4-3.5); Glucose 119 mg/dL (83-110); Potassium 3.9 mmol/L (3.5-5.1); Protein, Total 6.4 g/dL (5.8-8.1); Sodium 139 mmol/L (136-145)
[2020-07-10 05:36] LABS: #Basophils 0.1 thou/uL (0.0-0.2); #Eosinphils 0.1 thou/uL (0.0-0.7); #Monocytes 0.5 thou/uL (0.11-0.59); #Neutrophils 4.2 thou/uL (1.40-6.50); %Basophils 1.5 % (0.0-1.0); %Eosinophils 2.1 % (0.0-10.0); %Monocytes 7.6 % (0.0-10.0); %Neutrophils 59.8 % (42.0-75.0); Anisocytosis SLIGHT = 6-15 cells (100X) (0-5/hpf); Hemoglobin 12.1 g/dL (14.0-18.0); MDiff Complete? YES; Macrocytosis SLIGHT = 6-15 cells (100X) (0-5/hpf); Mean Corpuscular HGB CONC 31.9 g/dL (32.0-36.0); Mean Corpuscular Hemoglobin 33.7 pg (27.0-31.0); Microcytosis SLIGHT = 6-15 cells (100X) (0-5/hpf); Platelet Count 106 thou/uL (130-400); Platelet Morphology Comment Appears Adequate; Red Blood Cell (RBC) Count 3.58 mill/uL (4.70-6.10)
[2020-07-10] MEDS: Famotidine 20 MG TAB PO SCH ×2 (08:26→21:33)
[2020-07-10] MEDS: Furosemide 40 MG TAB PO SCH (08:26)
[2020-07-10] MEDS: Folic Acid 1 MG TAB PO SCH (08:26)
[2020-07-10] MEDS: Potassium Chloride 20 MEQ TAB PO SCH (08:27)
[2020-07-10] MEDS: metFORMIN 500 MG TAB PO SCH (08:27)
[2020-07-10] MEDS: Allopurinol 100 MG TAB PO SCH (08:27)
[2020-07-10] MEDS: Megestrol Acetate 40 MG TAB PO SCH ×2 (08:27→21:34)
[2020-07-10] MEDS: Cyanocobalamin (Vitamin B-12) 1,000 MCG TAB PO SCH (08:28)
[2020-07-10] MEDS: Cholecalciferol (Vitamin D3) 5,000 UNITS CAPSULE PO SCH (08:28)
[2020-07-10] MEDS: Multivit, Therapeutic 1 TAB PO SCH (08:28)
[2020-07-10] MEDS: Pramipexole Di-HCl 0.25 MG TAB PO SCH ×3 (08:28→21:34)
[2020-07-10] MEDS: Saccharomyces boulardii 250 MG CAP PO SCH (08:29)
[2020-07-10] MEDS: Nystatin Powder 15 GM BOT TOP SCH ×3 (08:29→21:38)
[2020-07-10] MEDS: Mupirocin 2% Ointment 22 GM Tube TOP SCH (08:29)
[2020-07-10] MEDS: Amiodarone 200 MG TAB PO SCH (08:29)
[2020-07-10] MEDS: Enoxaparin Sodium 100 MG/ML SYRINGE SC SCH ×2 (08:30→21:34)
[2020-07-10] MEDS: Atorvastatin Calcium 10 MG TAB PO SCH (21:34)
[2020-07-10] MEDS: Zolpidem Tartrate 5 MG TAB PO SCH (21:34)
[2020-07-11] MEDS: Levothyroxine Sodium 100 MCG TAB PO SCH (05:29)
[2020-07-11] MEDS: Levothyroxine Sodium 50 MCG TAB PO SCH (05:29)
[2020-07-11] MEDS: Allopurinol 100 MG TAB PO SCH (08:57)
[2020-07-11] MEDS: Megestrol Acetate 40 MG TAB PO SCH ×2 (08:58→20:44)
[2020-07-11] MEDS: Pramipexole Di-HCl 0.25 MG TAB PO SCH ×3 (08:58→20:44)
[2020-07-11] MEDS: Saccharomyces boulardii 250 MG CAP PO SCH (08:58)
[2020-07-11] MEDS: Famotidine 20 MG TAB PO SCH ×2 (08:58→20:43)
[2020-07-11] MEDS: Cholecalciferol (Vitamin D3) 5,000 UNITS CAPSULE PO SCH (08:59)
[2020-07-11] MEDS: Potassium Chloride 20 MEQ TAB PO SCH (08:59)
[2020-07-11] MEDS: Folic Acid 1 MG TAB PO SCH (09:01)
[2020-07-11] MEDS: Furosemide 40 MG TAB PO SCH (09:01)
[2020-07-11] MEDS: metFORMIN 500 MG TAB PO SCH (09:01)
[2020-07-11] MEDS: Cyanocobalamin (Vitamin B-12) 1,000 MCG TAB PO SCH (09:01)
[2020-07-11] MEDS: Multivit, Therapeutic 1 TAB PO SCH (09:02)
[2020-07-11] MEDS: Enoxaparin Sodium 100 MG/ML SYRINGE SC SCH ×2 (09:02→20:44)
[2020-07-11] MEDS: Amiodarone 200 MG TAB PO SCH (09:03)
[2020-07-11] MEDS: Nystatin Powder 15 GM BOT TOP SCH ×3 (09:36→20:44)
[2020-07-11] MEDS: Mupirocin 2% Ointment 22 GM Tube TOP SCH (09:37)
[2020-07-11 09:42] VITALS: BMI 27.4
[2020-07-11] MEDS: Atorvastatin Calcium 10 MG TAB PO SCH (20:43)
[2020-07-11] MEDS: Zolpidem Tartrate 5 MG TAB PO SCH (20:43)
[2020-07-12] MEDS: Levothyroxine Sodium 100 MCG TAB PO SCH (04:11)
[2020-07-12] MEDS: Amiodarone 200 MG TAB PO SCH (04:11)
[2020-07-12] MEDS: Famotidine 20 MG TAB PO SCH ×2 (04:11→20:03)
[2020-07-12] MEDS: Levothyroxine Sodium 50 MCG TAB PO SCH (04:11)
[2020-07-12] MEDS: Megestrol Acetate 40 MG TAB PO SCH ×2 (16:06→20:03)
[2020-07-12] MEDS: Multivit, Therapeutic 1 TAB PO SCH (16:07)
[2020-07-12] MEDS: Saccharomyces boulardii 250 MG CAP PO SCH (16:07)
[2020-07-12] MEDS: Folic Acid 1 MG TAB PO SCH (16:08)
[2020-07-12] MEDS: Potassium Chloride 20 MEQ TAB PO SCH (16:08)
[2020-07-12] MEDS: Cholecalciferol (Vitamin D3) 5,000 UNITS CAPSULE PO SCH (16:08)
[2020-07-12] MEDS: metFORMIN 500 MG TAB PO SCH (16:08)
[2020-07-12] MEDS: Cyanocobalamin (Vitamin B-12) 1,000 MCG TAB PO SCH (16:08)
[2020-07-12] MEDS: Allopurinol 100 MG TAB PO SCH (16:09)
[2020-07-12] MEDS: Furosemide 40 MG TAB PO SCH (16:09)
[2020-07-12] MEDS: Pramipexole Di-HCl 0.25 MG TAB PO SCH ×3 (16:11→20:03)
[2020-07-12] MEDS: Nystatin Powder 15 GM BOT TOP SCH ×2 (16:24→20:14)
[2020-07-12] MEDS: Mupirocin 2% Ointment 22 GM Tube TOP SCH (16:25)
[2020-07-12] MEDS: Zolpidem Tartrate 5 MG TAB PO SCH (20:03)
[2020-07-12] MEDS: Atorvastatin Calcium 10 MG TAB PO SCH (20:03)
[2020-07-12] MEDS: Acetaminophen 325 MG TAB PO PRN (20:03)
[2020-07-13 05:23] LABS: Hemoglobin 11.5 g/dL (14.0-18.0); Platelet Count 100 thou/uL (130-400)
[2020-07-13] MEDS: Levothyroxine Sodium 100 MCG TAB PO SCH (06:28)
[2020-07-13] MEDS: Levothyroxine Sodium 50 MCG TAB PO SCH (06:28)
[2020-07-13] MEDS: Saccharomyces boulardii 250 MG CAP PO SCH (08:42)
[2020-07-13] MEDS: Famotidine 20 MG TAB PO SCH ×2 (08:42→20:11)
[2020-07-13] MEDS: Potassium Chloride 20 MEQ TAB PO SCH (08:42)
[2020-07-13] MEDS: Multivit, Therapeutic 1 TAB PO SCH (08:42)
[2020-07-13] MEDS: Allopurinol 100 MG TAB PO SCH (08:43)
[2020-07-13] MEDS: Pramipexole Di-HCl 0.25 MG TAB PO SCH ×3 (08:43→20:12)
[2020-07-13] MEDS: metFORMIN 500 MG TAB PO SCH (08:43)
[2020-07-13] MEDS: Amiodarone 200 MG TAB PO SCH (08:44)
[2020-07-13] MEDS: Megestrol Acetate 40 MG TAB PO SCH ×2 (08:44→20:11)
[2020-07-13] MEDS: Furosemide 40 MG TAB PO SCH (08:45)
[2020-07-13] MEDS: Cholecalciferol (Vitamin D3) 5,000 UNITS CAPSULE PO SCH (08:45)
[2020-07-13] MEDS: Folic Acid 1 MG TAB PO SCH (08:45)
[2020-07-13] MEDS: Cyanocobalamin (Vitamin B-12) 1,000 MCG TAB PO SCH (08:45)
[2020-07-13] MEDS: Nystatin Powder 15 GM BOT TOP SCH ×3 (08:47→20:12)
[2020-07-13] MEDS: Mupirocin 2% Ointment 22 GM Tube TOP SCH (08:47)
[2020-07-13] MEDS: Tamsulosin HCl 0.4 MG CAP PO SCH (11:49)
[2020-07-13] MEDS: Atorvastatin Calcium 10 MG TAB PO SCH (20:11)
[2020-07-13] MEDS: Zolpidem Tartrate 5 MG TAB PO SCH (20:11)
[2020-07-14] MEDS: Levothyroxine Sodium 50 MCG TAB PO SCH (05:04)
[2020-07-14] MEDS: Levothyroxine Sodium 100 MCG TAB PO SCH (05:04)
[2020-07-14] MEDS: Furosemide 40 MG TAB PO SCH (08:34)
[2020-07-14] MEDS: Allopurinol 100 MG TAB PO SCH (08:34)
[2020-07-14] MEDS: Famotidine 20 MG TAB PO SCH ×2 (08:34→21:09)
[2020-07-14] MEDS: Pramipexole Di-HCl 0.25 MG TAB PO SCH ×3 (08:35→21:09)
[2020-07-14] MEDS: Amiodarone 200 MG TAB PO SCH (08:35)
[2020-07-14] MEDS: Multivit, Therapeutic 1 TAB PO SCH (08:35)
[2020-07-14] MEDS: Cyanocobalamin (Vitamin B-12) 1,000 MCG TAB PO SCH (08:35)
[2020-07-14] MEDS: Folic Acid 1 MG TAB PO SCH (08:35)
[2020-07-14] MEDS: Megestrol Acetate 40 MG TAB PO SCH ×2 (08:35→21:09)
[2020-07-14] MEDS: metFORMIN 500 MG TAB PO SCH (08:36)
[2020-07-14] MEDS: Potassium Chloride 20 MEQ TAB PO SCH (08:36)
[2020-07-14] MEDS: Cholecalciferol (Vitamin D3) 5,000 UNITS CAPSULE PO SCH (08:36)
[2020-07-14] MEDS: Mupirocin 2% Ointment 22 GM Tube TOP SCH (08:39)
[2020-07-14] MEDS: Nystatin Powder 15 GM BOT TOP SCH ×3 (08:39→21:09)
[2020-07-14] MEDS: Saccharomyces boulardii 250 MG CAP PO SCH (08:46)
[2020-07-14] MEDS: Tamsulosin HCl 0.4 MG CAP PO SCH (14:18)
[2020-07-14] MEDS: Apixaban 2.5 MG TAB PO SCH (21:09)
[2020-07-14] MEDS: Atorvastatin Calcium 10 MG TAB PO SCH (21:09)
[2020-07-14] MEDS: Zolpidem Tartrate 5 MG TAB PO SCH (21:09)
[2020-07-15] MEDS: Levothyroxine Sodium 100 MCG TAB PO SCH (06:06)
[2020-07-15] MEDS: Levothyroxine Sodium 50 MCG TAB PO SCH (06:06)
[2020-07-15 06:37] VITALS: BP 107/58; TEMP 97.8
[2020-07-15] MEDS: Pramipexole Di-HCl 0.25 MG TAB PO SCH ×2 (08:00→13:17)
[2020-07-15] MEDS: Potassium Chloride 20 MEQ TAB PO SCH (08:00)
[2020-07-15] MEDS: Famotidine 20 MG TAB PO SCH (08:00)
[2020-07-15] MEDS: Multivit, Therapeutic 1 TAB PO SCH (08:01)
[2020-07-15] MEDS: Allopurinol 100 MG TAB PO SCH (08:01)
[2020-07-15] MEDS: metFORMIN 500 MG TAB PO SCH (08:01)
[2020-07-15] MEDS: Megestrol Acetate 40 MG TAB PO SCH (08:01)
[2020-07-15] MEDS: Cholecalciferol (Vitamin D3) 5,000 UNITS CAPSULE PO SCH (08:01)
[2020-07-15] MEDS: Apixaban 2.5 MG TAB PO SCH (08:01)
[2020-07-15] MEDS: Amiodarone 200 MG TAB PO SCH (08:01)
[2020-07-15] MEDS: Saccharomyces boulardii 250 MG CAP PO SCH (08:01)
[2020-07-15] MEDS: Furosemide 40 MG TAB PO SCH (08:02)
[2020-07-15] MEDS: Cyanocobalamin (Vitamin B-12) 1,000 MCG TAB PO SCH (08:02)
[2020-07-15] MEDS: Folic Acid 1 MG TAB PO SCH (08:02)
[2020-07-15] MEDS: Nystatin Powder 15 GM BOT TOP SCH (08:04)
[2020-07-15] MEDS: Mupirocin 2% Ointment 22 GM Tube TOP SCH (08:05)
[2020-07-15] MEDS: Tamsulosin HCl 0.4 MG CAP PO SCH (12:55)
--- NOTE | 2020-07-15 22:56 | DIS ---
DATE OF ADMISSION: 05/15/2020 DATE OF DISCHARGE: 07/15/2020 ADMISSION DIAGNOSIS: 1. Status post nephrostomy tube with postobstructive urinary tract infection. 2. Right renal stone, status post lithotripsy. 3. Physical deconditioning. SECONDARY DIAGNOSES: 1. Paroxysmal atrial fibrillation. 2. Hypertension. 3. Dyslipidemia. 4. Type 2 diabetes mellitus. 5. Hypothyroidism. PROCEDURES: On 06/18/2020, right nephrostomy tube replacement and on 07/12/[address] Carlos Puckett. HOSPITAL COURSE: An 85-year-old male presented to our facility at [facility] for care home and rehab, status post acute admission at [facility] in [place] on 05/08/2020, where he was treated for sepsis secondary to obstructive nephropathy from a right renal stone; the patient has a history of bladder outlet obstruction for which he has a suprapubic catheter. Secondary to the patient's development of a right renal stone, he required treatment for sepsis and acute renal insufficiency and he subsequently had placement of a nephrostomy tube. Infectious disease consultation was obtained in regard to positive blood and urine cultures, for which the patient was recommended to treat for an additional 4 weeks of IV antibiotics. Secondary to this need and the patient's physical deconditioning, he was transitioned to our facility. The patient was able to successfully complete his IV antibiotic course during his stay here. In addition to this, he was able to participate with physical therapy and occupational therapy and improve upon his functional status. On 07/12/2020, the patient underwent lithotripsy via Dr. Puckett. The patient has expressed to exhibit no significant pain, status post procedure upon his return and has had no evidence of hematuria after restarting Eliquis. At this time secondary to successful urological intervention and improvement in regard to the patient's functional status, he is now able to discharge home where he lives with his daughter and grandson and has been set up with [facility] for further continuance of care. DISPOSITION: The patient was discharged home to stay with his daughter and grandson and has [facility] for further care home and therapy. He is to follow up with Dr. Carlos Puckett, Urology, in 3 to 4 weeks and may follow up with his primary care provider, Dr. Neal within the next week. DISCHARGE MEDICATIONS: Include; 1. Amiodarone 200 mg daily. 2. Atorvastatin 10 mg at bedtime. 3. Eliquis 2.5 mg b.i.d. 4. Flomax 0.4 mg daily. 5. Florastor 250 mg daily. 6. Folic acid 1 mg daily. 7. Furosemide 20 mg daily. 8. Metformin 500 mg daily. 9. Potassium chloride 10 mEq daily. 10. Levothyroxine 150 mcg daily. 11. Pramipexole 0.5 mg t.i.d. 12. Vitamin B12 of 1000 mcg daily. 13. Vitamin D3 of 5000 international units daily. 14. Allopurinol 300 mg daily. 15. Zolpidem 10 mg at bedtime. Job ID: [id number] MTDD
--- NOTE | 2020-07-16 11:12 | DIS ---
DATE OF ADMISSION: 05/15/2020 DATE OF DISCHARGE: 07/15/2020 ADDENDUM: Total time in discharge of this patient was greater than 30 minutes. Job ID: [id number]
--- NOTE | 2020-07-19 11:24 | PQF ---
CLINICAL DOCUMENTATION CLARIFICATION FORM: Dear : Tyrese King MD Date / Time: 07/19/2020 Please exercise your independent, professional judgment in responding to the clarification form. Clinical indicators are provided on the bottom of this form for your review Please check appropriate box(es): [ x ] Protein Calorie Malnutrition: [ x ] Mild [ ] Moderate [ ] Severe [ ] Other Malnutrition (please specify) [ ] Underweight without malnutrition [ ] Cachexia [ ] Other diagnosis (Please specify if any) [ ] Unable to determine In addition, please specify: Present on Admission (POA): [ x ] Yes [ ] No [ ] Unable to determine Physician Signature: Date/Time: For continuity of documentation, please document condition throughout progress notes and discharge summary. Thank You. To be completed by CDI/Coding staff for physician review: Present Clinical Indicators - Signs / Symptoms / Labs Results and Location in Medical Record [x] Malnutrition H&P on 05/17 [x] BMI of 27.5 Food & nutrition assessment on 07/11 Two or More of the Following ASPEN Criteria: [x] Albumin 2.5 L Laboratory on 05/16 [x] Appetite is fair to poor H&P on 05/17 [x] ill appearing white male H&P on 05/17 [ ] Diminished Handgrip Strength [ ] Localized/Generalized Fluid Accumulation Present Risk Factors Results and Location in Medical Record [ ] Change in appetite / nausea / vomiting / diarrhea [ ] Inability to consume adequate caloric intake [ ] Chronic illness cancer, cirrhosis [x] Aged person 85 yrs H&P on 05/17 [ ] Medication [ ] PEG tube [ ] Short gut syndrome Present Treatments Results and Location in Medical Record [x] Dietary consult Consult on 07/11 [x] Patient will advance diet as tolerated H&P on 05/17 [ ] TPN / tube feedings [ ] Assistance with feeding [ ] Appetite stimulant - medication CDS/Multi Punch Operator Signature: AAS Phone #: Date/Time: 07/19/2020 Moderate Malnutrition (in acute illness) ? Energy Intake: <75% of estimated energy requirement for > 7 days ? Weight Loss: 1-2%/1 week; 5%/ 1 month; 7.5%/3 months ? Other: mild body fat loss; mild muscle mass loss; mild fluid accumulation; Severe Malnutrition (in acute illness) ? Energy Intake: ? 50% of estimated energy requirement for ? 5 days ? Weight Loss: >2%/1 week; >5%/1 month; >7.5%/3 months ? Other: moderate body fat loss; moderate muscle mass loss; moderate- severe fluid accumulation; measurably reduced core stacker strength Moderate Malnutrition (in chronic illness) ? Energy Intake: <75% of estimated energy requirement for ?1 month ? Weight Loss: 5%/1 month; 7.5%/3 months; 10%/6 months; 20%/1 year ? Other: mild body fat loss; mild muscle mass loss; mild fluid accumulation Severe Malnutrition (in chronic illness) ? Energy Intake: ?75% of estimated energy requirement for ?1 month ? Weight Loss: >5%/1 month; >7.5%/3 months; >10%/6 months; >20%/1 year ? Other: severe body fat loss; severe muscle mass loss; severe fluid accumulation; measurably reduced core stacker strength This is a permanent part of the Medical Record MTDD
== END 2020-07-15 13:50 | disposition home or self-care (01) | DRG 872 ==
LOC: BURMED 13:20
PROVIDERS: ADMIT Family Medicine; ATTEND Family Medicine
DX: A41.9 Sepsis, unspecified organism (principal); N39.0 Urinary tract infection, site not specified; E44.1 Mild protein-calorie malnutrition; R53.81 Other malaise; I48.0 Paroxysmal atrial fibrillation; E11.9 Type 2 diabetes mellitus without complications; E03.9 Hypothyroidism, unspecified; E78.5 Hyperlipidemia, unspecified; I25.10 Atherosclerotic heart disease of native coronary artery without angina pectoris; N20.0 Calculus of kidney; I11.0 Hypertensive heart disease with heart failure; I50.9 Heart failure, unspecified; Z20.828 Contact with and (suspected) exposure to other viral communicable diseases; Z48.816 Encounter for surgical aftercare following surgery on the genitourinary system; Z90.49 Acquired absence of other specified parts of digestive tract; Z79.01 Long term (current) use of anticoagulants; Z86.718 Personal history of other venous thrombosis and embolism; I25.2 Old myocardial infarction; Z95.1 Presence of aortocoronary bypass graft; Z98.890 Other specified postprocedural states; Z93.1 Gastrostomy status; Z68.27 Body mass index [BMI] 27.0-27.9, adult
CPT/HCPCS: 36415; 36416; 71045; 80048; 80053; 82565; 83880; 85014; 85018; 85025; 85049; 85610; 85730; 86140; 87077; 87086; 87186; 87635; 93005; 93010; J0692; J1650; J3490; Q9967; S0179; U0003

== ENCOUNTER 2020-09-04 17:36 | Emergency (ER) | payer MEDICARE, BC ==
[2020-09-04 18:06] LABS: Bilirubin Negative (Negative); Blood, Urine Large (Negative); Clarity Cloudy (Clear); Glucose, Urine (Dipstick) Negative (Negative); Ketone, Urine Negative (Negative); Leukocyte Large (Negative); Nitrite Negative (Negative); Protein, Urine (Dipstick) 100 mg/dL (Neg-Trace); Specific Gravity, Urine 1.025 (1.005-1.030)
[2020-09-04 18:13] LABS: #Eosinphils 0.2 thou/uL (0.0-0.7); #Lymphocytes 1.4 thou/uL (1.20-3.40); #Monocytes 0.6 thou/uL (0.11-0.59); #Neutrophils 5.7 thou/uL (1.40-6.50); %Basophils 0.6 % (0.0-1.0); %Eosinophils 1.9 % (0.0-10.0); %Lymphocytes 18.1 % (21.0-51.0); %Monocytes 7.5 % (0.0-10.0); %Neutrophils 71.9 % (42.0-75.0); Hemoglobin 13.1 g/dL (14.0-18.0); Mean Corpuscular HGB CONC 32.7 g/dL (32.0-36.0); Mean Corpuscular Hemoglobin 33.4 pg (27.0-31.0); Mean Platelet Volume 8.3 fL (7.4-10.4); Platelet Count 123 thou/uL (130-400); RBC Distribution Width 13.7 % (11.5-14.5); Red Blood Cell (RBC) Count 3.91 mill/uL (4.70-6.10); White Blood Cell (WBC) Count 7.9 thou/uL (4.8-10.8)
[2020-09-04 18:13] LABS: WBC/HPF Greater Than 50 HPF (0-3)
[2020-09-04 18:14] LABS: Bacteria/HPF 3+ HPF (None Seen); Other Microscopic Description C&S SET UP; Squamous Epithelial 0-3 HPF (0-3)
[2020-09-04 18:24] LABS: Bilirubin Negative (Negative); Blood, Urine Moderate (Negative); Clarity Cloudy (Clear); Glucose, Urine (Dipstick) Negative (Negative); Ketone, Urine Negative (Negative); Leukocyte Large (Negative); Nitrite Negative (Negative); Protein, Urine (Dipstick) 30 mg/dL (Neg-Trace); Specific Gravity, Urine 1.025 (1.005-1.030)
[2020-09-04 18:27] LABS: Bacteria/HPF 3+ HPF (None Seen); Other Microscopic Description C&S SET; Squamous Epithelial 0-3 HPF (0-3); WBC/HPF Greater Than 50 HPF (0-3)
[2020-09-04 18:32] LABS: ALT (SGPT) 18 U/L (8-55); AST (SGOT) 25 U/L (5-34); Albumin 3.2 g/dL (3.4-4.8); Alkaline Phosphatase 122 U/L (40-110); Anion Gap 13 mmol/L (10-20); BUN (Urea Nitrogen) 12 mg/dL (8.4-25.7); Bilirubin, Total 0.8 mg/dL (0.2-1.2); Calc. Creatinine Clearance 0 mL/min (70-130); Calcium 8.5 mg/dL (7.8-10.44); Carbon Dioxide 28 mmol/L (23-31); Chloride 103 mmol/L (98-107); Globulin 3.4 g/dL (2.4-3.5); Glucose 126 mg/dL (83-110); Lipase 18 U/L (8-78); Potassium 3.9 mmol/L (3.5-5.1); Protein, Total 6.6 g/dL (5.8-8.1); Sodium 140 mmol/L (136-145)
[2020-09-04] MEDS ORDERED: cefTRIAXone\\ROCEPHIN 2 GM VIAL ONE (18:53)
[2020-09-04] MEDS ORDERED: Nitrofurantoin Monohyd/M-Cryst 100 MG CAP ONE (18:53)
[2020-09-04] MEDS ORDERED: Ondansetron PF 4 MG/2 ML Vial ONE (19:03)
== END 2020-09-04 19:10 | disposition home or self-care (01) ==
LOC: BURERS 17:36
DX: N39.0 Urinary tract infection, site not specified (principal); Z79.899 Other long term (current) drug therapy; Z79.01 Long term (current) use of anticoagulants; Z79.84 Long term (current) use of oral hypoglycemic drugs; I25.10 Atherosclerotic heart disease of native coronary artery without angina pectoris; I50.9 Heart failure, unspecified; I25.2 Old myocardial infarction; I48.91 Unspecified atrial fibrillation; E11.9 Type 2 diabetes mellitus without complications; I11.0 Hypertensive heart disease with heart failure
CPT/HCPCS: 36415; 80053; 81003; 81015; 83605; 83690; 84484; 85025; 87077; 87086; 87186; 93005; 96374; 96375; J0696; J2405

== ENCOUNTER 2020-11-01 21:05 | Emergency (ER) | payer MEDICARE, BC | END 2020-11-01 22:05 | disposition home or self-care (01) | LOC: BURERS 21:05 | DX: T83.098A Other mechanical complication of other urinary catheter, initial encounter (principal); E86.0 Dehydration; I50.9 Heart failure, unspecified; I25.10 Atherosclerotic heart disease of native coronary artery without angina pectoris; I48.91 Unspecified atrial fibrillation; E11.9 Type 2 diabetes mellitus without complications; Z79.899 Other long term (current) drug therapy | CPT/HCPCS: 51798; 99283 ==

== ENCOUNTER 2021-02-14 15:35 | Emergency (ER) | payer OTHER, MEDICARE, BC ==
[2021-02-14] MEDS ORDERED: Iopamidol 370 76% 100 ML VIAL ONE (16:11)
[2021-02-14 17:09] LABS: #Basophils 0.1 thou/uL (0.0-0.2); #Eosinphils 0.1 thou/uL (0.0-0.7); #Lymphocytes 1.3 thou/uL (1.20-3.40); #Monocytes 0.7 thou/uL (0.11-0.59); #Neutrophils 5.8 thou/uL (1.40-6.50); %Basophils 0.9 % (0.0-1.0); %Eosinophils 1.3 % (0.0-10.0); %Lymphocytes 16.8 % (21.0-51.0); %Monocytes 8.1 % (0.0-10.0); %Neutrophils 72.9 % (42.0-75.0); Hemoglobin 13.4 g/dL (14.0-18.0); Mean Corpuscular HGB CONC 33.2 g/dL (32.0-36.0); Mean Corpuscular Hemoglobin 34.7 pg (27.0-31.0); Mean Platelet Volume 8.2 fL (7.4-10.4); Platelet Count 120 thou/uL (130-400); Red Blood Cell (RBC) Count 3.85 mill/uL (4.70-6.10)
[2021-02-14 17:11] LABS: INR-International Normal Ratio 1.4; Prothrombin Time 17.7 sec (12.0-14.7)
[2021-02-14 17:14] LABS: Bilirubin Negative (Negative); Blood, Urine Moderate (Negative); Clarity Cloudy (Clear); Glucose, Urine (Dipstick) Negative (Negative); Ketone, Urine Negative (Negative); Leukocyte Large (Negative); Nitrite Positive (Negative); Protein, Urine (Dipstick) 30 mg/dL (Neg-Trace); Urobilinogen 0.2 mg/dL (Less than 2); pH, Urine 8.5 (5.0-9.0)
[2021-02-14 17:19] LABS: ALT (SGPT) 30 U/L (8-55); AST (SGOT) 27 U/L (5-34); Albumin 3.2 g/dL (3.4-4.8); Alkaline Phosphatase 88 U/L (40-110); Anion Gap 13 mmol/L (10-20); BUN (Urea Nitrogen) 21 mg/dL (8.4-25.7); Bilirubin, Total 0.7 mg/dL (0.2-1.2); Calc. Creatinine Clearance 0 mL/min (70-130); Calcium 8.6 mg/dL (7.8-10.44); Carbon Dioxide 25 mmol/L (23-31); Chloride 104 mmol/L (98-107); Globulin 3.3 g/dL (2.4-3.5); Glucose 102 mg/dL (83-110); Protein, Total 6.5 g/dL (5.8-8.1); Sodium 138 mmol/L (136-145)
[2021-02-14 17:23] LABS: Elliptocytes SLIGHT = 2-5 cells (100X) (0-1/hpf); Helmet Cells SLIGHT = 2-5 cells (100X) (0-1/hpf); Hypochromia SLIGHT = 6-15 cells (100X) (0-5/hpf); MDiff Complete? YES; Macrocytosis SLIGHT = 6-15 cells (100X) (0-5/hpf); Ovalocytes SLIGHT = 2-5 cells (100X) (0-1/hpf); Platelet Morphology Comment Appears Decreased; Schistocytes SLIGHT = 2-5 cells (100X) (0-1/hpf)
[2021-02-14 17:27] LABS: WBC/HPF Greater than 50 HPF (0-3)
[2021-02-14 17:28] LABS: Squamous Epithelial None Seen HPF (0-3)
[2021-02-14 17:29] LABS: Bacteria/HPF 3+ HPF (None Seen); Triple Phosphate Crystal 1+ HPF (None Seen)
== END 2021-02-14 19:15 | disposition home or self-care (01) ==
LOC: BURERS 15:35
DX: S20.229A Contusion of unspecified back wall of thorax, initial encounter (principal); I11.0 Hypertensive heart disease with heart failure; I50.9 Heart failure, unspecified; I25.10 Atherosclerotic heart disease of native coronary artery without angina pectoris; I48.91 Unspecified atrial fibrillation; E11.9 Type 2 diabetes mellitus without complications; Z79.01 Long term (current) use of anticoagulants; Z79.899 Other long term (current) drug therapy; W01.0XXA Fall on same level from slipping, tripping and stumbling without subsequent striking against object, initial encounter
CPT/HCPCS: 36415; 70450; 71260; 72125; 74177; 80053; 81003; 81015; 85025; 85610; 87086; 93005; Q9967

== ENCOUNTER 2021-06-18 16:09 | Inpatient (IN) | payer MEDICARE, BC ==
[2021-06-18] MEDS ORDERED: Acetaminophen 650 MG Suppository PR PRN (21:06)
[2021-06-18] MEDS ORDERED: Acetaminophen 325 MG TAB PO PRN (21:06)
[2021-06-18] MEDS ORDERED: Ondansetron ODT 4 MG TAB PO PRN (21:07)
[2021-06-18] MEDS ORDERED: Bisacodyl 5 MG TAB PO PRN (21:10)
[2021-06-18] MEDS ORDERED: Senokot S 8.6-50 MG TAB PO PRN (21:10)
[2021-06-18] MEDS ORDERED: Famotidine 20 MG TAB PO SCH (21:15)
[2021-06-18 21:22] VITALS: BMI 28.3
[2021-06-18] MEDS ORDERED: Ondansetron PF 4 MG/2 ML Vial IVP PRN (22:28)
[2021-06-18] MEDS ORDERED: Famotidine In NaCl,Iso-Osm/PF 20 MG in Premix Bag 1 BAG IVPB SCH (22:30)
[2021-06-18] MEDS ORDERED: Ondansetron ODT 4 MG TAB PER TUBE PRN (23:24)
[2021-06-18] MEDS ORDERED: Famotidine 20 MG TAB PER TUBE SCH (23:30)
[2021-06-19] MEDS ORDERED: Cyclobenzaprine 10 MG TAB ONE (02:22)
[2021-06-19] MEDS ORDERED: Cyclobenzaprine 10 MG TAB PO PRN (04:38)
[2021-06-19] MEDS ORDERED: Cyclobenzaprine 10 MG TAB PER TUBE PRN (08:45)
[2021-06-19 08:48] LABS: #Basophils 0.1 thou/uL (0.0-0.2); #Eosinphils 0.1 thou/uL (0.0-0.7); #Lymphocytes 1.7 thou/uL (1.20-3.40); #Monocytes 0.8 thou/uL (0.11-0.59); #Neutrophils 8.5 thou/uL (1.40-6.50); %Basophils 0.8 % (0.0-1.0); %Lymphocytes 15.3 % (21.0-51.0); Hemoglobin 11.9 g/dL (14.0-18.0); Mean Corpuscular HGB CONC 31.9 g/dL (32.0-36.0); Mean Corpuscular Hemoglobin 31.6 pg (27.0-31.0); Mean Corpuscular Volume 99.2 fL (78.0-98.0); Mean Platelet Volume 8.9 fL (7.4-10.4); Platelet Count 127 thou/uL (130-400); RBC Distribution Width 15.6 % (11.5-14.5); Red Blood Cell (RBC) Count 3.75 mill/uL (4.70-6.10); White Blood Cell (WBC) Count 11.2 thou/uL (4.8-10.8)
[2021-06-19] MEDS ORDERED: Potassium Chloride 10 MEQ TAB PO SCH (09:00)
[2021-06-19] MEDS ORDERED: Furosemide 20 MG TAB PO SCH (09:00)
[2021-06-19] MEDS ORDERED: Non-Formulary Item 1 EACH (Ferrous Sulfate [Ferrous Sulfate] 325 MG Tab) PO SCH (09:00)
[2021-06-19] MEDS ORDERED: Budesonide 0.5 MG/2 ML NEB NEB SCH (09:00)
[2021-06-19] MEDS ORDERED: Folic Acid 1 MG TAB PO SCH (09:00)
[2021-06-19] MEDS ORDERED: Pramipexole Di-HCl 0.25 MG TAB PO SCH (09:00)
[2021-06-19] MEDS ORDERED: Famotidine In NaCl,Iso-Osm/PF 20 MG in Premix Bag 1 BAG IVPB SCH (09:00)
[2021-06-19] MEDS ORDERED: Cyanocobalamin (Vitamin B-12) 1,000 MCG TAB PO SCH (09:00)
[2021-06-19] MEDS ORDERED: Famotidine 20 MG TAB PER TUBE SCH (09:00)
[2021-06-19] MEDS ORDERED: LEVOTHYROXINE SODIUM PO SCH (09:00)
[2021-06-19] MEDS ORDERED: Ferrous Sulfate 325 MG TAB PO SCH (09:00)
[2021-06-19] MEDS ORDERED: Apixaban 2.5 MG TAB PO SCH (09:00)
[2021-06-19] MEDS ORDERED: Famotidine 20 MG TAB PO SCH (09:00)
[2021-06-19] MEDS ORDERED: Aspirin 81 mg Enteric Coated Tablet PO SCH (09:00)
[2021-06-19] MEDS: Senokot S 8.6-50 MG TAB PER TUBE PRN (09:05)
[2021-06-19] MEDS: Scopolamine 1.5 mg/72 hour Patch TD SCH (09:06)
[2021-06-19] MEDS: Amiodarone 200 MG TAB PER TUBE SCH (09:07)
[2021-06-19] MEDS: Folic Acid 1 MG TAB PER TUBE SCH (09:08)
[2021-06-19] MEDS: Cyanocobalamin (Vitamin B-12) 1,000 MCG TAB PER TUBE SCH (09:08)
[2021-06-19] MEDS: Pramipexole Di-HCl 0.25 MG TAB PER TUBE SCH ×3 (09:08→20:27)
[2021-06-19] MEDS: Furosemide 20 MG TAB PER TUBE SCH (09:09)
[2021-06-19] MEDS: Pantoprazole 40 MG GRANULES PACKET PER TUBE SCH (09:09)
[2021-06-19] MEDS: traMADol HCl 50 MG TAB PER TUBE PRN (09:10)
[2021-06-19] MEDS: Apixaban 2.5 MG TAB PER TUBE SCH (09:10)
[2021-06-19] MEDS: Cholecalciferol (Vitamin D3) 5,000 UNITS CAPSULE PO SCH (09:26)
[2021-06-19] MEDS: Budesonide 0.5 MG/2 ML NEB NEB SCH ×2 (11:30→20:28)
[2021-06-19] MEDS ORDERED: Non-Formulary Item 1 EACH (Midodrine [Midodrine] 10 MG Tab) PO SCH (14:00)
[2021-06-19] MEDS: Midodrine HCl 5 MG TAB PER TUBE SCH ×2 (16:23→22:49)
[2021-06-19] MEDS: Tamsulosin HCl 0.4 MG CAP PO SCH (20:26)
[2021-06-19] MEDS: Zolpidem Tartrate 5 MG TAB PER TUBE SCH (20:27)
[2021-06-19] MEDS: Atorvastatin Calcium 10 MG TAB PER TUBE SCH (20:28)
[2021-06-19] MEDS ORDERED: Non-Formulary Item 1 EACH (Zolpidem Tartrate [Ambien] 10 MG Tablet) PO SCH (21:00)
[2021-06-19 23:47] LABS: SARS-CoV-2 PCR by NAA Not Detected (NotDetected)
[2021-06-20] MEDS: Midodrine HCl 5 MG TAB PER TUBE SCH ×3 (06:04→21:08)
[2021-06-20] MEDS: Levothyroxine Sodium 50 MCG TAB PER TUBE SCH (06:04)
[2021-06-20] MEDS: Pramipexole Di-HCl 0.25 MG TAB PER TUBE SCH ×3 (08:56→21:08)
[2021-06-20] MEDS: Pantoprazole 40 MG GRANULES PACKET PER TUBE SCH (08:57)
[2021-06-20] MEDS: Cyanocobalamin (Vitamin B-12) 1,000 MCG TAB PER TUBE SCH (08:58)
[2021-06-20] MEDS: Cholecalciferol (Vitamin D3) 5,000 UNITS CAPSULE PO SCH (08:58)
[2021-06-20] MEDS: Amiodarone 200 MG TAB PER TUBE SCH (08:59)
[2021-06-20] MEDS: Furosemide 20 MG TAB PER TUBE SCH (08:59)
[2021-06-20] MEDS: Aspirin Chewable 81 MG TAB PER TUBE SCH (08:59)
[2021-06-20] MEDS: Apixaban 2.5 MG TAB PER TUBE SCH (09:00)
[2021-06-20] MEDS: Folic Acid 1 MG TAB PER TUBE SCH (09:00)
[2021-06-20] MEDS: Budesonide 0.5 MG/2 ML NEB NEB SCH ×2 (09:01→21:09)
[2021-06-20] MEDS ORDERED: Potassium Chloride 10 MEQ TAB PER TUBE SCH (12:00)
[2021-06-20] MEDS: Tamsulosin HCl 0.4 MG CAP PO SCH (21:07)
[2021-06-20] MEDS: Zolpidem Tartrate 5 MG TAB PER TUBE SCH (21:08)
[2021-06-20] MEDS: Atorvastatin Calcium 10 MG TAB PER TUBE SCH (21:08)
[2021-06-21] MEDS: traMADol HCl 50 MG TAB PER TUBE PRN (03:08)
[2021-06-21] MEDS: Midodrine HCl 5 MG TAB PER TUBE SCH ×3 (05:27→21:12)
[2021-06-21] MEDS: Levothyroxine Sodium 50 MCG TAB PER TUBE SCH (05:27)
[2021-06-21] MEDS: Pramipexole Di-HCl 0.25 MG TAB PER TUBE SCH ×3 (08:34→20:24)
[2021-06-21] MEDS: Budesonide 0.5 MG/2 ML NEB NEB SCH ×2 (08:35→20:24)
[2021-06-21] MEDS: Folic Acid 1 MG TAB PER TUBE SCH (08:36)
[2021-06-21] MEDS: Furosemide 20 MG TAB PER TUBE SCH (08:36)
[2021-06-21] MEDS: Amiodarone 200 MG TAB PER TUBE SCH (08:36)
[2021-06-21] MEDS: Pantoprazole 40 MG GRANULES PACKET PER TUBE SCH (08:36)
[2021-06-21] MEDS: Aspirin Chewable 81 MG TAB PER TUBE SCH (08:37)
[2021-06-21] MEDS: Apixaban 2.5 MG TAB PER TUBE SCH (08:38)
[2021-06-21] MEDS: Cyanocobalamin (Vitamin B-12) 1,000 MCG TAB PER TUBE SCH (08:38)
[2021-06-21] MEDS: Cholecalciferol (Vitamin D3) 5,000 UNITS CAPSULE PO SCH (08:38)
[2021-06-21] MEDS: Potassium Chloride 10 MEQ TAB PER TUBE SCH (08:38)
[2021-06-21] MEDS: Senokot S 8.6-50 MG TAB PER TUBE PRN (15:10)
[2021-06-21] MEDS: Zolpidem Tartrate 5 MG TAB PER TUBE SCH (20:24)
[2021-06-21] MEDS: Atorvastatin Calcium 10 MG TAB PER TUBE SCH (20:24)
[2021-06-21] MEDS: Tamsulosin HCl 0.4 MG CAP PO SCH (20:24)
[2021-06-22] MEDS: Levothyroxine Sodium 50 MCG TAB PER TUBE SCH (06:05)
[2021-06-22] MEDS: Midodrine HCl 5 MG TAB PER TUBE SCH ×3 (06:05→21:13)
[2021-06-22] MEDS: Aspirin Chewable 81 MG TAB PER TUBE SCH (08:55)
[2021-06-22] MEDS: Cholecalciferol (Vitamin D3) 5,000 UNITS CAPSULE PO SCH (08:55)
[2021-06-22] MEDS: Pramipexole Di-HCl 0.25 MG TAB PER TUBE SCH ×3 (08:55→20:36)
[2021-06-22] MEDS: Amiodarone 200 MG TAB PER TUBE SCH (08:55)
[2021-06-22] MEDS: Folic Acid 1 MG TAB PER TUBE SCH (08:55)
[2021-06-22] MEDS: Apixaban 2.5 MG TAB PER TUBE SCH (08:56)
[2021-06-22] MEDS: Furosemide 20 MG TAB PER TUBE SCH (08:56)
[2021-06-22] MEDS: Senokot S 8.6-50 MG TAB PER TUBE PRN (08:57)
[2021-06-22] MEDS: Scopolamine 1.5 mg/72 hour Patch TD SCH (08:57)
[2021-06-22] MEDS: Cyanocobalamin (Vitamin B-12) 1,000 MCG TAB PER TUBE SCH (08:57)
[2021-06-22] MEDS: Budesonide 0.5 MG/2 ML NEB NEB SCH ×2 (08:58→20:38)
[2021-06-22] MEDS: Pantoprazole 40 MG GRANULES PACKET PER TUBE SCH (09:01)
[2021-06-22] MEDS: Potassium Chloride 10 MEQ TAB PER TUBE SCH (09:01)
[2021-06-22] MEDS: Bisacodyl 10 MG SUPP PR PRN (10:46)
[2021-06-22 12:50] LABS: #Basophils 0.2 thou/uL (0.0-0.2); #Eosinphils 0.1 thou/uL (0.0-0.7); #Lymphocytes 1.1 thou/uL (1.20-3.40); #Monocytes 0.7 thou/uL (0.11-0.59); #Neutrophils 7.6 thou/uL (1.40-6.50); %Basophils 1.7 % (0.0-1.0); %Eosinophils 0.8 % (0.0-10.0); %Lymphocytes 11.5 % (21.0-51.0); %Monocytes 7.3 % (0.0-10.0); %Neutrophils 78.8 % (42.0-75.0); Hemoglobin 10.1 g/dL (14.0-18.0); Mean Corpuscular HGB CONC 31.7 g/dL (32.0-36.0); Mean Corpuscular Hemoglobin 31.6 pg (27.0-31.0); Mean Corpuscular Volume 99.8 fL (78.0-98.0); Mean Platelet Volume 9.4 fL (7.4-10.4); Platelet Count 162 thou/uL (130-400); RBC Distribution Width 15.5 % (11.5-14.5); Red Blood Cell (RBC) Count 3.18 mill/uL (4.70-6.10); White Blood Cell (WBC) Count 9.6 thou/uL (4.8-10.8)
[2021-06-22 13:06] LABS: Anion Gap 14 mmol/L (10-20); BUN (Urea Nitrogen) 25 mg/dL (8.4-25.7); Calc. Creatinine Clearance 90 mL/min (70-130); Calcium 9.5 mg/dL (7.8-10.44); Carbon Dioxide 35 mmol/L (23-31); Glucose 137 mg/dL (83-110)
[2021-06-22 13:10] LABS: Chloride 101 mmol/L (98-107); Potassium 5.1 mmol/L (3.5-5.1); Sodium 144 mmol/L (136-145)
[2021-06-22 14:51] LABS: Bilirubin Negative (Negative); Blood, Urine Moderate (Negative); Clarity Slightly Cloudy (Clear); Glucose, Urine (Dipstick) Negative (Negative); Ketone, Urine Negative (Negative); Leukocyte Moderate (Negative); Nitrite Negative (Negative); Protein, Urine (Dipstick) 30 mg/dL (Neg-Trace); pH, Urine 5.5 (5.0-9.0)
[2021-06-22] MEDS ORDERED: Sodium Chloride 0.9% 500 ML IV SCH (15:00)
[2021-06-22] MEDS ORDERED: Sodium Chloride 0.9% 1,000 ML IV SCH (15:00)
[2021-06-22] MEDS ORDERED: Piperacillin/Tazobactam 3.375 GM in Sodium Chloride 0.9% 100 ML IVPB SCH ×2 (15:30→15:45)
[2021-06-22] MEDS: traMADol HCl 50 MG TAB PER TUBE PRN ×2 (16:12→23:48)
[2021-06-22] MEDS: Zolpidem Tartrate 5 MG TAB PER TUBE SCH (20:36)
[2021-06-22] MEDS: Atorvastatin Calcium 10 MG TAB PER TUBE SCH (20:37)
[2021-06-22] MEDS: Tamsulosin HCl 0.4 MG CAP PO SCH (20:37)
[2021-06-22] MEDS: Piperacillin/Tazobactam 3.375 GM in Sodium Chloride 0.9% 100 ML IVPB SCH (21:07)
[2021-06-23] MEDS: Piperacillin/Tazobactam 3.375 GM in Sodium Chloride 0.9% 100 ML IVPB SCH ×3 (03:50→20:25)
[2021-06-23] MEDS: Midodrine HCl 5 MG TAB PER TUBE SCH ×3 (05:54→21:28)
[2021-06-23] MEDS: Levothyroxine Sodium 50 MCG TAB PER TUBE SCH (05:54)
[2021-06-23] MEDS: Pramipexole Di-HCl 0.25 MG TAB PER TUBE SCH ×3 (09:36→20:24)
[2021-06-23] MEDS: Apixaban 2.5 MG TAB PER TUBE SCH (09:37)
[2021-06-23] MEDS: Cyanocobalamin (Vitamin B-12) 1,000 MCG TAB PER TUBE SCH (09:37)
[2021-06-23] MEDS: Furosemide 20 MG TAB PER TUBE SCH (09:37)
[2021-06-23] MEDS: Folic Acid 1 MG TAB PER TUBE SCH (09:37)
[2021-06-23] MEDS: Aspirin Chewable 81 MG TAB PER TUBE SCH (09:38)
[2021-06-23] MEDS: Cholecalciferol (Vitamin D3) 5,000 UNITS CAPSULE PO SCH (09:38)
[2021-06-23] MEDS: Amiodarone 200 MG TAB PER TUBE SCH (09:39)
[2021-06-23] MEDS: Pantoprazole 40 MG GRANULES PACKET PER TUBE SCH (09:39)
[2021-06-23] MEDS: Budesonide 0.5 MG/2 ML NEB NEB SCH ×2 (09:39→20:35)
[2021-06-23] MEDS: Potassium Chloride 10 MEQ TAB PER TUBE SCH (09:39)
[2021-06-23] MEDS: Senokot S 8.6-50 MG TAB PER TUBE PRN (09:57)
[2021-06-23] MEDS ORDERED: Fluconazole 100 MG TAB PER TUBE SCH (16:00)
[2021-06-23] MEDS: Bisacodyl 10 MG SUPP PR PRN (17:32)
[2021-06-23] MEDS: Zolpidem Tartrate 5 MG TAB PER TUBE SCH (20:23)
[2021-06-23] MEDS: Tamsulosin HCl 0.4 MG CAP PO SCH (20:23)
[2021-06-23] MEDS: Atorvastatin Calcium 10 MG TAB PER TUBE SCH (20:24)
[2021-06-24] MEDS: traMADol HCl 50 MG TAB PER TUBE PRN (00:55)
[2021-06-24] MEDS: Piperacillin/Tazobactam 3.375 GM in Sodium Chloride 0.9% 100 ML IVPB SCH (03:45)
[2021-06-24 05:26] VITALS: BP 117/72; TEMP 98.5
[2021-06-24] MEDS ORDERED: FLU VACC QS2021-22(65YR UP)/PF 240 MCG/0.7 ML SYRINGE IM ONE ×3 (05:57→16:15)
[2021-06-24] MEDS: Midodrine HCl 5 MG TAB PER TUBE SCH (06:02)
[2021-06-24] MEDS: Levothyroxine Sodium 50 MCG TAB PER TUBE SCH (06:05)
== END 2021-06-24 07:28 | disposition short-term general hospital (02) | DRG 872 ==
LOC: BURMED 20:20
PROVIDERS: ADMIT Family Medicine; ATTEND Family Medicine
DX: A41.9 Sepsis, unspecified organism (principal); J96.11 Chronic respiratory failure with hypoxia; I50.32 Chronic diastolic (congestive) heart failure; N39.0 Urinary tract infection, site not specified; N17.9 Acute kidney failure, unspecified; I24.8 Other forms of acute ischemic heart disease; N20.1 Calculus of ureter; R53.81 Other malaise; I25.10 Atherosclerotic heart disease of native coronary artery without angina pectoris; I48.91 Unspecified atrial fibrillation; E03.9 Hypothyroidism, unspecified; E11.9 Type 2 diabetes mellitus without complications; R40.0 Somnolence; R60.0 Localized edema; N28.9 Disorder of kidney and ureter, unspecified; Z20.822 Contact with and (suspected) exposure to COVID-19; I95.9 Hypotension, unspecified; R65.20 Severe sepsis without septic shock; Z99.81 Dependence on supplemental oxygen; Z79.899 Other long term (current) drug therapy; Z95.1 Presence of aortocoronary bypass graft; Z90.49 Acquired absence of other specified parts of digestive tract; Z98.890 Other specified postprocedural states
CPT/HCPCS: 36415; 36416; 74019; 80048; 81003; 85025; 87086; J2543; J3490; J7050; J7620; J7626; U0003; U0005

== ENCOUNTER 2021-06-24 07:21 | Emergency (ER) | payer MEDICARE, BC ==
[2021-06-24 08:01] LABS: #Basophils 0.1 thou/uL (0.0-0.2); #Eosinphils 0.1 thou/uL (0.0-0.7); #Monocytes 0.9 thou/uL (0.11-0.59); #Neutrophils 8.6 thou/uL (1.40-6.50); %Basophils 1.1 % (0.0-1.0); %Eosinophils 0.7 % (0.0-10.0); %Lymphocytes 9.2 % (21.0-51.0); %Monocytes 8.6 % (0.0-10.0); %Neutrophils 80.4 % (42.0-75.0); Hemoglobin 10.1 g/dL (14.0-18.0); Mean Corpuscular HGB CONC 31.2 g/dL (32.0-36.0); Mean Corpuscular Volume 99.5 fL (78.0-98.0); Mean Platelet Volume 8.4 fL (7.4-10.4); Platelet Count 156 thou/uL (130-400); RBC Distribution Width 15.5 % (11.5-14.5); Red Blood Cell (RBC) Count 3.26 mill/uL (4.70-6.10); White Blood Cell (WBC) Count 10.7 thou/uL (4.8-10.8)
[2021-06-24 08:10] LABS: Bilirubin Negative (Negative); Blood, Urine Large (Negative); Clarity Turbid (Clear); Glucose, Urine (Dipstick) Negative (Negative); Ketone, Urine Negative (Negative); Leukocyte Moderate (Negative); Nitrite Negative (Negative); Protein, Urine (Dipstick) > or equal to 300 mg/dL (Neg-Trace); Specific Gravity, Urine 1.025 (1.005-1.030)
[2021-06-24 08:20] LABS: Anion Gap 11 mmol/L (10-20)
[2021-06-24 08:20] LABS: WBC/HPF Greater Than 50 HPF (0-3)
[2021-06-24 08:21] LABS: Bacteria/HPF 3+ HPF (None Seen); RBC/HPF 21-50 HPF (0-3); Squamous Epithelial 0-3 HPF (0-3); Yeast-Budding 1+ HPF (None Seen); Yeast-Hyphae 2+ HPF (None Seen)
[2021-06-24 08:25] LABS: Chloride 102 mmol/L (98-107); Potassium 4.4 mmol/L (3.5-5.1); Sodium 146 mmol/L (136-145)
[2021-06-24 08:27] LABS: ALT (SGPT) 27 U/L (8-55); AST (SGOT) 37 U/L (5-34); Albumin 2.3 g/dL (3.4-4.8); Alkaline Phosphatase 228 U/L (40-110); BUN (Urea Nitrogen) 34 mg/dL (8.4-25.7); Bilirubin, Total 0.7 mg/dL (0.2-1.2); CK (CPK) 20 U/L (30-200); Calc. Creatinine Clearance 0 mL/min (70-130); Calcium 9.3 mg/dL (7.8-10.44); Carbon Dioxide 38 mmol/L (23-31); Globulin 5.4 g/dL (2.4-3.5); Glucose 139 mg/dL (83-110); Lipase 25 U/L (8-78); Protein, Total 7.7 g/dL (5.8-8.1)
[2021-06-24] MEDS ORDERED: Acetaminophen 500 MG TAB ONE (11:03)
[2021-06-24] MEDS ORDERED: cefTRIAXone\\ROCEPHIN 2 GM VIAL ONE (11:39)
[2021-06-24] MEDS ORDERED: Sodium Chloride 0.9% 100 ML ONE (11:39)
== END 2021-06-24 15:35 | disposition short-term general hospital (02) ==
LOC: BURERS 07:21
DX: I11.0 Hypertensive heart disease with heart failure (principal); I50.9 Heart failure, unspecified; N39.0 Urinary tract infection, site not specified; E11.9 Type 2 diabetes mellitus without complications; I25.2 Old myocardial infarction
CPT/HCPCS: 70450; 71045; 80053; 81003; 81015; 82550; 83605; 83690; 83880; 84484; 85025; 87086; 93005; 36415-59; J0696; J3490